=== PATIENT | male | born 1935 | race Caucasian/White ===

== ENCOUNTER 2022-02-01 22:00 | Inpatient (IN) ==
[2022-02-01] MEDS ORDERED: CEFEPIME 2,000 MG/20 ML VIAL IV STA (22:25)
[2022-02-01] MEDS ORDERED: SODIUM CHLORIDE 0.9% 1000ML 1,000 ML IV SCH (22:30)
--- NOTE | 2022-02-01 22:32 | Emergency Department Note ---
History of Present Illness General Chief complaint: Fever Stated complaint: CHEMO, FEVER 103.9 Time Seen by Provider: 02/01/22 22:12 Source: patient and family Mode of arrival: wheelchair Limitations: physical limitation History of Present Illness Provider complaint: fever This is an 86-year-old male presents emergency department due to concern for fever. Patient is currently receiving chemotherapy for treatment of lung cancer with metastases per his report. Patient states this is his second cycle of chemotherapy and his second dose was Friday. He states he has been increasingly fatigued since Friday but never developed a fever until this evening. states he got as high as 103.9. He did receive a packet of Tylenol that was flushed through his feeding tube. She states the feeding tube has been working easily. This the only way he receives food and fluids at home. Patient does have a port. They state his oncologist is Dr. Cornell. Family at bedside states they have not noticed any change in stools. They state he does have an indwelling Fowler catheter. They states this was changed earlier today. States PCP is a Dr. Sharma in [place]. Patient denies chest pain, shortness of breath. States he does have a chronic cough that is nonproductive. He denies abdominal pain, vomiting or diarrhea. Patient states the plan was for him to do chemotherapy followed by radiation and then surgery for the tumor in his tongue. Pt seen during a time of high acuity and national emergency pandemic while wearing PPE. Home Medications Medication Instructions Recorded Confirmed Type amlodipine 5 mg tablet 5 mg PO BID 02/01/22 02/01/22 History aspirin 81 mg tablet,delayed 81 mg PO DAILY 02/01/22 02/01/22 History release atorvastatin 40 mg tablet 40 mg PO HS 02/01/22 02/01/22 History clopidogrel 75 mg tablet 75 mg PO QAM 02/01/22 02/01/22 History dexamethasone 4 mg tablet 20 mg PO UD 02/01/22 02/01/22 History docusate sodium 100 mg capsule 100 mg PO BID PRN Constipation 02/01/22 02/01/22 History febuxostat 40 mg tablet 40 mg PO QAM 02/01/22 02/01/22 History isosorbide mononitrate 120 mg 120 mg PO DAILY 02/01/22 02/01/22 History tablet,extended release 24 hr metoprolol tartrate 25 mg tablet 25 mg PO BID 02/01/22 02/01/22 History pentoxifylline 400 mg 400 mg PO BID 02/01/22 02/01/22 History tablet,extended release polyethylene glycol 3350 17 17 g PO DAILY PRN Constipation 02/01/22 02/01/22 History gram/dose oral powder prochlorperazine maleate 10 mg 10 mg PO Q8 PRN Nausea And Vomiting 02/01/22 02/01/22 History tablet tamsulosin 0.4 mg capsule 0.4 mg PO DAILY 02/01/22 02/01/22 History Allergies Allergy/AdvReac Type Severity Reaction Status Date / Time No Known Allergies Allergy Unverified 02/01/22 23:10 Past Med/Surg History Social History Smoking Status: Former smoker Hx Alcohol Use: No Hx Substance Use: No Preferred Language: Maltese Communication Ability: Effective General Accounting Manager Required: No Beliefs That Will Affect Care: None marital status: Current Living Situation: Spouse Feels Safe at Home: Yes Assistive Devices: Walker Review of Systems A total of 10 systems reviewed and were otherwise negative All systems reviewed & are unremarkable except as noted in HPI & below Physical Exam Vital Signs Vital Signs - 24 hr 02/01/22 22:05 02/01/22 22:25 02/01/22 22:55 Temperature 38.6 C H Temperature Source Temporal Artery Scan Pulse Rate 112 H Respiratory Rate 18 Respiratory Effort / Characteristics Non-Labored Spontaneous Non-Labored Non-Labored Respiratory Depth Normal Blood Pressure 124/49 L Blood Pressure Mean 74 Pulse Oximetry 95 Oxygen Delivery Method Room Air Sepsis Recent Fever Within 48 Hours Yes Sepsis New/Unexplained Change in Mental Status No Sepsis Action Taken by Nursing No Action Required 02/01/22 23:25 02/01/22 23:47 Temperature Temperature Source Pulse Rate 98 H Respiratory Rate 19 Respiratory Effort / Characteristics Non-Labored Respiratory Depth Blood Pressure 101/56 L Blood Pressure Mean 71 Pulse Oximetry 99 Oxygen Delivery Method Room Air Sepsis Recent Fever Within 48 Hours Sepsis New/Unexplained Change in Mental Status Sepsis Action Taken by Nursing GENERAL: alert, unwell appearing, no distress, non-toxic EYE EXAM: normal conjunctiva, PERRL and EOM's grossly intact OROPHARYNX: no exudate, no erythema, lips, buccal mucosa, and tongue normal and mucous membranes are moist NECK: supple, no nuchal rigidity, no adenopathy, non-tender LUNGS: Clear to auscultation. Normal chest wall mechanics, no w/r/r HEART: no murmurs, S1 normal and S2 normal, port left anterior superior chest wall ABDOMEN: abdomen soft, non-tender, normo-active bowel sounds, no masses, no rebound or guarding. Feeding tube noted left upper quadrant, mild drainage surrounding stoma, evidence of vascular bypass noted bilateral inguinal region BACK: Back is symmetrical on inspection and there is no deformity, no midline tenderness, no CVA tenderness. SKIN: no rashes and no bruising, no petechiae UPPER EXTREMITIES: upper extremities are grossly normal. FROM, nml pulses b/l. LOWER EXTREMITIES: No pitting edema. FROM, nml pulses b/l. Fowler catheter leg bag in place RLE. NEURO EXAM: Normal sensorium, cranial nerves II-XII grossly intact, normal speech, no gross weakness of arms, no gross weakness of legs. Gross sensation intact. Course Course 0015: VS stable. states Fowler catheter was first placed 3 days ago when he could not urinate and had increased swelling to his lower abdomen. states this was done in [place]. 0022: Discussed with Dr. Tsang. Administered Medications Aspirin (Aspirin 81 Mg Ectab) 81 mg PO DAILY [facility] Stop: 03/04/22 08:59 Last Admin: 02/03/22 08:48 Dose: 81 mg Documented By: Admin: 02/02/22 08:49 Dose: 81 mg Documented By: CÉSAR Atorvastatin Calcium (Atorvastatin 40 Mg Tab) 40 mg PO [facility] Stop: 03/04/22 20:59 Last Admin: 02/03/22 20:48 Dose: 40 mg Documented By: Admin: 02/02/22 21:50 Dose: 40 mg Documented By: DON Clopidogrel Bisulfate (Clopidogrel Bisulfate 75 Mg Tab) [facility] Stop: 03/04/22 08:59 Last Admin: 02/03/22 08:48 Dose: 75 mg Documented By: Admin: 02/02/22 08:49 Dose: 75 mg Documented By: CÉSAR Enteral Nutritional Formula (Peptamen 1.5 Keith 1,000 Ml Bag) 1,000 ml PEG UD [facility]; Protocol Stop: 03/04/22 15:14 Last Admin: 02/03/22 22:22 Dose: 1,000 ml Documented By: Admin: 02/02/22 16:51 Dose: 1,000 ml Documented By: LOBITO Heparin Sodium (Porcine) (Heparin Sod 5,000 Unit/0.5 Ml Vial) 5,000 units SQ Q12 FLO Stop: 03/04/22 08:59 Last Admin: 02/03/22 20:48 Dose: 5,000 units Documented By: Admin: 02/03/22 08:50 Dose: 5,000 units Documented By: Admin: 02/02/22 21:49 Dose: 5,000 units Documented By: Admin: 02/02/22 08:50 Dose: 5,000 units Documented By: CÉSAR Piperacillin Sod/Tazobactam (Sod 3.375 gm/ Dextrose) 115 mls @ 28.75 mls/hr IV Q12H FLO; Protocol Stop: 02/03/22 23:59 Last Admin: 02/03/22 20:47 Dose: 28.8 mls/hr Documented By: Infusion: 02/03/22 13:40 Dose: 0 mls/hr Documented By: Admin: 02/03/22 08:47 Dose: 28 mls/hr Documented By: Infusion: 02/03/22 07:15 Dose: 0 mls/hr Documented By: Admin: 02/02/22 21:49 Dose: 29 mls/hr Documented By: Infusion: 02/02/22 15:17 Dose: 0 mls/hr Documented By: Admin: 02/02/22 09:09 Dose: 28.8 mls/hr Documented By: CÉSAR Metoprolol Tartrate (Metoprolol Tartrate 25 Mg Tab) 25 mg PO BID FLO Stop: 03/04/22 08:59 Last Admin: 02/03/22 20:47 Dose: 25 mg Documented By: Admin: 02/03/22 08:49 Dose: 25 mg Documented By: Admin: 02/02/22 21:50 Dose: 25 mg Documented By: Admin: 02/02/22 08:51 Dose: 25 mg Documented By: CÉSAR Miscellaneous (Febuxostat - Order Awaiting Action) 1 each N/A QS FLO Stop: 03/04/22 07:59 Last Admin: 02/03/22 17:04 Dose: 1 each Documented By: Admin: 02/03/22 09:07 Dose: Not Given Documented By: Admin: 02/03/22 09:07 Dose: Not Given Documented By: Admin: 02/03/22 09:06 Dose: Not Given Documented By: Admin: 02/03/22 08:44 Dose: Not Given Documented By: TRH Pentoxifylline (Pentoxifylline 400mg Ext Rel Tab) 400 mg PO BID FLO Stop: 03/04/22 08:59 Last Admin: 02/03/22 20:48 Dose: 400 mg Documented By: Admin: 02/03/22 08:49 Dose: 400 mg Documented By: Admin: 02/02/22 21:50 Dose: 400 mg Documented By: Admin: 02/02/22 08:51 Dose: 400 mg Documented By: CÉSAR Sterile Water (Tube Feeding Water Flush) 120 ml PEG Q4H FLO Stop: 03/04/22 15:14 Last Admin: 02/03/22 20:48 Dose: 120 ml Documented By: Admin: 02/03/22 17:03 Dose: Not Given Documented By: Admin: 02/03/22 12:00 Dose: 120 ml Documented By: Admin: 02/03/22 07:15 Dose: 120 ml Documented By: Admin: 02/03/22 03:15 Dose: 120 ml Documented By: business management manager: 02/02/22 23:15 Dose: 120 ml Documented By: business management manager: 02/02/22 20:00 Dose: 120 ml Documented By: Admin: 02/02/22 16:51 Dose: 120 ml Documented By: SLClarisse Tamsulosin HCl (Tamsulosin Hcl 0.4 Mg Cap) 0.4 mg PO DAILY FLO Stop: 03/04/22 08:59 Last Admin: 02/03/22 08:49 Dose: 0.4 mg Documented By: Admin: 02/02/22 08:51 Dose: 0.4 mg Documented By: CÉSAR Discontinued Medications Amlodipine Besylate (Amlodipine Besylate 5 Mg Tab) 5 mg PO BID FLO Stop: 03/04/22 08:59 Last Admin: 02/02/22 21:50 Dose: 5 mg Documented By: Admin: 02/02/22 08:48 Dose: 5 mg Documented By: CÉSAR Heparin Sodium (Porcine) (Heparin 100 Unit/Ml 5ml Flush) Confirm Administered Dose 5 ml .ROUTE .STK-MED ONE Stop: 02/02/22 13:24 Last Admin: 02/03/22 07:25 Dose: Not Given Documented By: TRH Sodium Chloride (Nss 1000ml) 1,000 mls @ 999 mls/hr IV .Q1H1M FLO Stop: 02/01/22 23:30 Last Infusion: 02/02/22 00:01 Dose: 0 mls/hr Documented By: Admin: 02/01/22 22:59 Dose: 999 mls/hr Documented By: DP Cefepime HCl (Maxipime) 2,000 mg in 20 mls @ 5 mls/min IV NOW STA; Protocol Stop: 02/01/22 22:28 Last Admin: 02/01/22 22:59 Dose: 5 mls/min Documented By: DP Acetaminophen (Ofirmev) 1,000 mg in 100 mls @ 400 mls/hr IV NOW STA Stop: 02/02/22 00:18 Last Infusion: 02/02/22 00:44 Dose: 0 mls/hr Documented By: Admin: 02/02/22 00:29 Dose: 400 mls/hr Documented By: DP Sodium Chloride (Nss 1000ml) 1,000 mls @ 999 mls/hr IV .Q1H1M ONE Stop: 02/02/22 01:23 Last Infusion: 02/02/22 02:19 Dose: 0 mls/hr Documented By: Admin: 02/02/22 01:18 Dose: 999 mls/hr Documented By: DP Sodium Chloride (Nss 1000ml) 1,000 mls @ 75 mls/hr IV .[id number] FLO Stop: 02/03/22 06:15 Last Infusion: 02/03/22 07:15 Dose: 0 mls/hr Documented By: Admin: 02/02/22 17:31 Dose: 75 mls/hr Documented By: Infusion: 02/02/22 17:31 Dose: 75 mls/hr Documented By: Admin: 02/02/22 04:21 Dose: 75 mls/hr Documented By: JESSENIA Isosorbide Mononitrate (Isosorbide [place] Extended Rel 60 Mg Tabcr) 120 mg PO DAILY [facility] Stop: 03/04/22 08:59 Last Admin: 02/02/22 08:50 Dose: 120 mg Documented By: CÉSAR Miscellaneous (Patient's Height &/Or Weight Needed) 1 each N/A Q2H FLO Stop: 03/04/22 03:59 Last Admin: 02/02/22 04:01 Dose: 1 each Documented By: JESSENIA Critical Care Time Critical Care Time: Yes Total Critical Care Time: 35 Critical care of 35 min performed to assess and manage high likelihood of life- threatening sepsis, involving labs and imaging performed with assessment to evaluate fever in immunocompromised patient diagnosis with frequent triny ssessment. This time includes bedside time, treatment discussions with patient/family/consultants, documentation time and excludes procedure time. Medical Decision Making Differential Diagnosis Differential diagnosis: Etiologies such as viral syndrome, otitis, pharyngitis, pneumonia, influenza, meningitis, urinary tract infection, sepsis, bacteremia, as well as others were entertained. Medical Records Attestation: I reviewed the patient's medical records. Home Medications Current Medication List: was personally reviewed by me Laboratory Data Attestation: I reviewed the patient's lab results. Result diagrams: 02/02/22 08:57 02/02/22 08:57 Lab Results 02/01/22 02/01/22 02/01/22 Range/Units 23:02 23:02 23:02 WBC 6.06 (4.8-10.8) K/ul RBC 2.46 L (4.63-6.08) M/uL Hgb 7.5 L (14.0-18.0) g/dl Hct 23.4 L (40.1-51.0) % MCV 95.1 (80.0-100.0) fL MCH 30.5 (25.0-34.0) pg MCHC 32.1 (32.0-36.0) g/dL RDW Std Deviation 52.5 H (36.4-46.3) fL RDW Coeff of [place] 15.3 H (11.5-14.5) % Plt Count 254 (130-400) K/uL MPV 10.3 (9.4-12.4) fL Immature Gran % (Auto) 0.8 % Neut % (Auto) 91.4 % Lymph % (Auto) 5.0 % [place] % (Auto) 2.1 % Eos % (Auto) 0.5 % Baso % (Auto) 0.2 % Neut # (Auto) 5.54 (1.4-6.5) K/uL Lymph # (Auto) 0.30 L (1.2-3.4) K/uL [place] # (Auto) 0.13 L (0.24-0.82) K/uL Eos # (Auto) 0.03 (0-0.50) K/uL Baso # (Auto) 0.01 (0-0.2) K/uL Immature Gran # (Auto) 0.05 H (0.00-0.02) K/uL RBC Morphology Unremarkable PT 11.9 (9.0-12.0) Seconds INR 1.1 (0.9-1.1) Sodium 134 L (136-145) mmol/L Potassium 4.0 (3.5-5.1) mmol/L Chloride 101 (98-107) mmol/L Carbon Dioxide 25 (21-32) mmol/L Anion Gap 8 (3-11) BUN 81 H (6-23) mg/dl Creatinine 1.75 H (0.6-1.4) mg/dl Est Cr Clr Drug Dosing Not Reportable Est GFR ( Amer) 39.7 ml/min Est GFR (Non-Af Amer) 34.3 ml/min BUN/Creatinine Ratio 46.3 H (10-20) Glucose 123 H (70-99(Fasting)) mg/dl Lactate (0.4-2.0) mmol/L Calcium 7.5 L (8.5-10.1) mg/dl Magnesium 2.0 (1.7-2.4) mg/dl Total Bilirubin 0.7 (0.2-1.0) mg/dl AST 26 (13-39) U/L ALT 51 (7-52) U/L Alkaline Phosphatase 67 (34-104) U/L Troponin I High Sens 38.7 H (0-20) pg/ml Total Protein 5.6 L (6.0-8.3) gm/dl Albumin 2.9 L (3.4-5.0) gm/dl Globulin 2.7 (2.5-4.0) gm/dl Albumin/Globulin Ratio 1.1 (0.9-2) Procalcitonin (0-0.5) ng/ml Urine Color Urine Appearance (Clear) Urine pH (4.5-7.5) Ur Specific [place] (1.000-1.030) Urine Protein (Negative) Urine Glucose (UA) (Negative) Urine Ketones (Negative) Urine Blood (Negative) Urine Nitrite (Negative) Urine Bilirubin (Negative) Urine Urobilinogen (Negative) Ur Leukocyte Esterase (Negative) Urine WBC (Auto) (0-5) /hpf Urine RBC (Auto) (0-4) /hpf U Hyaline Cast (Auto) (0-5) /lpf U Epithel Cells (Auto) (0-5) /lpf Urine Bacteria (Auto) (Negative) Ur Renal Epithelial Cell Urine Yeast Adenovirus (PCR) (NotDetected) B. pertussis DNA (PCR) (NotDetected) B.parapertussis DNA PCR (NotDetected) C. pneumoniae DNA (PCR) (NotDetected) Coronavirus OC43 (PCR) (NotDetected) Coronavirus HKU1 (PCR) (NotDetected) Coronavirus 229E (PCR) (NotDetected) SARS-CoV-2 (PCR) (NotDetected) Coronavirus NL63 (PCR) (NotDetected) Human Metapneumovir PCR (NotDetected) Influenza Type A (PCR) (NotDetected) Influenza Type B (PCR) (NotDetected) M. pneumoniae (PCR) (NotDetected) Parainfluenza 1 (PCR) (NotDetected) Parainfluenza 2 (PCR) (NotDetected) Parainfluenza 3 (PCR) (NotDetected) Parainfluenza 4 (PCR) (NotDetected) RSV (PCR) (NotDetected) Entero/Rhino (PCR) (NotDetected) Staphylococcus sp PCR (NotDetected) Staph aureus (PCR) (NotDetected) mecA/C & MREJ Resist Gene (NotDetected) Bld Cult ID Panel PCR (NotDetected) 02/01/22 02/01/22 02/01/22 Range/Units 23:02 23:02 23:02 WBC (4.8-10.8) K/ul RBC (4.63-6.08) M/uL Hgb (14.0-18.0) g/dl Hct (40.1-51.0) % MCV (80.0-100.0) fL MCH (25.0-34.0) pg MCHC (32.0-36.0) g/dL RDW Std Deviation (36.4-46.3) fL RDW Coeff of [place] (11.5-14.5) % Plt Count (130-400) K/uL MPV (9.4-12.4) fL Immature Gran % (Auto) % Neut % (Auto) % Lymph % (Auto) % [place] % (Auto) % Eos % (Auto) % Baso % (Auto) % Neut # (Auto) (1.4-6.5) K/uL Lymph # (Auto) (1.2-3.4) K/uL [place] # (Auto) (0.24-0.82) K/uL Eos # (Auto) (0-0.50) K/uL Baso # (Auto) (0-0.2) K/uL Immature Gran # (Auto) (0.00-0.02) K/uL RBC Morphology PT (9.0-12.0) Seconds INR (0.9-1.1) Sodium (136-145) mmol/L Potassium (3.5-5.1) mmol/L Chloride (98-107) mmol/L Carbon Dioxide (21-32) mmol/L Anion Gap (3-11) BUN (6-23) mg/dl Creatinine (0.6-1.4) mg/dl Est Cr Clr Drug Dosing Est GFR ( Amer) ml/min Est GFR (Non-Af Amer) ml/min BUN/Creatinine Ratio (10-20) Glucose (70-99(Fasting)) mg/dl Lactate 1.4 (0.4-2.0) mmol/L Calcium (8.5-10.1) mg/dl Magnesium (1.7-2.4) mg/dl Total Bilirubin (0.2-1.0) mg/dl AST (13-39) U/L ALT (7-52) U/L Alkaline Phosphatase (34-104) U/L Troponin I High Sens (0-20) pg/ml Total Protein (6.0-8.3) gm/dl Albumin (3.4-5.0) gm/dl Globulin (2.5-4.0) gm/dl Albumin/Globulin Ratio (0.9-2) Procalcitonin 2.98 H (0-0.5) ng/ml Urine Color Urine Appearance (Clear) Urine pH (4.5-7.5) Ur Specific [place] (1.000-1.030) Urine Protein (Negative) Urine Glucose (UA) (Negative) Urine Ketones (Negative) Urine Blood (Negative) Urine Nitrite (Negative) Urine Bilirubin (Negative) Urine Urobilinogen (Negative) Ur Leukocyte Esterase (Negative) Urine WBC (Auto) (0-5) /hpf Urine RBC (Auto) (0-4) /hpf U Hyaline Cast (Auto) (0-5) /lpf U Epithel Cells (Auto) (0-5) /lpf Urine Bacteria (Auto) (Negative) Ur Renal Epithelial Cell Urine Yeast Adenovirus (PCR) (NotDetected) B. pertussis DNA (PCR) (NotDetected) B.parapertussis DNA PCR (NotDetected) C. pneumoniae DNA (PCR) (NotDetected) Coronavirus OC43 (PCR) (NotDetected) Coronavirus HKU1 (PCR) (NotDetected) Coronavirus 229E (PCR) (NotDetected) SARS-CoV-2 (PCR) (NotDetected) Coronavirus NL63 (PCR) (NotDetected) Human Metapneumovir PCR (NotDetected) Influenza Type A (PCR) (NotDetected) Influenza Type B (PCR) (NotDetected) M. pneumoniae (PCR) (NotDetected) Parainfluenza 1 (PCR) (NotDetected) Parainfluenza 2 (PCR) (NotDetected) Parainfluenza 3 (PCR) (NotDetected) Parainfluenza 4 (PCR) (NotDetected) RSV (PCR) (NotDetected) Entero/Rhino (PCR) (NotDetected) Staphylococcus sp PCR DETECTED A (NotDetected) Staph aureus (PCR) DETECTED A (NotDetected) mecA/C & MREJ Resist Gene MRSA Not Detected (NotDetected) Bld Cult ID Panel PCR See PCR Comment (NotDetected) 02/01/22 02/02/22 Range/Units 23:14 00:32 WBC (4.8-10.8) K/ul RBC (4.63-6.08) M/uL Hgb (14.0-18.0) g/dl Hct (40.1-51.0) % MCV (80.0-100.0) fL MCH (25.0-34.0) pg MCHC (32.0-36.0) g/dL RDW Std Deviation (36.4-46.3) fL RDW Coeff of [place] (11.5-14.5) % Plt Count (130-400) K/uL MPV (9.4-12.4) fL Immature Gran % (Auto) % Neut % (Auto) % Lymph % (Auto) % [place] % (Auto) % Eos % (Auto) % Baso % (Auto) % Neut # (Auto) (1.4-6.5) K/uL Lymph # (Auto) (1.2-3.4) K/uL [place] # (Auto) (0.24-0.82) K/uL Eos # (Auto) (0-0.50) K/uL Baso # (Auto) (0-0.2) K/uL Immature Gran # (Auto) (0.00-0.02) K/uL RBC Morphology PT (9.0-12.0) Seconds INR (0.9-1.1) Sodium (136-145) mmol/L Potassium (3.5-5.1) mmol/L Chloride (98-107) mmol/L Carbon Dioxide (21-32) mmol/L Anion Gap (3-11) BUN (6-23) mg/dl Creatinine (0.6-1.4) mg/dl Est Cr Clr Drug Dosing Est GFR ( Amer) ml/min Est GFR (Non-Af Amer) ml/min BUN/Creatinine Ratio (10-20) Glucose (70-99(Fasting)) mg/dl Lactate (0.4-2.0) mmol/L Calcium (8.5-10.1) mg/dl Magnesium (1.7-2.4) mg/dl Total Bilirubin (0.2-1.0) mg/dl AST (13-39) U/L ALT (7-52) U/L Alkaline Phosphatase (34-104) U/L Troponin I High Sens (0-20) pg/ml Total Protein (6.0-8.3) gm/dl Albumin (3.4-5.0) gm/dl Globulin (2.5-4.0) gm/dl Albumin/Globulin Ratio (0.9-2) Procalcitonin (0-0.5) ng/ml Urine Color Yellow Urine Appearance Turbid A (Clear) Urine pH 6.5 (4.5-7.5) Ur Specific [place] 1.013 (1.000-1.030) Urine Protein 2+ H (Negative) Urine Glucose (UA) Negative (Negative) Urine Ketones Negative (Negative) Urine Blood 3+ H (Negative) Urine Nitrite Positive A (Negative) Urine Bilirubin Negative (Negative) Urine Urobilinogen Negative (Negative) Ur Leukocyte Esterase 3+ H (Negative) Urine WBC (Auto) >30 H (0-5) /hpf Urine RBC (Auto) >30 H (0-4) /hpf U Hyaline Cast (Auto) 0 (0-5) /lpf U Epithel Cells (Auto) >30 H (0-5) /lpf Urine Bacteria (Auto) 4+ H (Negative) Ur Renal Epithelial Cell Not Reportable Urine Yeast Not Reportable Adenovirus (PCR) Not Detected (NotDetected) B. pertussis DNA (PCR) Not Detected (NotDetected) B.parapertussis DNA PCR Not Detected (NotDetected) C. pneumoniae DNA (PCR) Not Detected (NotDetected) Coronavirus OC43 (PCR) Not Detected (NotDetected) Coronavirus HKU1 (PCR) Not Detected (NotDetected) Coronavirus 229E (PCR) Not Detected (NotDetected) SARS-CoV-2 (PCR) Not Detected (NotDetected) Coronavirus NL63 (PCR) Not Detected (NotDetected) Human Metapneumovir PCR Not Detected (NotDetected) Influenza Type A (PCR) Not Detected (NotDetected) Influenza Type B (PCR) Not Detected (NotDetected) M. pneumoniae (PCR) Not Detected (NotDetected) Parainfluenza 1 (PCR) Not Detected (NotDetected) Parainfluenza 2 (PCR) Not Detected (NotDetected) Parainfluenza 3 (PCR) Not Detected (NotDetected) Parainfluenza 4 (PCR) Not Detected (NotDetected) RSV (PCR) Not Detected (NotDetected) Entero/Rhino (PCR) Not Detected (NotDetected) Staphylococcus sp PCR (NotDetected) Staph aureus (PCR) (NotDetected) mecA/C & MREJ Resist Gene (NotDetected) Bld Cult ID Panel PCR (NotDetected) ECG Data Attestation: I personally reviewed and interpreted this ECG as follows: Indication: + weakness Rate (beats per minute): 98 Rhythm: + normal sinus ECG Intervals/blocks: + Normal QRS and + Normal QT ECG [place]: + Normal ECG ST segments: + Normal ST segments MDM Narrative An order was placed for continuous cardiac monitoring. The monitor shows a rate of _68__ with _normal sinus__ rhythm. This is an elderly male who presents with fever in the setting of current chemotherapy. Patient had no complaints other than fatigue. Patient and difficult medical historians. No prior records in the EMR. 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 They state he also recently had a fowler catheter placed for acute urinary retention. Patient denied pain. Patient did have a fever on arrival and was initially tachycardic. A septic work up was started and patient given cefepime empirically after cultures obtained. Elevated Cr found however unclear if this is new or old. Elevated procalcitonin consistent with evolving infection. CXR with evidence of mets and patient was aware of this. Urine clear and yellow from catheter bag however given indwelling catheter this may likely be the source of infection. G tube in place with mild drainage noted at site. stated this was placed only weeks ago and is working normally. CAse discussed with hospitalist for additional evaluation and mgmt. Patient was given 30 ml/kg while in the ER. Patient was reassessed multiple times and VS stable while in the ER, fever treated with tylenol. Biofire negative. Impression & Plan Fever, Tongue cancer, Irritation around percutaneous endoscopic gastrostomy (PEG) tube site, Indwelling Fowler catheter present, Elevated procalcitonin Discharge Plan Visit Data Chief Complaint: Fever Stated Complaint: CHEMO, FEVER 103.9 ED Provider: Mariely Garcia Discharge Problem: Fever, Tongue cancer, Irritation around percutaneous endoscopic gastrostomy (PEG) tube site, Indwelling Fowler catheter present, Elevated procalcitonin Patient Disposition: Admitted As Inpatient Discharge Instructions Interventions: ED Discharge Assessment Last Done: 02/03/22 16:30
[2022-02-01 23:15] LABS: Hematocrit (blood only) 23.4 % (40.1-51.0); Hemoglobin 7.5 g/dl (14.0-18.0); Mean Corpuscular Hemoglobin 30.5 pg (25.0-34.0); Mean Corpuscular Hgb Conc 32.1 g/dL (32.0-36.0); Mean Corpuscular Volume 95.1 fL (80.0-100.0); Mean Platelet Volume 10.3 fL (9.4-12.4); Platelet Count 254 K/uL (130-400); RDW Coefficient of Variation 15.3 % (11.5-14.5); RDW Standard Deviation 52.5 fL (36.4-46.3); Red Blood Count 2.46 M/uL (4.63-6.08); White Blood Count 6.06 K/ul (4.8-10.8)
[2022-02-01 23:43] LABS: Alanine Aminotransferase 51 U/L (7-52); Albumin Globulin Ratio 1.1 (0.9-2); Albumin Level 2.9 gm/dl (3.4-5.0); Alkaline Phosphatase 67 U/L (34-104); Anion Gap 8 (3-11); Aspartate Aminotransferase 26 U/L (13-39); BUN Creatinine Ratio 46.3 (10-20); Bilirubin,Total 0.7 mg/dl (0.2-1.0); Blood Urea Nitrogen 81 mg/dl (6-23); Calcium 7.5 mg/dl (8.5-10.1); Carbon Dioxide 25 mmol/L (21-32); Chloride 101 mmol/L (98-107); Est GFR (African American) 39.7 ml/min; Est GFR (Non-African American) 34.3 ml/min; Globulin 2.7 gm/dl (2.5-4.0); Glucose 123 mg/dl (70-99(Fasting)); Sodium 134 mmol/L (136-145); Total Protein 5.6 gm/dl (6.0-8.3); Troponin I High Sensitivity 38.7 pg/ml (0-20)
[2022-02-01 23:45] LABS: INR 1.1 (0.9-1.1); Prothrombin Time 11.9 Seconds (9.0-12.0)
[2022-02-02] MEDS ORDERED: ACETAMINOPHEN 1,000 MG/100 ML VIAL IV STA (00:04)
[2022-02-02 00:17] LABS: Basophils # (auto) 0.01 K/uL (0-0.2); Basophils % (auto) 0.2 %; Eosinophils # (auto) 0.03 K/uL (0-0.50); Eosinophils % (auto) 0.5 %; Immature Granulocytes # (auto) 0.05 K/uL (0.00-0.02); Immature Granulocytes % (auto) 0.8 %; Monocytes # (auto) 0.13 K/uL (0.24-0.82); Monocytes % (auto) 2.1 %; Neutrophils # (auto) 5.54 K/uL (1.4-6.5); Neutrophils % (auto) 91.4 %; RBC Morphology Unremarkable
[2022-02-02] MEDS ORDERED: SODIUM CHLORIDE 0.9% 1000ML 1,000 ML IV ONE (00:23)
[2022-02-02 00:51] LABS: Adenovirus PCR Not Detected (NotDetected); Bordetella parapertussis PCR Not Detected (NotDetected); Bordetella pertussis PCR Not Detected (NotDetected); Chlamydia pneumoniae PCR Not Detected (NotDetected); Coronavirus 229E PCR Not Detected (NotDetected); Coronavirus CoV-2 (COVID19)PCR Not Detected (NotDetected); Coronavirus HKU1 PCR Not Detected (NotDetected); Coronavirus NL63 PCR Not Detected (NotDetected); Coronavirus OC43PCR Not Detected (NotDetected); Human Metapneumovirus PCR Not Detected (NotDetected); Influenza A PCR Not Detected (NotDetected); Influenza B PCR Not Detected (NotDetected); Mycoplasma pneumoniae PCR Not Detected (NotDetected); Parainfluenza Virus 1 PCR Not Detected (NotDetected); Parainfluenza Virus 2 PCR Not Detected (NotDetected); Parainfluenza Virus 3 PCR Not Detected (NotDetected); Parainfluenza Virus 4 PCR Not Detected (NotDetected); Respiratory Syncytial VirusPCR Not Detected (NotDetected); Rhinovirus/Enterovirus PCR Not Detected (NotDetected)
[2022-02-02 01:38] LABS: Appearance Urine Turbid (Clear); Bacteria Urine Automated 4+ (Negative); Bilirubin Urine Negative (Negative); Blood Urine 3+ (Negative); Color Urine Yellow; Epithelial Cell Urine Auto >30 /lpf (0-5); Glucose Urine UA Negative (Negative); Ketones Urine Negative (Negative); Leukocyte Esterase Urine 3+ (Negative); Nitrite Urine Positive (Negative); Protein Urine 2+ (Negative); Specific Gravity Urine 1.013 (1.000-1.030); Urobilinogen Urine Negative (Negative); WBC Urine Automated >30 /hpf (0-5); pH Urine 6.5 (4.5-7.5)
[2022-02-02 02:18] LABS: Cast Urine Automated 0 /lpf (0-5); RBC Urine Automated >30 /hpf (0-4)
[2022-02-02] MEDS ORDERED: PROCHLORPERAZINE MALEATE 10 MG TAB PO PRN (03:36)
[2022-02-02] MEDS ORDERED: DOCUSATE SODIUM 100 MG CAP PO PRN (03:36)
[2022-02-02] MEDS ORDERED: ACETAMINOPHEN 325 MG TAB PO PRN (03:36)
[2022-02-02] MEDS ORDERED: POLYETHYLENE (MIRALAX) 17 GM PACK PO PRN (03:36)
[2022-02-02] MEDS ORDERED: NITROGLYCERIN SL 0.4 MG/TAB TAB SL PRN (03:36)
[2022-02-02] MEDS ORDERED: Patient's HEIGHT &/or WEIGHT Needed SCH (04:00)
[2022-02-02] MEDS: SODIUM CHLORIDE 0.9% 1000ML 1,000 ML IV SCH ×2 (04:21→17:31)
--- NOTE | 2022-02-02 05:20 | History and Physical Report ---
DATE OF ADMISSION: 02/02/2022. CHIEF COMPLAINT: Fever. 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 He had a second cycle of chemotherapy last Friday. As per he had a PEG tube placed about a couple of weeks ago in [place]. A couple of days ago, he had some abdominal pain and urinary retention, was placed on Quinonez catheter in [facility] .As per the [facility] records, the patient about a week ago, had embolization done for bleeding from his throat or tongue lesion.Also had vascular bypass done for his peripheral vascular disease in the past. It looks like he also has some renal insufficiency. The patient also had a port placed recently as well. Today in the evening his temperature was high at 103 degrees. His oncologist is Dr. Cornell. His called Dr. Cornell and he advised to come to the [facility] to get evaluated by the urology, because he just a couple of days ago had Quinonez catheter placed. The patient is resting comfortably, hemodynamically stable. He denies any headache. He says he has some mild neck pain. No chest pain, no back pain, no abdominal pain. He has some right knee pain. Not eating, he is on tube feeds. He says he is tolerating tube feeds okay. Denies any diarrhea or constipation. No shortness of breath. He says he has some mild sore throat, mild cough. Vision is okay. ALLERGIES: No known drug allergies. PAST MEDICAL HISTORY: As mentioned above. PAST SURGICAL HISTORY: Appendectomy, he had A-port placement, PEG tube placement. MEDICATIONS: The patient is on amlodipine 5 mg p.o. b.i.d., aspirin 81 mg p.o. daily, atorvastatin 40 mg p.o. at bedtime, Plavix 75 mg p.o. daily, dexamethasone as directed, Colace 100 mg p.o. b.i.d. p.r.n., febuxostat 40 mg p.o. a.m., isosorbide mononitrate 120 mg p.o. daily, metoprolol tartrate 25 mg p.o. b.i.d., pentoxifylline 400 mg p.o. b.i.d., MiraLax 17 g p.o. daily p.r.n., prochlorperazine 10 mg p.o. q. 8 hours p.r.n., Flomax 0.4 mg p.o. daily. FAMILY HISTORY: Nothing significant. SOCIAL HISTORY: Quit smoking 40 years ago. Drinks 1 beer every day. REVIEW OF SYSTEMS: As per HPI. Rest of the review of systems is negative. PHYSICAL EXAMINATION: GENERAL: The patient is old and frail, not in acute distress. VITAL SIGNS: Temperature T-max 38.6, pulse 93, respiratory rate 18, blood pressure 130/51, oxygen 98% on room air. HEENT: Pupils equal, round, and reactive to light. Oral mucosa dry. NECK: No JVD or neck masses. CARDIOVASCULAR: S1 and S2 heard. Regular rate and rhythm. No murmur, no gallop. RESPIRATORY SYSTEM: Normal AP diameter. No accessory muscle use. No wheezing, no crackles. ABDOMEN: Soft, bowel sounds present. PEG tube site has some slight pus seen. Nontender, no distention. CENTRAL NERVOUS SYSTEM: Alert and awake. No facial droop. Speech is okay. Insight is okay. Moves extremities. EXTREMITIES: No edema, no erythema. SKIN: A-port site, no obvious infection seen. LABORATORY DATA: WBC 6, hemoglobin 7.5, hematocrit 23.4, platelets 254. PT 11.9, INR 1.1. Sodium 134, potassium 4, chloride 101, bicarbonate 25, BUN 81, creatinine 1.75, serum glucose 123, lactate 1.4, calcium 7.5, magnesium 2, total bilirubin 0.7, AST 26, ALT 15, alkaline phosphatase 67. Troponin I high sensitivity 38.7. Procalcitonin 2.98. Urinalysis pending. Respiratory, BioFire negative. IMAGING DATA: Chest x-ray, no acute findings. EKG: Sinus rhythm with sinus arrhythmia with occasional PVCs at a rate of 98, no previous ECGs available. ASSESSMENT AND PLAN: This is an 86-year-old male who was recently diagnosed with tongue and throat cancer with mets to the Lungs, on chemotherapy, comes with fever. 1. Fever: No neutropenia. He had chemotherapy last Friday. ER started on cefepime. Resp biofire negative, MRSA screen negative. UA is grossly positive.Prolactin elevated. There was some infection on the PEG tube site. Will place him on IV Zosyn, follow the cultures. Gentle fluids. Monitor in the [employer] tele. 2. Tongue and throat cancer with mets to the lungs: Management as per hematology/oncology.To get records. 3. Urinary retention: Recently a couple of days ago, placed Quinonez at [place]. Follow the urine cultures. On Flomax, continue Flomax. Consult urology while the patient is in the hospital. 4. History of coronary artery disease: Continue his home metoprolol and isosorbide withholding parameters, on aspirin, statin, and Plavix. 5. Hypertension: Amlodipine, isosorbide mononitrate, and metoprolol. To give Withholding parameters. 6. Possible benign prostatic hypertrophy: With Flomax. 7. Peripheral vascular disease: On aspirin, statin, Plavix, and pentoxifylline. 8. Chronic kidney disease: We do not have the baseline labs, creatinine is 1.75. We will follow the labs. 9. Anemia: Could be from the chemo, ongoing illness. Will follow stool for Hemoccult, iron studies, vitamin B12, folate studies. Blood consent obtained. 10. Deep venous thrombosis prophylaxis: On heparin subcutaneous. If Hemoccult positive, will hold the heparin subcutaneous. DISPOSITION: Closely monitor in the [employer] tele. PT/OT prior to discharge. Social service to help with discharge planning. Job ID: [id number] [facility]
--- NOTE | 2022-02-02 08:32 | XRay Report ---
XR chest 1V portable HISTORY: SEPSIS COMPARISON: None. FINDINGS: The cardiac silhouette is normal in size. No pneumothorax. Calcifications within the aortic knob. Right jugular Port-A-Cath runs at the SVC. Scattered reticulonodular airspace opacities with p atchy bibasilar densities at the lung bases. A gastrostomy tube is noted. There is mild interstitial thickening and a trace right pleural effusion. IMPRESSION: 1. Scattered reticulonodular airspace opacities with patchy bibasilar densities. This favors an atypi arjun pneumonia. 2. Diffuse interstitial thickening and a trace right pleural effusion are also noted. This may repres ent superimposed pulmonary edema. ACT 112: Negative or not required by law. Electronically signed by: Obi Stoner M.D. 02/02/2022 8:30 AM
[2022-02-02] MEDS: amLODIPine BESYLATE 5 MG TAB PO SCH ×2 (08:48→21:50)
[2022-02-02] MEDS: ASPIRIN 81 MG ECTAB PO SCH (08:49)
[2022-02-02] MEDS: CLOPIDOGREL BISULFATE 75 MG TAB PO SCH (08:49)
[2022-02-02] MEDS: HEPARIN SOD 5,000 UNIT/0.5 ML VIAL SQ SCH ×2 (08:50→21:49)
[2022-02-02] MEDS: PENTOXIFYLLINE 400MG EXT REL TAB PO SCH ×2 (08:51→21:50)
[2022-02-02] MEDS: METOPROLOL TARTRATE 25 MG TAB PO SCH ×2 (08:51→21:50)
[2022-02-02] MEDS: TAMSULOSIN HCL 0.4 MG CAP PO SCH (08:51)
[2022-02-02] MEDS ORDERED: ISOSORBIDE MONO EXTENDED REL 60 MG TABCR PO SCH (09:00)
[2022-02-02] MEDS: PIPERACILLIN/TAZOBACTAM 3.375 GM in DEXTROSE 5% 100 ML IV SCH ×2 (09:09→21:49)
--- NOTE | 2022-02-02 09:32 | Urology Consultation ---
Date of Consultation February 02, 2022 Assessment & Plan (1) Urinary retention: Plan 86-year-old male referred to the hospital for fevers and an indwelling Fowler catheter. Has a history of mouth and tongue cancer and is currently undergoing chemotherapy. Limited ability to obtain history so it is unclear how long he has had this catheter or why it was initially placed. It sounds as if it was replaced several days ago. No acute urologic intervention necessary. Recommend maint aining Fowler catheter. This does not need to be exchanged. Urinalysis may be colonized as it is unclear how long he has had this catheter. That being said as he is immunocompromise, continue broad-spectrum antibiotics and follow-up cultures as necessary No further urologic care needed. Urology to sign off. If patient needs urologic follow-up, primary team or oncologist can set up follow-up in our clinic if needed. Unclear who is managing his catheter at this time so would be worthwhile to discuss with family members before discharge to get appropriate follow-up care. History of Present Illness Reason for Consultation: History of indwelling fowler catheter Attending Physician: Tho Odell MD History of Present Illness 86-year-old male who reportedly was sent to the emergency department due to fevers by his oncologist due to having a Fowler catheter in place. Per review of other notes, it sounds as if he had a catheter placed several days ago. When discussing with the patient, he is somewhat of a poor historian and states that he has had a catheter for numerous months but has never had it changed up until several days ago. He denies any previous urologic issues. He does have a history of tongue and throat cancer with metastasis to the lungs and is receiving chemotherapy. He had a PEG tube placed several weeks ago. He also reports that he is scheduled to have radiation. His only complaint today is that he is having trouble breathing. Past medical history includes CAD, hyperlipidemia, hypertension and peripheral vascular disease. He has had a PEG tube and an appendectomy. He smoked but quit 40 years ago. Family history is noncontributory. I reviewed labs which showed a WBC count of 6.06, hemoglobin of 7.5, creatinine of 1.75 with an unknown baseline and a urinalysis that was nitrite positive, 3+ leukocyte esterase, greater than 30 WBCs, greater than 30 RBCs and 4+ bacteria. This may be colonization as it is unclear how long the catheter in place. Allergies Allergy/AdvReac Type Severity Reaction Status Date / Time No Known Allergies Allergy Unverified 02/01/22 23:10 Home Medications Medication Instructions Recorded Confirmed Type amlodipine 5 mg tablet 5 mg PO BID 02/01/22 02/01/22 History aspirin 81 mg tablet,delayed 81 mg PO DAILY 02/01/22 02/01/22 History release atorvastatin 40 mg tablet 40 mg PO HS 02/01/22 02/01/22 History clopidogrel 75 mg tablet 75 mg PO QAM 02/01/22 02/01/22 History dexamethasone 4 mg tablet 20 mg PO UD 02/01/22 02/01/22 History docusate sodium 100 mg capsule 100 mg PO BID PRN Constipation 02/01/22 02/01/22 History febuxostat 40 mg tablet 40 mg PO QAM 02/01/22 02/01/22 History isosorbide mononitrate 120 mg 120 mg PO DAILY 02/01/22 02/01/22 History tablet,extended release 24 hr metoprolol tartrate 25 mg tablet 25 mg PO BID 02/01/22 02/01/22 History pentoxifylline 400 mg 400 mg PO BID 02/01/22 02/01/22 History tablet,extended release polyethylene glycol 3350 17 17 g PO DAILY PRN Constipation 02/01/22 02/01/22 History gram/dose oral powder prochlorperazine maleate 10 mg 10 mg PO Q8 PRN Nausea And Vomiting 02/01/22 02/01/22 History tablet tamsulosin 0.4 mg capsule 0.4 mg PO DAILY 02/01/22 02/01/22 History Patient History Social History Smoking Status: Former smoker Preferred Language: Yoruba Feels Safe at Home: Yes Review of Systems Review of Systems: 14 point review of systems negative outside of what is listed above in HPI Physical Exam Physical Exam: General: Alert and oriented, no acute distress HEENT: Normocephalic, mucous membranes moist Pulmonary: Nonlabored respirations Abdomen: Nondistended, soft, nontender : Circumcised phallus with orthotopic meatus. Fowler catheter draining ezequiel urine. Testicles descended bilaterally and atrophic but otherwise palpably normal. Extremities: Moves all 4 spontaneously Neuro: No gross deficits Skin: Warm, dry, no rashes noted Results & Data ([facility]) Vital Signs (Past 12 Hours) Vital Signs Temp Pulse Resp BP Pulse Ox O2 Del Method 02/02/22 05:00 86 18 162/54 H 93 Room Air 02/02/22 04:00 82 18 131/60 97 Room Air 02/02/22 03:00 74 13 141/60 H 95 Room Air 02/02/22 02:00 89 21 125/79 93 Room Air 02/02/22 01:20 37.2 C 93 H 18 02/02/22 01:00 107 H 19 130/51 L 98 Room Air 02/02/22 00:00 107 H 21 153/48 H 96 Room Air 02/02/22 01:19 37.2 C 02/01/22 23:47 98 H 19 101/56 L 99 Room Air 02/01/22 22:05 38.6 C H 112 H 18 124/49 L 95 Room Air PG Care Time/CCT Total # of Minutes Spent Total Time Spent with Patient: Total time spent is greater than 50% in coordination of care (as documented) at patient's floor/unit and/or counseling patient: Coding Level of Care Code 75705 Initial Inpt Care Lvl 2 Diagnoses Urinary retention R33.9
[2022-02-02 09:45] LABS: Hematocrit (blood only) 23.3 % (40.1-51.0); Hemoglobin 7.5 g/dl (14.0-18.0); Mean Corpuscular Hemoglobin 30.5 pg (25.0-34.0); Mean Corpuscular Hgb Conc 32.2 g/dL (32.0-36.0); Mean Corpuscular Volume 94.7 fL (80.0-100.0); Mean Platelet Volume 10.4 fL (9.4-12.4); Platelet Count 219 K/uL (130-400); RDW Coefficient of Variation 15.3 % (11.5-14.5); RDW Standard Deviation 53.1 fL (36.4-46.3); Red Blood Count 2.46 M/uL (4.63-6.08); White Blood Count 4.85 K/ul (4.8-10.8)
--- NOTE | 2022-02-02 09:57 | Gastrointestinal Consultation ---
Date of Consultation February 02, 2022 Assessment & Plan (1) Irritation around percutaneous endoscopic gastrostomy (PEG) tube site: Please obtain a stat CT scan of the abdomen to assess for PEG tube site infection or abscess formation prior to using the tube. Meanwhile, continue IV ABx. History of Present Illness Attending Physician: Tho Odell MD History of Present Illness 86 years old male patient with known metastatic tongue cancer, follows in [place], getting chemotherapy, had PEG tube placement a month ago, admitted to the hospital with urosepsis and obstructive uropathy, GI consulted for suspected PEG tube site infection, per admitting hospitalist, small amount of pus seen around the tube, patient denies any abdominal pain and no pain around the tube, has been tolerating feeds at home. Allergies Allergy/AdvReac Type Severity Reaction Status Date / Time No Known Allergies Allergy Unverified 02/01/22 23:10 Home Medications Medication Instructions Recorded Confirmed Type amlodipine 5 mg tablet 5 mg PO BID 02/01/22 02/01/22 History aspirin 81 mg tablet,delayed 81 mg PO DAILY 02/01/22 02/01/22 History release atorvastatin 40 mg tablet 40 mg PO HS 02/01/22 02/01/22 History clopidogrel 75 mg tablet 75 mg PO QAM 02/01/22 02/01/22 History dexamethasone 4 mg tablet 20 mg PO UD 02/01/22 02/01/22 History docusate sodium 100 mg capsule 100 mg PO BID PRN Constipation 02/01/22 02/01/22 History febuxostat 40 mg tablet 40 mg PO QAM 02/01/22 02/01/22 History isosorbide mononitrate 120 mg 120 mg PO DAILY 02/01/22 02/01/22 History tablet,extended release 24 hr metoprolol tartrate 25 mg tablet 25 mg PO BID 02/01/22 02/01/22 History pentoxifylline 400 mg 400 mg PO BID 02/01/22 02/01/22 History tablet,extended release polyethylene glycol 3350 17 17 g PO DAILY PRN Constipation 02/01/22 02/01/22 His tory gram/dose oral powder prochlorperazine maleate 10 mg 10 mg PO Q8 PRN Nausea And Vomiting 02/01/22 02/01/22 History tablet tamsulosin 0.4 mg capsule 0.4 mg PO DAILY 02/01/22 02/01/22 History Patient History Social History Smoking Status: Former smoker Preferred Language: Azeri Feels Safe at Home: Yes Review of Systems Eyes: no eye pain and no worsening vision Ear, Nose, Mouth, Throat: no tinnitus, no dizziness, no nasal discharge and no epistaxis Respiratory: no cough, no dyspnea, no dyspnea on exertion and no wheezing Cardiovascular: no chest pain, no orthopnea, no palpitations and no edema Gastrointestinal: as per Subjective / HPI Musculoskeletal: no stiffness and no myalgia Neurologic: no localized weakness, no paralysis, no tremor(s) and no headache(s) Endocrine: no polydipsia and no polyuria Hematologic / Lymphatic: no easy bleeding and no night sweats Physical Exam Constitutional: + well hydrated, cooperative and comfortable Eyes: PERRL, conjunctivae normal, anicteric sclerae ENMT: external ear and nose normal, oropharynx normal Neck: normal visual inspection and trachea midline Respiratory: normal respiratory effort, lungs clear to auscultation Auscultation: no wheezes Cardiovascular: RRR, no murmur, no edema Gastrointestinal (Abdomen): normal bowel sounds, soft, nontender, no hepatosplenomegaly PEG tube intact, bumper at 2 cm ,slight peristomal erythema, gauze around the tube had pus on it. Musculoskeletal: no cyanosis or clubbing, extremities motor strength 5/5 Skin: no rashes, warm and dry Neurologic: awake; no focal motor deficits Motor/Sensory: no tremor Results & Data ([facility]) Vital Signs (Past 12 Hours) Vital Signs Temp Pulse Resp BP Pulse Ox O2 Del Method 02/02/22 05:00 86 18 162/54 H 93 Room Air 02/02/22 04:00 82 18 131/60 97 Room Air 02/02/22 03:00 74 13 141/60 H 95 Room Air 02/02/22 02:00 89 21 125/79 93 Room Air 02/02/22 01:20 37.2 C 93 H 18 02/02/22 01:00 107 H 19 130/51 L 98 Room Air 02/02/22 00:00 107 H 21 153/48 H 96 Room Air 02/02/22 01:19 37.2 C 02/01/22 23:47 98 H 19 101/56 L 99 Room Air 02/01/22 22:05 38.6 C H 112 H 18 124/49 L 95 Room Air Laboratory Results Laboratory Results - last 24 hr 02/01/22 02/01/22 02/01/22 23:02 23:02 23:02 WBC 6.06 RBC 2.46 L Hgb 7.5 L Hct 23.4 L MCV 95.1 MCH 30.5 MCHC 32.1 RDW Std Deviation 52.5 H RDW Coeff of Migdalia 15.3 H Plt Count 254 MPV 10.3 Immature Gran % (Auto) 0.8 Neut % (Auto) 91.4 Lymph % (Auto) 5.0 [place] % (Auto) 2.1 Eos % (Auto) 0.5 Baso % (Auto) 0.2 Neut # (Auto) 5.54 Lymph # (Auto) 0.30 L [place] # (Auto) 0.13 L Eos # (Auto) 0.03 Baso # (Auto) 0.01 Immature Gran # (Auto) 0.05 H RBC Morphology Unremarkable PT 11.9 INR 1.1 Sodium 134 L Potassium 4.0 Chloride 101 Carbon Dioxide 25 Anion Gap 8 BUN 81 H Creatinine 1.75 H Est Cr Clr Drug Dosing Not Reportable Est GFR ( Amer) 39.7 Est GFR (Non-Af Amer) 34.3 BUN/Creatinine Ratio 46.3 H Glucose 123 H Lactate Calcium 7.5 L Magnesium 2.0 Iron TIBC Unsaturated IBC Transferrin % Sat Total Bilirubin 0.7 AST 26 ALT 51 Alkaline Phosphatase 67 Troponin I High Sens 38.7 H Total Protein 5.6 L Albumin 2.9 L Globulin 2.7 Albumin/Globulin Ratio 1.1 Vitamin B12 Folate Procalcitonin Urine Color Urine Appearance Urine pH Ur Specific [place] Urine Protein Urine Glucose (UA) Urine Ketones Urine Blood Urine Nitrite Urine Bilirubin Urine Urobilinogen Ur Leukocyte Esterase Urine WBC (Auto) Urine RBC (Auto) U Hyaline Cast (Auto) U Epithel Cells (Auto) Urine Bacteria (Auto) Ur Renal Epithelial Cell Urine Yeast Nasal Screen MRSA (PCR) Adenovirus (PCR) B. pertussis DNA (PCR) B.parapertussis DNA PCR C. pneumoniae DNA (PCR) Coronavirus OC43 (PCR) Coronavirus HKU1 (PCR) Coronavirus 229E (PCR) SARS-CoV-2 (PCR) Coronavirus NL63 (PCR) Human Metapneumovir PCR Influenza Type A (PCR) Influenza Type B (PCR) M. pneumoniae (PCR) Parainfluenza 1 (PCR) Parainfluenza 2 (PCR) Parainfluenza 3 (PCR) Parainfluenza 4 (PCR) RSV (PCR) Entero/Rhino (PCR) 02/01/22 02/01/22 02/01/22 23:02 23:02 23:14 WBC RBC Hgb Hct MCV MCH MCHC RDW Std Deviation RDW Coeff of Migdalia Plt Count MPV Immature Gran % (Auto) Neut % (Auto) Lymph % (Auto) [place] % (Auto) Eos % (Auto) Baso % (Auto) Neut # (Auto) Lymph # (Auto) [place] # (Auto) Eos # (Auto) Baso # (Auto) Immature Gran # (Auto) RBC Morphology PT INR Sodium Potassium Chloride Carbon Dioxide Anion Gap BUN Creatinine Est Cr Clr Drug Dosing Est GFR ( Amer) Est GFR (Non-Af Amer) BUN/Creatinine Ratio Glucose Lactate 1.4 Calcium Magnesium Iron TIBC Unsaturated IBC Transferrin % Sat Total Bilirubin AST ALT Alkaline Phosphatase Troponin I High Sens Total Protein Albumin Globulin Albumin/Globulin Ratio Vitamin B12 Folate Procalcitonin 2.98 H Urine Color Urine Appearance Urine pH Ur Specific [place] Urine Protein Urine Glucose (UA) Urine Ketones Urine Blood Urine Nitrite Urine Bilirubin Urine Urobilinogen Ur Leukocyte Esterase Urine WBC (Auto) Urine RBC (Auto) U Hyaline Cast (Auto) U Epithel Cells (Auto) Urine Bacteria (Auto) Ur Renal Epithelial Cell Urine Yeast Nasal Screen MRSA (PCR) Adenovirus (PCR) Not Detected B. pertussis DNA (PCR) Not Detected B.parapertussis DNA PCR Not Detected C. pneumoniae DNA (PCR) Not Detected Coronavirus OC43 (PCR) Not Detected Coronavirus HKU1 (PCR) Not Detected Coronavirus 229E (PCR) Not Detected SARS-CoV-2 (PCR) Not Detected Coronavirus NL63 (PCR) Not Detected Human Metapneumovir PCR Not Detected Influenza Type A (PCR) Not Detected Influenza Type B (PCR) Not Detected M. pneumoniae (PCR) Not Detected Parainfluenza 1 (PCR) Not Detected Parainfluenza 2 (PCR) Not Detected Parainfluenza 3 (PCR) Not Detected Parainfluenza 4 (PCR) Not Detected RSV (PCR) Not Detected Entero/Rhino (PCR) Not Detected 02/02/22 02/02/22 02/02/22 00:32 03:11 08:57 WBC 4.85 RBC 2.46 L Hgb 7.5 L Hct 23.3 L MCV 94.7 MCH 30.5 MCHC 32.2 RDW Std Deviation 53.1 H RDW Coeff of Migd[place] 15.3 H Plt Count 219 MPV 10.4 Immature Gran % (Auto) Neut % (Auto) Lymph % (Auto) [place] % (Auto) Eos % (Auto) Baso % (Auto) Neut # (Auto) Lymph # (Auto) [place] # (Auto) Eos # (Auto) Baso # (Auto) Immature Gran # (Auto) RBC Morphology PT INR Sodium Potassium Chloride Carbon Dioxide Anion Gap BUN Creatinine Est Cr Clr Drug Dosing Est GFR ( Amer) Est GFR (Non-Af Amer) BUN/Creatinine Ratio Glucose Lactate Calcium Magnesium Iron TIBC Unsaturated IBC Transferrin % Sat Total Bilirubin AST ALT Alkaline Phosphatase Troponin I High Sens Total Protein Albumin Globulin Albumin/Globulin Ratio Vitamin B12 Folate Procalcitonin Urine Color Yellow Urine Appearance Turbid A Urine pH 6.5 Ur Specific [place] 1.013 Urine Protein 2+ H Urine Glucose (UA) Negative Urine Ketones Negative Urine Blood 3+ H Urine Nitrite Positive A Urine Bilirubin Negative Urine Urobilinogen Negative Ur Leukocyte Esterase 3+ H Urine WBC (Auto) >30 H Urine RBC (Auto) >30 H U Hyaline Cast (Auto) 0 U Epithel Cells (Auto) >30 H Urine Bacteria (Auto) 4+ H Ur Renal Epithelial Cell Not Reportable Urine Yeast Not Reportable Nasal Screen MRSA (PCR) Negative Adenovirus (PCR) B. pertussis DNA (PCR) B.parapertussis DNA PCR C. pneumoniae DNA (PCR) Coronavirus OC43 (PCR) Coronavirus HKU1 (PCR) Coronavirus 229E (PCR) SARS-CoV-2 (PCR) Coronavirus NL63 (PCR) Human Metapneumovir PCR Influenza Type A (PCR) Influenza Type B (PCR) M. pneumoniae (PCR) Parainfluenza 1 (PCR) Parainfluenza 2 (PCR) Parainfluenza 3 (PCR) Parainfluenza 4 (PCR) RSV (PCR) Entero/Rhino (PCR) 02/02/22 02/02/22 02/02/22 08:57 08:57 08:57 WBC RBC Hgb Hct MCV MCH MCHC RDW Std Deviation RDW Coeff of Migd[place] Plt Count MPV Immature Gran % (Auto) Neut % (Auto) Lymph % (Auto) [place] % (Auto) Eos % (Auto) Baso % (Auto) Neut # (Auto) Lymph # (Auto) [place] # (Auto) Eos # (Auto) Baso # (Auto) Immature Gran # (Auto) RBC Morphology PT INR Sodium Pending Potassium Pending Chloride Pending Carbon Dioxide Pending Anion Gap Pending BUN Pending Creatinine Pending Est Cr Clr Drug Dosing Pending Est GFR ( Amer) Pending Est GFR (Non-Af Amer) Pending BUN/Creatinine Ratio Pending Glucose Pending Lactate Calcium Pending Magnesium Pending Iron Pending TIBC Pending Unsaturated IBC Pending Transferrin % Sat Pending Total Bilirubin AST ALT Alkaline Phosphatase Troponin I High Sens Total Protein Albumin Globulin Albumin/Globulin Ratio Vitamin B12 Pending Folate Pending Procalcitonin Urine Color Urine Appearance Urine pH Ur Specific [place] Urine Protein Urine Glucose (UA) Urine Ketones Urine Blood Urine Nitrite Urine Bilirubin Urine Urobilinogen Ur Leukocyte Esterase Urine WBC (Auto) Urine RBC (Auto) U Hyaline Cast (Auto) U Epithel Cells (Auto) Urine Bacteria (Auto) Ur Renal Epithelial Cell Urine Yeast Nasal Screen MRSA (PCR) Adenovirus (PCR) B. pertussis DNA (PCR) B.parapertussis DNA PCR C. pneumoniae DNA (PCR) Coronavirus OC43 (PCR) Coronavirus HKU1 (PCR) Coronavirus 229E (PCR) SARS-CoV-2 (PCR) Coronavirus NL63 (PCR) Human Metapneumovir PCR Influenza Type A (PCR) Influenza Type B (PCR) M. pneumoniae (PCR) Parainfluenza 1 (PCR) Parainfluenza 2 (PCR) Parainfluenza 3 (PCR) Parainfluenza 4 (PCR) RSV (PCR) Entero/Rhino (PCR)
[2022-02-02 10:01] LABS: Iron 28 mcg/dl (35-175); Total Iron Binding Cap Calc 146 mcg/dl (250-450); Transferrin (FE) Percent Satur 19 % (20-50); Unsaturated Iron Binding Cap 118 mcg/dl (155-355)
[2022-02-02 10:03] LABS: BUN Creatinine Ratio 41.6 (10-20); Calcium 7.1 mg/dl (8.5-10.1); Creatinine Clr Calc Pharmacy 22.5 ml/min; Est GFR (African American) 43.9 ml/min; Est GFR (Non-African American) 37.9 ml/min; Magnesium 1.9 mg/dl (1.7-2.4); Potassium 3.6 mmol/L (3.5-5.1)
[2022-02-02 10:10] LABS: Basophils # (auto) 0.01 K/uL (0-0.2); Basophils % (auto) 0.2 %; Eosinophils # (auto) 0.03 K/uL (0-0.50); Eosinophils % (auto) 0.6 %; Immature Granulocytes # (auto) 0.06 K/uL (0.00-0.02); Immature Granulocytes % (auto) 1.2 %; Lymphocytes # (auto) 0.18 K/uL (1.2-3.4); Lymphocytes % (auto) 3.7 %; Monocytes # (auto) 0.14 K/uL (0.24-0.82); Monocytes % (auto) 2.9 %; Neutrophils # (auto) 4.43 K/uL (1.4-6.5); Neutrophils % (auto) 91.4 %; RBC Morphology Unremarkable
[2022-02-02 10:27] LABS: Folate (Folic Acid) 14.82 ng/ml (>5.38)
[2022-02-02] MEDS ORDERED: HEPARIN 100 UNIT/ML 5ML FLUSH ONE (13:23)
[2022-02-02 13:51] LABS: A calco-baum cmplx NotReported Not Detected (NotDetected); Bact fragilis Not Reported Not Detected (NotDetected); C auris Not Reported Not Detected (NotDetected); Calbicans Not Reported Not Detected (NotDetected); Candida glabrata Not Reported Not Detected (NotDetected); Candida krusei Not Reported Not Detected (NotDetected); Cneoformans/gatti Not Reported Not Detected (NotDetected); Cparapsilosis Not Reported Not Detected (NotDetected); Ctropicalis Not Reported Not Detected (NotDetected); E cloacae compx Not Reported Not Detected (NotDetected); Efaecalis Not Reported Not Detected (NotDetected); Efaecium Not Reported Not Detected (NotDetected); Enterobacterales Not Reported Not Detected (NotDetected); Escherichia coli Not Reported Not Detected (NotDetected); H influenzae Not Reported Not Detected (NotDetected); K aerogenes Not Reported Not Detected (NotDetected); Koxytoca Not Reported Not Detected (NotDetected); Kpneumoniae grp Not Reported Not Detected (NotDetected); Lmonocyt Not Reported Not Detected (NotDetected); N meningitidis Not Reported Not Detected (NotDetected); P aeruginosa Not Reported Not Detected (NotDetected); Proteus spp Not Reported Not Detected (NotDetected); Salmonella spp Not Reported Not Detected (NotDetected); Smarcescens Not Reported Not Detected (NotDetected); Staph lugdunensis Not Reported Not Detected (NotDetected); Staph spp. Not Reported DETECTED (NotDetected); Staphaureus Not Reported DETECTED (NotDetected); Staphepi Not Reported Not Detected (NotDetected); Staphylococcus spp. DETECTED (NotDetected); Stenmaltophilia Not Reported Not Detected (NotDetected); Strep agal(GrpB) Not Reported Not Detected (NotDetected); Strep pneum Not Reported Not Detected (NotDetected); Strep pyog (GrpA) Not Reported Not Detected (NotDetected); Strep spp Not Reported Not Detected (NotDetected); mecAC+MREJ Resistant Gene MRSA Not Detected (NotDetected)
--- NOTE | 2022-02-02 13:55 | CT Scan Report ---
CT SCAN OF THE ABDOMEN WITHOUT IV CONTRAST CLINICAL HISTORY: Fever. Clinical concern for abscess near the PEG tube site. COMPARISON STUDY: No priors. TECHNIQUE: CT scan of the abdomen is performed from the lung bases to the pelvic inlet. Images are re viewed in the axial, sagittal, and coronal planes. IV contrast was not administered for this examinat ion as per the referring clinician. Note that the examination was performed in significantly suboptim al fashion without oral and IV contrast. A dose lowering technique was utilized adhering to the princ ipllela of ANAYELI. CT DOSE: 155.58 mGy.cm FINDINGS: Lung bases: The heart is mildly enlarged and without pericardial effusion. There is diminished attenu ation of the cardiac blood pool as compared to the myocardium suggesting anemia. The coronaries are d ensely calcified. Emphysematous change is noted with bilateral right lung base. There are small to mo derate pleural effusions, right larger than left with dependent consolidation. There is evidence of m ultifocal pulmonary metastatic disease. A 3.1 cm nodule at the left lung base as seen on image #63. N umerous additional smaller pulmonary lesions are present at both lung bases. Intralobular septal thic kening in the lower lobes could be related to fluid overload versus lymphangitic spread of tumor. Liver: The unenhanced liver is normal in size, contour, and attenuation. There is no intrahepatic allyson iary ductal dilatation. Gallbladder: There are tiny calcified gallstones with no CT evidence of acute cholecystitis. Spleen: Normal in size and attenuation. Pancreas: The unenhanced pancreas is mildly atrophic and grossly unremarkable. Adrenal glands: Unremarkable. Kidneys: There is asymmetric cortical atrophy of the right kidney as compared to left. No hydronephro sis is seen. There are numerous bilateral renovascular calcifications. No definite renal calculi are identified. A 5 mm nonobstructing calculus is suggested in the right kidney on image #120. This is di fficult to assess due to the degree of vascular calcifications. There is no evidence of contour defor cyrus renal mass lesion. Abdominal vasculature: The abdominal aorta is normal in course and caliber noting advanced atheroscle rotic calcification. A presumed left axillofemoral bypass is noted in the left abdominal wall. Stomach and bowel: The stomach is distended. A percutaneous gastrostomy tube is in place. There is no evidence of fluid collection at the gastrostomy tube site as clinically queried. Imaged portions of the small bowel and colon show no evidence of obstruction. There is underdistention versus wall thick ening of the visualized left colon. Liquid stool is noted in the right colon. Peritoneum: There is trace perihepatic ascites. No intraperitoneal free air is seen. Lymphadenopathy: None. Skeletal structures: The skeletal structures are osteopenic. There is moderate lumbosacral spondylosi s. No lytic or blastic lesions are seen. IMPRESSION: 1. Significantly suboptimal examination without oral and IV contrast. 2. The stomach is distended and a percutaneous gastrostomy tube appears appropriately positioned. The re is no evidence of fluid collection at the gastrostomy site on this unenhanced examination as clini dora queried. 3. Right larger than left pleural effusions with dependent consolidation. This likely represent atele ctasis. Correlate clinically for evidence of superimposed pneumonia. 4. There is evidence of multifocal pulmonary metastatic disease. Correlate with the patient's oncolog ical history. 5. Cardiomegaly with intralobular septal thickening at the lung bases. This could represent fluid ove rload/congestive failure versus lymphangitic spread of tumor. Correlate clinically. 6. There is underdistention versus wall thickening of the partially imaged left colon. Liquid stool i s noted in the right colon. Correlate clinically for evidence of a nonspecific colitis/diarrheal illn ess. 7. Small volume perihepatic ascites. 8. Cholelithiasis. 9. Additional findings as above. ACT 112: Negative or not required by law. Electronically signed by: Bolivar Chavez M.D. 02/02/2022 1:52 PM
[2022-02-02] MEDS ORDERED: VANCOMYCIN CONSULT ACTIVE PRN (14:19)
[2022-02-02] MEDS ORDERED: VANCOMYCIN HCL 750 MG in SODIUM CHLORIDE 0.9% 500 ML IV SCH (14:30)
[2022-02-02] MEDS ORDERED: VANCOMYCIN HCL 1,000 MG in SODIUM CHLORIDE 0.9% 250 ML IV STA (15:00)
--- NOTE | 2022-02-02 15:23 | Gastroenterology Progress Note ---
Date of Service February 02, 2022 Assessment & Plan Admission and Anticipated Discharge Date Admission Date: February 02, [address] scan reviewed, PEG in place, no collection seen. Can use the tube and continue ABx, may apply topical Bacitracin BID for few days. Recall GI if needed. Results & Data ([facility]) Vital Signs (Past 12 Hours) Vital Signs Temp Pulse Pulse Resp BP BP Pulse Ox 02/02/22 15:00 83 22 102/44 L 96 02/02/22 11:46 37.4 C 91 H 15 114/52 L 91 02/02/22 05:00 86 18 162/54 H 93 02/02/22 04:00 82 18 131/60 97 O2 Del Method 02/02/22 15:00 Room Air 02/02/22 11:46 Room Air 02/02/22 05:00 Room Air 02/02/22 04:00 Room Air
--- NOTE | 2022-02-02 16:48 | Hospitalist Progress Note ---
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 He had a second cycle of chemotherapy last Friday. He also had a peg tube place couple of weeks ago. He presents with Fever of 103F. He was found to have MSSA bactermia. 1) MSSA Bacteremia 2) ?UTI, Fowler catheter POA 3) Tongue and Throat Ca on Chemotherapy 4) Peg tube site erythema -Febrile to 38.6 F on admission. Afebrile since. Normotensive and saturating well in room air. WBC4.85, hemoglobin7.5. Urinalysis -positive nitrate, 3+ leukocyte esterase, greater than 30 WBC. Bio fireMSSA positive Plan; Currently on Zosyn. will continue the same for now. Follow-up on urine culture. Will change to cefazolin if no growth in culture. Obtain transthoracic echo. Consult ID. Might need removal of port. Blood cultures also obtained from port as recommended by his oncologist Dr. Cornell. --Resume PEG tube feeding and clear liquid by mouth. Bacitracin twice daily for PEG tube site erythema. CT abdomen and pelvis unremarkable. - Urinary retention very recently; continue fowler. Chronic conditions: 5. Hypertension: Amlodipine, isosorbide mononitrate, and metoprolol. To give Withholding parameters. 6. Possible benign prostatic hypertrophy: With Flomax. 7. Peripheral vascular disease: On aspirin, statin, Plavix, and pentoxifylline. 8. Chronic kidney disease:follow labs 9. Anemia: Could be from the chemo, ongoing illness. Will follow stool for Hemoccult, iron studies, vitamin B12, folate studies. 10. Deep venous thrombosis prophylaxis: On heparin subcutaneous. If Hemoccult positive, will hold the heparin subcutaneous. Diet- peg tube and clear liquid by mouth DVT- heparin Full code Admission and Anticipated Discharge Date Admission Date: February 02, 2022 Subjective Patient seen and examined at bedside. He sitting up on the bed; not in any acute distress. He says that he feels better overall compared to presentation. He complains of being hungry and requesting food and water. He was able to drink water without any issues. He is n.p.o. by mouth and gets feedings through PEG tube. Review of Systems Review of Systems: All systems reviewed & are unremarkable except as noted in Subjective Physical Exam Physical Exam: Constitutional: WD/WN, vitals as above, NAD, sitting up in bed, pleasant, conversing easily Neck: port-a-cath in place Respiratory: normal respiratory effort, lungs clear to auscultation, no wheeze, rales, rhonchi. Normal insp/exp effort, no accessory muscle use Cardiovascular: RRR, no murmur, no edema Vessels: no JVD or carotid bruit Chest: normal inspection of chest Abdomen: peg tube in place; slight erythema overlying the skin. Musculoskeletal: no cyanosis or clubbing, extremities motor strength 5/5 Skin: no rashes, warm and dry normal turgor Neurologic: PERRL, EOMI, accommodation nl, no face palsy, no dysarthria CN's II- XI intact bilaterally and moves all extremities Psychiatric: A+Ox3, euthymic affect Lymphatic: no cervical or axillary lymphadenopathy : Fowler in place Results & Data Results & Data ([facility]) Vital Signs (Past 12 Hours) Vital Signs Temp Pulse Pulse Resp BP BP Pulse Ox 02/02/22 15:00 83 22 102/44 L 96 02/02/22 11:46 37.4 C 91 H 15 114/52 L 91 02/02/22 05:00 86 18 162/54 H 93 O2 Del Method 02/02/22 15:00 Room Air 02/02/22 11:46 Room Air 02/02/22 05:00 Room Air Diagnostic Findings Chest X-Ray 02/01/22 22:25 XR chest 1V portable HISTORY: SEPSIS COMPARISON: None. FINDINGS: The cardiac silhouette is normal in size. No pneumothorax. Calcifications within the aortic knob. Right jugular Port-A-Cath runs at the SVC. Scattered reticulonodular airspace opacities with patchy bibasilar densities at the lung bases. A gastrostomy tube is noted. There is mild interstitial thickening and a trace right pleural effusion. IMPRESSION: 1. Scattered reticulonodular airspace opacities with patchy bibasilar densities. This favors an atypical pneumonia. 2. Diffuse interstitial thickening and a trace right pleural effusion are also noted. This may represent superimposed pulmonary edema. ACT 112: Negative or not required by law. Electronically signed by: Obi Stoner M.D. 02/02/2022 8:[address] 02/02/22 11:08 CT SCAN OF THE ABDOMEN WITHOUT IV CONTRAST CLINICAL HISTORY: Fever. Clinical concern for abscess near the PEG tube site. COMPARISON STUDY: No priors. TECHNIQUE: CT scan of the abdomen is performed from the lung bases to the pelvic inlet. Images are reviewed in the axial, sagittal, and coronal planes. IV contrast was not administered for this examination as per the referring clinician. Note that the examination was performed in significantly suboptimal fashion without oral and IV contrast. A dose lowering technique was utilized adhering to the principles of ALARA. CT DOSE: 155.58 mGy.cm FINDINGS: Lung bases: The heart is mildly enlarged and without pericardial effusion. There is diminished attenuation of the cardiac blood pool as compared to the myocardium suggesting anemia. The coronaries are densely calcified. Emphysematous change is noted with bilateral right lung base. There are small to moderate pleural effusions, right larger than left with dependent consolidation. There is evidence of multifocal pulmonary metastatic disease. A 3.1 cm nodule at the left lung base as seen on image #63. Numerous additional smaller pulmonary lesions are present at both lung bases. Intralobular septal thickening in the lower lobes could be related to fluid overload versus lymphangitic spread of tumor. Liver: The unenhanced liver is normal in size, contour, and attenuation. There is no intrahepatic biliary ductal dilatation. Gallbladder: There are tiny calcified gallstones with no CT evidence of acute cholecystitis. Spleen: Normal in size and attenuation. Pancreas: The unenhanced pancreas is mildly atrophic and grossly unremarkable. Adrenal glands: Unremarkable. Kidneys: There is asymmetric cortical atrophy of the right kidney as compared to left. No hydronephrosis is seen. There are numerous bilateral renovascular calcifications. No definite renal calculi are identified. A 5 mm nonobstructing calculus is suggested in the right kidney on image #120. This is difficult to assess due to the degree of vascular calcifications. There is no evidence of contour deforming renal mass lesion. Abdominal vasculature: The abdominal aorta is normal in course and caliber noting advanced atherosclerotic calcification. A presumed left axillofemoral bypass is noted in the left abdominal wall. Stomach and bowel: The stomach is distended. A percutaneous gastrostomy tube is in place. There is no evidence of fluid collection at the gastrostomy tube site as clinically queried. Imaged portions of the small bowel and colon show no e vidence of obstruction. There is underdistention versus wall thickening of the visualized left colon. Liquid stool is noted in the right colon. Peritoneum: There is trace perihepatic ascites. No intraperitoneal free air is seen. Lymphadenopathy: None. Skeletal structures: The skeletal structures are osteopenic. There is moderate lumbosacral spondylosis. No lytic or blastic lesions are seen. IMPRESSION: 1. Significantly suboptimal examination without oral and IV contrast. 2. The stomach is distended and a percutaneous gastrostomy tube appears appropriately positioned. There is no evidence of fluid collection at the gastrostomy site on this unenhanced examination as clinically queried. 3. Right larger than left pleural effusions with dependent consolidation. This likely represent atelectasis. Correlate clinically for evidence of superimposed pneumonia. 4. There is evidence of multifocal pulmonary metastatic disease. Correlate with the patient's oncological history. 5. Cardiomegaly with intralobular septal thickening at the lung bases. This could represent fluid overload/congestive failure versus lymphangitic spread of tumor. Correlate clinically. 6. There is underdistention versus wall thickening of the partially imaged left colon. Liquid stool is noted in the right colon. Correlate clinically for evidence of a nonspecific colitis/diarrheal illness. 7. Small volume perihepatic ascites. 8. Cholelithiasis. 9. Additional findings as above. ACT 112: Negative or not required by law. Electronically signed by: Bolivar Chavez M.D. 02/02/2022 1:52 PM COVID-19 Results Results COVID-19 Adm Lab Results: RBC 2.46 M/uL (4.63-6.08) L 02/02/22 WBC 4.85 K/ul (4.8-10.8) 02/02/22 Hgb 7.5 g/dl (14.0-18.0) L 02/02/22 Hct 23.3 % (40.1-51.0) L 02/02/22 Plt Count 219 K/uL (130-400) 02/02/22 Neutrophils (%) (Auto) 91.4 % 02/02/22 Lymphocytes (%) (Auto) 3.7 % 02/02/22 Monocytes # (Auto) 0.14 K/uL (0.24-0.82) L 02/02/22 Eosinophils # (Auto) 0.03 K/uL (0-0.50) 02/02/22 Immature Granulocyte % (Auto) 1.2 % 02/02/22 Neutrophils # (Auto) 4.43 K/uL (1.4-6.5) 02/02/22 Lymphocytes # (Auto) 0.18 K/uL (1.2-3.4) L 02/02/22 Monocytes # (Auto) 0.14 K/uL (0.24-0.82) L 02/02/22 Eosinophils # (Auto) 0.03 K/uL (0-0.50) 02/02/22 Basophils # (Auto) 0.01 K/uL (0-0.2) 02/02/22 Immature Granulocyte # (Auto) 0.06 K/uL (0.00-0.02) H 02/02 Red Blood Cell Morphology Unremarkable 02/02/22 Na 137 mmol/L (136-145) 02/02/22 K 3.6 mmol/L (3.5-5.1) 02/02/22 Cl 107 mmol/L (98-107) 02/02/22 CO2 21 mmol/L (21-32) 02/02/22 Anion Gap 9 (3-11) 02/02/22 BUN 67 mg/dl (6-23) H 02/02/22 Creatinine 1.61 mg/dl (0.6-1.4) H 02/02/22 BUN/Creatinine Ratio 41.6 (10-20) H 02/02/22 Glucose Level 116 mg/dl (70-99(Fasting)) H 02/02/22 Ca 7.1 mg/dl (8.5-10.1) L 02/02/22 Total Bilirubin 0.7 mg/dl (0.2-1.0) 02/01/22 AST/SGOT 26 U/L (13-39) 02/01/22 ALT/SGPT 51 U/L (7-52) 02/01/22 Alkaline Phosphatase 67 U/L (34-104) 02/01/22 Total Protein 5.6 gm/dl (6.0-8.3) L 02/01/22 Albumin 2.9 gm/dl (3.4-5.0) L 02/01/22 Globulin 2.7 gm/dl (2.5-4.0) 02/01/22 Albumin/Globulin Ratio 1.1 (0.9-2) 02/01/22 Procalcitonin 2.98 ng/ml (0-0.5) H 02/01/22 INR 1.1 (0.9-1.1) 02/01/22 Adenovirus (PCR) Not Detected (NotDetected) 02/01/22 B. parapertussis DNA (PCR) Not Detected (NotDetected) 01/14 03/07 B. pertussis DNA (PCR) Not Detected (NotDetected) 02/01/22 C. pneumoniae DNA (PCR) Not Detected (NotDetected) 2 Coronavirus Type OC43 (PCR) Not Detected (NotDetected) Coronavirus Type HKU1 (PCR) Not Detected (NotDetected) Coronavirus Type 229E (PCR) Not Detected (NotDetected) COVID-19 PCR Not Detected (NotDetected) 02/01/22 Coronavirus Type NL63 (PCR) Not Detected (NotDetected) Human Metapneumovirus (PCR) Not Detected (NotDetected) Influenza Virus Type A (PCR) Not Detected (NotDetected) Influenza Virus Type B (PCR) Not Detected (NotDetected) M. pneumoniae (PCR) Not Detected (NotDetected) 02/01/22 Parainfluenza Type 1 (PCR) Not Detected (NotDetected) 01/14 03/07 Parainfluenza Type 2 (PCR) Not Detected (NotDetected) 01/14 03/07 Parainfluenza Type 3 (PCR) Not Detected (NotDetected) 01/14 03/07 Parainfluenza Type 4 (PCR) Not Detected (NotDetected) 01/14 03/07 RSV (PCR) Not Detected (NotDetected) 02/01/22 Enterovirus/Rhinovirus (PCR) Not Detected (NotDetected) Chest X-Ray 02/01/22
[2022-02-02] MEDS: TUBE FEEDING WATER FLUSH PEG SCH ×3 (16:51→23:15)
[2022-02-02] MEDS: PEPTAMEN 1.5 CAL 1,000 ML BAG PEG SCH (16:51)
[2022-02-02] MEDS: ATORVASTATIN 40 MG TAB PO SCH (21:50)
[2022-02-03] MEDS: TUBE FEEDING WATER FLUSH PEG SCH ×5 (03:15→20:48)
--- NOTE | 2022-02-03 07:13 | Electrocardiogram Report ---
Test Reason : Blood Pressure : / mmHG Vent. Rate : 098 BPM Atrial Rate : 098 BPM P-R Int : 144 ms QRS Dur : 080 ms QT Int : 332 ms P-R-T Axes : 069 070 041 degrees QTc Int : 423 ms Poor data quality, interpretation may be adversely affected Sinus rhythm with Premature atrial complexes and with occasional Premature ventricular complexes Otherwise normal ECG No previous ECGs available Confirmed by Ahsan Vines ([id number]) on 02/03/2022 7:12:49 AM Referred By: REFERRED SELF Confirmed By:Ahsan Vines
[2022-02-03] MEDS: PIPERACILLIN/TAZOBACTAM 3.375 GM in DEXTROSE 5% 100 ML IV SCH ×2 (08:47→20:47)
[2022-02-03] MEDS: CLOPIDOGREL BISULFATE 75 MG TAB PO SCH (08:48)
[2022-02-03] MEDS: ASPIRIN 81 MG ECTAB PO SCH (08:48)
[2022-02-03] MEDS: PENTOXIFYLLINE 400MG EXT REL TAB PO SCH ×2 (08:49→20:48)
[2022-02-03] MEDS: TAMSULOSIN HCL 0.4 MG CAP PO SCH (08:49)
[2022-02-03] MEDS: METOPROLOL TARTRATE 25 MG TAB PO SCH ×2 (08:49→20:47)
[2022-02-03] MEDS: HEPARIN SOD 5,000 UNIT/0.5 ML VIAL SQ SCH ×2 (08:50→20:48)
--- NOTE | 2022-02-03 15:50 | Hospitalist Progress Note ---
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 He had a second cycle of chemotherapy last Friday. He also had a peg tube place couple of weeks ago. He presents with Fever of 103F. He was found to have MSSA bactermia. 1) MSSA Bacteremia 2) UTI, Fowler catheter POA 3) Tongue and Throat Ca on Chemotherapy 4) Peg tube site erythema -Febrile to 38.6 F on admission. Afebrile since. Normotensive and saturating well in room air. WBC4.85, hemoglobin7.5. Urinalysis -positive nitrate, 3+ leukocyte esterase, greater than 30 WBC. Blood culture on 02/02 from Port-A-Cath site and peripheral both growing MSSA Urine culture growing gram-negative bacilli Transthoracic echo shows aortic valve and mitral valve thickened; unable to rule out vegetation Plan; Currently on Zosyn to cover for both MSSA and gram-negative in urine culture. -- Surgery consulted for removal of Port-A-Cath as potential source for infection --LAURA ordered to rule out infective endocarditis. Need to clarify with cardiology regarding appreciated. We will keep him n.p.o. just in case. --Infectious disease consulted; will appreciate rec. --Resume PEG tube feeding and clear liquid by mouth. Bacitracin twice daily for PEG tube site erythema. C - Urinary retention very recently; continue fowler. Chronic conditions: 5. Hypertension: Amlodipine, isosorbide mononitrate, and metoprolol. To give Withholding parameters. 6. Possible benign prostatic hypertrophy: With Flomax. 7. Peripheral vascular disease: On aspirin, statin, Plavix, and pentoxifylline. 8. Chronic kidney disease:follow labs 9. Anemia: Could be from the chemo, ongoing illness. Will follow stool for Hemoccult, iron studies, vitamin B12, folate studies. 10. Deep venous thrombosis prophylaxis: On heparin subcutaneous. SonVelia Neumann) is a updated over the phone on 02/02 and 02/03. He is currently in [place]. Answered all questions. Diet- peg tube and clear liquid by mouth DVT- heparin Full code Admission and Anticipated Discharge Date Admission Date: February 02, 2022 Subjective Patient seen and examined at bedside. Patient is comfortably sitting up on the bed; not in any acute distress. He is afebrile overnight, Normotensive and sa turating well on room air Review of Systems Review of Systems: All systems reviewed & are unremarkable except as noted in Subjective Physical Exam Physical Exam: Constitutional: WD/WN, vitals as above, NAD, sitting up in bed, pleasant, conversing easily Neck: port-a-cath in place, no erythema surrounding the Port-A-Cath site. Respiratory: normal respiratory effort, lungs clear to auscultation, no wheeze, rales, rhonchi. Normal insp/exp effort, no accessory muscle use Cardiovascular: RRR, no murmur, no edema Vessels: no JVD or carotid bruit Chest: normal inspection of chest Abdomen: peg tube in place; slight erythema overlying the skin. Musculoskeletal: no cyanosis or clubbing, extremities motor strength 5/5 Skin: no rashes, warm and dry normal turgor Neurologic: PERRL, EOMI, accommodation nl, no face palsy, no dysarthria CN's II- XI intact bilaterally and moves all extremities Psychiatric: A+Ox3, euthymic affect Lymphatic: no cervical or axillary lymphadenopathy : Fowler in place Results & Data Results & Data ([facility]) Vital Signs (Past 12 Hours) Vital Signs Temp Pulse Pulse Resp BP BP Pulse Ox 02/03/22 11:32 88 22 117/43 L 98 02/03/22 08:45 37.4 C 84 18 127/49 L 100 O2 Del Method 02/03/22 11:32 Room Air 02/03/22 08:45 Room Air COVID-19 Results Results COVID-19 Adm Lab Results: RBC 2.46 M/uL (4.63-6.08) L 02/02/22 WBC 4.85 K/ul (4.8-10.8) 02/02/22 Hgb 7.5 g/dl (14.0-18.0) L 02/02/22 Hct 23.3 % (40.1-51.0) L 02/02/22 Plt Count 219 K/uL (130-400) 02/02/22 Neutrophils (%) (Auto) 91.4 % 02/02/22 Lymphocytes (%) (Auto) 3.7 % 02/02/22 Monocytes # (Auto) 0.14 K/uL (0.24-0.82) L 02/02/22 Eosinophils # (Auto) 0.03 K/uL (0-0.50) 02/02/22 Immature Granulocyte % (Auto) 1.2 % 02/02/22 Neutrophils # (Auto) 4.43 K/uL (1.4-6.5) 02/02/22 Lymphocytes # (Auto) 0.18 K/uL (1.2-3.4) L 02/02/22 Monocytes # (Auto) 0.14 K/uL (0.24-0.82) L 02/02/22 Eosinophils # (Auto) 0.03 K/uL (0-0.50) 02/02/22 Basophils # (Auto) 0.01 K/uL (0-0.2) 02/02/22 Immature Granulocyte # (Auto) 0.06 K/uL (0.00-0.02) H 02/02 Red Blood Cell Morphology Unremarkable 02/02/22 Na 137 mmol/L (136-145) 02/02/22 K 3.6 mmol/L (3.5-5.1) 02/02/22 Cl 107 mmol/L (98-107) 02/02/22 CO2 21 mmol/L (21-32) 02/02/22 Anion Gap 9 (3-11) 02/02/22 BUN 67 mg/dl (6-23) H 02/02/22 Creatinine 1.61 mg/dl (0.6-1.4) H 02/02/22 BUN/Creatinine Ratio 41.6 (10-20) H 02/02/22 Glucose Level 116 mg/dl (70-99(Fasting)) H 02/02/22 Ca 7.1 mg/dl (8.5-10.1) L 02/02/22 Total Bilirubin 0.7 mg/dl (0.2-1.0) 02/01/22 AST/SGOT 26 U/L (13-39) 02/01/22 ALT/SGPT 51 U/L (7-52) 02/01/22 Alkaline Phosphatase 67 U/L (34-104) 02/01/22 Total Protein 5.6 gm/dl (6.0-8.3) L 02/01/22 Albumin 2.9 gm/dl (3.4-5.0) L 02/01/22 Globulin 2.7 gm/dl (2.5-4.0) 02/01/22 Albumin/Globulin Ratio 1.1 (0.9-2) 02/01/22 Procalcitonin 2.98 ng/ml (0-0.5) H 02/01/22 INR 1.1 (0.9-1.1) 02/01/22 Adenovirus (PCR) Not Detected (NotDetected) 02/01/22 B. parapertussis DNA (PCR) Not Detected (NotDetected) 01/14 03/07 B. pertussis DNA (PCR) Not Detected (NotDetected) 02/01/22 C. pneumoniae DNA (PCR) Not Detected (NotDetected) 2 Coronavirus Type OC43 (PCR) Not Detected (NotDetected) Coronavirus Type HKU1 (PCR) Not Detected (NotDetected) Coronavirus Type 229E (PCR) Not Detected (NotDetected) COVID-19 PCR Not Detected (NotDetected) 02/01/22 Coronavirus Type NL63 (PCR) Not Detected (NotDetected) Human Metapneumovirus (PCR) Not Detected (NotDetected) Influenza Virus Type A (PCR) Not Detected (NotDetected) Influenza Virus Type B (PCR) Not Detected (NotDetected) M. pneumoniae (PCR) Not Detected (NotDetected) 02/01/22 Parainfluenza Type 1 (PCR) Not Detected (NotDetected) 01/14 03/07 Parainfluenza Type 2 (PCR) Not Detected (NotDetected) 01/14 03/07 Parainfluenza Type 3 (PCR) Not Detected (NotDetected) 01/14 03/07 Parainfluenza Type 4 (PCR) Not Detected (NotDetected) 01/14 03/07 RSV (PCR) Not Detected (NotDetected) 02/01/22 Enterovirus/Rhinovirus (PCR) Not Detected (NotDetected) Chest X-Ray 02/01/22 Urine Analysis / Culture Results Urinalysis: Urine Color Yellow 02/02/22 Urine Appearance Turbid (Clear) A 02/02/22 Urine pH 6.5 (4.5-7.5) 02/02/22 Ur Specific [place] 1.013 (1.000-1.030) 02/02/22 Urine Protein 2+ (Negative) H 02/02/22 Urine Glucose (UA) Negative (Negative) 02/02/22 Urine Ketones Negative (Negative) 02/02/22 Urine Blood 3+ (Negative) H 02/02/22 Urine Nitrite Positive (Negative) A 02/02/22 Urine Bilirubin Negative (Negative) 02/02/22 Urine Urobilinogen Negative (Negative) 02/02/22 Ur Leukocyte Esterase 3+ (Negative) H 02/02/22 Urine WBC (Auto) >30 /hpf (0-5) H 02/02/22 Urine RBC (Auto) >30 /hpf (0-4) H 02/02/22 Urine Hyaline Casts (Auto) 0 /lpf (0-5) 02/02/22 Urine Epithelial Cells (Auto) >30 /lpf (0-5) H 02/02/22 Urine Bacteria (Auto) 4+ (Negative) H 02/02/22 Urine Yeast Not Reportable 02/02/22 Urine Culture: Micro Urine Specimen 02/02/22
[2022-02-03] MEDS: ATORVASTATIN 40 MG TAB PO SCH (20:48)
[2022-02-03] MEDS ORDERED: VANCOMYCIN CONSULT ACTIVE PRN (21:57)
[2022-02-03] MEDS: PEPTAMEN 1.5 CAL 1,000 ML BAG PEG SCH (22:22)
[2022-02-03] MEDS ORDERED: VANCOMYCIN HCL 1,000 MG in SODIUM CHLORIDE 0.9% 250 ML IV ONE (22:30)
[2022-02-04] MEDS: TUBE FEEDING WATER FLUSH PEG SCH ×7 (00:45→23:50)
[2022-02-04] MEDS: PIPERACILLIN/TAZOBACTAM 3.375 GM in DEXTROSE 5% 100 ML IV SCH ×2 (03:48→11:30)
[2022-02-04 07:38] LABS: Hematocrit (blood only) 21.6 % (40.1-51.0); Mean Corpuscular Hemoglobin 30.8 pg (25.0-34.0); Mean Corpuscular Hgb Conc 32.4 g/dL (32.0-36.0); Mean Corpuscular Volume 95.2 fL (80.0-100.0); Platelet Count 143 K/uL (130-400); RDW Coefficient of Variation 15.1 % (11.5-14.5); RDW Standard Deviation 53.1 fL (36.4-46.3); Red Blood Count 2.27 M/uL (4.63-6.08); White Blood Count 3.46 K/ul (4.8-10.8)
[2022-02-04 07:56] LABS: BUN Creatinine Ratio 35.4 (10-20); Calcium 7.1 mg/dl (8.5-10.1); Creatinine Clr Calc Pharmacy 24.4 ml/min; Est GFR (African American) 44.9 ml/min; Est GFR (Non-African American) 38.8 ml/min; Potassium 3.1 mmol/L (3.5-5.1)
[2022-02-04 08:02] LABS: Basophils # (auto) 0.01 K/uL (0-0.2); Basophils % (auto) 0.3 %; Dohle Bodies 1+; Echinocytes 1+; Eosinophils # (auto) 0.06 K/uL (0-0.50); Eosinophils % (auto) 1.7 %; Immature Granulocytes # (auto) 0.05 K/uL (0.00-0.02); Immature Granulocytes % (auto) 1.4 %; Lymphocytes # (auto) 0.43 K/uL (1.2-3.4); Lymphocytes % (auto) 12.4 %; Monocytes # (auto) 0.31 K/uL (0.24-0.82); Neutrophils % (auto) 75.2 %; Toxic Granulation 1+
[2022-02-04] MEDS: TAMSULOSIN HCL 0.4 MG CAP PO SCH (08:19)
[2022-02-04] MEDS: PENTOXIFYLLINE 400MG EXT REL TAB PO SCH ×2 (08:19→22:00)
[2022-02-04] MEDS: CLOPIDOGREL BISULFATE 75 MG TAB PO SCH (08:20)
[2022-02-04] MEDS: METOPROLOL TARTRATE 25 MG TAB PO SCH ×2 (08:20→20:55)
[2022-02-04] MEDS: ASPIRIN 81 MG ECTAB PO SCH (08:20)
--- NOTE | 2022-02-04 09:59 | Surgery Consultation ---
Date of Consultation February 04, 2022 Assessment & Plan (1) Bacteremia due to methicillin susceptible Staphylococcus aureus (MSSA): Plan Given patients bacteremia and central venous access port present, discussed with patient need for removal to ensure the catheter is not source of infection. Discussed procedure under local and sedation in OR. Discussed risks of procedure including bleeding and infection and not having central venous access until recovered from bacteremia. Patient elected to proceed. Plan: Plan for port removal by Dr. Keene tomorrow (02/05/2022) Will sign informed consent tomorrow NPO after midnight Hold tube feeds after midnight Hold Heparin for tomorrows am dose continue current medical management Dr. Keene has seen and examined pt, discussed above with patient and family. See addendum for further recommendations/plan. Supervising Physician Co-Signing Physician Notes I have seen and examined the patient personally and agree with above assessment and plan. In brief he has bacteremia and requires port removal. We will set this up for tomorrow. We will hold his heparin dose tomorrow morning. Hold tube feeds after midnight. 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 He has a aport catheter present as well as PEG tube. He presented to ED with fever of 103 and found to have bacteremia with MSSA. He is on Plavix and aspirin for peripheral vascular disease. States the port has been working well without issues and was placed a "little while ago". Our services consulted for removal of port due to bacteremia. Allergies Allergy/AdvReac Type Severity Reaction Status Date / Time No Known Allergies Allergy Unverified 02/01/22 23:10 Home Medications Medication Instructions Recorded Confirmed Type amlodipine 5 mg tablet 5 mg PO BID 02/01/22 02/01/22 History aspirin 81 mg tablet,delayed 81 mg PO DAILY 02/01/22 02/01/22 History release atorvastatin 40 mg tablet 40 mg PO HS 02/01/22 02/01/22 History clopidogrel 75 mg tablet 75 mg PO QAM 02/01/22 02/01/22 History dexamethasone 4 mg tablet 20 mg PO UD 02/01/22 02/01/22 History docusate sodium 100 mg capsule 100 mg PO BID PRN Constipation 02/01/22 02/01/22 History febuxostat 40 mg tablet 40 mg PO QAM 02/01/22 02/01/22 History isosorbide mononitrate 120 mg 120 mg PO DAILY 02/01/22 02/01/22 History tablet,extended release 24 hr metoprolol tartrate 25 mg tablet 25 mg PO BID 02/01/22 02/01/22 History pentoxifylline 400 mg 400 mg PO BID 02/01/22 02/01/22 History tablet,extended release polyethylene glycol 3350 17 17 g PO DAILY PRN Constipation 02/01/22 02/01/22 History gram/dose oral powder prochlorperazine maleate 10 mg 10 mg PO Q8 PRN Nausea And Vomiting 02/01/22 02/01/22 History tablet tamsulosin 0.4 mg capsule 0.4 mg PO DAILY 02/01/22 02/01/22 History Patient History Social History Smoking Status: Former smoker Hx Alcohol Use: No Hx Substance Use: No Preferred Language: Russian Communication Ability: Effective 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 Beliefs That Will Affect Care: None marital status: Current Living Situation: Spouse Feels Safe at Home: Yes Assistive Devices: Walker Physical Exam Constitutional: WD/WN, vitals as above + cachectic, + frail appearing, cooperative, comfortable and + malnourished; no acute distress, not ill appearing, not in distress and not diaphoretic Neck: normal visual inspection Respiratory: normal respiratory effort, lungs clear to auscultation Cardiovascular: RRR, no murmur, no edema Chest (Breasts): Chest: normal inspection of chest and + vascular access device or port (without any overlying erythema, edema, induration, or fluctuance) Skin: no rashes, warm and dry Psychiatric: Orientation: alert and oriented x 3 Eye Contact: + poor eye contact Results & Data ([facility]) Vital Signs (Past 12 Hours) Vital Signs Temp Pulse Pulse Resp BP Pulse Ox Pulse Ox 02/04/22 08:30 02/04/22 07:42 36.3 C L 70 18 117/61 90 02/04/22 07:22 73 02/04/22 04:54 90 02/04/22 03:00 36.7 C 68 18 131/59 L 91 02/03/22 23:53 02/03/22 23:04 36.4 C L 73 18 119/56 L 92 O2 Del Method O2 Del Method O2 Flow Rate O2 Flow Rate 02/04/22 08:30 Room Air 02/04/22 07:42 1 02/04/22 07:22 02/04/22 04:54 Nasal Cannula 2 02/04/22 03:00 Nasal Cannula 2 02/03/22 23:53 Room Air, Nasal Cannula 2 02/03/22 23:04 Nasal Cannula 1 Laboratory Results 02/04/22 02/04/22 02/04/22 Range/Units 08:55 07:09 07:09 WBC 3.46 L (4.8-10.8) K/ul RBC 2.27 L (4.63-6.08) M/uL Hgb 7.0 L (14.0-18.0) g/dl Hct 21.6 L (40.1-51.0) % MCV 95.2 (80.0-100.0) fL MCH 30.8 (25.0-34.0) pg MCHC 32.4 (32.0-36.0) g/dL RDW Std Deviation 53.1 H (36.4-46.3) fL RDW Coeff of [place] 15.1 H (11.5-14.5) % Plt Count 143 (130-400) K/uL MPV 11.0 (9.4-12.4) fL Immature Gran % (Auto) 1.4 % Neut % (Auto) 75.2 % Lymph % (Auto) 12.4 % [place] % (Auto) 9.0 % Eos % (Auto) 1.7 % Baso % (Auto) 0.3 % Neut # (Auto) 2.60 (1.4-6.5) K/uL Lymph # (Auto) 0.43 L (1.2-3.4) K/uL [place] # (Auto) 0.31 (0.24-0.82) K/uL Eos # (Auto) 0.06 (0-0.50) K/uL Baso # (Auto) 0.01 (0-0.2) K/uL Immature Gran # (Auto) 0.05 H (0.00-0.02) K/uL Toxic Granulation 1+ Dohle Bodies 1+ Echinocytes 1+ Sodium 137 (136-145) mmol/L Potassium 3.1 L (3.5-5.1) mmol/L Chloride 109 H (98-107) mmol/L Carbon Dioxide 20 L (21-32) mmol/L Anion Gap 8 (3-11) BUN 56 H (6-23) mg/dl Creatinine 1.58 H (0.6-1.4) mg/dl Est Cr Clr Drug Dosing 24.4 ml/min Est GFR ( Amer) 44.9 ml/min Est GFR (Non-Af Amer) 38.8 ml/min BUN/Creatinine Ratio 35.4 H (10-20) Glucose 189 H (70-99(Fasting)) mg/dl Calcium 7.1 L (8.5-10.1) mg/dl Random Vancomycin 9.2 L (10-20) mcg/ml
[2022-02-04] MEDS ORDERED: VANCOMYCIN HCL 750 MG in SODIUM CHLORIDE 0.9% 250 ML IV SCH (10:15)
--- NOTE | 2022-02-04 10:16 | Pharmacy Report ---
[facility]armacy [facility] Short Note - Date of Service February 04, 2022 - Assessment & Plan Assessment 86 year old M receiving zosyn for MSSA bacteremia/enterobacter UTI. Repeat blood cultures continue to be positive with gm+ cocci - awaiting further identification. Vancomycin added on last evening. Surgery consulted as patient with central port present. Likely will go to OR today to remove port due to concerns for possible source of infection. ID consult placed. Plan Vancomycin * Patient received loading dose of vancomycin 1000 mg x 1 last evening * Random level this AM 9 mcg/ml - will start vancomycin 750 mg iv q 24 hrs now. This dosing is estimated to produce a trough level of 18 mcg/mL is predicted to achieve target AUC/ELLEN of 400-600 mg/L.hr and may be associated with a 15 % risk of nephrotoxicity * Will continue to monitor renal function closely and consider obtaining another level in next 2-3 days to ensure stable Zosyn * 3.375 gm iv q 8 hr - appropriate for CrCl >24 - no change Pharmacy will continue to follow and will adjust dose/frequency as necessary. Thank you.
--- NOTE | 2022-02-04 13:07 | Hospitalist Progress Note ---
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 He had a second cycle of chemotherapy last Friday. He also had a peg tube place couple of weeks ago. He presents with Fever of 103F. He was found to have MSSA bactermia. 1) MSSA Bacteremia 2) UTI, Fowler catheter POA 3) Tongue and Throat Ca on Chemotherapy 4) Peg tube site erythema -Febrile to 38.6 F on admission. Afebrile since. Normotensive and saturating well in room air. No leukocytosis Urinalysis -positive nitrate, 3+ leukocyte esterase, greater than 30 WBC. Blood culture on 02/01, 02/02 and 02/03 from Port-A-Cath site and peripheral both growing MSSA Urine culture growing gram-negative bacilli Transthoracic echo shows aortic valve and mitral valve thickened; unable to rule out vegetation Plan; Discussed with infectious disease over the phone; recommended to remove the Port-A-Cath, treat empirically with cefepime for 1 week to cover for both UTI and bacteremia then cefazolin for next 5 weeks for MSSA bacteremia. --Patient is contraindicated to undergo LAURA due to his tongue and throat cancer; discussed with cardiac surgery regarding it. --Discussed with patient's oncologist (Dr. Cornell); strongly advised against removing Port-A-Cath. He was to follow patient clinically; recommend to remove Port-A-Cath if continues to grow bacteria or clinically deteriorates. Will consult surgery for removal if he continues to have positive blood culture. --Resume PEG tube feeding and clear liquid by mouth. Bacitracin twice daily for PEG tube site erythema. C - Urinary retention very recently; continue fowler. Chronic conditions: 5. Hypertension: Holding amolidpine. Continue metoprolol. 6. Possible benign prostatic hypertrophy: With Flomax. 7. Peripheral vascular disease: On aspirin, statin, Plavix, and pentoxifylline. 8. Chronic kidney disease:follow labs 9. Anemia: Could be from the chemo, ongoing illness. Transfuse as necessary. 10. Deep venous thrombosis prophylaxis: On heparin subcutaneous. Son( Thien) is a updated over the phone on 02/02 and 02/03. He is currently in [place]. Answered all questions. Diet- peg tube and clear liquid by mouth DVT- heparin Full code Admission and Anticipated Discharge Date Admission Date: February 02, 2022 Subjective Patient seen and examined at bedside. He is comfortably sitting up on the bed; not in any acute distress. He denies any fever, chills, chest pain, shortness of breath or abdominal pain. Review of Systems Review of Systems: All systems reviewed & are unremarkable except as noted in Subjective Physical Exam Physical Exam: Constitutional: WD/WN, vitals as above, NAD, sitting up in bed, pleasant, conversing easily Neck: port-a-cath in place, no erythema surrounding the Port-A-Cath site. Respiratory: normal respiratory effort, lungs clear to auscultation, no wheeze, rales, rhonchi. Normal insp/exp effort, no accessory muscle use Cardiovascular: RRR, no murmur, no edema Vessels: no JVD or carotid bruit Chest: normal inspection of chest Abdomen: peg tube in place; slight erythema overlying the skin. Musculoskeletal: no cyanosis or clubbing, extremities motor strength 5/5 Skin: no rashes, warm and dry normal turgor Neurologic: PERRL, EOMI, accommodation nl, no face palsy, no dysarthria CN's II- XI intact bilaterally and moves all extremities Psychiatric: A+Ox3, euthymic affect Lymphatic: no cervical or axillary lymphadenopathy : Fowler in place Results & Data Results & Data ([facility]) Vital Signs (Past 12 Hours) Vital Signs Temp Pulse Pulse Resp BP Pulse Ox Pulse Ox 02/04/22 11:38 36.4 C L 82 18 117/62 97 02/04/22 08:30 02/04/22 07:42 36.3 C L 70 18 117/61 90 02/04/22 07:22 73 02/04/22 04:54 90 02/04/22 03:00 36.7 C 68 18 131/59 L 91 O2 Del Method O2 Del Method O2 Flow Rate O2 Flow Rate 02/04/22 11:38 Room Air 02/04/22 08:30 Room Air 02/04/22 07:42 1 02/04/22 07:22 02/04/22 04:54 Nasal Cannula 2 02/04/22 03:00 Nasal Cannula 2 Urine Analysis / Culture Results Urinalysis: Urine Color Yellow 02/02/22 Urine Appearance Turbid (Clear) A 02/02/22 Urine pH 6.5 (4.5-7.5) 02/02/22 Ur Specific [place] 1.013 (1.000-1.030) 02/02/22 Urine Protein 2+ (Negative) H 02/02/22 Urine Glucose (UA) Negative (Negative) 02/02/22 Urine Ketones Negative (Negative) 02/02/22 Urine Blood 3+ (Negative) H 02/02/22 Urine Nitrite Positive (Negative) A 02/02/22 Urine Bilirubin Negative (Negative) 02/02/22 Urine Urobilinogen Negative (Negative) 02/02/22 Ur Leukocyte Esterase 3+ (Negative) H 02/02/22 Urine WBC (Auto) >30 /hpf (0-5) H 02/02/22 Urine RBC (Auto) >30 /hpf (0-4) H 02/02/22 Urine Hyaline Casts (Auto) 0 /lpf (0-5) 02/02/22 Urine Epithelial Cells (Auto) >30 /lpf (0-5) H 02/02/22 Urine Bacteria (Auto) 4+ (Negative) H 02/02/22 Urine Yeast Not Reportable 02/02/22 Urine Culture: Micro Urine Specimen 02/02/22
--- NOTE | 2022-02-04 13:27 | Communication Note ---
Date of Service: February 04, 2022 Patient's blood culture from 02/01, 02/02 and 02/03 all growing gram-positive cocci. Discussion done with Dr. Cornell( Oncology) again regarding the findings. Agreed to remove the Port-A-Cath to achieve some form of infection source control. Discussed with surgery.
[2022-02-04] MEDS: ATORVASTATIN 40 MG TAB PO SCH (20:55)
[2022-02-04] MEDS: CEFEPIME 2,000 MG in SYRINGE 0 ML IV SCH (20:56)
[2022-02-04] MEDS ORDERED: CEFEPIME 2,000 MG in SYRINGE 0 ML IV SCH (21:00)
[2022-02-05] MEDS: TUBE FEEDING WATER FLUSH PEG SCH ×5 (04:01→19:15)
[2022-02-05 08:18] LABS: Hematocrit (blood only) 24.9 % (40.1-51.0); Mean Corpuscular Hemoglobin 30.7 pg (25.0-34.0); Mean Corpuscular Hgb Conc 32.1 g/dL (32.0-36.0); Mean Corpuscular Volume 95.4 fL (80.0-100.0); Mean Platelet Volume 11.2 fL (9.4-12.4); Platelet Count 165 K/uL (130-400); RDW Coefficient of Variation 15.2 % (11.5-14.5); RDW Standard Deviation 53.2 fL (36.4-46.3); Red Blood Count 2.61 M/uL (4.63-6.08); White Blood Count 5.78 K/ul (4.8-10.8)
[2022-02-05] MEDS: PENTOXIFYLLINE 400MG EXT REL TAB PO SCH ×2 (08:43→22:04)
[2022-02-05] MEDS: METOPROLOL TARTRATE 25 MG TAB PO SCH ×2 (08:44→21:11)
[2022-02-05] MEDS: TAMSULOSIN HCL 0.4 MG CAP PO SCH (08:44)
--- NOTE | 2022-02-05 08:45 | Anesthesiology Consultation ---
Date of Service February 05, 2022 Assessment & Plan (1) Encounter for pre-operative examination: Chart Review Chart Review: carpentry specialist initiated History Surgery Operation Date: 02/04/22 09:30 Proposed Procedures p Infusaport Removal - Han Keene MD Operation Date: 02/05/22 11:50 Proposed Procedures p Infusaport Removal - Han Keene MD Height/Weight Height: 5 ft 4 in Weight: 52.6 kg Allergies Allergy/AdvReac Type Severity Reaction Status Date / Time No Known Allergies Allergy Unverified 02/01/22 23:10 Medications Home Medications Medication Instructions Recorded Confirmed Last Taken amlodipine 5 mg tablet 5 mg PO BID 02/01/22 02/01/22 Unknown aspirin 81 mg tablet,delayed 81 mg PO DAILY 02/01/22 02/01/22 Unknown release atorvastatin 40 mg tablet 40 mg PO HS 02/01/22 02/01/22 Unknown clopidogrel 75 mg tablet 75 mg PO QAM 02/01/22 02/01/22 Unknown dexamethasone 4 mg tablet 20 mg PO UD 02/01/22 02/01/22 Unknown docusate sodium 100 mg capsule 100 mg PO BID PRN Constipation 02/01/22 02/01/22 Unknown febuxostat 40 mg tablet 40 mg PO QAM 02/01/22 02/01/22 Unknown isosorbide mononitrate 120 mg 120 mg PO DAILY 02/01/22 02/01/22 Unknown tablet,extended release 24 hr metoprolol tartrate 25 mg tablet 25 mg PO BID 02/01/22 02/01/22 Unknown pentoxifylline 400 mg 400 mg PO BID 02/01/22 02/01/22 Unknown tablet,extended release polyethylene glycol 3350 17 17 g PO DAILY PRN Constipation 02/01/22 02/01/22 Unknown gram/dose oral powder prochlorperazine maleate 10 mg 10 mg PO Q8 PRN Nausea And Vomiting 02/01/22 02/01/22 Unknown tablet tamsulosin 0.4 mg capsule 0.4 mg PO DAILY 02/01/22 02/01/22 Unknown Active Medications Generic Name Dose Route Start Last Admin Trade Name Freq PRN Reason Stop Dose Admin Aspirin 81 mg 02/02/22 09:00 02/04/22 08:20 Aspirin 81 Mg Ectab PO 03/04/22 08:59 81 mg DAILY FLO Administration Atorvastatin Calcium 40 mg 02/02/22 21:00 02/04/22 20:55 Atorvastatin 40 Mg Tab PO 03/04/22 20:59 40 mg HS FLO Administration Clopidogrel Bisulfate 75 mg 02/02/22 09:00 02/04/22 08:20 Clopidogrel Bisulfate 75 Mg Tab PO 03/04/22 08:59 75 mg QAM FLO Administration Enteral Nutritional Formula 1,000 ml 02/02/22 15:15 02/03/22 22:22 Peptamen 1.5 Keith 1,000 Ml Bag PEG 03/04/22 15:14 1,000 ml UD FLO Administration Protocol Heparin Sodium (Porcine) 5,000 units 02/02/22 09:00 02/03/22 20:48 Heparin Sod 5,000 Unit/0.5 Ml Vial SQ 03/04/22 08:59 5,000 units Q12 FLO Administration Cefepime HCl 2,000 mg/ Syringe 20 mls @ 5 mls/min 02/04/22 21:00 02/04/22 20:56 IV 02/17/22 20:59 5 mls/min Q24H FLO Administration Protocol Metoprolol Tartrate 25 mg 02/02/22 09:00 02/04/22 20:55 Metoprolol Tartrate 25 Mg Tab PO 03/04/22 08:59 25 mg BID FLO Administration Miscellaneous 1 each 02/02/22 08:00 02/05/22 07:03 Febuxostat - Order Awaiting Action N/A 03/04/22 07:59 Not Given QS FLO Pentoxifylline 400 mg 02/02/22 09:00 02/04/22 22:00 Pentoxifylline 400mg Ext Rel Tab PO 03/04/22 08:59 Not Given BID FLO Sterile Water 120 ml 02/02/22 15:15 02/05/22 07:03 Tube Feeding Water Flush PEG 03/04/22 15:14 120 ml Q4H FLO Administration Tamsulosin HCl 0.4 mg 02/02/22 09:00 02/04/22 08:19 Tamsulosin Hcl 0.4 Mg Cap PO 03/04/22 08:59 0.4 mg DAILY FLO Administration Social History Smoking Status: Former smoker Hx Alcohol Use: No Alcohol type: beer alcohol intake frequency: a few times a week Alcohol Intake Frequency Comment: not for the last several months Hx Substance Use: No Physical Exam Vital Signs Last Vital Signs Temp 98.1 F 02/05/22 08:10 Pulse 76 02/05/22 08:10 Resp 16 02/05/22 08:10 BP 143/62 H 02/05/22 08:10 Pulse Ox 91 02/05/22 08:10 O2 Del Method 02/05/22 04:00 O2 Flow Rate 1 02/04/22 07:42 Testing Laboratory Results 02/05/22 07:25 PT 11.9 Seconds (9.0-12.0) 02/01/22 23:02 INR 1.1 (0.9-1.1) 02/01/22 23:02 Urine Color Yellow 02/02/22 00:32 Urine Appearance Turbid (Clear) A 02/02/22 00:32 Urine pH 6.5 (4.5-7.5) 02/02/22 00:32 Ur Specific [place] 1.013 (1.000-1.030) 02/02/22 00:32 Urine Protein 2+ (Negative) H 02/02/22 00:32 Urine Glucose (UA) Negative (Negative) 02/02/22 00:32 Urine Ketones Negative (Negative) 02/02/22 00:32 Urine Nitrite Positive (Negative) A 02/02/22 00:32 Ur Leukocyte Esterase 3+ (Negative) H 02/02/22 00:32 Urine WBC (Auto) >30 /hpf (0-5) H 02/02/22 00:32 Urine RBC (Auto) >30 /hpf (0-4) H 02/02/22 00:32 U Hyaline Cast (Auto) 0 /lpf (0-5) 02/02/22 00:32 U Epithel Cells (Auto) >30 /lpf (0-5) H 02/02/22 00:32 Urine Bacteria (Auto) 4+ (Negative) H 02/02/22 00:32 02/03/22 04:39 Aerobic Blood Culture - Preliminary Blood Staphylococcus aureus Anaerobic Blood Culture - Preliminary No growth in Anaerobic bottle after 48 hours. 02/03/22 04:39 Aerobic Blood Culture - Preliminary Blood Staphylococcus aureus Anaerobic Blood Culture - Preliminary No growth in Anaerobic bottle after 48 hours. 02/01/22 23:02 Aerobic Blood Culture - Final Blood Staphylococcus aureus Anaerobic Blood Culture - Final Staphylococcus aureus 02/02/22 00:32 Urine Culture - Preliminary Urine,Straight Cath Enterobacter cloacae Staphylococcus aureus 02/02/22 14:06 Aerobic Blood Culture - Preliminary Blood Staphylococcus aureus Anaerobic Blood Culture - Preliminary No growth in Anaerobic bottle after 48 hours. 02/02/22 13:35 Aerobic Blood Culture - Preliminary Blood Staphylococcus aureus Anaerobic Blood Culture - Preliminary No growth in Anaerobic bottle after 48 hours. 02/01/22 23:02 Aerobic Blood Culture - Final Blood Staphylococcus aureus Anaerobic Blood Culture - Final Staphylococcus aureus 02/02/22 03:11 Gram Stain - Final Abdomen Aerobic and Anaerobic Culture - Preliminary Staphylococcus aureus 02/05/22 02/05/22 06:03 02:28 POC Glucose 131 H 139 H Electrocardiogram Date: 02/01/22 Poor data quality, interpretation may be adversely affected Sinus rhythm with Premature atrial complexes and with occasional Premature ventricular complexes, rate 98 bpm Otherwise normal ECG No previous ECGs available Confirmed by Ahsan Vines ([id number]) on 02/03/2022 7:12:49 AM Chest X-Ray Date: 02/01/22 IMPRESSION: 1. Scattered reticulonodular airspace opacities with patchy bibasilar densities. This favors an atypical pneumonia. 2. Diffuse interstitial thickening and a trace right pleural effusion are also noted. This may represent superimposed pulmonary edema. Echocardiogram Date: 02/03/22 LV is normal in size Mild concentric LVH LV wall motion is normal EF 65-70% AV leaflets are thickened with focal thickening of the right coronary cusp with moderate calcification Mitral valve leaflets are mildly thickened with redundant and mobile chordae Cannot exclude aortic or mitral valve valvular vegetation Mild AR
[2022-02-05 08:46] LABS: BUN Creatinine Ratio 32.7 (10-20); Calcium 7.4 mg/dl (8.5-10.1); Creatinine Clr Calc Pharmacy 26.3 ml/min; Est GFR (Non-African American) 42.3 ml/min; Potassium 3.2 mmol/L (3.5-5.1)
[2022-02-05] MEDS: CLOPIDOGREL BISULFATE 75 MG TAB PO SCH (09:20)
[2022-02-05] MEDS: ASPIRIN 81 MG ECTAB PO SCH (09:20)
[2022-02-05] MEDS ORDERED: PROPOFOL IV EMULSION 10 MG/ML 20 ML VIAL IV ONE (10:15)
[2022-02-05] MEDS ORDERED: fentaNYL citrate 100 MCG/2 ML VIAL ONE (10:15)
[2022-02-05] MEDS ORDERED: ATROPINE SULFATE 0.1 MG/ML 10ML SYR IV PRN (10:22)
[2022-02-05] MEDS ORDERED: ePHEDrine sulfate 50 MG/ML AMP IV PRN (10:22)
[2022-02-05] MEDS ORDERED: fentaNYL citrate 100 MCG/2 ML VIAL IV PRN (10:22)
--- NOTE | 2022-02-05 10:41 | History & Physical Bridge Note ---
Date of Service February 05, 2022 History & Physical Bridge Note I have examined the patient, reviewed the History & Physical and in the interval since the performance of the History & Physical I have noted the following changes of clinical significance: no changes noted
[2022-02-05] MEDS ORDERED: LIDOCAINE 1% LOCAL 20 ML VIAL ONE (10:45)
[2022-02-05] MEDS ORDERED: ONDANSETRON INJ 2 MG/ML 2 ML VIAL ONE (11:18)
--- NOTE | 2022-02-05 11:24 | Post Operative Brief Note ---
Immediate Post Op Note v1 Date of Surgery February 05, 2022 Pre & Post Diagnosis Operation Date: 02/04/22 09:30 <No data on this case meets the specified criteria> Operation Date: 02/05/22 11:50 Pre-Op Diagnosis: Bacteremia due to methicillin susceptible Staphylococcus aureus Post-Op Diagnosis: Bacteremia due to methicillin susceptible Staphylococcus aureus I identified the patient and participated in the time-out.: Yes Procedure Operation Date: 02/04/22 09:30 <No data on this case meets the specified criteria> Operation Date: 02/05/22 11:50 Actual Procedures p Infusaport Removal(Right) - Han Keene MD Surgeon Han Keene MD Information Tech none Estimated Blood Loss 2 Findings Consistent with Post-Op Diagnosis
--- NOTE | 2022-02-05 11:30 | Hospitalist Progress Note ---
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 He had a second cycle of chemotherapy last Friday. He also had a peg tube place couple of weeks ago. He presents with Fever of 103F. He was found to have MSSA bactermia. He continues to be persistently bacteremic. He continues to be persistently bacteremic. Discussion done with infectious disease and oncologist; agree with removal of Port-A-Cath. Patient is scheduled to have Port-A-Cath removed on 02/05(today) 1) MSSA Bacteremia 2) UTI, Fowler catheter POA 3) Tongue and Throat Ca on Chemotherapy 4) Peg tube site erythema -Febrile to 38.6 F on admission. Afebrile since. Normotensive and saturating well in room air. No leukocytosis Urinalysis -positive nitrate, 3+ leukocyte esterase, greater than 30 WBC. Blood culture on 02/01, 02/02 and 02/03- 2 X MSSA Urine culture growing gram-negative bacilli Transthoracic echo shows aortic valve and mitral valve thickened; unable to rule out vegetation Plan; - Patient to have his Port-A-Cath removed today. We will continue to get serial blood cultures every day till it is negative. Plan is to give cefepime for 1 week to cover for both MSSA bacteremia and UTI. Then, switch to cefazolin for next 5 weeks. Total duration of antibiotic for MSSA bacteremia will be 6 weeks from the day the culture is negative. --Patient is contraindicated to undergo LAURA due to his tongue and throat cancer; discussed with cardiology regarding it. 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 --Resume PEG tube feeding and clear liquid by mouth after the procedure Bacitracin twice daily for PEG tube site erythema. C - Urinary retention very recently; continue fowler. Chronic conditions: 5. Hypertension: Holding amolidpine. Continue metoprolol. 6. Possible benign prostatic hypertrophy: With Flomax. 7. Peripheral vascular disease: On aspirin, statin, Plavix, and pentoxifylline. 8. Chronic kidney disease:follow labs 9. Anemia: Could be from the chemo, ongoing illness. Transfuse as necessary. 10. Deep venous thrombosis prophylaxis: On heparin subcutaneous; on hold for port-acath removal SonVelia Neumann) is a updated over the phone . He is currently in [place]. Answered all questions. Diet- peg tube and clear liquid by mouth DVT- heparin, on hold today for the procedure. Full code Admission and Anticipated Discharge Date Admission Date: February 02, 2022 Subjective Patient seen and examined at bedside. He was afebrile overnight. Blood pressure was normotensive. He is at baseline mental status. He says he is not in any discomfort at the moment. Review of Systems Review of Systems: All systems reviewed & are unremarkable except as noted in Subjective Physical Exam Physical Exam: Constitutional: Thin cachectic male; in no apparent distress. Neck: port-a-cath in place, no erythema surrounding the Port-A-Cath site. Respiratory: normal respiratory effort, lungs clear to auscultation, no wheeze, rales, rhonchi. Normal insp/exp effort, no accessory muscle use Cardiovascular: RRR, no murmur, no edema Vessels: no JVD or carotid bruit Chest: normal inspection of chest Abdomen: peg tube in place; slight erythema overlying the skin. Musculoskeletal: no cyanosis or clubbing, extremities motor strength 5/5 Skin: no rashes, warm and dry normal turgor Neurologic: PERRL, EOMI, accommodation nl, no face palsy, no dysarthria CN's II- XI intact bilaterally and moves all extremities Psychiatric: A+Ox3, euthymic affect Lymphatic: no cervical or axillary lymphadenopathy : Fowler in place Results & Data Results & Data ([facility]) Vital Signs (Past 12 Hours) Vital Signs Temp Pulse Pulse Resp BP Pulse Ox O2 Del Method 02/05/22 10:45 36 C L 75 18 131/53 L 91 Room Air 02/05/22 09:37 Room Air 02/05/22 08:10 36.7 C 76 16 143/62 H 91 02/05/22 07:22 66 02/05/22 04:00 36.6 C 76 18 135/66 92 Room Air 02/04/22 23:47 53 L Diagnostic Findings Laboratory Results WBC 5.78 K/ul (4.8-10.8) 02/05/22 07:25 RBC 2.61 M/uL (4.63-6.08) L 02/05/22 07:25 Hgb 8.0 g/dl (14.0-18.0) L 02/05/22 07:25 Hct 24.9 % (40.1-51.0) L 02/05/22 07:25 MCV 95.4 fL (80.0-100.0) 02/05/22 07:25 MCH 30.7 pg (25.0-34.0) 02/05/22 07:25 MCHC 32.1 g/dL (32.0-36.0) 02/05/22 07:25 RDW Std Deviation 53.2 fL (36.4-46.3) H 02/05/22 07:25 RDW Coeff of [place] 15.2 % (11.5-14.5) H 02/05/22 07:25 Plt Count 165 K/uL (130-400) 02/05/22 07:25 MPV 11.2 fL (9.4-12.4) 02/05/22 07:25 Immature Gran % (Auto) 1.4 % 02/04/22 07:09 Neut % (Auto) 75.2 % 02/04/22 07:09 Lymph % (Auto) 12.4 % 02/04/22 07:09 [place] % (Auto) 9.0 % 02/04/22 07:09 Eos % (Auto) 1.7 % 02/04/22 07:09 Baso % (Auto) 0.3 % 02/04/22 07:09 Neut # (Auto) 2.60 K/uL (1.4-6.5) 02/04/22 07:09 Lymph # (Auto) 0.43 K/uL (1.2-3.4) L 02/04/22 07:09 [place] # (Auto) 0.31 K/uL (0.24-0.82) 02/04/22 07:09 Eos # (Auto) 0.06 K/uL (0-0.50) 02/04/22 07:09 Baso # (Auto) 0.01 K/uL (0-0.2) 02/04/22 07:09 Immature Gran # (Auto) 0.05 K/uL (0.00-0.02) H 02/04/22 07:09 Toxic Granulation 1+ 02/04/22 07:09 Dohle Bodies 1+ 02/04/22 07:09 RBC Morphology Unremarkable 02/02/22 08:57 Echinocytes 1+ 02/04/22 07:09 PT 11.9 Seconds (9.0-12.0) 02/01/22 23:02 INR 1.1 (0.9-1.1) 02/01/22 23:02 Sodium 138 mmol/L (136-145) 02/05/22 07:25 Potassium 3.2 mmol/L (3.5-5.1) L 02/05/22 07:25 Chloride 112 mmol/L (98-107) H 02/05/22 07:25 Carbon Dioxide 18 mmol/L (21-32) L 02/05/22 07:25 Anion Gap 8 (3-11) 02/05/22 07:25 BUN 48 mg/dl (6-23) H 02/05/22 07:25 Creatinine 1.47 mg/dl (0.6-1.4) H 02/05/22 07:25 Est Cr Clr Drug Dosing 26.3 ml/min 02/05/22 07:25 Est GFR ( Amer) 49.0 ml/min 02/05/22 07:25 Est GFR (Non-Af Amer) 42.3 ml/min 02/05/22 07:25 BUN/Creatinine Ratio 32.7 (10-20) H 02/05/22 07:25 Glucose 117 mg/dl (70-99(Fasting)) H 02/05/22 07:25 POC Glucose 131 mg/dl (70-99) H 02/05/22 06:03 Lactate 1.4 mmol/L (0.4-2.0) 02/01/22 23:02 Calcium 7.4 mg/dl (8.5-10.1) L 02/05/22 07:25 Magnesium 1.9 mg/dl (1.7-2.4) 02/02/22 08:57 Iron 28 mcg/dl (35-175) L 02/02/22 08:57 TIBC 146 mcg/dl (250-450) L 02/02/22 08:57 Unsaturated IBC 118 mcg/dl (155-355) L 02/02/22 08:57 Transferrin % Sat 19 % (20-50) L 02/02/22 08:57 Total Bilirubin 0.7 mg/dl (0.2-1.0) 02/01/22 23:02 AST 26 U/L (13-39) 02/01/22 23:02 ALT 51 U/L (7-52) 02/01/22 23:02 Alkaline Phosphatase 67 U/L (34-104) 02/01/22 23:02 Troponin I High Sens 38.7 pg/ml (0-20) H 02/01/22 23:02 Total Protein 5.6 gm/dl (6.0-8.3) L 02/01/22 23:02 Albumin 2.9 gm/dl (3.4-5.0) L 02/01/22 23:02 Globulin 2.7 gm/dl (2.5-4.0) 02/01/22 23:02 Albumin/Globulin Ratio 1.1 (0.9-2) 02/01/22 23:02 Vitamin B12 471 pg/ml (180-914) 02/02/22 08:57 Folate 14.82 ng/ml (>5.38) 02/02/22 08:57 Procalcitonin 2.98 ng/ml (0-0.5) H 02/01/22 23:02 Urine Color Yellow 02/02/22 00:32 Urine Appearance Turbid (Clear) A 02/02/22 00:32 Urine pH 6.5 (4.5-7.5) 02/02/22 00:32 Ur Specific [place] 1.013 (1.000-1.030) 02/02/22 00:32 Urine Protein 2+ (Negative) H 02/02/22 00:32 Urine Glucose (UA) Negative (Negative) 02/02/22 00:32 Urine Ketones Negative (Negative) 02/02/22 00:32 Urine Blood 3+ (Negative) H 02/02/22 00:32 Urine Nitrite Positive (Negative) A 02/02/22 00:32 Urine Bilirubin Negative (Negative) 02/02/22 00:32 Urine Urobilinogen Negative (Negative) 02/02/22 00:32 Ur Leukocyte Esterase 3+ (Negative) H 02/02/22 00:32 Urine WBC (Auto) >30 /hpf (0-5) H 02/02/22 00:32 Urine RBC (Auto) >30 /hpf (0-4) H 02/02/22 00:32 U Hyaline Cast (Auto) 0 /lpf (0-5) 02/02/22 00:32 U Epithel Cells (Auto) >30 /lpf (0-5) H 02/02/22 00:32 Urine Bacteria (Auto) 4+ (Negative) H 02/02/22 00:32 Ur Renal Epithelial Cell Not Reportable 02/02/22 00:32 Urine Yeast Not Reportable 02/02/22 00:32 Nasal Screen MRSA (PCR) Negative (Negative) 02/02/22 03:11 Random Vancomycin 9.2 mcg/ml (10-20) L 02/04/22 08:55 Adenovirus (PCR) Not Detected (NotDetected) 02/01/22 23:14 B. pertussis DNA (PCR) Not Detected (NotDetected) 02/01/22 23:14 B.parapertussis DNA PCR Not Detected (NotDetected) 02/01/22 23:14 C. pneumoniae DNA (PCR) Not Detected (NotDetected) 02/01/22 23:14 Coronavirus OC43 (PCR) Not Detected (NotDetected) 02/01/22 23:14 Coronavirus HKU1 (PCR) Not Detected (NotDetected) 02/01/22 23:14 Coronavirus 229E (PCR) Not Detected (NotDetected) 02/01/22 23:14 SARS-CoV-2 (PCR) Not Detected (NotDetected) 02/01/22 23:14 Coronavirus NL63 (PCR) Not Detected (NotDetected) 02/01/22 23:14 Human Metapneumovir PCR Not Detected (NotDetected) 02/01/22 23:14 Influenza Type A (PCR) Not Detected (NotDetected) 02/01/22 23:14 Influenza Type B (PCR) Not Detected (NotDetected) 02/01/22 23:14 M. pneumoniae (PCR) Not Detected (NotDetected) 02/01/22 23:14 Parainfluenza 1 (PCR) Not Detected (NotDetected) 02/01/22 23:14 Parainfluenza 2 (PCR) Not Detected (NotDetected) 02/01/22 23:14 Parainfluenza 3 (PCR) Not Detected (NotDetected) 02/01/22 23:14 Parainfluenza 4 (PCR) Not Detected (NotDetected) 02/01/22 23:14 RSV (PCR) Not Detected (NotDetected) 02/01/22 23:14 Entero/Rhino (PCR) Not Detected (NotDetected) 02/01/22 23:14 Staphylococcus sp PCR DETECTED (NotDetected) A 02/01/22 23:02 Staph aureus (PCR) DETECTED (NotDetected) A 02/01/22 23:02 mecA/C & MREJ Resist Gene MRSA Not Detected (NotDetected) 02/01/22 23:02 Bld Cult ID Panel PCR See PCR Comment (NotDetected) 02/01/22 23:02 Impressions Chest X-Ray 02/01/22 22:25 XR chest 1V portable HISTORY: SEPSIS COMPARISON: None. FINDINGS: The cardiac silhouette is normal in size. No pneumothorax. Calcifications within the aortic knob. Right jugular Port-A-Cath runs at the SVC. Scattered reticulonodular airspace opacities with patchy bibasilar densities at the lung bases. A gastrostomy tube is noted. There is mild interstitial thickening and a trace right pleural effusion. IMPRESSION: 1. Scattered reticulonodular airspace opacities with patchy bibasilar densities. This favors an atypical pneumonia. 2. Diffuse interstitial thickening and a trace right pleural effusion are also noted. This may represent superimposed pulmonary edema. ACT 112: Negative or not required by law. Electronically signed by: Obi Stoner M.D. 02/02/2022 8:[address] 02/02/22 11:08 CT SCAN OF THE ABDOMEN WITHOUT IV CONTRAST CLINICAL HISTORY: Fever. Clinical concern for abscess near the PEG tube site. COMPARISON STUDY: No priors. TECHNIQUE: CT scan of the abdomen is performed from the lung bases to the pelvic inlet. Images are reviewed in the axial, sagittal, and coronal planes. IV contrast was not administered for this examination as per the referring clinician. Note that the examination was performed in significantly suboptimal fashion without oral and IV contrast. A dose lowering technique was utilized adhering to the principles of ALARA. CT DOSE: 155.58 mGy.cm FINDINGS: Lung bases: The heart is mildly enlarged and without pericardial effusion. There is diminished attenuation of the cardiac blood pool as compared to the myocardium suggesting anemia. The coronaries are densely calcified. Emphysematous change is noted with bilateral right lung base. There are small to moderate pleural effusions, right larger than left with dependent consolidation. There is evidence of multifocal pulmonary metastatic disease. A 3.1 cm nodule at the left lung base as seen on image #63. Numerous additional smaller pulmonary lesions are present at both lung bases. Intralobular septal thickening in the lower lobes could be related to fluid overload versus lymphangitic spread of tumor. Liver: The unenhanced liver is normal in size, contour, and attenuation. There is no intrahepatic biliary ductal dilatation. Gallbladder: There are tiny calcified gallstones with no CT evidence of acute cholecystitis. Spleen: Normal in size and attenuation. Pancreas: The unenhanced pancreas is mildly atrophic and grossly unremarkable. Adrenal glands: Unremarkable. Kidneys: There is asymmetric cortical atrophy of the right kidney as compared to left. No hydronephrosis is seen. There are numerous bilateral renovascular calcifications. No definite renal calculi are identified. A 5 mm nonobstructing calculus is suggested in the right kidney on image #120. This is difficult to assess due to the degree of vascular calcifications. There is no evidence of contour deforming renal mass lesion. Abdominal vasculature: The abdominal aorta is normal in course and caliber noting advanced atherosclerotic calcification. A presumed left axillofemoral bypass is noted in the left abdominal wall. Stomach and bowel: The stomach is distended. A percutaneous gastrostomy tube is in place. There is no evidence of fluid collection at the gastrostomy tube site as clinically queried. Imaged portions of the small bowel and colon show no evidence of obstruction. There is underdistention versus wall thickening of the visualized left colon. Liquid stool is noted in the right colon. Peritoneum: There is trace perihepatic ascites. No intraperitoneal free air is seen. Lymphadenopathy: None. Skeletal structures: The skeletal structures are osteopenic. There is moderate lumbosacral spondylosis. No lytic or blastic lesions are seen. IMPRESSION: 1. Significantly suboptimal examination without oral and IV contrast. 2. The stomach is distended and a percutaneous gastrostomy tube appears appropriately positioned. There is no evidence of fluid collection at the gastrostomy site on this unenhanced examination as clinically queried. 3. Right larger than left pleural effusions with dependent consolidation. This likely represent atelectasis. Correlate clinically for evidence of superimposed pneumonia. 4. There is evidence of multifocal pulmonary metastatic disease. Correlate with the patient's oncological history. 5. Cardiomegaly with intralobular septal thickening at the lung bases. This could represent fluid overload/congestive failure versus lymphangitic spread of tumor. Correlate clinically. 6. There is underdistention versus wall thickening of the partially imaged left colon. Liquid stool is noted in the right colon. Correlate clinically for eviden ce of a nonspecific colitis/diarrheal illness. 7. Small volume perihepatic ascites. 8. Cholelithiasis. 9. Additional findings as above. ACT 112: Negative or not required by law. Electronically signed by: Bolivar Chavez M.D. 02/02/2022 1:52 PM
[2022-02-05] MEDS ORDERED: ALBUT/IPRATROP 3MG/0.5MG NEB 3 ML VIAL ONE (13:20)
[2022-02-05] MEDS ORDERED: ALBUT/IPRATROP 3MG/0.5MG NEB 3 ML VIAL NEB PRN (14:07)
[2022-02-05] MEDS: PEPTAMEN 1.5 CAL 1,000 ML BAG PEG SCH (14:21)
[2022-02-05] MEDS ORDERED: ALBUT/IPRATROP 3MG/0.5MG NEB 3 ML VIAL NEB SCH (16:00)
[2022-02-05] MEDS: ATORVASTATIN 40 MG TAB PO SCH (21:11)
[2022-02-05] MEDS: POTASSIUM CHLORIDE PWD 20 MEQ PACK PO SCH (21:12)
[2022-02-05] MEDS: HEPARIN SOD 5,000 UNIT/0.5 ML VIAL SQ SCH (21:12)
[2022-02-05] MEDS: CEFEPIME 2,000 MG in SYRINGE 0 ML IV SCH (21:16)
[2022-02-06] MEDS: TUBE FEEDING WATER FLUSH PEG SCH ×7 (07:03→23:15)
[2022-02-06 08:16] LABS: Hematocrit (blood only) 22.2 % (40.1-51.0); Hemoglobin 7.2 g/dl (14.0-18.0); Mean Corpuscular Hemoglobin 30.8 pg (25.0-34.0); Mean Corpuscular Hgb Conc 32.4 g/dL (32.0-36.0); Mean Corpuscular Volume 94.9 fL (80.0-100.0); Mean Platelet Volume 11.1 fL (9.4-12.4); Platelet Count 160 K/uL (130-400); RDW Coefficient of Variation 15.4 % (11.5-14.5); RDW Standard Deviation 53.1 fL (36.4-46.3); Red Blood Count 2.34 M/uL (4.63-6.08); White Blood Count 5.22 K/ul (4.8-10.8)
[2022-02-06] MEDS: ASPIRIN 81 MG ECTAB PO SCH (08:36)
[2022-02-06] MEDS: TAMSULOSIN HCL 0.4 MG CAP PO SCH (08:36)
[2022-02-06] MEDS: PENTOXIFYLLINE 400MG EXT REL TAB PO SCH ×2 (08:36→20:33)
[2022-02-06] MEDS: METOPROLOL TARTRATE 25 MG TAB PO SCH ×2 (08:36→20:32)
[2022-02-06] MEDS: CLOPIDOGREL BISULFATE 75 MG TAB PO SCH (08:36)
[2022-02-06] MEDS: POTASSIUM CHLORIDE PWD 20 MEQ PACK PO SCH ×2 (08:36→20:32)
[2022-02-06] MEDS: HEPARIN SOD 5,000 UNIT/0.5 ML VIAL SQ SCH ×2 (08:36→20:32)
[2022-02-06 09:12] LABS: BUN Creatinine Ratio 31.6 (10-20); Calcium 7.5 mg/dl (8.5-10.1); Creatinine Clr Calc Pharmacy 24.2 ml/min; Est GFR (Non-African American) 39.7 ml/min; Potassium 3.5 mmol/L (3.5-5.1)
[2022-02-06] MEDS: PEPTAMEN 1.5 CAL 1,000 ML BAG PEG SCH (14:20)
--- NOTE | 2022-02-06 15:04 | Surgery Progress Note ---
Date of Service February 06, 2022 Assessment & Plan (1) Infection of central venous catheter: Plan: Postop day 1 status post removal of infected access port. He is doing quite well. We remove the packing. He does not require further packing. Dry dressing to site once daily. He will need sutures out in 1 week. Admission and Anticipated Discharge Date Admission Date: February 02, 2022 Subjective Postop day 1 status post removal of infected port. He is doing well. He denies any pain. No fevers. Physical Exam Physical Exam: Incision site right upper chest healing well. Sutures in place. No erythema. Packing removed. No further purulent fluid. Recovered with dry dressing. Results & Data ([facility]) Vital Signs (Past 12 Hours) Vital Signs Temp Pulse Pulse Pulse Resp BP Pulse Ox 02/06/22 14:57 61 02/06/22 14:37 02/06/22 08:30 64 02/06/22 11:19 36.6 C 59 L 16 115/49 L 96 02/06/22 08:40 02/06/22 08:00 36.6 C 59 L 20 147/68 H 95 02/06/22 07:30 62 02/06/22 04:01 36.5 C 67 18 152/57 H 96 Pulse Ox O2 Del Method O2 Flow Rate O2 Flow Rate 02/06/22 14:57 02/06/22 14:37 95 3 02/06/22 08:30 02/06/22 11:19 Nasal Cannula 3 02/06/22 08:40 Nasal Cannula 3 02/06/22 08:00 Nasal Cannula 3 02/06/22 07:30 02/06/22 04:01 Nasal Cannula 3
--- NOTE | 2022-02-06 16:31 | Hospitalist Progress Note ---
Date of Service February 06, 2022 Assessment & Plan (1) Bacteremia due to methicillin susceptible Staphylococcus aureus (MSSA): (2) Irritation around percutaneous endoscopic gastrostomy (PEG) tube site: (3) Urinary retention: (4) Tongue cancer: Plan per Dr. 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 He had a second cycle of chemotherapy last Friday. He also had a peg tube place couple of weeks ago. He presents with Fever of 103F. He was found to have MSSA bactermia. He continues to be persistently bacteremic. He continues to be persistently bacteremic. Discussion done with infectious disease and oncologist; agree with removal of Port-A-Cath. Patient is scheduled to have Port-A-Cath removed on 02/05(today) 1) MSSA Bacteremia 2) UTI, Fowler catheter POA 3) Tongue and Throat Ca on Chemotherapy 4) Peg tube site erythema -Febrile to 38.6 F on admission. Afebrile since. Normotensive and saturating well in room air. No leukocytosis Urinalysis -positive nitrate, 3+ leukocyte esterase, greater than 30 WBC. Blood culture on 02/01, 02/02 and 02/03- 2 X MSSA Urine culture growing Enterobacter Transthoracic echo shows aortic valve and mitral valve thickened; unable to rule out vegetation Plan; - Patient to have his Port-A-Cath removed today. We will continue to get serial blood cultures every day till it is negative. Plan is to give cefepime for 1 week to cover for both MSSA bacteremia and UTI. Then, switch to cefazolin for next 5 weeks. Total duration of antibiotic for MSSA bacteremia will be 6 weeks from the day the culture is negative. --Patient is contraindicated to undergo LAURA due to his tongue and throat cancer; discussed with cardiology regarding it. 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 --Resume PEG tube feeding and clear liquid by mouth after the procedure Bacitracin twice daily for PEG tube site erythema. C - Urinary retention very recently; continue fowler. 02/06 s/p Portacath removal BC 02/05: still positive for Staph aureus repeat BC 02/06: pending continue Cefepime total of 7 days, then change to Cefazolin x [address] line once repeat BC negative Chronic conditions: 5. Hypertension: Holding amolidpine. Continue metoprolol. 6. Possible benign prostatic hypertrophy: With Flomax. 7. Peripheral vascular disease: On aspirin, statin, Plavix, and pentox ifylline. 8. Chronic kidney disease:crea 1.5 9. Anemia: Could be from the chemo, ongoing illness. Transfuse as necessary. 10. Deep venous thrombosis prophylaxis: On heparin subcutaneous; on hold for port-acath removal Diet- peg tube and clear liquid by mouth DVT- heparin q12h Full code Disposition will need SNF plan of care discussed with patient and her at bedside in detail and at length all questions answered they are understanding, agreeable, comfortable with the plan of care Admission and Anticipated Discharge Date Admission Date: February 02, 2022 Subjective ff up for MSSA bacteremia, etc seen resting in bed, sitting up on 2 L NC patient's Katie at bedside patient states he is "lousy"- just uncomfortable in the hospital no chest pain, dyspnea, palpitations, dizziness no headache, nausea no problems with PEG tube no other symptoms Review of Systems Review of Systems: all noted and negative except for above Physical Exam Physical Exam: General- oriented x 3, not in distress, speaks in sentences with no effort or accessory muscle use Head- atraumatic Eyes- PERRL, EOMI, anicteric ENT- oropharynx clear Neck- supple, no JVD, no adenopathy, no thyromegaly; carotids +2/2, no bruits appreciated Lungs- clear to auscultation bilaterally, no rales/wheezes Heart- normal rate, regular rhythm; no murmur, no gallop, no rub appreciated Abdomen- normal bowel sounds, nondistended, soft, nontender, no masses or hepatosplenomegaly PEG tube in place Extremities- no pretibial edema, no calf tenderness; peripheral pulses intact Neuro- alert, oriented x 3; CN 2-12 grossly intact; motor 5/5 bilaterally;sensation 100% on all extremities; no other gross focal neurologic deficits Skin- warm & dry Results & Data Results & Data ([facility]) Vital Signs (Past 12 Hours) Vital Signs Temp Pulse Pulse Resp BP Pulse Ox Pulse Ox 02/06/22 16:00 36.4 C L 58 L 18 153/74 H 95 02/06/22 14:57 61 02/06/22 14:37 95 02/06/22 08:30 64 02/06/22 11:19 36.6 C 59 L 16 115/49 L 96 02/06/22 08:40 02/06/22 08:00 36.6 C 59 L 20 147/68 H 95 02/06/22 07:30 62 O2 Del Method O2 Flow Rate O2 Flow Rate 02/06/22 16:00 Nasal Cannula 4 02/06/22 14:57 02/06/22 14:37 3 02/06/22 08:30 02/06/22 11:19 Nasal Cannula 3 02/06/22 08:40 Nasal Cannula 3 02/06/22 08:00 Nasal Cannula 3 02/06/22 07:30 all noted and reviewed including below
[2022-02-06] MEDS: ATORVASTATIN 40 MG TAB PO SCH (20:32)
[2022-02-06] MEDS: CEFEPIME 2,000 MG in SYRINGE 0 ML IV SCH (20:37)
[2022-02-07] MEDS: TUBE FEEDING WATER FLUSH PEG SCH ×6 (03:15→23:35)
[2022-02-07 08:48] LABS: BUN Creatinine Ratio 31.5 (10-20); Calcium 7.6 mg/dl (8.5-10.1); Creatinine Clr Calc Pharmacy 26.8 ml/min; Est GFR (African American) 50.7 ml/min; Est GFR (Non-African American) 43.7 ml/min
[2022-02-07] MEDS: HEPARIN SOD 5,000 UNIT/0.5 ML VIAL SQ SCH ×2 (09:19→22:11)
[2022-02-07] MEDS: METOPROLOL TARTRATE 25 MG TAB PO SCH (09:19)
[2022-02-07] MEDS: POTASSIUM CHLORIDE PWD 20 MEQ PACK PO SCH ×2 (09:19→22:10)
[2022-02-07] MEDS: TAMSULOSIN HCL 0.4 MG CAP PO SCH (09:20)
[2022-02-07] MEDS: ASPIRIN 81 MG ECTAB PO SCH (09:20)
[2022-02-07] MEDS: PENTOXIFYLLINE 400MG EXT REL TAB PO SCH ×2 (09:20→22:10)
[2022-02-07] MEDS: CLOPIDOGREL BISULFATE 75 MG TAB PO SCH (09:20)
--- NOTE | 2022-02-07 09:59 | XRay Report ---
XR chest 1V portable CLINICAL HISTORY: hypoxia COMPARISON STUDY: Chest radiograph February 01, 2022. FINDINGS: There is no pneumothorax. Moderate right and small to moderate left pleural effusions have significantly increased in size. Multiple pulmonary nodules measure up to 2.5 cm. The largest is with in the left lower lobe. Cardiomediastinal silhouette is stable. Pulmonary edema has progressed. Basil ar opacities have increased. Emphysema is present. IMPRESSION: 1. Progression of pulmonary edema and bilateral pleural effusions, right larger than left, with assoc iated bibasilar opacities. 2. Multiple pulmonary nodules suggestive of metastatic disease. ACT 112: Negative or not required by law. Electronically signed by: Roman Foreman M.D. 02/07/2022 9:58 AM
[2022-02-07 10:41] LABS: Hematocrit (blood only) 23.5 % (40.1-51.0); Hemoglobin 7.2 g/dl (14.0-18.0); Mean Corpuscular Hemoglobin 30.1 pg (25.0-34.0); Mean Corpuscular Hgb Conc 30.6 g/dL (32.0-36.0); Mean Corpuscular Volume 98.3 fL (80.0-100.0); Mean Platelet Volume 10.9 fL (9.4-12.4); Platelet Count 172 K/uL (130-400); RDW Coefficient of Variation 15.8 % (11.5-14.5); RDW Standard Deviation 56.4 fL (36.4-46.3); Red Blood Count 2.39 M/uL (4.63-6.08); White Blood Count 6.92 K/ul (4.8-10.8)
[2022-02-07] MEDS: FUROSEMIDE 40 MG/4 ML VIAL IV SCH (11:30)
--- NOTE | 2022-02-07 11:56 | Pulmonary Consultation ---
Date of Consultation February 07, 2022 Assessment & Plan (1) Bilateral pleural effusion: (2) Metastatic cancer: (3) Multiple pulmonary nodules: (4) COPD with emphysema: (5) Ex-smoker: Plan Chest x-ray 02/07/2022 personally reviewed: Portable film, bilateral pleural effusion right greater than left, left lower lobe nodularity likely presenting metastatic lesion Chest x-ray has gotten worse compared to 02/01/2022 CT abdomen also showed bilateral pleural effusion small to moderate in size on the right. Small on the left 2D echo 02/03/2022: EF 65-70%,, right ventricle normal in size and function -- Acute hypoxic respiratory failure with bilateral pleural effusion Pleural effusion seems to be getting worse since coming to the hospital Likely from IV fluids while in the hospital. O2 supplementation to keep oxygen saturation between 88-92% Incentive spirometer will be beneficial BiPAP in future if need be -- Metastatic tongue and throat cancer On chemotherapy -- MSSA bacteremia Status per primary team Plan: Looking at the CT abdomen pelvis it does not seem that the patient has pneumonia but rather atelectasis Would recommend diuresis right now to see if that will help Try to keep the patient negative 1-1.5 L on a daily basis at least If there is no improvement then will consider thoracentesis. Looking at the metastatic disease, I would recommend palliative care consult in an 86-year-old. Case discussed with Dr Dhaliwal Please note the above document was generated using voice recognition software. It may contain grammatical, syntax or spelling errors.Any formal questions or concerns about the content, text or information contained within the body of this dictation should be directly addressed to the provider for clarification. History of Present Illness Attending Physician: Jose De Jesus Dhaliwal MD History of Present Illness 86-year-old male was admitted to the hospital on 02/02/2022 for abdominal pain and urinary retention. Past medical history: Metastatic throat and tongue cancer diagnosed 2 months ago approximately, coronary artery disease, dyslipidemia, hypertension, peripheral vascular disease Pulmonary consulted for worsening pleural effusion At the time of examination patient's was at bedside. Patient was very lethargic. He was answering questions appropriately He was saturating 98% with heart rate of 60 at rest. Denied any chest pain, mild shortness of breath Denied any headache, no nausea, no vomiting Complains of generalized lethargy. Social history: 40-heql-vpne smoking history quit at the age of 56 approximately. Allergies Allergy/AdvReac Type Severity Reaction Status Date / Time No Known Allergies Allergy Unverified 02/01/22 23:10 Home Medications Medication Instructions Recorded Confirmed Type amlodipine 5 mg tablet 5 mg PO BID 02/01/22 02/01/22 History aspirin 81 mg tablet,delayed 81 mg PO DAILY 02/01/22 02/01/22 History release atorvastatin 40 mg tablet 40 mg PO HS 02/01/22 02/01/22 History clopidogrel 75 mg tablet 75 mg PO QAM 02/01/22 02/01/22 History dexamethasone 4 mg tablet 20 mg PO UD 02/01/22 02/01/22 History docusate sodium 100 mg capsule 100 mg PO BID PRN Constipation 02/01/22 02/01/22 History febuxostat 40 mg tablet 40 mg PO QAM 02/01/22 02/01/22 History isosorbide mononitrate 120 mg 120 mg PO DAILY 02/01/22 02/01/22 History tablet,extended release 24 hr metoprolol tartrate 25 mg tablet 25 mg PO BID 02/01/22 02/01/22 History pentoxifylline 400 mg 400 mg PO BID 02/01/22 02/01/22 History tablet,extended release polyethylene glycol 3350 17 17 g PO DAILY PRN Constipation 02/01/22 02/01/22 History gram/dose oral powder prochlorperazine maleate 10 mg 10 mg PO Q8 PRN Nausea And Vomiting 02/01/22 02/01/22 History tablet tamsulosin 0.4 mg capsule 0.4 mg PO DAILY 02/01/22 02/01/22 History Patient History Social History Smoking Status: Former smoker Hx Alcohol Use: No Hx Substance Use: No Preferred Language: Nigerien Communication Ability: Effective Presiding Judge Required: No Beliefs That Will Affect Care: None marital status: Current Living Situation: Spouse Feels Safe at Home: Yes Assistive Devices: Walker Review of Systems Review of Systems: All systems reviewed & are unremarkable except as noted in HPI & below Physical Exam Physical Exam: Constitutional: No acute distress, frail-appearing HEENT: EOMI, PERRLA Respiratory system: Decreased air entry bilaterally, no wheeze, no rhonchi, positive crackles bilateral lower lobes CVS: S1-S2 positive, no murmurs or gallops Abdomen: Soft, nontender, nondistended, positive bowel sounds x4, PEG tube in place Extremities: +2 pulses bilaterally radialis/ dorsalis pedis, no cyanosis, no edema Neuro: Awake alert oriented to self Psych: Flat mood and affect G/U: Positive Quinonez Skin: no rashes, warm and dry Lymphatic: no cervical or axillary lymphadenopathy Results & Data Results & Data ([facility]) Vital Signs (Past 12 Hours) Vital Signs Temp Pulse Pulse Resp BP Pulse Ox O2 Del Method 02/07/22 09:57 62 02/07/22 06:31 36.6 C 66 18 145/58 H 97 02/07/22 03:45 36.5 C 61 24 139/62 93 Nasal Cannula O2 Flow Rate 02/07/22 09:57 02/07/22 06:31 4 02/07/22 03:45 4 Laboratory Results 02/07/22 08:07 02/07/22 08:07 PG Care Time/CCT Total # of Minutes Spent Total Time Spent with Patient: Total time spent is greater than 50% in coordination of care (as documented) at patient's floor/unit and/or counseling patient: Coding Level of Care Code 67768 Initial Inpt Care Lvl 3 Diagnoses Bilateral pleural effusion J90 Metastatic cancer C79.9 Multiple pulmonary nodules R91.8 COPD with emphysema J43.9 Ex-smoker Z87.891
[2022-02-07] MEDS ORDERED: SODIUM CHLORIDE 0.9% 250 ML IV PRN (12:22)
--- NOTE | 2022-02-07 12:29 | Hospitalist Progress Note ---
Date of Service February 07, 2022 Assessment & Plan (1) Bacteremia due to methicillin susceptible Staphylococcus aureus (MSSA): (2) Irritation around percutaneous endoscopic gastrostomy (PEG) tube site: (3) Urinary retention: (4) Tongue cancer: Plan per Dr. 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 He had a second cycle of chemotherapy last Friday. He also had a peg tube place couple of weeks ago. He presents with Fever of 103F. He was found to have MSSA bactermia. 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 Afebrile since. Normotensive and saturating well in room air. No leukocytosis Urinalysis -positive nitrate, 3+ leukocyte esterase, greater than 30 WBC. Blood culture on 02/01, 02/02 and 02/03- 2 X MSSA Transthoracic echo shows aortic valve and mitral valve thickened; unable to rule out vegetation --Patient is contraindicated to undergo LAURA due to his tongue and throat cancer; discussed with cardiology regarding it. 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 02/05 s/p Portacath removal BC 02/05: still positive for Staph aureus repeat BC 02/06: negative so far continue Cefepime total of 7 days from 1st culture negative, then change to Cefazolin x 5 weeks total (to complete 6 weeks since culture negative) place line once repeat BC negative UTI- Enterobacter on Cefepime Bilateral Pleural Effusion with Hypoxia Echo: EF normal Lasix 40mg in Am and 20mg at PM Pulm consulted- diurese, no signs of pneumonia Incentive Spirometry Bradycardia A fib? hold Metoprolol ff up official A fib read CHADSVASC score 4 monitor close Anemia iron deficiency Hg7.2, 1 unit ordered Ferrous sulfate started no signs of active GI bleed Chronic conditions: 5. Hypertension: Holding amlodipine. 6. Possible benign prostatic hypertrophy: With Flomax. 7. Peripheral vascular disease: On aspirin, statin, Plavix, and pentoxifylline. 8. Chronic kidney disease:crea 1.5 -Creatinine at 1.4 Appears to be his baseline Monitor while on Lasix 9. Anemia:Iron deficiency, could also be from the chemo, ongoing illness. Check ferritin 1 unit packed RBC ordered today, repeat hemoglobin tomorrow Discussed with patient's oncologist Dr. Jelani Cornell 10. Deep venous thrombosis prophylaxis: On heparin subcutaneous Diet- peg tube DVT- heparin q12h Full code Disposition will need SNF plan of care discussed with patient and her at bedside in detail and at length all questions answered they are understanding, agreeable, comfortable with the plan of care Admission and Anticipated Discharge Date Admission Date: February 02, 2022 Subjective ff up for MSSA bacteremia, etc seen resting in bed, comfortable on 4 L NC states he feels fine overall no shortness of breath, cough no abdominal pain nausea/vomiting no fever/chills no chest pain, dyspnea, palpitations, dizziness no other symptoms Review of Systems Review of Systems: all noted and negative except for above Physical Exam Physical Exam: General- oriented x 3, not in distress, speaks in sentences with no effort or accessory muscle use Eyes- anicteric Neck- no JVD Lungs- mild decrease BS at the bases Heart- normal rate, regular rhythm; no murmurs Abdomen- normal bowel sounds, nondistended, soft, nontender PEG tube in place: no issues Extremities- no pretibial edema, no calf tenderness Neuro- alert, oriented x 2; no gross focal neurologic deficits Skin- warm & dry Results & Data Results & Data ([facility]) Vital Signs (Past 12 Hours) Vital Signs Temp Pulse Pulse Resp BP Pulse Ox O2 Del Method 02/07/22 11:56 36.4 C L 61 18 150/53 H 94 Room Air 02/07/22 09:57 62 02/07/22 06:31 36.6 C 66 18 145/58 H 97 02/07/22 03:45 36.5 C 61 24 139/62 93 Nasal Cannula O2 Flow Rate 02/07/22 11:56 02/07/22 09:57 02/07/22 06:31 4 02/07/22 03:45 4 all noted and reviewed including below
--- NOTE | 2022-02-07 15:24 | Electrocardiogram Report ---
Test Reason : Blood Pressure : / mmHG Vent. Rate : 053 BPM Atrial Rate : 059 BPM P-R Int : 000 ms QRS Dur : 082 ms QT Int : 500 ms P-R-T Axes : 000 069 081 degrees QTc Int : 469 ms Atrial fibrillation with slow ventricular response Low voltage QRS Diffuse Nonspecific T wave abnormality Abnormal ECG When compared with ECG of 01-FEB-2022 22:17, Atrial fibrillation has replaced Sinus rhythm Vent. rate has decreased BY 45 BPM QRS voltage has decreased Confirmed by Hammad Humphrey ([id number]) on 02/07/2022 3:24:30 PM Referred By: REFERRED SELF Confirmed By:Hammad Humphrey
[2022-02-07] MEDS: PEPTAMEN 1.5 CAL 1,000 ML BAG PEG SCH (16:46)
[2022-02-07] MEDS: FERROUS SULFATE 325 MG/7.4 ML UDP PO SCH (16:57)
[2022-02-07] MEDS ORDERED: FUROSEMIDE INJ 20 MG/2 ML VIAL IV ONE (17:00)
[2022-02-07] MEDS: CEFEPIME 2,000 MG in SYRINGE 0 ML IV SCH (22:09)
[2022-02-07] MEDS: ATORVASTATIN 40 MG TAB PO SCH (22:12)
[2022-02-08] MEDS: TUBE FEEDING WATER FLUSH PEG SCH ×6 (03:15→23:15)
[2022-02-08 07:32] LABS: Hematocrit (blood only) 29.1 % (40.1-51.0); Hemoglobin 9.6 g/dl (14.0-18.0); Mean Corpuscular Hemoglobin 30.6 pg (25.0-34.0); Mean Corpuscular Volume 92.7 fL (80.0-100.0); Mean Platelet Volume 10.3 fL (9.4-12.4); Platelet Count 209 K/uL (130-400); RDW Coefficient of Variation 15.3 % (11.5-14.5); Red Blood Count 3.14 M/uL (4.63-6.08); White Blood Count 7.62 K/ul (4.8-10.8)
[2022-02-08 07:41] LABS: BUN Creatinine Ratio 30.4 (10-20); Calcium 7.9 mg/dl (8.5-10.1); Creatinine Clr Calc Pharmacy 23.6 ml/min; Est GFR (African American) 43.9 ml/min; Est GFR (Non-African American) 37.9 ml/min; Potassium 4.1 mmol/L (3.5-5.1)
[2022-02-08] MEDS: FUROSEMIDE 40 MG/4 ML VIAL IV SCH (08:47)
[2022-02-08] MEDS: ASPIRIN 81 MG ECTAB PO SCH (08:48)
[2022-02-08] MEDS: CLOPIDOGREL BISULFATE 75 MG TAB PO SCH (08:48)
[2022-02-08] MEDS: TAMSULOSIN HCL 0.4 MG CAP PO SCH (08:48)
[2022-02-08] MEDS: POTASSIUM CHLORIDE PWD 20 MEQ PACK PO SCH ×2 (08:48→21:55)
[2022-02-08] MEDS: PENTOXIFYLLINE 400MG EXT REL TAB PO SCH ×2 (08:48→21:55)
[2022-02-08] MEDS: HEPARIN SOD 5,000 UNIT/0.5 ML VIAL SQ SCH ×2 (08:49→21:55)
[2022-02-08] MEDS: FERROUS SULFATE 325 MG/7.4 ML UDP PO SCH ×2 (08:49→17:40)
--- NOTE | 2022-02-08 10:21 | Pulmonology Progress Note ---
Date of Service February 08, 2022 Assessment & Plan (1) Bilateral pleural effusion: (2) Metastatic cancer: (3) Multiple pulmonary nodules: (4) COPD with emphysema: (5) Ex-smoker: Plan Chest x-ray 02/07/2022 personally reviewed: Portable film, bilateral pleural effusion right greater than left, left lower lobe nodularity likely presenting metastatic lesion Chest x-ray has gotten worse compared to 02/01/2022 CT abdomen also showed bilateral pleural effusion small to moderate in size on the right. Small on the left 2D echo 02/03/2022: EF 65-70%,, right ventricle normal in size and function -- Acute hypoxic respiratory failure with bilateral pleural effusion Pleural effusion seems to be getting worse since coming to the hospital Likely from IV fluids while in the hospital. O2 supplementation to keep oxygen saturation between 88-92% Incentive spirometer will be beneficial BiPAP in future if need be Looking at the CT abdomen pelvis it does not seem that the patient has pneumonia but rather atelectasis -- Metastatic tongue and throat cancer On chemotherapy -- MSSA bacteremia Plan per primary team Plan: In/out: -2.6 L, urine output 3151 Recommend continuing with diuresis. We will repeat chest x-ray in a.m. If there is no improvement then will consider thoracentesis. Looking at the metastatic disease, I would recommend palliative care consult in an 86-year-old. Case discussed with Dr Dhaliwal Please note the above document was generated using voice recognition software. It may contain grammatical, syntax or spelling errors.Any formal questions or concerns about the content, text or information contained within the body of this dictation should be directly addressed to the provider for clarification. Admission and Anticipated Discharge Date Admission Date: February 02, 2022 Subjective Patient seen and examined at bedside. No acute distress, no adverse events overnight Patient seems to be more alert today. He was saturating 94-95% on room air at the time of examination Denies any headache, shortness of breath has improved as per the patient No nausea or vomiting Review of Systems Review of Systems: All systems reviewed & are unremarkable except as noted in Subjective Physical Exam Physical Exam: Constitutional: No acute distress, frail-appearing HEENT: EOMI, PERRLA Respiratory system: Decreased air entry bilaterally, no wheeze, no rhonchi, positive crackles bilateral lower lobes CVS: S1-S2 positive, no murmurs or gallops Abdomen: Soft, nontender, nondistended, positive bowel sounds x4, PEG tube in place Extremities: +2 pulses bilaterally radialis/ dorsalis pedis, no cyanosis, no edema Neuro: Awake alert oriented to self Psych: Normal mood and affect G/U: Positive Quinonez Skin: no rashes, warm and dry Lymphatic: no cervical or axillary lymphadenopathy Results & Data Results & Data ([facility]) Vital Signs (Past 12 Hours) Vital Signs Temp Pulse Pulse Resp BP BP Pulse Ox 02/08/22 08:38 36.4 C L 69 18 147/67 H 94 02/08/22 04:05 36.5 C 63 18 145/46 H 94 02/08/22 00:44 62 02/07/22 23:17 36.4 C L 67 16 157/50 H 96 O2 Del Method 02/08/22 08:38 Room Air 02/08/22 04:05 Room Air 02/08/22 00:44 02/07/22 23:17 Room Air Laboratory Results 02/08/22 07:06 02/08/22 07:06 PG Care Time/CCT Total # of Minutes Spent Total Time Spent with Patient: Total time spent is greater than 50% in coordination of care (as documented) at patient's floor/unit and/or counseling patient: Coding Level of Care Code 42441 Subseq Hosp Care Lvl 2 Diagnoses Bilateral pleural effusion J90 Metastatic cancer C79.9 Multiple pulmonary nodules R91.8 COPD with emphysema J43.9 Ex-smoker Z87.891
--- NOTE | 2022-02-08 10:34 | Cardiology Consultation ---
Date of Consultation February 08, 2022 Assessment & Plan (1) Atrial fibrillation with controlled ventricular rate: (2) Bilateral pleural effusion: (3) Metastatic cancer: (4) Bacteremia due to methicillin susceptible Staphylococcus aureus (MSSA): (5) Anemia: (6) Peripheral vascular disease: Plan Cardiology consulted for rate controlled atrial fibrillation in this very complex, yet frail elderly man. He has been in persistent afib since around 02/03/22. His rates were initially slow in the 40-50 range, and his home metoprolol 25 mg BID was stopped/held. Currently his HR's have been ranging 50-70's at rest. He is asymptomatic. He is on ASA and plavix for history of PVD. He has been significantly anemic requiring PRBCs this admission, and had recent issues with hemoptysis and melena during hospitalization in [place] earlier this month. He is not a fpc anticoagulation candidate based on current state, frailty and anemia. 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 He was also admitted for bacteremia with MSSA. Port was removed due to probable source of infection. Initial echo revealed calcification of the aortic and mitral valves, vegetation not able to be ruled out. LAURA contraindicated due to current tongue/throat CA. Repeat echo was completed this morning and results pending. Would not recommend anticoagulation at this time in this patient. No need for beta siena therapy. He has b/l pleural effusions and pulm is following. Likely due to metastatic CA. Agree with ongoing diuresis with furosemide. Would consider palliative care consult in this gentleman Case discussed with Dr. Muller. Supervising Physician Co-Signing Physician Notes Patient was seen and examined, chart and medications and echo past and current reviewed. Exam notable for frail cachectic male with no acute cardiac complaints Patient referred multiple issues as outlined but concerns regarding atrial fibrillation newly observed during recent admission. Atrial fibrillation beginning on 02/03/2022 heart rates currently well controlled without tacky or bradycardia rhythms with metoprolol discontinued initially. Patient high risk for anticoagulation unless indicated for DVT prophylaxis in metastatic carcinoma Patient on dual antiplatelet therapy for ill-defined peripheral vascular disease per chart Recommendations as above History of Present Illness Reason for Consultation: Afib with controlled rates; Bacteremia; Possible infective endocarditis Requesting Physician: Dr. Dhaliwal Attending Physician: Dr. Muller History of Present Illness Patient is a frail and elderly 86 year old male. He has difficulty communicating/speaking due to recent diagnosis of metastatic tongue and throat CA for which he is receiving chemotherapy in [place]. review of systems is limited. History is obtained from inpatient/outpatient records and review of CareEverywhere. He receives most of his care through the CT, and [facility]. He has a chart history of CAD, but unable to define anatomy or if he had prior interventions. He previously followed with [facility] in [place] in 2014 for HTN, PVD but no mention of CAD at that time. Not able to find a cath report. Patient is unsure if he ever had one completed. He does not believe he sees cardiology on a regular basis. He does follow with vascular surgery through [facility] in for history of moderate carotid vascular disease and PVD in his LE with prior fem/pop bypass surgery many years ago. He is on ASA and Plavix for PVD. He recently had Port placement for chemo, and PEG tube placement. He has received several rounds of chemotherapy. He was admitted to [facility] for febrile illness, found to have + blood cultures with Staph aureus infection. Port was removed. There was questionable calcifications on his aortic and mitral valve on echo earlier this admission, however LAURA was contraindicated due to tongue CA. He remains on antibiotic therapy. He also has b/l pleural effusions and worsening hypoxia since admission. Pulm was consulted and recommended more aggressive diuresis. Outputs have improved. Oxygen levels improved. On 02/03, patient developed afib with slow ventricular rates. His home dose of metoprolol tartrate 25 mg BID was placed on hold. Since that time his heart rates have averaged 60-80 bpm. No pauses or prolonged R to R intervals. He seems asymptomatic with the afib. He has been anemic and requiring PRBC's since admission. There are reports from [facility] in January 2022 in [place] that patient was having hemoptysis and possible GI bleeding as well. At time of consult, patient resting in bed with eyes closed, getting echo. He denies chest pain or SOB. Full review of systems not able to be performed. Denies pain. No sense of fluttering or palpitations. Allergies Allergy/AdvReac Type Severity Reaction Status Date / Time No Known Allergies Allergy Unverified 02/01/22 23:10 Home Medications Medication Instructions Recorded Confirmed Type amlodipine 5 mg tablet 5 mg PO BID 02/01/22 02/01/22 History aspirin 81 mg tablet,delayed 81 mg PO DAILY 02/01/22 02/01/22 History release atorvastatin 40 mg tablet 40 mg PO HS 02/01/22 02/01/22 History clopidogrel 75 mg tablet 75 mg PO QAM 02/01/22 02/01/22 History dexamethasone 4 mg tablet 20 mg PO UD 02/01/22 02/01/22 History docusate sodium 100 mg capsule 100 mg PO BID PRN Constipation 02/01/22 02/01/22 History febuxostat 40 mg tablet 40 mg PO QAM 02/01/22 02/01/22 History isosorbide mononitrate 120 mg 120 mg PO DAILY 02/01/22 02/01/22 History tablet,extended release 24 hr metoprolol tartrate 25 mg tablet 25 mg PO BID 02/01/22 02/01/22 History pentoxifylline 400 mg 400 mg PO BID 02/01/22 02/01/22 History tablet,extended release polyethylene glycol 3350 17 17 g PO DAILY PRN Constipation 02/01/22 02/01/22 History gram/dose oral powder prochlorperazine maleate 10 mg 10 mg PO Q8 PRN Nausea And Vomiting 02/01/22 02/01/22 History tablet tamsulosin 0.4 mg capsule 0.4 mg PO DAILY 02/01/22 02/01/22 History Patient History Social History Smoking Status: Former smoker Hx Alcohol Use: No Hx Substance Use: No Preferred Language: Danish Communication Ability: Effective President [employer] Ceo Required: No Beliefs That Will Affect Care: None marital status: Current Living Situation: Spouse Feels Safe at Home: Yes Assistive Devices: Walker Review of Systems Review of Systems: Other (Patient has difficulty speaking due to tongue CA/mass. ) Physical Exam Constitutional: WD/WN, vitals as above + cachectic and + lethargic Respiratory: no respiratory distress Auscultation: + diminished lung sounds Cardiovascular: Rate/Rhythm: + irregularly irregular Heart Sounds: + murmur (II/ systolic murmur LSB) Gastrointestinal (Abdomen): normal bowel sounds, soft, nontender, no hepatosplenomegaly Neurologic: PERRL, EOMI, accommodation nl, no face palsy, no dysarthria Results & Data ([facility]) Vital Signs (Past 12 Hours) Vital Signs Temp Pulse Pulse Resp BP BP Pulse Ox 02/08/22 08:38 36.4 C L 69 18 147/67 H 94 02/08/22 04:05 36.5 C 63 18 145/46 H 94 02/08/22 00:44 62 02/07/22 23:17 36.4 C L 67 16 157/50 H 96 O2 Del Method 02/08/22 08:38 Room Air 02/08/22 04:05 Room Air 02/08/22 00:44 02/07/22 23:17 Room Air Laboratory Results CBC 02/08/22 Range/Units 07:06 WBC 7.62 (4.8-10.8) K/ul RBC 3.14 L (4.63-6.08) M/uL Hgb 9.6 L (14.0-18.0) g/dl Hct 29.1 L (40.1-51.0) % Plt Count 209 (130-400) K/uL Comprehensive Metabolic Panel 02/08/22 Range/Units 07:06 Sodium 139 (136-145) mmol/L Potassium 4.1 (3.5-5.1) mmol/L Chloride 109 H (98-107) mmol/L Carbon Dioxide 22 (21-32) mmol/L BUN 49 H (6-23) mg/dl Creatinine 1.61 H (0.6-1.4) mg/dl Glucose 123 H (70-99(Fasting)) mg/dl Calcium 7.9 L (8.5-10.1) mg/dl Intake and Output 02/07/22 02/08/22 02/08/22 22:59 06:59 14:59 Intake Total 460 / 460 Output Total 400 / 3151 2751 / 3151 Balance 60 / -2691 -2751 / -2691 Intake: Intake (Blood Product) Amt 310 / 310 Packed Cells, Leukoreduced 310 / 310 Unit [id number] Other 150 / 150 Packed Cells, Leukoreduced 150 / 150 Unit [id number] Output: Urine Amount (Catheter) 400 / 3150 2750 / 3150 Quinonez/Indwelling 400 / 3150 2750 / 3150 # Bowel Movements Other: Other Intake Source NPO Weight 51.6 kg Weight Measurement Method Built in [facility] Diagnostic Findings telemetry reviewed: Persistent atrial fibrillation with controlled rates since 02/03. EKG reviewed: Atrial fibrillation with slow ventricular response with PVC's. Old anterior or Septal infarct No significant change from previous Repeat echo results pending from 02/08 echo report reviewed from 02/03/22: The LV is normal in size. Mild concentric LVH LV wall motion is normal. EF 65-70% Aortic valve leaflets are thickened with focal thickening of the right coronary cusp with moderate calcification. MV leaflets are mildly thickened with redundant and mobile chordae Cannot exclude aortic or mitral valve valvular vegetation. Mild aortic regurgitation. Medications Administered Current Inpatient Medications Acetaminophen (Acetaminophen 325 Mg Tab) 650 mg PO Q4H PRN PRN Reason: Pain or Fever Stop: 03/04/22 03:35 Last Admin: 02/05/22 14:20 Dose: 650 mg Albuterol (Albut/Ipratrop 3mg/0.5mg Neb 3 Ml Vial) 3 ml NEB Q4 PRN; Protocol PRN Reason: Shortness Of Breath Or Wheezing Stop: 03/07/22 15:59 Aspirin (Aspirin 81 Mg Ectab) 81 mg PO DAILY [facility] Stop: 03/04/22 08:59 Last Admin: 02/08/22 08:48 Dose: 81 mg Atorvastatin Calcium (Atorvastatin 40 Mg Tab) 40 mg PO HS [facility] Stop: 03/04/22 20:59 Last Admin: 02/07/22 22:12 Dose: 40 mg Clopidogrel Bisulfate (Clopidogrel Bisulfate 75 Mg Tab) 75 mg PO QAM [facility] Stop: 03/04/22 08:59 Last Admin: 02/08/22 08:48 Dose: 75 mg Docusate Sodium (Docusate Sodium 100 Mg Cap) 100 mg PO BID PRN PRN Reason: Constipation Stop: 03/04/22 03:35 Enteral Nutritional Formula (Peptamen 1.5 Keith 1,000 Ml Bag) 1,000 ml PEG UD [facility]; Protocol Stop: 03/04/22 15:14 Last Admin: 02/07/22 16:46 Dose: 1,000 ml Ferrous Sulfate (Ferrous Sulfate 325 Mg/7.4 Ml Udp) 325 mg PO BIDM [facility] Stop: 03/09/22 16:59 Last Admin: 02/08/22 08:49 Dose: 325 mg Furosemide (Furosemide 40 Mg/4 Ml Vial) 40 mg IV DAILY [facility] Stop: 03/09/22 10:29 Last Admin: 02/08/22 08:47 Dose: 40 mg Heparin Sodium (Porcine) (Heparin Sod 5,000 Unit/0.5 Ml Vial) 5,000 units SQ Q12 [facility] Stop: 03/04/22 08:59 Last Admin: 02/08/22 08:49 Dose: 5,000 units Cefepime HCl 2,000 mg/ Syringe 20 mls @ 5 mls/min IV Q24H [facility]; Protocol Stop: 02/08/22 22:00 Last Admin: 02/07/22 22:09 Dose: 5 mls/min Pantoprazole Sodium 40 mg/ (Syringe) 10 mls @ 5 mls/min IV DAILY@1100 [facility] Stop: 03/10/22 10:59 Cefazolin Sodium (Ancef 2000mg) 2,000 mg in 15 mls @ 3.75 mls/min IV Q12H [facility]; Protocol Stop: 02/23/22 11:59 Metoprolol Tartrate (Metoprolol Tartrate 25 Mg Tab) 25 mg PO BID [facility] Stop: 03/04/22 08:59 Last Admin: 02/07/22 09:19 Dose: 25 mg Miscellaneous (Febuxostat - Order Awaiting Action) 1 each N/A QS [facility] Stop: 03/04/22 07:59 Last Admin: 02/08/22 09:09 Dose: Not Given Nitroglycerin (Nitroglycerin Sl 0.4 Mg/Tab Tab) 0.4 mg SL UD PRN PRN Reason: Chest Pain Stop: 03/04/22 03:35 Pentoxifylline (Pentoxifylline 400mg Ext Rel Tab) 400 mg PO BID [facility] Stop: 03/04/22 08:59 Last Admin: 02/08/22 08:48 Dose: 400 mg Polyethylene Glycol (Polyethylene (Miralax) 17 Gm Pack) 17 gm PO DAILY PRN PRN Reason: Constipation Stop: 03/04/22 03:35 Potassium Chloride (Potassium Chloride Pwd 20 Meq Pack) 20 meq PO BID [facility] Stop: 03/07/22 20:59 Last Admin: 02/08/22 08:48 Dose: 20 meq Prochlorperazine (Prochlorperazine Maleate 10 Mg Tab) 10 mg PO Q8 PRN PRN Reason: Nausea And Vomiting Stop: 03/04/22 03:35 Sterile Water (Tube Feeding Water Flush) 120 ml PEG Q4H [facility] Stop: 03/04/22 15:14 Last Admin: 02/08/22 08:49 Dose: 120 ml Tamsulosin HCl (Tamsulosin Hcl 0.4 Mg Cap) 0.4 mg PO DAILY [facility] Stop: 03/04/22 08:59 Last Admin: 02/08/22 08:48 Dose: 0.4 mg
--- NOTE | 2022-02-08 11:20 | Electrocardiogram Report ---
Test Reason : Blood Pressure : / mmHG Vent. Rate : 056 BPM Atrial Rate : 357 BPM P-R Int : 000 ms QRS Dur : 078 ms QT Int : 464 ms P-R-T Axes : 000 073 076 degrees QTc Int : 447 ms Atrial fibrillation with slow ventricular response with premature ventricular or aberrantly conducted complexes Diffuse Nonspecific T wave abnormality Abnormal ECG When compared with ECG of 07-FEB-2022 12:09, No significant change was found Confirmed by Hammad Humphrey ([id number]) on 02/08/2022 11:20:11 AM Referred By: REFERRED SELF Confirmed By:Hammad Humphrey
[2022-02-08] MEDS: PANTOprazole 40 MG in SYRINGE 0 ML IV SCH (11:45)
[2022-02-08] MEDS: PEPTAMEN 1.5 CAL 1,000 ML BAG PEG SCH (13:15)
[2022-02-08] MEDS ORDERED: ACETAMINOPHEN SUSP 1000 MG/31.2 ML UDP PEG PRN (14:15)
--- NOTE | 2022-02-08 16:52 | Hospitalist Progress Note ---
Date of Service February 08, 2022 Assessment & Plan (1) Bacteremia due to methicillin susceptible Staphylococcus aureus (MSSA): (2) Irritation around percutaneous endoscopic gastrostomy (PEG) tube site: (3) Urinary retention: (4) Tongue cancer: Plan per Dr. 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 He had a second cycle of chemotherapy last Friday. He also had a peg tube place couple of weeks ago. He presents with Fever of 103F. He was found to have MSSA bactermia. 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 Afebrile since. Normotensive and saturating well in room air. No leukocytosis Urinalysis -positive nitrate, 3+ leukocyte esterase, greater than 30 WBC. Blood culture on 02/01, 02/02 and 02/03- 2 X MSSA Transthoracic echo shows aortic valve and mitral valve thickened; unable to rule out vegetation --Patient is contraindicated to undergo LAURA due to his tongue and throat cancer; discussed with cardiology regarding it. 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 02/05 s/p Portacath removal BC 02/05: still positive for Staph aureus repeat BC 02/06: Positive for gram positive cocci 1 out of 2 bottles Repeat BC 02/08: Pending Still persistently bacteremic Port-A-Cath site, PEG tube site without signs of infection Patient to finish cefepime IV today, will then change to Cefazolin x 5 weeks total (to complete 6 weeks since culture negative) place line once repeat BC negative ID consult recommendations reviewed UTI- Enterobacter on Cefepime Bilateral Pleural Effusion with Hypoxia Echo: EF normal Diuresing slowly Continue Lasix 40 mg IV daily Pulm consulted- diurese, no signs of pneumonia Incentive Spirometry Bradycardia A fib? hold Metoprolol ff up official A fib read CHADSVASC score 4 monitor close Cardiology service consulted Anemia iron deficiency Hg7.2, 1 unit ordered Ferrous sulfate started no signs of active GI bleed Hemoglobin improved to 9 Chronic conditions: 5. Hypertension: Holding amlodipine. 6. Possible benign prostatic hypertrophy: With Flomax. 7. Peripheral vascular disease: On aspirin, statin, Plavix, and pentoxifylline. 8. Chronic kidney disease:crea 1.5 -Creatinine at 1.4 Appears to be his baseline Monitor while on Lasix 9. Anemia:Iron deficiency, could also be from the chemo, ongoing illness. Management per above Discussed with patient's oncologist Dr. Jelani Cornell 10. Deep venous thrombosis prophylaxis: On heparin subcutaneous Diet- peg tube DVT- heparin q12h Full code Disposition will need SNF Admission and Anticipated Discharge Date Admission Date: February 02, 2022 Subjective Follow-up for MSSA bacteremia, etc. Seen resting in bed, comfortable, not distressed States he feels about the same as yesterday No shortness of breath, cough Noted to have some secretions overnight, suction as needed Denies abdominal pain, nausea vomiting No other symptoms Review of Systems Review of Systems: all noted and negative except for above Physical Exam Physical Exam: General- oriented x 3, not in distress, speaks in sentences with no effort or accessory muscle use Eyes- anicteric Neck- no JVD Lungs- clear breath sounds bilaterally, no rales/wheezes Heart- normal rate, regular rhythm; no murmurs Suture site over right chest wall: No bleeding, hematoma, signs of infection or discharge Abdomen- normal bowel sounds, nondistended, soft, nontender PEG tube in place: No surrounding erythema, discharge Extremities- no pretibial edema, no calf tenderness Neuro- alert, oriented x 3; no gross focal neurologic deficits Skin- warm & dry Results & Data Results & [facility] ([facility]) Vital Signs (Past 12 Hours) Vital Signs Temp Pulse Pulse Resp BP BP Pulse Ox 02/08/22 16:04 36.8 C 66 16 146/72 H 97 02/08/22 14:58 68 02/08/22 12:07 36.5 C 74 18 157/65 H 92 02/08/22 11:53 62 02/08/22 10:26 02/08/22 08:38 36.4 C L 69 18 147/67 H 94 O2 Del Method 02/08/22 16:04 Room Air 02/08/22 14:58 02/08/22 12:07 Room Air 02/08/22 11:53 02/08/22 10:26 Room Air 02/08/22 08:38 Room Air all noted and reviewed including below
[2022-02-08] MEDS: CEFEPIME 2,000 MG in SYRINGE 0 ML IV SCH (17:39)
[2022-02-08] MEDS: ATORVASTATIN 40 MG TAB PO SCH (21:55)
[2022-02-09] MEDS: TUBE FEEDING WATER FLUSH PEG SCH ×6 (03:18→23:12)
--- NOTE | 2022-02-09 06:53 | XRay Report ---
XR chest 1V portable CLINICAL HISTORY: f/u COMPARISON STUDY: Chest radiograph February 07, 2022. FINDINGS: Pulmonary edema has slightly improved. Small bilateral pleural effusions are noted. These h ave likely decreased. Associated bibasilar opacities have improved. Multiple pulmonary nodules are ag ain noted, including a 2.8 cm left lower lobe nodule. Gastrostomy tube is incidentally noted. Cardiac size is within normal limits. No pneumothorax. IMPRESSION: 1. Pulmonary edema, small bilateral pleural effusions and associated airspace opacities which have im proved since prior chest radiograph of February 07, 2022. 2. Redemonstration of pulmonary nodules suspicious for metastatic disease. ACT 112: Negative or not required by law. Electronically signed by: Roman Foreman M.D. 02/09/2022 6:52 AM
[2022-02-09 08:06] LABS: Hematocrit (blood only) 29.6 % (40.1-51.0); Hemoglobin 9.6 g/dl (14.0-18.0); Mean Corpuscular Hemoglobin 30.1 pg (25.0-34.0); Mean Corpuscular Hgb Conc 32.4 g/dL (32.0-36.0); Mean Corpuscular Volume 92.8 fL (80.0-100.0); Mean Platelet Volume 10.5 fL (9.4-12.4); Platelet Count 240 K/uL (130-400); RDW Coefficient of Variation 14.8 % (11.5-14.5); Red Blood Count 3.19 M/uL (4.63-6.08); White Blood Count 7.57 K/ul (4.8-10.8)
[2022-02-09 08:54] LABS: BUN Creatinine Ratio 29.2 (10-20); Calcium 7.7 mg/dl (8.5-10.1); Est GFR (African American) 38.9 ml/min; Est GFR (Non-African American) 33.6 ml/min; Potassium 4.9 mmol/L (3.5-5.1)
[2022-02-09] MEDS: POTASSIUM CHLORIDE PWD 20 MEQ PACK PO SCH ×2 (09:39→21:16)
[2022-02-09] MEDS: TAMSULOSIN HCL 0.4 MG CAP PO SCH (09:39)
[2022-02-09] MEDS: PENTOXIFYLLINE 400MG EXT REL TAB PO SCH ×2 (09:39→21:15)
[2022-02-09] MEDS: ASPIRIN 81 MG ECTAB PO SCH (09:39)
[2022-02-09] MEDS: CLOPIDOGREL BISULFATE 75 MG TAB PO SCH (09:39)
[2022-02-09] MEDS: FUROSEMIDE INJ 20 MG/2 ML VIAL IV SCH (09:40)
[2022-02-09] MEDS: FERROUS SULFATE 325 MG/7.4 ML UDP PO SCH ×2 (09:40→17:07)
[2022-02-09] MEDS: HEPARIN SOD 5,000 UNIT/0.5 ML VIAL SQ SCH ×2 (09:40→21:15)
--- NOTE | 2022-02-09 10:17 | Pulmonology Progress Note ---
Date of Service February 09, 2022 Assessment & Plan (1) Bilateral pleural effusion: (2) Metastatic cancer: (3) Multiple pulmonary nodules: (4) COPD with emphysema: (5) Ex-smoker: Plan Chest x-ray 02/07/2022 personally reviewed: Portable film, bilateral pleural effusion right greater than left, left lower lobe nodularity likely presenting metastatic lesion Chest x-ray has gotten worse compared to 02/01/2022 CT abdomen also showed bilateral pleural effusion small to moderate in size on the right. Small on the left 2D echo 02/03/2022: EF 65-70%,, right ventricle normal in size and function -- Acute hypoxic respiratory failure with bilateral pleural effusion Pleural effusion seems to be getting worse since coming to the hospital Likely from IV fluids while in the hospital. O2 supplementation to keep oxygen saturation between 88-92% Incentive spirometer will be beneficial BiPAP in future if need be Looking at the CT abdomen pelvis it does not seem that the patient has pneumonia but rather atelectasis -- Metastatic tongue and throat cancer On chemotherapy -- MSSA bacteremia Plan per primary team Plan: In/out: -3.2 L, urine output 3200 Chest x-ray from today shows improvement in bilateral pleural effusion. Continue with diuresis. Today the creatinine did bump up a little bit. Would recommend continuing with diuresis but decrease the dose of Lasix If there is no improvement then will consider thoracentesis. Case discussed with Dr Dhaliwal Please note the above document was generated using voice recognition software. It may contain grammatical, syntax or spelling errors.Any formal questions or concerns about the content, text or information contained within the body of t his dictation should be directly addressed to the provider for clarification. Admission and Anticipated Discharge Date Admission Date: February 02, 2022 Subjective Patient seen and examined at bedside. No acute distress, no adverse events overnight. Patient says he is feeling better compared to last couple of days Denies any headache, no chest pain, no nausea vomiting Has been getting tube feeds No headache or blurry vision Review of Systems Review of Systems: All systems reviewed & are unremarkable except as noted in Subjective Physical Exam Physical Exam: Constitutional: No acute distress, frail-appearing HEENT: EOMI, PERRLA Respiratory system: Decreased air entry bilaterally, no wheeze, no rhonchi, positive crackles bilateral lower lobes CVS: S1-S2 positive, no murmurs or gallops Abdomen: Soft, nontender, nondistended, positive bowel sounds x4, PEG tube in place Extremities: +2 pulses bilaterally radialis/ dorsalis pedis, no cyanosis, no edema Neuro: Awake alert oriented to self Psych: Normal mood and affect G/U: Positive Quinonez Skin: no rashes, warm and dry Lymphatic: no cervical or axillary lymphadenopathy Results & Data Results & Data ([facility]) Vital Signs (Past 12 Hours) Vital Signs Temp Pulse Pulse Resp BP BP Pulse Ox 02/09/22 08:14 36.5 C 69 16 146/59 H 96 02/09/22 03:16 36.7 C 80 18 157/63 H 98 02/08/22 22:25 66 02/08/22 23:55 36.8 C 76 20 155/64 H 97 O2 Del Method 02/09/22 08:14 Room Air 02/09/22 03:16 02/08/22 22:25 02/08/22 23:55 Laboratory Results 02/09/22 07:17 02/09/22 07:17 PG Care Time/CCT Total # of Minutes Spent Total Time Spent with Patient: Total time spent is greater than 50% in coordination of care (as documented) at patient's floor/unit and/or counseling patient: Coding Level of Care Code 68100 Subseq Hosp Care Lvl 2 Diagnoses Bilateral pleural effusion J90 Metastatic cancer C79.9 Multiple pulmonary nodules R91.8 COPD with emphysema J43.9 Ex-smoker Z87.891
[2022-02-09] MEDS: PANTOprazole 40 MG in SYRINGE 0 ML IV SCH (11:35)
[2022-02-09] MEDS: ceFAZolin 2000MG 2,000 MG/15 ML SYR IV SCH ×2 (11:36→23:37)
[2022-02-09] MEDS: PEPTAMEN 1.5 CAL 1,000 ML BAG PEG SCH (15:00)
--- NOTE | 2022-02-09 18:55 | Hospitalist Progress Note ---
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 Afebrile since. Normotensive and saturating well in room air. No leukocytosis Urinalysis -positive nitrate, 3+ leukocyte esterase, greater than 30 WBC. Blood culture on 02/01, 02/02 and 02/03- 2 X MSSA Transthoracic echo shows aortic valve and mitral valve thickened; unable to rule out vegetation --Patient is contraindicated to undergo LAURA due to his tongue and throat cancer; discussed with cardiology regarding it. 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 02/05 s/p Portacath removal BC 02/05: still positive for Staph aureus repeat BC 02/06: Positive for gram positive cocci 1 out of 2 bottles Repeat BC 02/08: Pending Still persistently bacteremic Port-A-Cath site, PEG tube site without signs of infection Patient completed 7 days of IV cefepime, transition today to Cefazolin x 5 weeks total (to complete 6 weeks since culture negative) place line once repeat BC negative ID consult recommendations reviewed UTI- Enterobacter on Cefepime Bilateral Pleural Effusion with Hypoxia Echo: EF normal Diuresing well Decrease Lasix to 20 mg IV daily for now Repeat chest x-ray tomorrow Pulm consulted- diurese, no signs of pneumonia Incentive Spirometry Bradycardia A fib? hold Metoprolol CHADSVASC score 4 monitor close Cardiology service consulted: Not a candidate for chronic anticoagulation Heart rate improving Anemia iron deficiency Hg7.2, 1 unit ordered Ferrous sulfate started no signs of active GI bleed Hemoglobin improved to 9 Chronic conditions: 5. Hypertension: Holding amlodipine. 6. Possible benign prostatic hypertrophy: With Flomax. 7. Peripheral vascular disease: On aspirin, statin, Plavix, and pentoxifylline. 8. Chronic kidney disease:crea 1.5 -Creatinine at 1.4--> 1.7 Monitor while on Lasix 9. Anemia:Iron deficiency, could also be from the chemo, ongoing illness. Management per above Discussed with patient's oncologist Dr. Jelani Cornell 10. Deep venous thrombosis prophylaxis: On heparin subcutaneous Diet- peg tube DVT- heparin q12h Full code Disposition will need SNF Admission and Anticipated Discharge Date Admission Date: February 02, 2022 Subjective Follow-up for MSSA bacteremia, etc. Seen resting in bed, comfortable, not in distress, on room air States he feels fine overall No shortness of breath, cough, fevers or chills No abdominal pain, nausea vomiting No other new symptoms Review of Systems Review of Systems: all noted and negative except for above Physical Exam Physical Exam: General- oriented x 3, not in distress, speaks in sentences with no effort or accessory muscle use Eyes- anicteric Neck- no JVD Lungs- Mildly decreased breath sounds at the bases, no wheezing Heart- normal rate, regular rhythm; no murmurs Abdomen- normal bowel sounds, nondistended, soft, nontender PEG tube in place-no signs of infection Extremities- no pretibial edema, no calf tenderness Neuro- alert, oriented x 3; no gross focal neurologic deficits Skin- warm & dry Results & Data Results & Data ([facility]) Vital Signs (Past 12 Hours) Vital Signs Temp Pulse Pulse Resp BP Pulse Ox O2 Del Method 02/09/22 17:03 36.4 C L 64 16 149/55 H 92 Room Air 02/09/22 15:20 68 02/09/22 11:48 36.6 C 78 18 155/75 H 96 Room Air 02/09/22 07:00 70 02/09/22 10:56 Room Air 02/09/22 08:14 36.5 C 69 16 146/59 H 96 Room Air
[2022-02-09] MEDS: ATORVASTATIN 40 MG TAB PO SCH (21:15)
[2022-02-09] MEDS ORDERED: HYDROmorphone INJ 0.5 MG/0.5 ML SYR IV PRN (21:55)
[2022-02-10] MEDS: TUBE FEEDING WATER FLUSH PEG SCH ×6 (02:24→23:17)
[2022-02-10 07:13] LABS: Hematocrit (blood only) 28.4 % (40.1-51.0); Hemoglobin 9.3 g/dl (14.0-18.0); Mean Corpuscular Hemoglobin 30.9 pg (25.0-34.0); Mean Corpuscular Hgb Conc 32.7 g/dL (32.0-36.0); Mean Corpuscular Volume 94.4 fL (80.0-100.0); Mean Platelet Volume 10.4 fL (9.4-12.4); Platelet Count 244 K/uL (130-400); RDW Coefficient of Variation 14.9 % (11.5-14.5); RDW Standard Deviation 50.5 fL (36.4-46.3); Red Blood Count 3.01 M/uL (4.63-6.08); White Blood Count 7.86 K/ul (4.8-10.8)
[2022-02-10 07:33] LABS: BUN Creatinine Ratio 27.8 (10-20); Calcium 7.8 mg/dl (8.5-10.1); Creatinine Clr Calc Pharmacy 17.4 ml/min; Est GFR (African American) 34.2 ml/min; Est GFR (Non-African American) 29.5 ml/min
[2022-02-10] MEDS: PENTOXIFYLLINE 400MG EXT REL TAB PO SCH (09:11)
[2022-02-10] MEDS: TAMSULOSIN HCL 0.4 MG CAP PO SCH (09:11)
[2022-02-10] MEDS: CLOPIDOGREL BISULFATE 75 MG TAB PO SCH (09:11)
[2022-02-10] MEDS: HEPARIN SOD 5,000 UNIT/0.5 ML VIAL SQ SCH ×2 (09:11→20:01)
[2022-02-10] MEDS: FERROUS SULFATE 325 MG/7.4 ML UDP PO SCH ×2 (09:11→17:10)
[2022-02-10] MEDS: POTASSIUM CHLORIDE PWD 20 MEQ PACK PO SCH (09:11)
[2022-02-10] MEDS: ASPIRIN 81 MG ECTAB PO SCH (09:11)
[2022-02-10] MEDS: FUROSEMIDE INJ 20 MG/2 ML VIAL IV SCH (09:15)
--- NOTE | 2022-02-10 09:41 | Pulmonology Progress Note ---
Date of Service February 10, 2022 Assessment & Plan (1) Bilateral pleural effusion: (2) Metastatic cancer: (3) Multiple pulmonary nodules: (4) COPD with emphysema: (5) Ex-smoker: Plan Chest x-ray 02/07/2022 personally reviewed: Portable film, bilateral pleural effusion right greater than left, left lower lobe nodularity likely presenting metastatic lesion Chest x-ray has gotten worse compared to 02/01/2022 CT abdomen also showed bilateral pleural effusion small to moderate in size on the right. Small on the left 2D echo 02/03/2022: EF 65-70%,, right ventricle normal in size and function -- Acute hypoxic respiratory failure with bilateral pleural effusion Pleural effusion seems to be getting worse since coming to the hospital Likely from IV fluids while in the hospital. O2 supplementation to keep oxygen saturation between 88-92% Incentive spirometer will be beneficial BiPAP in future if need be Looking at the CT abdomen pelvis it does not seem that the patient has pneumonia but rather atelectasis -- Metastatic tongue and throat cancer On chemotherapy -- MSSA bacteremia Plan per primary team Plan: In/out: - 2.3 L, urine output 2302 Chest x-ray from today shows improvement in bilateral pleural effusion. Clinically patient is doing better. He is diuresing well Saturating 93-94% on room air No need for thoracentesis. Pulmonary will sign off Please call directly with any questions Case discussed with Dr Dhaliwal Please note the above document was generated using voice recognition software. It may contain grammatical, syntax or spelling errors.Any formal questions or co ncerns about the content, text or information contained within the body of this dictation should be directly addressed to the provider for clarification. Admission and Anticipated Discharge Date Admission Date: February 02, 2022 Subjective Patient seen and examined at bedside. No acute distress, no adverse events overnight. He was complaining of pain overnight and did get Dilaudid. He was a bit drowsy as per the nurse in the morning but answering all the question when I was around No headache, no nausea vomiting Has been getting tube feeds Shortness of breath is much better controlled. Review of Systems Review of Systems: All systems reviewed & are unremarkable except as noted in Subjective Physical Exam Physical Exam: Constitutional: No acute distress, frail-appearing HEENT: EOMI, PERRLA Respiratory system: Decreased air entry bilaterally, no wheeze, no rhonchi, positive crackles bilateral lower lobes (improved from before) CVS: S1-S2 positive, no murmurs or gallops Abdomen: Soft, nontender, nondistended, positive bowel sounds x4, PEG tube in place Extremities: +2 pulses bilaterally radialis/ dorsalis pedis, no cyanosis, no edema Neuro: Awake alert oriented to self Psych: Normal mood and affect G/U: Positive Quinonez Skin: no rashes, warm and dry Lymphatic: no cervical or axillary lymphadenopathy Results & Data Results & Data ([facility]) Vital Signs (Past 12 Hours) Vital Signs Temp Pulse Pulse Resp BP BP Pulse Ox 02/10/22 07:57 36.4 C L 104 H 16 145/60 H 93 02/10/22 07:05 76 02/10/22 03:01 36.4 C L 61 18 149/67 H 96 02/09/22 23:04 36.3 C L 71 20 150/61 H 98 O2 Del Method 02/10/22 07:57 Room Air 02/10/22 07:05 02/10/22 03:01 Room Air 02/09/22 23:04 Room Air Laboratory Results 02/10/22 05:51 02/10/22 05:51 PG Care Time/CCT Total # of Minutes Spent Total Time Spent with Patient: Total time spent is greater than 50% in coordination of care (as documented) at patient's floor/unit and/or counseling patient: Coding Level of Care Code 27583 Subseq Hosp Care Lvl 2 Diagnoses Bilateral pleural effusion J90 Metastatic cancer C79.9 Multiple pulmonary nodules R91.8 COPD with emphysema J43.9 Ex-smoker Z87.891
--- NOTE | 2022-02-10 09:42 | CT Scan Report ---
CT OF THE NECK WITHOUT CONTRAST CLINICAL HISTORY: ff up, throat cancer COMPARISON STUDY: None available at time of interpretation. TECHNIQUE: Axial images of the neck were obtained without intravenous contrast. Sagittal and coronal reconstructions were viewed. Automated exposure control was utilized for the study. A dose lowering technique was utilized adhering to the principles of ALARA. FINDINGS: Visualized portions of the intracranial contents are unremarkable on this unenhanced examin ation. Left mastoid air cells are largely opacified. There is trace fluid within the right mastoid ai r cells which are hypoplastic. Evaluation of the neck is suboptimal on this unenhanced examination. T here are postoperative findings within the left floor of the mouth and upper neck as well as possible resection of the hard palate. Asymmetric soft tissue thickening within the left base of the tongue o f the mouth and left tonsillar pillar is noted. Adjacent surgical clips are present. A 1.5 x 1 cm lef t neck nodule on image 103 of 216 is noted. This could reflect a mildly enlarged lymph node or less l ikely atrophic left submandibular gland. The epiglottis is normal. There is no soft tissue gas within the neck. No fluid collection within neck to suggest an abscess is noted. There are no suspicious le sions within the visualized skeletal structures. A stent within the left upper chest/axilla is noted. Patency cannot be assessed on this unenhanced exam. Bilateral pleural effusions are partially imaged . Note is made of multiple nodules within the upper lungs. The largest is a 9 mm left upper lobe nodu le on image 197 of 216. There is emphysema. IMPRESSION: 1. Multiple nodules within the visualized lung apices consistent with pulmonary metastases. Partially visualize bilateral pleural effusions. 2. Postoperative findings within the left floor of the mouth, upper neck and the hard palate, as desc ribed above. Asymmetric soft tissue thickening within the left base of the tongue, floor of the mouth and left tonsillar pillar. This is suboptimally assessed on this unenhanced examination. This could reflect recurrent tumor or postsurgical change. Correlation with prior imaging studies, if available, would be of benefit. 3. 1.5 x 1 cm left level 2 neck nodule. This favors a pathologic lymph node. Less likely, this could reflect an atrophic left submandibular gland. 4. Emphysema. ACT 112: Negative or not required by law. Electronically signed by: Roman Foreman M.D. 02/10/2022 9:39 AM
--- NOTE | 2022-02-10 10:05 | XRay Report ---
XR chest 1V portable CLINICAL HISTORY: ff up pleural effusion COMPARISON STUDY: Chest radiograph February 09, 2022. FINDINGS: There is no pneumothorax. Multiple pulmonary nodules are again noted. These measure up to a pproximately 2.6 cm. Small bilateral pleural effusions have improved. Right perihilar/infrahilar opac ity is improved. Pulmonary edema has slightly improved. Cardiac size is normal. IMPRESSION: 1. Interval improvement in pulmonary edema and small bilateral pleural effusions. 2. Persistent right perihilar/infrahilar opacity. This can be assessed on follow-up exams to ensure r esolution. 3. Multiple pulmonary nodules suggestive of metastatic disease. ACT 112: Negative or not required by law. Electronically signed by: Roman Foreman M.D. 02/10/2022 10:04 AM
[2022-02-10] MEDS: PANTOprazole 40 MG in SYRINGE 0 ML IV SCH (11:25)
[2022-02-10] MEDS: ceFAZolin 2000MG 2,000 MG/15 ML SYR IV SCH (11:26)
[2022-02-10] MEDS: PEPTAMEN 1.5 CAL 1,000 ML BAG PEG SCH (15:32)
--- NOTE | 2022-02-10 16:25 | Hospitalist Progress Note ---
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 Urinalysis -positive nitrate, 3+ leukocyte esterase, greater than 30 WBC. Blood culture on 02/01, 02/02 and 02/03- 2 X MSSA Transthoracic echo shows aortic valve and mitral valve thickened; unable to rule out vegetation --Patient is contraindicated to undergo LAURA due to his tongue and throat cancer; discussed with cardiology regarding it. 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 02/05 s/p Portacath removal BC 02/05: still positive for Staph aureus repeat BC 02/06: Positive for gram positive cocci 1 out of 2 bottles Repeat BC 02/08: NEGATIVE so far x 48 hours Port-A-Cath site, PEG tube site without signs of infection Patient completed 7 days of IV cefepime, transitioned to Cefazolin Day 2 x 5 weeks total (to complete 6 weeks since culture negative) place line once repeat BC negative ID consult recommendations reviewed UTI- Enterobacter on Cefepime Bilateral Pleural Effusion with Hypoxia Echo: EF normal Diuresed well repeat CXR: improved significantly d/c Lasix Pulm consulted- diurese, no signs of pneumonia Incentive Spirometry Bradycardia A fib? hold Metoprolol CHADSVASC score 4 monitor close Cardiology service consulted: Not a candidate for chronic anticoagulation Heart rate improving Anemia iron deficiency Hg 7.2, 1 unit ordered Ferrous sulfate started no signs of active GI bleed Hemoglobin improved to 9 Chronic conditions: 5. Hypertension: Holding amlodipine. 6. Possible benign prostatic hypertrophy: With Flomax. 7. Peripheral vascular disease: On aspirin, statin, Plavix, and pentoxifylline. 8. Chronic kidney disease:crea 1.5 -Creatinine at 1.4--> 1.9 Monitor 9. Anemia:Iron deficiency, could also be from the chemo, ongoing illness. Management per above Discussed with patient's oncologist Dr. Jelani Cornell 10. Deep venous thrombosis prophylaxis: On heparin subcutaneous Diet- peg tube DVT- heparin q12h Full code Disposition will need SNF Admission and Anticipated Discharge Date Admission Date: February 02, 2022 Subjective ff up for MSSA bacteremia, etc seen resting in bed, comfortable states he feels somewhat better today no dyspnea, cough no abdominal pain ,nausea no fever/chills no other symptoms Review of Systems 2 Review of Systems: all noted and negative except for above Physical Exam Physical Exam: General- oriented x 3, not in distress, speaks in sentences with no effort or accessory muscle use Eyes- anicteric Neck- no JVD Lungs- clear breath sounds BL Heart- normal rate, irreg irregular rhythm; no murmurs Abdomen- normal bowel sounds, nondistended, soft, nontender PEG tube in place: no issues Extremities- no pretibial edema, no calf tenderness Neuro- alert, oriented x 3; no gross focal neurologic deficits Skin- warm & dry Results & Data Results & Data ([facility]) Vital Signs (Past 12 Hours) Vital Signs Temp Pulse Pulse Resp BP Pulse Ox O2 Del Method 02/10/22 15:19 63 02/10/22 11:55 36.5 C 69 16 155/54 H 96 Room Air 02/10/22 10:38 Room Air 02/10/22 07:57 36.4 C L 104 H 16 145/60 H 93 Room Air 02/10/22 07:05 66 all noted and reviewed including below
[2022-02-10] MEDS: ATORVASTATIN 40 MG TAB PO SCH (20:01)
[2022-02-11] MEDS: ceFAZolin 2000MG 2,000 MG/15 ML SYR IV SCH ×3 (00:51→23:46)
[2022-02-11] MEDS: TUBE FEEDING WATER FLUSH PEG SCH ×6 (03:57→23:45)
[2022-02-11 06:12] LABS: Hematocrit (blood only) 26.1 % (40.1-51.0); Hemoglobin 8.4 g/dl (14.0-18.0); Mean Corpuscular Hemoglobin 30.2 pg (25.0-34.0); Mean Corpuscular Hgb Conc 32.2 g/dL (32.0-36.0); Mean Corpuscular Volume 93.9 fL (80.0-100.0); Mean Platelet Volume 10.2 fL (9.4-12.4); Platelet Count 236 K/uL (130-400); RDW Coefficient of Variation 14.9 % (11.5-14.5); RDW Standard Deviation 50.4 fL (36.4-46.3); Red Blood Count 2.78 M/uL (4.63-6.08); White Blood Count 7.16 K/ul (4.8-10.8)
[2022-02-11 06:35] LABS: BUN Creatinine Ratio 28.7 (10-20); Calcium 7.5 mg/dl (8.5-10.1); Creatinine Clr Calc Pharmacy 17.6 ml/min; Est GFR (African American) 34.8 ml/min; Potassium 4.6 mmol/L (3.5-5.1)
[2022-02-11] MEDS: ASPIRIN 81 MG ECTAB PO SCH (07:49)
[2022-02-11] MEDS: TAMSULOSIN HCL 0.4 MG CAP PO SCH (07:49)
[2022-02-11] MEDS: HEPARIN SOD 5,000 UNIT/0.5 ML VIAL SQ SCH ×2 (07:49→21:00)
[2022-02-11] MEDS: CLOPIDOGREL BISULFATE 75 MG TAB PO SCH (07:49)
[2022-02-11] MEDS: FERROUS SULFATE 325 MG/7.4 ML UDP PO SCH ×2 (07:50→17:44)
[2022-02-11] MEDS: PANTOprazole 40 MG in SYRINGE 0 ML IV SCH (11:34)
[2022-02-11] MEDS ORDERED: PEPTAMEN 1.5 CAL 1,000 ML BAG PEG SCH (12:17)
[2022-02-11] MEDS: PEPTAMEN 1.5 CAL 1,000 ML BAG PEG SCH (15:29)
--- NOTE | 2022-02-11 18:31 | Hospitalist Progress Note ---
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 Urinalysis -positive nitrate, 3+ leukocyte esterase, greater than 30 WBC. Blood culture on 02/01, 02/02 and 02/03- 2 X MSSA Transthoracic echo shows aortic valve and mitral valve thickened; unable to rule out vegetation --Patient is contraindicated to undergo LAURA due to his tongue and throat cancer; discussed with cardiology regarding it. 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 02/05 s/p Portacath removal BC 02/05: positive for Staph aureus repeat BC 02/06: Positive for staph aureus 1 out of 2 bottles Repeat BC 02/08: NEGATIVE so far x 48 hours Port-A-Cath site, PEG tube site without signs of infection Patient completed 7 days of IV cefepime, transitioned to Cefazolin Day 2 x 5 weeks total (to complete 6 weeks since culture negative) PICC line today ID consult recommendations reviewed Discussed with Dr. Cornell-patient's oncologist Recommend ENT evaluation and speech therapy evaluation for possible p.o. intake Recommend urology evaluation for possible trial of voiding UTI- Enterobacter on Cefepime Bilateral Pleural Effusion with Hypoxia Echo: EF normal Diuresed well repeat CXR: improved significantly d/c Lasix Pulm consulted- diurese, no signs of pneumonia Incentive Spirometry Bradycardia A fib? hold Metoprolol CHADSVASC score 4 monitor close Cardiology service consulted: Not a candidate for chronic anticoagulation Heart rate improving Anemia iron deficiency Hg 7.2, 1 unit ordered Ferrous sulfate started no signs of active GI bleed Hemoglobin improved to 9 Chronic conditions: 5. Hypertension: Holding amlodipine. 6. Possible benign prostatic hypertrophy: With Flomax. 7. Peripheral vascular disease: On aspirin, statin, Plavix Pentoxifylline on hold as this is most crushable per pharmacy 8. Chronic kidney disease:crea 1.5 - Creatinine at 1.4--> 1.9 - Monitor 9. Anemia:Iron deficiency, could also be from the chemo, ongoing illness. - Management per above - Discussed with patient's oncologist Dr. Jelani Cornell 10. Deep venous thrombosis prophylaxis: On heparin subcutaneous Diet- peg tube DVT- heparin q12h Full code Disposition will need SNF Admission and Anticipated Discharge Date Admission Date: February 02, 2022 Subjective Follow-up for MSSA bacteremia, possible infective endocarditis, etc. Seen resting in bed, sleeping but easily awakened States he feels fine overall No shortness of breath or cough Abdominal pain, nausea vomiting Denies other symptoms Review of Systems Review of Systems: all noted and negative except for above Physical Exam Physical Exam: General- oriented x 3, not in distress, speaks in sentences with no effort or accessory muscle use Eyes- anicteric Neck- no JVD Lungs- clear breath sounds bilaterally, no rales/wheezes Heart- normal rate, regular rhythm; no murmurs Abdomen- normal bowel sounds, nondistended, soft, nontender Extremities- no pretibial edema, no calf tenderness Neuro- alert, oriented x 3; no gross focal neurologic deficits Skin- warm & dry Results & Data Results & Data ([facility]) Vital Signs (Past 12 Hours) Vital Signs Temp Pulse Pulse Resp BP Pulse Ox O2 Del Method 02/11/22 15:10 62 02/11/22 11:44 36.7 C 66 16 106/51 L 98 Room Air 02/11/22 08:46 Room Air 02/11/22 07:59 36.9 C 97 H 16 145/52 H 95 Room Air 02/11/22 06:58 74 all noted and reviewed including below
[2022-02-11] MEDS: ATORVASTATIN 40 MG TAB PO SCH (21:00)
[2022-02-11] MEDS: PENTOXIFYLLINE 400MG EXT REL TAB PO SCH (22:28)
[2022-02-12] MEDS: TUBE FEEDING WATER FLUSH PEG SCH ×5 (03:15→20:24)
[2022-02-12 07:07] LABS: BUN Creatinine Ratio 27.8 (10-20); Calcium 7.6 mg/dl (8.5-10.1); Creatinine Clr Calc Pharmacy 16.7 ml/min; Est GFR (African American) 34.2 ml/min; Est GFR (Non-African American) 29.5 ml/min; Potassium 4.6 mmol/L (3.5-5.1)
[2022-02-12] MEDS: TAMSULOSIN HCL 0.4 MG CAP PO SCH (08:22)
[2022-02-12] MEDS: FERROUS SULFATE 325 MG/7.4 ML UDP PO SCH ×2 (08:22→17:05)
[2022-02-12] MEDS: ASPIRIN 81 MG ECTAB PO SCH (08:23)
[2022-02-12] MEDS: PENTOXIFYLLINE 400MG EXT REL TAB PO SCH (08:23)
[2022-02-12] MEDS: HEPARIN SOD 5,000 UNIT/0.5 ML VIAL SQ SCH ×2 (08:23→20:24)
[2022-02-12] MEDS: CLOPIDOGREL BISULFATE 75 MG TAB PO SCH (08:23)
[2022-02-12] MEDS ORDERED: SODIUM CHLORIDE 0.9% 1000ML 1,000 ML IV SCH (09:00)
[2022-02-12] MEDS ORDERED: DOCUSATE SODIUM SYRUP 100 MG/10 ML UDC PO PRN (11:07)
[2022-02-12] MEDS: PANTOprazole 40 MG in SYRINGE 0 ML IV SCH (11:20)
[2022-02-12] MEDS: ceFAZolin 2000MG 2,000 MG/15 ML SYR IV SCH (12:10)
[2022-02-12] MEDS: PEPTAMEN 1.5 CAL 1,000 ML BAG PEG SCH (15:25)
--- NOTE | 2022-02-12 18:14 | Hospitalist Progress Note ---
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 Urinalysis -positive nitrate, 3+ leukocyte esterase, greater than 30 WBC. Blood culture on 02/01, 02/02 and 02/03- 2 X MSSA Transthoracic echo shows aortic valve and mitral valve thickened; unable to rule out vegetation --Patient is contraindicated to undergo LAURA due to his tongue and throat cancer; discussed with cardiology regarding it. 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 02/05 s/p Portacath removal BC 02/05: positive for Staph aureus repeat BC 02/06: Positive for staph aureus 1 out of 2 bottles Repeat BC 02/08: NEGATIVE so far x 48 hours Port-A-Cath site, PEG tube site without signs of infection Patient completed 7 days of IV cefepime, transitioned to Cefazolin Day 3 x 5 weeks total (to complete 6 weeks since first blood culture negative 02/08) PICC line placed ID consult recommendations reviewed Discussed with Dr. Cornell-patient's oncologist Recommend ENT evaluation and speech therapy evaluation for possible p.o. intake awaiting ENT evaluation if ok to proceed with speech therapy eval UTI- Enterobacter Urinary retention Has completed cefepime course Discussed with nurse regarding trial of voiding, monitor Bilateral Pleural Effusion with Hypoxia Likely secondary to volume overload, secondary to IV antibiotics Echo: EF normal Diuresed well with Lasix, now discontinued repeat CXR: improved significantly Pulm consulted- no signs of pneumonia Incentive Spirometry Bradycardia with A. fib Heart rate initially in the 50s Metoprolol discontinued CHADSVASC score 4 Cardiology service consulted: Not a candidate for chronic anticoagulation Heart rate improving, now in the 70s Anemia iron deficiency Hg 7.2, 1 unit ordered Ferrous sulfate started no signs of active GI bleed Hemoglobin improved to 9 Chronic conditions: Hypertension: Holding amlodipine. Possible benign prostatic hypertrophy: With Flomax. Peripheral vascular disease: On aspirin, statin, Plavix Pentoxifylline on hold as this is NOT crushable per pharmacy Chronic kidney disease:crea 1.5 - Creatinine at 1.4--> 1.9 - given gentle IV fluids monitor Anemia:Iron deficiency, could also be from the chemo, ongoing illness. - Management per above - Discussed with patient's oncologist Dr. Jelani Cornell Deep venous thrombosis prophylaxis: On heparin subcutaneous Diet- peg tube DVT- heparin q12h Full code Disposition will need SNF to complete 5 week course of IV Cefazolin plan of care discussed with patient, son Thien and Katie at bedside in detail and at length all questions answered they are understanding, agreeable, comfortable with the plan of care Admission and Anticipated Discharge Date Admission Date: February 02, 2022 Subjective Follow-up for MSSA bacteremia, etc. Seen with patient's son Tucker and Katie at the bedside Resting, comfortable, not in distress States he feels fine overall Just tired No shortness of breath, cough, chest pain Abdominal pain, nausea vomiting, no problems with tube feedings No other symptoms Review of Systems Review of Systems: all noted and negative except for above Physical Exam Physical Exam: General- oriented x 3, not in distress, speaks in sentences with no effort or accessory muscle use Somewhat weak Eyes- anicteric Neck- no JVD Lungs- clear breath sounds bilaterally, no rales/wheezes Heart- normal rate, regular rhythm; no murmurs Abdomen- normal bowel sounds, nondistended, soft, nontender PEG tube in place-no issues Extremities- no pretibial edema, no calf tenderness Neuro- alert, oriented x 3; no gross focal neurologic deficits Skin- warm & dry Results & Data Results & Data ([facility]) Vital Signs (Past 12 Hours) Vital Signs Temp Pulse Pulse Resp BP Pulse Ox O2 Del Method 02/12/22 15:58 79 02/12/22 14:45 36.8 C 81 20 123/64 97 Room Air 02/12/22 10:41 36.8 C 78 20 151/68 H 97 Room Air 02/12/22 09:17 Room Air 02/12/22 07:19 36.7 C 76 18 162/54 H 98 Room Air 02/12/22 07:12 66 all noted and reviewed including below
[2022-02-12] MEDS: ATORVASTATIN 40 MG TAB PO SCH (20:23)
[2022-02-13] MEDS: ACETAMINOPHEN SUSP 325 MG/10.15 ML UDC PEG PRN (00:17)
[2022-02-13] MEDS: TUBE FEEDING WATER FLUSH PEG SCH ×7 (00:17→20:45)
[2022-02-13] MEDS: ceFAZolin 2000MG 2,000 MG/15 ML SYR IV SCH ×3 (00:26→23:20)
[2022-02-13 07:01] LABS: Basophils # (auto) 0.06 K/uL (0-0.2); Eosinophils # (auto) 0.24 K/uL (0-0.50); Eosinophils % (auto) 3.8 %; Hematocrit (blood only) 24.4 % (40.1-51.0); Hemoglobin 7.7 g/dl (14.0-18.0); Immature Granulocytes # (auto) 0.15 K/uL (0.00-0.02); Immature Granulocytes % (auto) 2.4 %; Lymphocytes # (auto) 0.84 K/uL (1.2-3.4); Lymphocytes % (auto) 13.4 %; Mean Corpuscular Hemoglobin 30.4 pg (25.0-34.0); Mean Corpuscular Hgb Conc 31.6 g/dL (32.0-36.0); Mean Corpuscular Volume 96.4 fL (80.0-100.0); Mean Platelet Volume 9.4 fL (9.4-12.4); Monocytes # (auto) 1.17 K/uL (0.24-0.82); Monocytes % (auto) 18.7 %; Neutrophils # (auto) 3.79 K/uL (1.4-6.5); Neutrophils % (auto) 60.7 %; Platelet Count 210 K/uL (130-400); RDW Coefficient of Variation 15.1 % (11.5-14.5); RDW Standard Deviation 51.8 fL (36.4-46.3); Red Blood Count 2.53 M/uL (4.63-6.08); White Blood Count 6.25 K/ul (4.8-10.8)
[2022-02-13 07:29] LABS: BUN Creatinine Ratio 27.6 (10-20); Calcium 7.2 mg/dl (8.5-10.1); Creatinine Clr Calc Pharmacy 18.6 ml/min; Est GFR (African American) 37.1 ml/min; Potassium 4.4 mmol/L (3.5-5.1)
[2022-02-13 07:33] LABS: RBC Morphology Unremarkable
--- NOTE | 2022-02-13 08:26 | Hospitalist Progress Note ---
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 Urinalysis -positive nitrate, 3+ leukocyte esterase, greater than 30 WBC. Blood culture on 02/01, 02/02 and 02/03- 2 X MSSA Transthoracic echo shows aortic valve and mitral valve thickened; unable to rule out vegetation --Patient is contraindicated to undergo LAURA due to his tongue and throat cancer; discussed with cardiology regarding it. 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 02/05 s/p Portacath removal BC 02/05: positive for Staph aureus repeat BC 02/06: Positive for staph aureus 1 out of 2 bottles Repeat BC 02/08: NEGATIVE Port-A-Cath site, PEG tube site without signs of infection Patient completed 7 days of IV cefepime, transitioned to Cefazolin on 02/09 (to complete 6 weeks since first blood culture negative 02/08) PICC line placed ID consult recommendations reviewed Discussed with Dr. Cornell-patient's oncologist Recommend ENT evaluation and speech therapy evaluation for possible p.o. intake awaiting ENT evaluation if ok to proceed with speech therapy eval UTI- Enterobacter Urinary retention Has completed cefepime course Discussed with nurse regarding trial of voiding, monitor Bilateral Pleural Effusion with Hypoxia Likely secondary to volume overload, secondary to IV antibiotics Echo: EF normal Diuresed well with Lasix, now discontinued repeat CXR: improved significantly Pulm consulted- no signs of pneumonia Incentive Spirometry Bradycardia with A. fib Heart rate initially in the 50s Metoprolol discontinued CHADSVASC score 4 Cardiology service consulted: Not a candidate for chronic anticoagulation Heart rate improving, now in the 70s Anemia iron deficiency Hg 7.2, 1 unit ordered Ferrous sulfate started no signs of active GI bleed Hemoglobin improved to 9 Chronic conditions: Hypertension: Holding amlodipine. Possible benign prostatic hypertrophy: With Flomax. Peripheral vascular disease: On aspirin, statin, Plavix Pentoxifylline on hold as this is NOT crushable per pharmacy Chronic kidney disease:crea 1.5 - Creatinine at 1.4--> 1.9 - given gentle IV fluids monitor increased free water flushes (02/13) Anemia:Iron deficiency, could also be from the chemo, ongoing illness. - Management per above - Discussed with patient's oncologist Dr. Jelani Cornell DVT prophylaxis: On heparin subcutaneous Diet- peg tube DVT- heparin q12h Full code Disposition will need SNF to complete course of IV Cefazolin Admission and Anticipated Discharge Date Admission Date: February 02, 2022 Subjective Follow-up for MSSA bacteremia, hx of throat ca Yesterday patient's son Tucker and Katie updated at the bedside by my colleague Resting in bed, comfortable, not in distress States he feels fine overall No fever, chills, chest pain, shortness of breath, cough, chest pain No abdominal pain, nausea vomiting, no problems with tube feedings No other symptoms Review of Systems Review of Systems: All systems reviewed & are unremarkable except as noted in Subjective Physical Exam Physical Exam: General- thin, chronically ill-appearing, elderly frail M, not in distress Eyes- anicteric Neck- no JVD Lungs- clear breath sounds bilaterally, no rales/wheezes Heart- normal rate, regular rhythm; no murmurs Abdomen- normal bowel sounds, nondistended, soft, nontender PEG tube in place-no issues Extremities- no pretibial edema, no calf tenderness Neuro- alert, oriented x 3; speech fluent but soft, moves extremities Skin- warm & dry Results & Data Results & Data ([facility]) Vital Signs (Past 12 Hours) Vital Signs Temp Pulse Pulse Resp BP Pulse Ox O2 Del Method 02/13/22 08:00 36.4 C L 77 20 151/60 H 97 Room Air 02/13/22 07:24 74 02/13/22 02:40 36.4 C 80 20 137/55 L 96 Room Air 02/13/22 00:36 Room Air 02/12/22 22:19 75 02/12/22 23:01 36.7 C 75 20 162/61 H 97 Room Air Laboratory Results 02/13/22 02/13/22 02/13/22 Range/Units 06:46 06:46 06:46 WBC 6.25 (4.8-10.8) K/ul RBC 2.53 L (4.63-6.08) M/uL Hgb 7.7 L (14.0-18.0) g/dl Hct 24.4 L (40.1-51.0) % MCV 96.4 (80.0-100.0) fL MCH 30.4 (25.0-34.0) pg MCHC 31.6 L (32.0-36.0) g/dL RDW Std Deviation 51.8 H (36.4-46.3) fL RDW Coeff of Migdalia 15.1 H (11.5-14.5) % Plt Count 210 (130-400) K/uL MPV 9.4 (9.4-12.4) fL Immature Gran % (Auto) 2.4 % Neut % (Auto) 60.7 % Lymph % (Auto) 13.4 % Tripp % (Auto) 18.7 % Eos % (Auto) 3.8 % Baso % (Auto) 1.0 % Neut # (Auto) 3.79 (1.4-6.5) K/uL Lymph # (Auto) 0.84 L (1.2-3.4) K/uL Tripp # (Auto) 1.17 H (0.24-0.82) K/uL Eos # (Auto) 0.24 (0-0.50) K/uL Baso # (Auto) 0.06 (0-0.2) K/uL Immature Gran # (Auto) 0.15 H (0.00-0.02) K/uL RBC Morphology Unremarkable Sodium 138 (136-145) mmol/L Potassium 4.4 (3.5-5.1) mmol/L Chloride 109 H (98-107) mmol/L Carbon Dioxide 24 (21-32) mmol/L Anion Gap 5 (3-11) BUN 51 H (6-23) mg/dl Creatinine 1.85 H (0.6-1.4) mg/dl Est Cr Clr Drug Dosing 18.6 ml/min Est GFR ( Amer) 37.1 ml/min Est GFR (Non-Af Amer) 32.0 ml/min BUN/Creatinine Ratio 27.6 H (10-20) Glucose 117 H (70-99(Fasting)) mg/dl Calcium 7.2 L (8.5-10.1) mg/dl Magnesium 2.0 (1.7-2.4) mg/dl TSH 4.208 (0.300-4.500) uIu/ml Medications Administered Current Inpatient Medications Acetaminophen (Acetaminophen Susp 325 Mg/10.15 Ml Udc) 975 mg PEG Q8H PRN PRN Reason: pain Stop: 03/11/22 10:42 Last Admin: 02/13/22 00:17 Dose: 975 mg Albuterol (Albut/Ipratrop 3mg/0.5mg Neb 3 Ml Vial) 3 ml NEB Q4 PRN; Protocol PRN Reason: Shortness Of Breath Or Wheezing Stop: 03/07/22 15:59 Aspirin (Aspirin 81 Mg Chew) 81 mg PO DAILY FLO Stop: 03/15/22 08:59 Atorvastatin Calcium (Atorvastatin 40 Mg Tab) 40 mg PO HS FLO Stop: 03/04/22 20:59 Last Admin: 02/12/22 20:23 Dose: 40 mg Clopidogrel Bisulfate (Clopidogrel Bisulfate 75 Mg Tab) 75 mg PO QAM FLO Stop: 03/04/22 08:59 Last Admin: 02/12/22 08:23 Dose: 75 mg Docusate Sodium (Docusate Sodium Syrup 100 Mg/10 Ml Udc) 100 mg PO BID PRN PRN Reason: Constipation Stop: 03/14/22 11:06 Enteral Nutritional Formula (Peptamen 1.5 Keith 1,000 Ml Bag) 1,000 ml PEG UD FLO; Protocol Stop: 03/04/22 15:14 Last Admin: 02/12/22 15:25 Dose: 1,000 ml Ferrous Sulfate (Ferrous Sulfate 325 Mg/7.4 Ml Udp) 325 mg PO BIDM FLO Stop: 03/09/22 16:59 Last Admin: 02/12/22 17:05 Dose: 325 mg Heparin Sodium (Beef Lung) (Heparin 10 Unit/Ml 5 Ml Flush) 5 ml FLUSH PRN PRN PRN Reason: Flush Stop: 03/13/22 18:43 Heparin Sodium (Porcine) (Heparin Sod 5,000 Unit/0.5 Ml Vial) 5,000 units SQ Q12 FLO Stop: 03/04/22 08:59 Last Admin: 02/12/22 20:24 Dose: 5,000 units Hydromorphone HCl (Hydromorphone Inj 0.5 Mg/0.5 Ml Syr) 0.25 mg IV Q6H PRN PRN Reason: Pain Stop: 02/23/22 21:54 Last Admin: 02/09/22 22:13 Dose: 0.25 mg Cefazolin Sodium (Ancef 2000mg) 2,000 mg in 15 mls @ 3.75 mls/min IV Q12H [facility]; Protocol Stop: 02/23/22 11:59 Last Admin: 02/13/22 00:26 Dose: 3.75 mls/min Lansoprazole (Lansoprazole 30 Mg Soltab) 30 mg PEG DAILY [facility] Stop: 03/15/22 08:59 Metoprolol Tartrate (Metoprolol Tartrate 25 Mg Tab) 25 mg PO BID [facility] Stop: 03/04/22 08:59 Last Admin: 02/07/22 09:19 Dose: 25 mg Miscellaneous (Febuxostat - Order Awaiting Action) 1 each N/A QS [facility] Stop: 03/04/22 07:59 Last Admin: 02/13/22 00:25 Dose: Not Given Nitroglycerin (Nitroglycerin Sl 0.4 Mg/Tab Tab) 0.4 mg SL UD PRN PRN Reason: Chest Pain Stop: 03/04/22 03:35 Pentoxifylline (Pentoxifylline 400mg Ext Rel Tab) 400 mg PO BID [facility] Stop: 03/04/22 08:59 Last Admin: 02/12/22 08:23 Dose: Not Given Polyethylene Glycol (Polyethylene (Miralax) 17 Gm Pack) 17 gm PO DAILY PRN PRN Reason: Constipation Stop: 03/04/22 03:35 Potassium Chloride (Potassium Chloride Pwd 20 Meq Pack) 20 meq PO BID [facility] Stop: 03/07/22 20:59 Last Admin: 02/10/22 09:11 Dose: 20 meq Prochlorperazine (Prochlorperazine Maleate 10 Mg Tab) 10 mg PO Q8 PRN PRN Reason: Nausea And Vomiting Stop: 03/04/22 03:35 Sterile Water (Tube Feeding Water Flush) 120 ml PEG Q4H [facility] Stop: 03/04/22 15:14 Last Admin: 02/13/22 03:15 Dose: 120 ml Tamsulosin HCl (Tamsulosin Hcl 0.4 Mg Cap) 0.4 mg PO DAILY [facility] Stop: 03/04/22 08:59 Last Admin: 02/12/22 08:22 Dose: 0.4 mg
[2022-02-13] MEDS: TAMSULOSIN HCL 0.4 MG CAP PO SCH (09:30)
[2022-02-13] MEDS: HEPARIN SOD 5,000 UNIT/0.5 ML VIAL SQ SCH ×2 (09:30→20:45)
[2022-02-13] MEDS: ASPIRIN 81 MG CHEW PO SCH (09:30)
[2022-02-13] MEDS: CLOPIDOGREL BISULFATE 75 MG TAB PO SCH (09:30)
[2022-02-13] MEDS: LANSOPRAZOLE 30 MG SOLTAB PEG SCH (09:30)
[2022-02-13] MEDS: FERROUS SULFATE 325 MG/7.4 ML UDP PO SCH ×2 (09:31→17:10)
[2022-02-13] MEDS: METOPROLOL TARTRATE 25 MG TAB PO SCH (20:45)
[2022-02-13] MEDS: ATORVASTATIN 40 MG TAB PO SCH (20:46)
--- NOTE | 2022-02-13 22:39 | Electrocardiogram Report ---
Test Reason : Blood Pressure : / mmHG Vent. Rate : 076 BPM Atrial Rate : 076 BPM P-R Int : 174 ms QRS Dur : 080 ms QT Int : 394 ms P-R-T Axes : 067 068 051 degrees QTc Int : 443 ms Normal sinus rhythm Normal ECG When compared with ECG of 08-FEB-2022 07:55, Sinus rhythm has replaced Atrial fibrillation Confirmed by Ahsan Vines ([id number]) on 02/13/2022 10:38:35 PM Referred By: REFERRED SELF Confirmed By:Ahsan Vines
[2022-02-14] MEDS: TUBE FEEDING WATER FLUSH PEG SCH ×6 (02:03→22:25)
--- NOTE | 2022-02-14 07:47 | Hospitalist Progress Note ---
Date of Service February 14, 2022 Assessment & Plan (1) Bacteremia due to methicillin susceptible Staphylococcus aureus (MSSA): (2) Irritation around percutaneous endoscopic gastrostomy (PEG) tube site: (3) Infective endocarditis: (4) Tongue cancer: Plan: MSSA Bacteremia Sepsis due to Port-A-Cath infection, s/p Removal Possible Infective Endocarditis Tongue and Throat Ca on Chemotherapy -Febrile to 38.6 F on admission. Urinalysis -positive nitrate, 3+ leukocyte esterase, greater than 30 WBC. Blood culture on 02/01, 02/02 and 02/03- 2 X MSSA Transthoracic echo shows aortic valve and mitral valve thickened; unable to rule out vegetation --Patient is contraindicated to undergo LAURA due to his tongue and throat cancer; discussed with cardiology regarding it. 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 02/05 s/p Portacath removal BC 02/05: positive for Staph aureus repeat BC 02/06: Positive for staph aureus 1 out of 2 bottles Repeat BC 02/08: NEGATIVE Port-A-Cath site, PEG tube site without signs of infection Patient completed 7 days of IV cefepime, transitioned to Cefazolin on 02/09 (to complete 6 weeks since first blood culture negative 02/08) PICC line placed ID consult recommendations reviewed Dr. Cornell-patient's oncologist present in the hospital and discussed w/ previous hospitalist at the bedside Recommended ENT evaluation and speech therapy evaluation for possible p.o. intake 02/[address] Lyon (ENT) in the AM -recommend n.p.o., and also would not be able to intubate -> I discussed this also w/the pt and his son Thien. Palliative medicine also contacted and code status changed to DNR/DNI UTI- Enterobacter Urinary retention Has completed cefepime course Discussed with nurse regarding trial of voiding, monitor Bilateral Pleural Effusion with Hypoxia Likely secondary to volume overload, secondary to IV antibiotics Echo: EF normal Diuresed well with Lasix, now discontinued repeat CXR: improved significantly Pulm consulted- no signs of pneumonia Incentive Spirometry Bradycardia with A. fib Heart rate initially in the 50s Metoprolol discontinued CHADSVASC score 4 Cardiology service consulted: Not a candidate for chronic anticoagulation Heart rate improving, now in the 70s Anemia iron deficiency Hg 7.2, 1 unit ordered Ferrous sulfate started no signs of active GI bleed Hemoglobin improved current Hgb 8 Anemia:Iron deficiency, could also be from the chemo, ongoing illness. - Management per above - Discussed with patient's oncologist Dr. Jelani Cornell Chronic conditions: Hypertension: Holding amlodipine. Possible benign prostatic hypertrophy: With Flomax. Peripheral vascular disease: On aspirin, statin, Plavix Pentoxifylline on hold as this is NOT crushable per pharmacy Chronic kidney disease:crea 1.5 - Creatinine at 1.4--> 1.9 - given gentle IV fluids monitor increased free water flushes (02/13) Current Cr 1.6 DVT prophylaxis: On heparin subcutaneous Diet- peg tube DVT- heparin q12h Disposition will need SNF to complete course of IV Cefazolin Code: DNR/DNI Admission and Anticipated Discharge Date Admission Date: February 02, 2022 Subjective Follow-up for MSSA bacteremia, hx of throat ca Seen by Dr. Lyon (ENT) this AM - pt should be NPO, also would not be able to intubate - discussed this also w/pt and his son Thien. Palliative medicine consulted - pt's code changed to DNR/DNI Currently pt resting in bed, comfortable, not in distress No fever, chills, chest pain, shortness of breath, cough, chest pain No abdominal pain, nausea vomiting, no problems with tube feedings, however + loose stools - feedings changed Review of Systems Review of Systems: All systems reviewed & are unremarkable except as noted in Subjective Physical Exam Physical Exam: General- thin, chronically ill-appearing, elderly frail M, not in distress Eyes- anicteric Neck- no JVD Lungs- clear breath sounds bilaterally, no rales/wheezes Heart- normal rate, regular rhythm; no murmurs Abdomen- normal bowel sounds, nondistended, soft, nontender PEG tube in place-no issues Extremities- no pretibial edema, no calf tenderness Neuro- alert, oriented x 3; speech fluent but soft, moves extremities Skin- warm & dry Results & Data Results & Data ([facility]) Vital Signs (Past 12 Hours) Vital Signs Temp Pulse Pulse Resp BP Pulse Ox O2 Del Method 02/14/22 07:43 36.6 C 81 20 183/66 H 96 Room Air 02/14/22 06:58 64 02/14/22 04:57 36.5 C 75 20 160/64 H 97 Room Air 02/14/22 00:42 68 02/13/22 23:24 Room Air 02/13/22 22:00 36.7 C 67 20 152/54 H 97 Room Air Laboratory Results 02/14/22 02/14/22 Range/Units 10:30 10:30 WBC 9.29 (4.8-10.8) K/ul RBC 2.64 L (4.63-6.08) M/uL Hgb 8.1 L (14.0-18.0) g/dl Hct 25.4 L (40.1-51.0) % MCV 96.2 (80.0-100.0) fL MCH 30.7 (25.0-34.0) pg MCHC 31.9 L (32.0-36.0) g/dL RDW Std Deviation 53.1 H (36.4-46.3) fL RDW Coeff of Migdalia 15.3 H (11.5-14.5) % Plt Count 232 (130-400) K/uL MPV 9.8 (9.4-12.4) fL Sodium 136 (136-145) mmol/L Potassium 4.5 (3.5-5.1) mmol/L Chloride 107 (98-107) mmol/L Carbon Dioxide 24 (21-32) mmol/L Anion Gap 5 (3-11) BUN 50 H (6-23) mg/dl Creatinine 1.67 H (0.6-1.4) mg/dl Est Cr Clr Drug Dosing 19.0 ml/min Est GFR ( Amer) 42.0 ml/min Est GFR (Non-Af Amer) 36.2 ml/min BUN/Creatinine Ratio 29.9 H (10-20) Glucose 121 H (70-99(Fasting)) mg/dl Calcium 7.5 L (8.5-10.1) mg/dl Phosphorus 2.3 L (2.5-4.9) mg/dl Magnesium 2.0 (1.7-2.4) mg/dl Medications Administered Current Inpatient Medications Acetaminophen (Acetaminophen Susp 325 Mg/10.15 Ml Udc) 975 mg PEG Q8H PRN PRN Reason: pain Stop: 03/11/22 10:42 Last Admin: 02/13/22 00:17 Dose: 975 mg Albuterol (Albut/Ipratrop 3mg/0.5mg Neb 3 Ml Vial) 3 ml NEB Q4 PRN; Protocol PRN Reason: Shortness Of Breath Or Wheezing Stop: 03/07/22 15:59 Aspirin (Aspirin 81 Mg Chew) 81 mg PO DAILY [facility] Stop: 03/15/22 08:59 Last Admin: 02/13/22 09:30 Dose: 81 mg Atorvastatin Calcium (Atorvastatin 40 Mg Tab) 40 mg PO HS [facility] Stop: 03/04/22 20:59 Last Admin: 02/13/22 20:46 Dose: 40 mg Clopidogrel Bisulfate (Clopidogrel Bisulfate 75 Mg Tab) 75 mg PO QAM [facility] Stop: 03/04/22 08:59 Last Admin: 02/13/22 09:30 Dose: 75 mg Docusate Sodium (Docusate Sodium Syrup 100 Mg/10 Ml Udc) 100 mg PO BID PRN PRN Reason: Constipation Stop: 03/14/22 11:06 Enteral Nutritional Formula (Peptamen 1.5 Keith 1,000 Ml Bag) 1,000 ml PEG UD [facility]; Protocol Stop: 03/04/22 15:14 Last Admin: 02/12/22 15:25 Dose: 1,000 ml Ferrous Sulfate (Ferrous Sulfate 325 Mg/7.4 Ml Udp) 325 mg PO BIDM [facility] Stop: 03/09/22 16:59 Last Admin: 02/13/22 17:10 Dose: 325 mg Heparin Sodium (Beef Lung) (Heparin 10 Unit/Ml 5 Ml Flush) 5 ml FLUSH PRN PRN PRN Reason: Flush Stop: 03/13/22 18:43 Heparin Sodium (Porcine) (Heparin Sod 5,000 Unit/0.5 Ml Vial) 5,000 units SQ Q12 FLO Stop: 03/04/22 08:59 Last Admin: 02/13/22 20:45 Dose: 5,000 units Hydromorphone HCl (Hydromorphone Inj 0.5 Mg/0.5 Ml Syr) 0.25 mg IV Q6H PRN PRN Reason: Pain Stop: 02/23/22 21:54 Last Admin: 02/09/22 22:13 Dose: 0.25 mg Cefazolin Sodium (Ancef 2000mg) 2,000 mg in 15 mls @ 3.75 mls/min IV Q12H [facility]; Protocol Stop: 02/23/22 11:59 Last Admin: 02/13/22 23:20 Dose: 3.75 mls/min Lansoprazole (Lansoprazole 30 Mg Soltab) 30 mg PEG DAILY [facility] Stop: 03/15/22 08:59 Last Admin: 02/13/22 09:30 Dose: 30 mg Metoprolol Tartrate (Metoprolol Tartrate 25 Mg Tab) 12.5 mg PO BID [facility] Stop: 03/15/22 20:59 Last Admin: 02/13/22 20:45 Dose: 12.5 mg Miscellaneous (Febuxostat - Order Awaiting Action) 1 each N/A QS [facility] Stop: 03/04/22 07:59 Last Admin: 02/13/22 23:15 Dose: Not Given Nitroglycerin (Nitroglycerin Sl 0.4 Mg/Tab Tab) 0.4 mg SL UD PRN PRN Reason: Chest Pain Stop: 03/04/22 03:35 Pentoxifylline (Pentoxifylline 400mg Ext Rel Tab) 400 mg PO BID [facility] Stop: 03/04/22 08:59 Last Admin: 02/12/22 08:23 Dose: Not Given Polyethylene Glycol (Polyethylene (Miralax) 17 Gm Pack) 17 gm PO DAILY PRN PRN Reason: Constipation Stop: 03/04/22 03:35 Potassium Chloride (Potassium Chloride Pwd 20 Meq Pack) 20 meq PO BID [facility] Stop: 03/07/22 20:59 Last Admin: 02/10/22 09:11 Dose: 20 meq Prochlorperazine (Prochlorperazine Maleate 10 Mg Tab) 10 mg PO Q8 PRN PRN Reason: Nausea And Vomiting Stop: 03/04/22 03:35 Sterile Water (Tube Feeding Water Flush) 150 ml PEG Q4H [facility] Stop: 03/15/22 14:23 Last Admin: 02/14/22 06:14 Dose: 150 ml Tamsulosin HCl (Tamsulosin Hcl 0.4 Mg Cap) 0.4 mg PO DAILY [facility] Stop: 03/04/22 08:59 Last Admin: 02/13/22 09:30 Dose: 0.4 mg
--- NOTE | 2022-02-14 08:32 | ENT Consultation ---
Date of Consultation February 14, 2022 Assessment & Plan (1) Metastatic cancer: (2) Multiple pulmonary nodules: (3) Tongue cancer: Large base of tongue tumor invading into the preepiglottic space and left pterygoid space. Agree with G-tube feeding only. In the event of airway compromise the only option would be tracheostomy. 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 Allergies Allergy/AdvReac Type Severity Reaction Status Date / Time No Known Allergies Allergy Unverified 02/01/22 23:10 Home Medications Medication Instructions Recorded Confirmed Type amlodipine 5 mg tablet 5 mg PO BID 02/01/22 02/01/22 History aspirin 81 mg tablet,delayed 81 mg PO DAILY 02/01/22 02/01/22 History release atorvastatin 40 mg tablet 40 mg PO HS 02/01/22 02/01/22 History clopidogrel 75 mg tablet 75 mg PO QAM 02/01/22 02/01/22 History dexamethasone 4 mg tablet 20 mg PO UD 02/01/22 02/01/22 History docusate sodium 100 mg capsule 100 mg PO BID PRN Constipation 02/01/22 02/01/22 History febuxostat 40 mg tablet 40 mg PO QAM 02/01/22 02/01/22 History isosorbide mononitrate 120 mg 120 mg PO DAILY 02/01/22 02/01/22 History tablet,extended release 24 hr metoprolol tartrate 25 mg tablet 25 mg PO BID 02/01/22 02/01/22 History pentoxifylline 400 mg 400 mg PO BID 02/01/22 02/01/22 History tablet,extended release polyethylene glycol 3350 17 17 g PO DAILY PRN Constipation 02/01/22 02/01/22 History gram/dose oral powder prochlorperazine maleate 10 mg 10 mg PO Q8 PRN Nausea And Vomiting 02/01/22 02/01/22 History tablet tamsulosin 0.4 mg capsule 0.4 mg PO DAILY 02/01/22 02/01/22 History Patient History Social History Smoking Status: Former smoker Hx Alcohol Use: No Hx Substance Use: No Preferred Language: Yi Communication Ability: Effective Loom Stop Checker Required: No Beliefs That Will Affect Care: None marital status: Current Living Situation: Spouse Feels Safe at Home: Yes Assistive Devices: Walker Physical Exam Constitutional: + ill appearing, + cachectic and + frail appearing Eyes: PERRL, conjunctivae normal, anicteric sclerae ENMT: Mouth: + oropharynx abnormality (Large base of tongue tumor left side) Throat: + posterior oropharynx abnormality (Extension to the floor mouth and pterygoid space) Neck: 3 cm firm fixed left neck node Results & Data ([facility]) Vital Signs (Past 12 Hours) Vital Signs Temp Pulse Pulse Resp BP Pulse Ox O2 Del Method 02/14/22 07:43 36.6 C 81 20 183/66 H 96 Room Air 02/14/22 06:58 64 02/14/22 04:57 36.5 C 75 20 160/64 H 97 Room Air 02/14/22 00:42 68 02/13/22 23:24 Room Air 02/13/22 22:00 36.7 C 67 20 152/54 H 97 Room Air Diagnostic Findings PET scan showed 5 cm base of tongue tumor invading the pterygoid space and 3 cm level 2 node
[2022-02-14] MEDS: LANSOPRAZOLE 30 MG SOLTAB PEG SCH (09:43)
[2022-02-14] MEDS: CLOPIDOGREL BISULFATE 75 MG TAB PO SCH (09:43)
[2022-02-14] MEDS: HEPARIN SOD 5,000 UNIT/0.5 ML VIAL SQ SCH ×2 (09:44→20:19)
[2022-02-14] MEDS: TAMSULOSIN HCL 0.4 MG CAP PO SCH (09:44)
[2022-02-14] MEDS: METOPROLOL TARTRATE 25 MG TAB PO SCH ×2 (09:44→20:19)
[2022-02-14] MEDS: ASPIRIN 81 MG CHEW PO SCH (09:44)
[2022-02-14] MEDS: FERROUS SULFATE 325 MG/7.4 ML UDP PO SCH ×2 (09:44→17:32)
[2022-02-14 10:53] LABS: Hematocrit (blood only) 25.4 % (40.1-51.0); Hemoglobin 8.1 g/dl (14.0-18.0); Mean Corpuscular Hemoglobin 30.7 pg (25.0-34.0); Mean Corpuscular Hgb Conc 31.9 g/dL (32.0-36.0); Mean Corpuscular Volume 96.2 fL (80.0-100.0); Mean Platelet Volume 9.8 fL (9.4-12.4); Platelet Count 232 K/uL (130-400); RDW Coefficient of Variation 15.3 % (11.5-14.5); RDW Standard Deviation 53.1 fL (36.4-46.3); Red Blood Count 2.64 M/uL (4.63-6.08); White Blood Count 9.29 K/ul (4.8-10.8)
[2022-02-14 11:17] LABS: BUN Creatinine Ratio 29.9 (10-20); Calcium 7.5 mg/dl (8.5-10.1); Est GFR (Non-African American) 36.2 ml/min; Phosphorus 2.3 mg/dl (2.5-4.9); Potassium 4.5 mmol/L (3.5-5.1)
[2022-02-14] MEDS: ceFAZolin 2000MG 2,000 MG/15 ML SYR IV SCH (12:27)
--- NOTE | 2022-02-14 14:28 | Palliative Care Consultation ---
Date of Consultation February 14, 2022 Assessment & Plan (1) Generalized weakness: with cachexia and bacteremia/endocarditis. On IV antibiotics. He is being seen by PT but has declined treatment at times. Continue PT as tolerated. (2) Loose stools: Will reach out to nutrition. He was doing bolus feeds at home and tolerated them. Not sure if rotation to bolus feeding or addition of fiber might help. May be antibiotic related also. (3) Palliative care encounter: I talked with Mr. Grider about his understanding of his illness. He is adjusting to how much has changed for him in such a short period of time. He tells me that he is used to being active and that the most difficult thing for him is being bedbound and more dependent for care. He talks about wanting to go to SNF for rehab to try and build up his strength. He has felt that he would want to try any available treatment options but tells me that he is concerned that he is having less options as he gets sicker and weaker. He realizes that he likely to from cancer at some point and had hoped to do what he could to prolong that "but if the Lord decides its my time, then there's not much I can do about that". I asked him what he would want his dying time to be like whenever that is and he said that he would like to have a peaceful at home. We talked about his code status as full code which is generally not consistent with wish for peaceful at home. We also discussed concern that he would not be able to have intubation with is tumor mass and that it would likely not have the outcome that he hopes for. He recalls conversation about intubation concerns with Dr. Lyon earlier. "I don't think its going to work". I assured him that not doing resuscitation would not necessarily change the remainder of his treatment plan and that he could continue current care with the hope of resuming cancer treatment regardless of his code status. He told me that he would not want CPR or intubation. I also spoke with his son, Thien, by phone. Thien tells me that Leila has consistently said that he would want to do what he could to treat the cancer and be alive as long as possible. However, he too, understands that CPR and intubation would likely cause harm to Leila and not prolong his life in a meaningful way. He supports Leila's decision for DNR and actually expressed relief that he does not have to make that decision himself. He is eager to talk with Dr. Cornell about Leila's prognosis and treatment options and a meeting is planned for later today. He asked me what things would look like if they decided to focus on comfort. We talked about hospice care and focus on symptom management. This could be done at SNF or at home. He does not feel that his mother would be able to manage care at home as she is 85 and he is not able to stay in the area indefinitely. Their preference would likely by SNF. (4) Tongue cancer: (5) Infective endocarditis: (6) Bacteremia due to methicillin susceptible Staphylococcus aureus (MSSA): History of Present Illness Reason for Consultation: goals of care Requesting Physician: Dr. 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 He has had two chemotherapy treatments and was scheduled for a third treatment followed by radiation therapy. He has PEG tube and has been receiving enteral feedings but had been able to eat by mouth as well. He has had more difficulty with this and was seen by Dr. Lyon from ENT today. He notes large tumor of tongue invading into the preepiglottic space and left pterygoid space. Leila has not been tolerating oral intake and is now relying fully on enteral feeding. He has an indwelling Quinonez for urinary retention and was admitted with a UTI. He was found to have MSSA bacteremia and possible endocarditis. Transthoracic echo showed thickening of aortic and mitral valves and he is not able to have LAURA due to tumor bulk. During his stay, he also had hypoxic respiratory failure and bilateral pleural effusions which responded to diuretics. He denies pain though he reports that his buttocks are sore from loose stools and being in bed. He is generally very active and finds that being unable to get out of bed and be more independent is the most difficult thing for him right now. Allergies Allergy/AdvReac Type Severity Reaction Status Date / Time No Known Allergies Allergy Unverified 02/01/22 23:10 Home Medications Medication Instructions Recorded Confirmed Type amlodipine 5 mg tablet 5 mg PO BID 02/01/22 02/01/22 History aspirin 81 mg tablet,delayed 81 mg PO DAILY 02/01/22 02/01/22 History release atorvastatin 40 mg tablet 40 mg PO HS 02/01/22 02/01/22 History clopidogrel 75 mg tablet 75 mg PO QAM 02/01/22 02/01/22 History dexamethasone 4 mg tablet 20 mg PO UD 02/01/22 02/01/22 History docusate sodium 100 mg capsule 100 mg PO BID PRN Constipation 02/01/22 02/01/22 History febuxostat 40 mg tablet 40 mg PO QAM 02/01/22 02/01/22 History isosorbide mononitrate 120 mg 120 mg PO DAILY 02/01/22 02/01/22 History tablet,extended release 24 hr metoprolol tartrate 25 mg tablet 25 mg PO BID 02/01/22 02/01/22 History pentoxifylline 400 mg 400 mg PO BID 02/01/22 02/01/22 History tablet,extended release polyethylene glycol 3350 17 17 g PO DAILY PRN Constipation 02/01/22 02/01/22 History gram/dose oral powder prochlorperazine maleate 10 mg 10 mg PO Q8 PRN Nausea And Vomiting 02/01/22 02/01/22 History tablet tamsulosin 0.4 mg capsule 0.4 mg PO DAILY 02/01/22 02/01/22 History Patient History Social History Smoking Status: Former smoker Hx Alcohol Use: No Hx Substance Use: No Preferred Language: Yakut Communication Ability: Effective Director Labor Standards Required: No Beliefs That Will Affect Care: None marital status: Current Living Situation: Spouse Feels Safe at Home: Yes Assistive Devices: Walker Review of Systems Review of Systems: ESAS Pain 1/3 Dyspnea 0/3 Nausea 0/3 Fatigue 3/3 Drowsiness 0/3 PPS 30% Physical Exam Constitutional: + cachectic ENMT: temporal wasting Respiratory: normal respiratory effort; no labored breathing Musculoskeletal: Extremities: + muscle atrophy Skin: ecchymosis Neurologic: awake; not confused Speech / Cognition: normal cognition Results & Data ([facility]) Vital Signs (Past 12 Hours) Vital Signs Temp Pulse Pulse Resp BP Pulse Ox O2 Del Method 02/14/22 12:12 Room Air 02/14/22 11:08 98.1 F 66 18 154/61 H 98 Room Air 02/14/22 07:43 97.9 F 81 20 183/66 H 96 Room Air 02/14/22 06:58 64 02/14/22 04:57 97.7 F 75 20 160/64 H 97 Room Air PG Care Time/CCT Total # of Minutes Spent Total Time Spent: 98 Total Time Spent with Patient: Total time spent is greater than 50% in coordination of care (as documented) at patient's floor/unit and/or counseling patient:goals of care, CPR, symptom management, hospice, patient and family education and support Coding Level of Care Code 15530 Initial Inpt Care Lvl 3 Diagnoses Generalized weakness R53.1 Loose stools R19.5 Palliative care encounter Z51.5 Tongue cancer C02.9 Infective endocarditis I33.0 Bacteremia due to methicillin susceptible Staphylococcus aureus (MSSA) R78.81; B95.61
[2022-02-14] MEDS: FIBERSOURCE HN 1.2 CAL 1000 ML BAG GT SCH (17:00)
[2022-02-14] MEDS: ACETAMINOPHEN SUSP 325 MG/10.15 ML UDC PEG PRN (20:17)
[2022-02-14] MEDS: ATORVASTATIN 40 MG TAB PO SCH (20:22)
[2022-02-15] MEDS: ceFAZolin 2000MG 2,000 MG/15 ML SYR IV SCH ×2 (01:01→12:37)
[2022-02-15] MEDS: TUBE FEEDING WATER FLUSH PEG SCH ×5 (02:24→18:04)
[2022-02-15 07:03] LABS: BUN Creatinine Ratio 29.2 (10-20); Calcium 7.5 mg/dl (8.5-10.1); Est GFR (African American) 38.9 ml/min; Est GFR (Non-African American) 33.6 ml/min; Magnesium 2.1 mg/dl (1.7-2.4); Phosphorus 3.3 mg/dl (2.5-4.9); Potassium 4.4 mmol/L (3.5-5.1)
--- NOTE | 2022-02-15 09:13 | Hospitalist Progress Note ---
Date of Service February 15, 2022 Assessment & Plan (1) Bacteremia due to methicillin susceptible Staphylococcus aureus (MSSA): (2) Irritation around percutaneous endoscopic gastrostomy (PEG) tube site: (3) Infective endocarditis: (4) Tongue cancer: Plan: MSSA Bacteremia Sepsis due to Port-A-Cath infection, s/p Removal Possible Infective Endocarditis Tongue and Throat Ca on Chemotherapy -Febrile to 38.6 F on admission. Urinalysis -positive nitrate, 3+ leukocyte esterase, greater than 30 WBC. Blood culture on 02/01, 02/02 and 02/03- 2 X MSSA Transthoracic echo shows aortic valve and mitral valve thickened; unable to rule out vegetation --Patient is contraindicated to undergo LAURA due to his tongue and throat cancer; discussed with cardiology regarding it. 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 02/05 s/p Portacath removal BC 02/05: positive for Staph aureus repeat BC 02/06: Positive for staph aureus 1 out of 2 bottles Repeat BC 02/08: NEGATIVE Port-A-Cath site, PEG tube site without signs of infection Patient completed 7 days of IV cefepime, transitioned to Cefazolin on 02/09 (to complete 6 weeks since first blood culture negative 02/08) PICC line placed ID consult recommendations reviewed Dr. Cornell-patient's oncologist present in the hospital and discussed w/ previous hospitalist at the bedside Recommended ENT evaluation and speech therapy evaluation for possible p.o. intake 02/[address] Lyon (ENT) in the AM -recommend n.p.o., and also would not be able to intubate -> I discussed this also w/the pt and his son Thien. Palliative medicine also contacted and code status changed to DNR/DNI UTI- Enterobacter Urinary retention Has completed cefepime course Discussed with nurse regarding trial of voiding, monitor Bilateral Pleural Effusion with Hypoxia Likely secondary to volume overload, secondary to IV antibiotics Echo: EF normal Diuresed well with Lasix, now discontinued repeat CXR: improved significantly Pulm consulted- no signs of pneumonia Incentive Spirometry Bradycardia with A. fib Heart rate initially in the 50s Metoprolol discontinued CHADSVASC score 4 Cardiology service consulted: Not a candidate for chronic anticoagulation Heart rate improving, now in the 70s Anemia iron deficiency Hg 7.2, 1 unit ordered Ferrous sulfate started no signs of active GI bleed Hemoglobin improved current Hgb 8 Anemia:Iron deficiency, could also be from the chemo, ongoing illness. - Management per above - Discussed with patient's oncologist Dr. Jelani Cornell Chronic conditions: Hypertension: Holding amlodipine. Possible benign prostatic hypertrophy: With Flomax. Peripheral vascular disease: On aspirin, statin, Plavix Pentoxifylline on hold as this is NOT crushable per pharmacy Chronic kidney disease:crea 1.5 - Creatinine at 1.4--> 1.9 - given gentle IV fluids monitor increased free water flushes (02/13) Current Cr 1.7 DVT prophylaxis: On heparin subcutaneous Diet- peg tube DVT- heparin q12h Disposition will need SNF to complete course of IV Cefazolin Code: DNR/DNI Admission and Anticipated Discharge Date Admission Date: February 02, 2022 Subjective Follow-up for MSSA bacteremia, hx of throat ca Seen by Dr. Lyon (ENT) yesterday - pt should be NPO, also would not be able to intubate - discussed this also w/pt and his son Thien. Palliative medicine consulted - pt's code changed to DNR/DNI Currently pt resting in bed, comfortable, not in distress No fever, chills, chest pain, shortness of breath, cough, chest pain No abdominal pain, nausea vomiting, no problems with tube feedings, however had loose stools - feedings changed, now stools much improved Review of Systems Review of Systems: All systems reviewed & are unremarkable except as noted in Subjective Physical Exam Physical Exam: General- thin, chronically ill-appearing, elderly frail M, not in distress Eyes- anicteric Neck- no JVD Lungs- clear breath sounds bilaterally, no rales/wheezes Heart- normal rate, regular rhythm; no murmurs Abdomen- normal bowel sounds, nondistended, soft, nontender PEG tube in place-no issues Extremities- no pretibial edema, no calf tenderness Neuro- alert, oriented x 3; speech fluent but soft, moves extremities Skin- warm & dry Results & Data Results & Data ([facility]) Vital Signs (Past 12 Hours) Vital Signs Temp Pulse Pulse Resp BP Pulse Ox O2 Del Method 02/15/22 06:47 36.4 C L 71 20 135/48 L 97 Room Air 02/15/22 05:22 62 02/15/22 05:02 36.6 C 70 18 145/53 H 98 Room Air 02/15/22 00:17 36.5 C 70 18 150/61 H 97 Room Air Laboratory Results 02/15/22 02/14/22 02/14/22 Range/Units 05:37 10:30 10:30 WBC 9.29 (4.8-10.8) K/ul RBC 2.64 L (4.63-6.08) M/uL Hgb 8.1 L (14.0-18.0) g/dl Hct 25.4 L (40.1-51.0) % MCV 96.2 (80.0-100.0) fL MCH 30.7 (25.0-34.0) pg MCHC 31.9 L (32.0-36.0) g/dL RDW Std Deviation 53.1 H (36.4-46.3) fL RDW Coeff of Migdalia 15.3 H (11.5-14.5) % Plt Count 232 (130-400) K/uL MPV 9.8 (9.4-12.4) fL Sodium 135 L 136 (136-145) mmol/L Potassium 4.4 4.5 (3.5-5.1) mmol/L Chloride 105 107 (98-107) mmol/L Carbon Dioxide 25 24 (21-32) mmol/L Anion Gap 5 5 (3-11) BUN 52 H 50 H (6-23) mg/dl Creatinine 1.78 H 1.67 H (0.6-1.4) mg/dl Est Cr Clr Drug Dosing 18.0 19.0 ml/min Est GFR ( Amer) 38.9 42.0 ml/min Est GFR (Non-Af Amer) 33.6 36.2 ml/min BUN/Creatinine Ratio 29.2 H 29.9 H (10-20) Glucose 93 121 H (70-99(Fasting)) mg/dl Calcium 7.5 L 7.5 L (8.5-10.1) mg/dl Phosphorus 3.3 D 2.3 L (2.5-4.9) mg/dl Magnesium 2.1 2.0 (1.7-2.4) mg/dl Medications Administered Current Inpatient Medications Acetaminophen (Acetaminophen Susp 325 Mg/10.15 Ml Udc) 975 mg PEG Q8H PRN PRN Reason: pain Stop: 03/11/22 10:42 Last Admin: 02/14/22 20:17 Dose: 975 mg Albuterol (Albut/Ipratrop 3mg/0.5mg Neb 3 Ml Vial) 3 ml NEB Q4 PRN; Protocol PRN Reason: Shortness Of Breath Or Wheezing Stop: 03/07/22 15:59 Aspirin (Aspirin 81 Mg Chew) 81 mg PO DAILY FLO Stop: 03/15/22 08:59 Last Admin: 02/14/22 09:44 Dose: 81 mg Atorvastatin Calcium (Atorvastatin 40 Mg Tab) 40 mg PO HS FLO Stop: 03/04/22 20:59 Last Admin: 02/14/22 20:22 Dose: 40 mg Clopidogrel Bisulfate (Clopidogrel Bisulfate 75 Mg Tab) 75 mg PO QAM [facility] Stop: 03/04/22 08:59 Last Admin: 02/14/22 09:43 Dose: 75 mg Docusate Sodium (Docusate Sodium Syrup 100 Mg/10 Ml Udc) 100 mg PO BID PRN PRN Reason: Constipation Stop: 03/14/22 11:06 Enteral Nutritional Formula (Fibersource Hn 1.2 Keith 1000 Ml Bag) 1,000 ml GT Q24H FLO; Protocol Stop: 03/16/22 15:29 Last Admin: 02/14/22 17:00 Dose: 1,000 ml Ferrous Sulfate (Ferrous Sulfate 325 Mg/7.4 Ml Udp) 325 mg PO BIDM [facility] Stop: 03/09/22 16:59 Last Admin: 02/14/22 17:32 Dose: 325 mg Heparin Sodium (Beef Lung) (Heparin 10 Unit/Ml 5 Ml Flush) 5 ml FLUSH PRN PRN PRN Reason: Flush Stop: 03/13/22 18:43 Heparin Sodium (Porcine) (Heparin Sod 5,000 Unit/0.5 Ml Vial) 5,000 units SQ Q12 FLO Stop: 03/04/22 08:59 Last Admin: 02/14/22 20:19 Dose: 5,000 units Hydromorphone HCl (Hydromorphone Inj 0.5 Mg/0.5 Ml Syr) 0.25 mg IV Q6H PRN PRN Reason: Pain Stop: 02/23/22 21:54 Last Admin: 02/09/22 22:13 Dose: 0.25 mg Cefazolin Sodium (Ancef 2000mg) 2,000 mg in 15 mls @ 3.75 mls/min IV Q12H [facility]; Protocol Stop: 02/23/22 11:59 Last Admin: 02/15/22 01:01 Dose: 3.75 mls/min Lansoprazole (Lansoprazole 30 Mg Soltab) 30 mg PEG DAILY [facility] Stop: 03/15/22 08:59 Last Admin: 02/14/22 09:43 Dose: 30 mg Metoprolol Tartrate (Metoprolol Tartrate 25 Mg Tab) 12.5 mg PO BID [facility] Stop: 03/15/22 20:59 Last Admin: 02/14/22 20:19 Dose: 12.5 mg Miscellaneous (Febuxostat - Order Awaiting Action) 1 each N/A QS [facility] Stop: 03/04/22 07:59 Last Admin: 02/15/22 00:55 Dose: Not Given Nitroglycerin (Nitroglycerin Sl 0.4 Mg/Tab Tab) 0.4 mg SL UD PRN PRN Reason: Chest Pain Stop: 03/04/22 03:35 Pentoxifylline (Pentoxifylline 400mg Ext Rel Tab) 400 mg PO BID [facility] Stop: 03/04/22 08:59 Last Admin: 02/12/22 08:23 Dose: Not Given Polyethylene Glycol (Polyethylene (Miralax) 17 Gm Pack) 17 gm PO DAILY PRN PRN Reason: Constipation Stop: 03/04/22 03:35 Potassium Chloride (Potassium Chloride Pwd 20 Meq Pack) 20 meq PO BID [facility] Stop: 03/07/22 20:59 Last Admin: 02/10/22 09:11 Dose: 20 meq Prochlorperazine (Prochlorperazine Maleate 10 Mg Tab) 10 mg PO Q8 PRN PRN Reason: Nausea And Vomiting Stop: 03/04/22 03:35 Sterile Water (Tube Feeding Water Flush) 150 ml PEG Q4H [facility] Stop: 03/15/22 14:23 Last Admin: 02/15/22 06:21 Dose: 150 ml Tamsulosin HCl (Tamsulosin Hcl 0.4 Mg Cap) 0.4 mg PO DAILY [facility] Stop: 03/04/22 08:59 Last Admin: 02/14/22 09:44 Dose: 0.4 mg
[2022-02-15] MEDS: HEPARIN SOD 5,000 UNIT/0.5 ML VIAL SQ SCH ×2 (10:51→20:36)
[2022-02-15] MEDS: METOPROLOL TARTRATE 25 MG TAB PO SCH ×2 (10:51→20:35)
[2022-02-15] MEDS: ASPIRIN 81 MG CHEW PO SCH (10:51)
[2022-02-15] MEDS: CLOPIDOGREL BISULFATE 75 MG TAB PO SCH (10:52)
[2022-02-15] MEDS: LANSOPRAZOLE 30 MG SOLTAB PEG SCH (10:52)
[2022-02-15] MEDS: FERROUS SULFATE 325 MG/7.4 ML UDP PO SCH ×2 (10:52→18:03)
[2022-02-15] MEDS: TAMSULOSIN HCL 0.4 MG CAP PO SCH (10:52)
[2022-02-15] MEDS: FIBERSOURCE HN 1.2 CAL 1000 ML BAG GT SCH (18:03)
[2022-02-15] MEDS: ACETAMINOPHEN SUSP 325 MG/10.15 ML UDC PEG PRN (20:36)
[2022-02-15] MEDS: ATORVASTATIN 40 MG TAB PO SCH (20:36)
[2022-02-16] MEDS: ceFAZolin 2000MG 2,000 MG/15 ML SYR IV SCH ×2 (00:43→12:22)
[2022-02-16] MEDS: TUBE FEEDING WATER FLUSH PEG SCH ×7 (03:35→23:12)
--- NOTE | 2022-02-16 07:45 | Hospitalist Progress Note ---
Date of Service February 16, 2022 Assessment & Plan (1) Bacteremia due to methicillin susceptible Staphylococcus aureus (MSSA): (2) Irritation around percutaneous endoscopic gastrostomy (PEG) tube site: (3) Infective endocarditis: (4) Tongue cancer: Plan: MSSA Bacteremia Sepsis due to Port-A-Cath infection, s/p Removal Possible Infective Endocarditis Tongue and Throat Ca on Chemotherapy -Febrile to 38.6 F on admission. Urinalysis -positive nitrate, 3+ leukocyte esterase, greater than 30 WBC. Blood culture on 02/01, 02/02 and 02/03- 2 X MSSA Transthoracic echo shows aortic valve and mitral valve thickened; unable to rule out vegetation --Patient is contraindicated to undergo LAURA due to his tongue and throat cancer; discussed with cardiology regarding it. 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 02/05 s/p Portacath removal BC 02/05: positive for Staph aureus repeat BC 02/06: Positive for staph aureus 1 out of 2 bottles Repeat BC 02/08: NEGATIVE Port-A-Cath site, PEG tube site without signs of infection Patient completed 7 days of IV cefepime, transitioned to Cefazolin on 02/09 (to complete 6 weeks since first blood culture negative 02/08) PICC line placed ID consult recommendations reviewed Dr. Cornell-patient's oncologist present in the hospital and discussed w/ previous hospitalist at the bedside Recommended ENT evaluation and speech therapy evaluation for possible p.o. intake 02/[address] Lyon (ENT) in the AM -recommend n.p.o., and also would not be able to intubate -> I discussed this also w/the pt and his son Thien. Palliative medicine also contacted and code status changed to DNR/DNI UTI- Enterobacter Urinary retention Has completed cefepime course Discussed with nurse regarding trial of voiding, monitor Bilateral Pleural Effusion with Hypoxia Likely secondary to volume overload, secondary to IV antibiotics Echo: EF normal Diuresed well with Lasix, now discontinued repeat CXR: improved significantly Pulm consulted- no signs of pneumonia Incentive Spirometry Bradycardia with A. fib Heart rate initially in the 50s Metoprolol discontinued CHADSVASC score 4 Cardiology service consulted: Not a candidate for chronic anticoagulation Heart rate improving, now in the 70s Anemia iron deficiency Hg 7.2, 1 unit ordered Ferrous sulfate started no signs of active GI bleed Hemoglobin improved current Hgb 8 Anemia:Iron deficiency, could also be from the chemo, ongoing illness. - Management per above - Discussed with patient's oncologist Dr. Jelani Cornell Chronic conditions: Hypertension: Holding amlodipine. Possible benign prostatic hypertrophy: With Flomax. Peripheral vascular disease: On aspirin, statin, Plavix Pentoxifylline on hold as this is NOT crushable per pharmacy Chronic kidney disease:crea 1.5 - Creatinine at 1.4--> 1.9 - given gentle IV fluids monitor increased free water flushes (02/13) Current Cr 1.7 DVT prophylaxis: On heparin subcutaneous Diet- peg tube DVT- heparin q12h Disposition will need SNF to complete course of IV Cefazolin Code: DNR/DNI Admission and Anticipated Discharge Date Admission Date: February 02, 2022 Subjective Follow-up for MSSA bacteremia, hx of throat ca Seen by Dr. Lyon (ENT) - pt should be NPO, also would not be able to intubate - discussed this also w/pt and his son Thien. Palliative medicine consulted - pt's code changed to DNR/DNI Currently pt resting in bed, comfortable, not in distress No fever, chills, chest pain, shortness of breath, cough, chest pain No abdominal pain, nausea vomiting, no problems with tube feedings, however had loose stools - feedings changed, now stools much improved Review of Systems Review of Systems: All systems reviewed & are unremarkable except as noted in Subjective Physical Exam Physical Exam: General- thin, chronically ill-appearing, elderly frail M, not in distress Eyes- anicteric Neck- no JVD Lungs- clear breath sounds bilaterally, no rales/wheezes Heart- normal rate, regular rhythm; no murmurs Abdomen- normal bowel sounds, nondistended, soft, nontender PEG tube in place-no issues Extremities- no pretibial edema, no calf tenderness Neuro- alert, oriented x 3; speech fluent but soft, moves extremities Skin- warm & dry Results & Data Results & Data ([facility]) Vital Signs (Past 12 Hours) Vital Signs Temp Pulse Pulse Resp BP Pulse Ox O2 Del Method 02/16/22 07:43 36.5 C 90 18 131/56 L 96 Room Air 02/15/22 22:20 68 02/16/22 03:44 36.6 C 94 H 16 131/69 98 Room Air 02/15/22 23:29 36.5 C 75 16 133/66 99 Room Air 02/15/22 19:55 36.6 C 68 18 124/56 L 92 Room Air Laboratory Results 02/16/22 02/16/22 02/15/22 Range/Units 11:34 06:41 18:01 Sodium 136 (136-145) mmol/L Potassium 4.4 (3.5-5.1) mmol/L Chloride 104 (98-107) mmol/L Carbon Dioxide 26 (21-32) mmol/L Anion Gap 6 (3-11) BUN 51 H (6-23) mg/dl Creatinine 1.71 H (0.6-1.4) mg/dl Est Cr Clr Drug Dosing 18.9 ml/min Est GFR ( Amer) 40.8 ml/min Est GFR (Non-Af Amer) 35.2 ml/min BUN/Creatinine Ratio 29.8 H (10-20) Glucose 118 H (70-99(Fasting)) mg/dl POC Glucose 156 H 133 H (70-99) mg/dl Calcium 7.5 L (8.5-10.1) mg/dl Phosphorus 3.5 (2.5-4.9) mg/dl Medications Administered Current Inpatient Medications Acetaminophen (Acetaminophen Susp 325 Mg/10.15 Ml Udc) 975 mg PEG Q8H PRN PRN Reason: pain Stop: 03/11/22 10:42 Last Admin: 02/15/22 20:36 Dose: 975 mg Albuterol (Albut/Ipratrop 3mg/0.5mg Neb 3 Ml Vial) 3 ml NEB Q4 PRN; Protocol PRN Reason: Shortness Of Breath Or Wheezing Stop: 03/07/22 15:59 Aspirin (Aspirin 81 Mg Chew) 81 mg PO DAILY FLO Stop: 03/15/22 08:59 Last Admin: 02/15/22 10:51 Dose: 81 mg Atorvastatin Calcium (Atorvastatin 40 Mg Tab) 40 mg PO HS FLO Stop: 03/04/22 20:59 Last Admin: 02/15/22 20:36 Dose: 40 mg Clopidogrel Bisulfate (Clopidogrel Bisulfate 75 Mg Tab) 75 mg PO QAM FLO Stop: 03/04/22 08:59 Last Admin: 02/15/22 10:52 Dose: 75 mg Docusate Sodium (Docusate Sodium Syrup 100 Mg/10 Ml Udc) 100 mg PO BID PRN PRN Reason: Constipation Stop: 03/14/22 11:06 Enteral Nutritional Formula (Fibersource Hn 1.2 Keith 1000 Ml Bag) 1,000 ml GT Q24H [facility]; Protocol Stop: 03/16/22 15:29 Last Admin: 02/15/22 18:03 Dose: 1,000 ml Ferrous Sulfate (Ferrous Sulfate 325 Mg/7.4 Ml Udp) 325 mg PO BIDM [facility] Stop: 03/09/22 16:59 Last Admin: 02/15/22 18:03 Dose: 325 mg Heparin Sodium (Beef Lung) (Heparin 10 Unit/Ml 5 Ml Flush) 5 ml FLUSH PRN PRN PRN Reason: Flush Stop: 03/13/22 18:43 Heparin Sodium (Porcine) (Heparin Sod 5,000 Unit/0.5 Ml Vial) 5,000 units SQ Q12 [facility] Stop: 03/04/22 08:59 Last Admin: 02/15/22 20:36 Dose: 5,000 units Hydromorphone HCl (Hydromorphone Inj 0.5 Mg/0.5 Ml Syr) 0.25 mg IV Q6H PRN PRN Reason: Pain Stop: 02/23/22 21:54 Last Admin: 02/09/22 22:13 Dose: 0.25 mg Cefazolin Sodium (Ancef 2000mg) 2,000 mg in 15 mls @ 3.75 mls/min IV Q12H [facility]; Protocol Stop: 02/23/22 11:59 Last Admin: 02/16/22 00:43 Dose: 3.75 mls/min Lansoprazole (Lansoprazole 30 Mg Soltab) 30 mg PEG DAILY [facility] Stop: 03/15/22 08:59 Last Admin: 02/15/22 10:52 Dose: 30 mg Metoprolol Tartrate (Metoprolol Tartrate 25 Mg Tab) 12.5 mg PO BID [facility] Stop: 03/15/22 20:59 Last Admin: 02/15/22 20:35 Dose: 12.5 mg Miscellaneous (Febuxostat - Order Awaiting Action) 1 each N/A QS [facility] Stop: 03/04/22 07:59 Last Admin: 02/16/22 00:05 Dose: Not Given Nitroglycerin (Nitroglycerin Sl 0.4 Mg/Tab Tab) 0.4 mg SL UD PRN PRN Reason: Chest Pain Stop: 03/04/22 03:35 Pentoxifylline (Pentoxifylline 400mg Ext Rel Tab) 400 mg PO BID [facility] Stop: 03/04/22 08:59 Last Admin: 02/12/22 08:23 Dose: Not Given Polyethylene Glycol (Polyethylene (Miralax) 17 Gm Pack) 17 gm PO DAILY PRN PRN Reason: Constipation Stop: 03/04/22 03:35 Potassium Chloride (Potassium Chloride Pwd 20 Meq Pack) 20 meq PO BID [facility] Stop: 03/07/22 20:59 Last Admin: 02/10/22 09:11 Dose: 20 meq Prochlorperazine (Prochlorperazine Maleate 10 Mg Tab) 10 mg PO Q8 PRN PRN Reason: Nausea And Vomiting Stop: 03/04/22 03:35 Sterile Water (Tube Feeding Water Flush) 150 ml PEG Q4H [facility] Stop: 03/15/22 14:23 Last Admin: 02/16/22 05:44 Dose: 150 ml Tamsulosin HCl (Tamsulosin Hcl 0.4 Mg Cap) 0.4 mg PO DAILY [facility] Stop: 03/04/22 08:59 Last Admin: 02/15/22 10:52 Dose: 0.4 mg
[2022-02-16 08:10] LABS: BUN Creatinine Ratio 29.8 (10-20); Calcium 7.5 mg/dl (8.5-10.1); Creatinine Clr Calc Pharmacy 18.9 ml/min; Est GFR (African American) 40.8 ml/min; Est GFR (Non-African American) 35.2 ml/min; Phosphorus 3.5 mg/dl (2.5-4.9); Potassium 4.4 mmol/L (3.5-5.1)
[2022-02-16] MEDS: METOPROLOL TARTRATE 25 MG TAB PO SCH ×2 (08:54→21:40)
[2022-02-16] MEDS: LANSOPRAZOLE 30 MG SOLTAB PEG SCH (08:56)
[2022-02-16] MEDS: ASPIRIN 81 MG CHEW PO SCH (08:56)
[2022-02-16] MEDS: HEPARIN SOD 5,000 UNIT/0.5 ML VIAL SQ SCH ×2 (08:57→21:41)
[2022-02-16] MEDS: FERROUS SULFATE 325 MG/7.4 ML UDP PO SCH ×2 (08:57→17:18)
[2022-02-16] MEDS: CLOPIDOGREL BISULFATE 75 MG TAB PO SCH (08:57)
[2022-02-16] MEDS: TAMSULOSIN HCL 0.4 MG CAP PO SCH (09:00)
[2022-02-16] MEDS: FIBERSOURCE HN 1.2 CAL 1000 ML BAG GT SCH (15:31)
[2022-02-16] MEDS: ATORVASTATIN 40 MG TAB PO SCH (21:41)
[2022-02-16] MEDS: ACETAMINOPHEN SUSP 325 MG/10.15 ML UDC PEG PRN (21:42)
[2022-02-17] MEDS: ceFAZolin 2000MG 2,000 MG/15 ML SYR IV SCH ×2 (00:27→12:09)
[2022-02-17] MEDS: TUBE FEEDING WATER FLUSH PEG SCH ×7 (02:25→22:24)
[2022-02-17] MEDS: ASPIRIN 81 MG CHEW PO SCH (09:52)
[2022-02-17] MEDS: FERROUS SULFATE 325 MG/7.4 ML UDP PO SCH ×2 (09:52→17:56)
[2022-02-17] MEDS: CLOPIDOGREL BISULFATE 75 MG TAB PO SCH (09:52)
[2022-02-17] MEDS: METOPROLOL TARTRATE 25 MG TAB PO SCH ×2 (09:52→22:17)
[2022-02-17] MEDS: LANSOPRAZOLE 30 MG SOLTAB PEG SCH (09:52)
[2022-02-17] MEDS: HEPARIN SOD 5,000 UNIT/0.5 ML VIAL SQ SCH ×2 (09:52→22:17)
[2022-02-17] MEDS: ACETAMINOPHEN SUSP 325 MG/10.15 ML UDC PEG PRN (09:54)
[2022-02-17] MEDS: TAMSULOSIN HCL 0.4 MG CAP PO SCH (09:55)
[2022-02-17] MEDS: FIBERSOURCE HN 1.2 CAL 1000 ML BAG GT SCH (12:09)
--- NOTE | 2022-02-17 16:10 | Hospitalist Progress Note ---
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 Urinalysis -positive nitrate, 3+ leukocyte esterase, greater than 30 WBC. Blood culture on 02/01, 02/02 and 02/03- 2 X MSSA Transthoracic echo shows aortic valve and mitral valve thickened; unable to rule out vegetation --Patient is contraindicated to undergo LAURA due to his tongue and throat cancer; discussed with cardiology regarding it. 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 02/05 s/p Portacath removal BC 02/05: positive for Staph aureus repeat BC 02/06: Positive for staph aureus 1 out of 2 bottles Repeat BC 02/08: NEGATIVE Port-A-Cath site, PEG tube site without signs of infection Patient completed 7 days of IV cefepime, transitioned to Cefazolin on 02/09 (to complete 6 weeks since first blood culture negative 02/08) PICC line placed ID consult recommendations reviewed Dr. Cornell-patient's oncologist present in the hospital and discussed w/ previous hospitalist at the bedside Recommended ENT evaluation and speech therapy evaluation for possible p.o. intake 02/[address] Lyon (ENT) in the AM -recommend n.p.o., and also would not be able to intubate -> I discussed this also w/the pt and his son Thien. Palliative medicine also contacted and code status changed to DNR/DNI UTI- Enterobacter Urinary retention Has completed cefepime course Discussed with nurse regarding trial of voiding, monitor Bilateral Pleural Effusion with Hypoxia Likely secondary to volume overload, secondary to IV antibiotics Echo: EF normal Diuresed well with Lasix, now discontinued repeat CXR: improved significantly Pulm consulted- no signs of pneumonia Incentive Spirometry Bradycardia with A. fib Heart rate initially in the 50s Metoprolol discontinued CHADSVASC score 4 Cardiology service consulted: Not a candidate for chronic anticoagulation Heart rate improving, now in the 70s Anemia iron deficiency Hg 7.2, 1 unit ordered Ferrous sulfate started no signs of active GI bleed Hemoglobin improved current Hgb 8 Anemia:Iron deficiency, could also be from the chemo, ongoing illness. - Management per above - Discussed with patient's oncologist Dr. Jelani Cornell Chronic conditions: Hypertension: Holding amlodipine. Possible benign prostatic hypertrophy: With Flomax. Peripheral vascular disease: On aspirin, statin, Plavix Pentoxifylline on hold as this is NOT crushable per pharmacy Chronic kidney disease:crea 1.5 - Creatinine at 1.4--> 1.9 - given gentle IV fluids monitor increased free water flushes (02/13) Current Cr 1.7 DVT prophylaxis: On heparin subcutaneous Diet- peg tube DVT- heparin q12h Disposition will need SNF to complete course of IV Cefazolin Code: DNR/DNI Admission and Anticipated Discharge Date Admission Date: February 02, 2022 Subjective Follow-up for MSSA bacteremia, hx of throat ca Seen by Dr. Lyon (ENT) - pt should be NPO, also would not be able to intubate - discussed this also w/pt and his son Thien. Palliative medicine consulted - pt's code changed to DNR/DNI Currently pt resting in bed, comfortable, not in distress No fever, chills, chest pain, shortness of breath, cough, chest pain No abdominal pain, nausea vomiting, no problems with tube feedings, however had loose stools - feedings changed, stools initially improved, carito pt feels loose again and son updated at the bedside. Review of Systems Review of Systems: All systems reviewed & are unremarkable except as noted in Subjective Physical Exam Physical Exam: General- thin, chronically ill-appearing, elderly frail M, not in distress Eyes- anicteric Neck- no JVD Lungs- clear breath sounds bilaterally, no rales/wheezes Heart- normal rate, regular rhythm; no murmurs Abdomen- normal bowel sounds, nondistended, soft, nontender PEG tube in place-no issues Extremities- no pretibial edema, no calf tenderness Neuro- alert, oriented x 3; speech fluent but soft, moves extremities Skin- warm & dry Results & Data Results & Data ([facility]) Vital Signs (Past 12 Hours) Vital Signs Temp Pulse Pulse Resp BP Pulse Ox O2 Del Method 02/17/22 15:50 36.6 C 71 20 137/65 99 Room Air 02/17/22 14:55 72 02/17/22 11:21 36.5 C 72 16 114/47 L 97 Room Air 02/17/22 08:00 73 02/17/22 07:58 36.6 C 69 19 138/54 L 98 Room Air Medications Administered Current Inpatient Medications Acetaminophen (Acetaminophen Susp 325 Mg/10.15 Ml Udc) 975 mg PEG Q8H PRN PRN Reason: pain Stop: 03/11/22 10:42 Last Admin: 02/17/22 09:54 Dose: 975 mg Albuterol (Albut/Ipratrop 3mg/0.5mg Neb 3 Ml Vial) 3 ml NEB Q4 PRN; Protocol PRN Reason: Shortness Of Breath Or Wheezing Stop: 03/07/22 15:59 Aspirin (Aspirin 81 Mg Chew) 81 mg PO DAILY FLO Stop: 03/15/22 08:59 Last Admin: 02/17/22 09:52 Dose: 81 mg Atorvastatin Calcium (Atorvastatin 40 Mg Tab) 40 mg PO HS FLO Stop: 03/04/22 20:59 Last Admin: 02/16/22 21:41 Dose: 40 mg Clopidogrel Bisulfate (Clopidogrel Bisulfate 75 Mg Tab) 75 mg PO QAM [facility] Stop: 03/04/22 08:59 Last Admin: 02/17/22 09:52 Dose: 75 mg Docusate Sodium (Docusate Sodium Syrup 100 Mg/10 Ml Udc) 100 mg PO BID PRN PRN Reason: Constipation Stop: 03/14/22 11:06 Enteral Nutritional Formula (Fibersource Hn 1.2 Keith 1000 Ml Bag) 1,000 ml GT Q24H [facility]; Protocol Stop: 03/16/22 15:29 Last Admin: 02/17/22 12:09 Dose: 1,000 ml Ferrous Sulfate (Ferrous Sulfate 325 Mg/7.4 Ml Udp) 325 mg PO BIDM [facility] Stop: 03/09/22 16:59 Last Admin: 02/17/22 09:52 Dose: 325 mg Heparin Sodium (Beef Lung) (Heparin 10 Unit/Ml 5 Ml Flush) 5 ml FLUSH PRN PRN PRN Reason: Flush Stop: 03/13/22 18:43 Last Admin: 02/17/22 12:09 Dose: 5 ml Heparin Sodium (Porcine) (Heparin Sod 5,000 Unit/0.5 Ml Vial) 5,000 units SQ Q12 [facility] Stop: 03/04/22 08:59 Last Admin: 02/17/22 09:52 Dose: 5,000 units Hydromorphone HCl (Hydromorphone Inj 0.5 Mg/0.5 Ml Syr) 0.25 mg IV Q6H PRN PRN Reason: Pain Stop: 02/23/22 21:54 Last Admin: 02/09/22 22:13 Dose: 0.25 mg Cefazolin Sodium (Ancef 2000mg) 2,000 mg in 15 mls @ 3.75 mls/min IV Q12H [facility]; Protocol Stop: 02/23/22 11:59 Last Admin: 02/17/22 12:09 Dose: 3.75 mls/min Lansoprazole (Lansoprazole 30 Mg Soltab) 30 mg PEG DAILY [facility] Stop: 03/15/22 08:59 Last Admin: 02/17/22 09:52 Dose: 30 mg Metoprolol Tartrate (Metoprolol Tartrate 25 Mg Tab) 12.5 mg PO BID [facility] Stop: 03/15/22 20:59 Last Admin: 02/17/22 09:52 Dose: 12.5 mg Miscellaneous (Febuxostat - Order Awaiting Action) 1 each N/A QS [facility] Stop: 03/04/22 07:59 Last Admin: 02/17/22 09:52 Dose: Not Given Nitroglycerin (Nitroglycerin Sl 0.4 Mg/Tab Tab) 0.4 mg SL UD PRN PRN Reason: Chest Pain Stop: 03/04/22 03:35 Pentoxifylline (Pentoxifylline 400mg Ext Rel Tab) 400 mg PO BID [facility] Stop: 03/04/22 08:59 Last Admin: 02/12/22 08:23 Dose: Not Given Polyethylene Glycol (Polyethylene (Miralax) 17 Gm Pack) 17 gm PO DAILY PRN PRN Reason: Constipation Stop: 03/04/22 03:35 Potassium Chloride (Potassium Chloride Pwd 20 Meq Pack) 20 meq PO BID [facility] Stop: 03/07/22 20:59 Last Admin: 02/10/22 09:11 Dose: 20 meq Prochlorperazine (Prochlorperazine Maleate 10 Mg Tab) 10 mg PO Q8 PRN PRN Reason: Nausea And Vomiting Stop: 03/04/22 03:35 Sterile Water (Tube Feeding Water Flush) 150 ml PEG Q4H [facility] Stop: 03/15/22 14:23 Last Admin: 02/17/22 11:00 Dose: 150 ml Tamsulosin HCl (Tamsulosin Hcl 0.4 Mg Cap) 0.4 mg PO DAILY [facility] Stop: 03/04/22 08:59 Last Admin: 02/17/22 09:55 Dose: 0.4 mg
[2022-02-17] MEDS: ADVANCED PROBIOTIC 1250 MG CAPSULE PO SCH (17:55)
[2022-02-17] MEDS: ATORVASTATIN 40 MG TAB PO SCH (22:17)
[2022-02-18] MEDS: ceFAZolin 2000MG 2,000 MG/15 ML SYR IV SCH ×2 (00:40→13:07)
[2022-02-18] MEDS: TUBE FEEDING WATER FLUSH PEG SCH ×5 (03:18→18:04)
[2022-02-18] MEDS: FIBERSOURCE HN 1.2 CAL 1000 ML BAG GT SCH (07:37)
[2022-02-18] MEDS: CLOPIDOGREL BISULFATE 75 MG TAB PO SCH (09:21)
[2022-02-18] MEDS: HEPARIN SOD 5,000 UNIT/0.5 ML VIAL SQ SCH ×2 (09:21→21:27)
[2022-02-18] MEDS: ASPIRIN 81 MG CHEW PO SCH (09:21)
[2022-02-18] MEDS: ADVANCED PROBIOTIC 1250 MG CAPSULE PO SCH (09:22)
[2022-02-18] MEDS: METOPROLOL TARTRATE 25 MG TAB PO SCH ×2 (09:22→21:24)
[2022-02-18] MEDS: LANSOPRAZOLE 30 MG SOLTAB PEG SCH (09:23)
[2022-02-18] MEDS: TAMSULOSIN HCL 0.4 MG CAP PO SCH (09:23)
[2022-02-18] MEDS: FERROUS SULFATE 325 MG/7.4 ML UDP PO SCH ×2 (10:52→17:24)
--- NOTE | 2022-02-18 16:15 | Hospitalist Progress Note ---
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 Urinalysis -positive nitrate, 3+ leukocyte esterase, greater than 30 WBC. Blood culture on 02/01, 02/02 and 02/03- 2 X MSSA Transthoracic echo shows aortic valve and mitral valve thickened; unable to rule out vegetation --Patient is contraindicated to undergo LAURA due to his tongue and throat cancer; discussed with cardiology regarding it. 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 02/05 s/p Portacath removal BC 02/05: positive for Staph aureus repeat BC 02/06: Positive for staph aureus 1 out of 2 bottles Repeat BC 02/08: NEGATIVE Port-A-Cath site, PEG tube site without signs of infection Patient completed 7 days of IV cefepime, transitioned to Cefazolin on 02/09 (to complete 6 weeks since first blood culture negative 02/08) PICC line placed ID consult recommendations reviewed Dr. Cornell-patient's oncologist present in the hospital and discussed w/ previous hospitalist at the bedside Recommended ENT evaluation and speech therapy evaluation for possible p.o. intake 02/[address] Lyon (ENT) in the AM -recommend n.p.o., and also would not be able to intubate -> I discussed this also w/the pt and his son Thien. Palliative medicine also contacted and code status changed to DNR/DNI UTI- Enterobacter Urinary retention Has completed cefepime course Discussed with nurse regarding trial of voiding, monitor Bilateral Pleural Effusion with Hypoxia Likely secondary to volume overload, secondary to IV antibiotics Echo: EF normal Diuresed well with Lasix, now discontinued repeat CXR: improved significantly Pulm consulted- no signs of pneumonia Incentive Spirometry Bradycardia with A. fib Heart rate initially in the 50s Metoprolol discontinued CHADSVASC score 4 Cardiology service consulted: Not a candidate for chronic anticoagulation Heart rate improving, now in the 70s Anemia iron deficiency Hg 7.2, 1 unit ordered Ferrous sulfate started no signs of active GI bleed Hemoglobin improved current Hgb 8 Anemia:Iron deficiency, could also be from the chemo, ongoing illness. - Management per above - Discussed with patient's oncologist Dr. Jelani Cornell Chronic conditions: Hypertension: Holding amlodipine. Possible benign prostatic hypertrophy: With Flomax. Peripheral vascular disease: On aspirin, statin, Plavix Pentoxifylline on hold as this is NOT crushable per pharmacy Chronic kidney disease:crea 1.5 - Creatinine at 1.4--> 1.9 - given gentle IV fluids monitor increased free water flushes (02/13) Current Cr 1.7 DVT prophylaxis: On heparin subcutaneous Diet- peg tube DVT- heparin q12h Disposition will need SNF to complete course of IV Cefazolin Code: DNR/DNI Admission and Anticipated Discharge Date Admission Date: February 02, 2022 Subjective Follow-up for MSSA bacteremia, hx of throat ca Seen by Dr. Lyon (ENT) - pt should be NPO, also would not be able to intubate - discussed this also w/pt and his son Thien. Palliative medicine consulted - pt's code changed to DNR/DNI Currently pt resting in bed, comfortable, not in distress No fever, chills, chest pain, shortness of breath, cough, chest pain No abdominal pain, nausea vomiting, no problems with tube feedings, however had loose stools - feedings changed, stools initially improved, now pt loose again and son updated at the bedside yesterday. Review of Systems Review of Systems: All systems reviewed & are unremarkable except as noted in Subjective Physical Exam Physical Exam: General- thin, chronically ill-appearing, elderly frail M, not in distress Eyes- anicteric Neck- no JVD Lungs- clear breath sounds bilaterally, no rales/wheezes Heart- normal rate, regular rhythm; no murmurs Abdomen- normal bowel sounds, nondistended, soft, nontender PEG tube in place-no issues Extremities- no pretibial edema, no calf tenderness Neuro- alert, oriented x 3; speech fluent but soft, moves extremities Skin- warm & dry Results & Data Results & Data ([facility]) Vital Signs (Past 12 Hours) Vital Signs Temp Pulse Pulse Resp BP Pulse Ox O2 Del Method 02/18/22 14:31 78 02/18/22 05:57 70 02/18/22 07:56 37.0 C 77 16 130/53 L 99 Room Air Laboratory Results 02/18/22 Range/Units 11:33 POC Glucose 153 H (70-99) mg/dl Medications Administered Current Inpatient Medications Acetaminophen (Acetaminophen Susp 325 Mg/10.15 Ml Udc) 975 mg PEG Q8H PRN PRN Reason: pain Stop: 03/11/22 10:42 Last Admin: 02/17/22 09:54 Dose: 975 mg Albuterol (Albut/Ipratrop 3mg/0.5mg Neb 3 Ml Vial) 3 ml NEB Q4 PRN; Protocol PRN Reason: Shortness Of Breath Or Wheezing Stop: 03/07/22 15:59 Aspirin (Aspirin 81 Mg Chew) 81 mg PO DAILY FLO Stop: 03/15/22 08:59 Last Admin: 02/18/22 09:21 Dose: 81 mg Atorvastatin Calcium (Atorvastatin 40 Mg Tab) 40 mg PO HS FLO Stop: 03/04/22 20:59 Last Admin: 02/17/22 22:17 Dose: 40 mg Clopidogrel Bisulfate (Clopidogrel Bisulfate 75 Mg Tab) 75 mg PO QAM FLO Stop: 03/04/22 08:59 Last Admin: 02/18/22 09:21 Dose: 75 mg Docusate Sodium (Docusate Sodium Syrup 100 Mg/10 Ml Udc) 100 mg PO BID PRN PRN Reason: Constipation Stop: 03/14/22 11:06 Enteral Nutritional Formula (Fibersource Hn 1.2 Keith 1000 Ml Bag) 1,000 ml GT Q24H FLO; Protocol Stop: 03/16/22 15:29 Last Admin: 02/18/22 07:37 Dose: 1,000 ml Ferrous Sulfate (Ferrous Sulfate 325 Mg/7.4 Ml Udp) 325 mg PO BIDM FLO Stop: 03/09/22 16:59 Last Admin: 02/18/22 10:52 Dose: 325 mg Heparin Sodium (Beef Lung) (Heparin 10 Unit/Ml 5 Ml Flush) 5 ml FLUSH PRN PRN PRN Reason: Flush Stop: 03/13/22 18:43 Last Admin: 02/17/22 12:09 Dose: 5 ml Heparin Sodium (Porcine) (Heparin Sod 5,000 Unit/0.5 Ml Vial) 5,000 units SQ Q12 FLO Stop: 03/04/22 08:59 Last Admin: 02/18/22 09:21 Dose: 5,000 units Hydromorphone HCl (Hydromorphone Inj 0.5 Mg/0.5 Ml Syr) 0.25 mg IV Q6H PRN PRN Reason: Pain Stop: 02/23/22 21:54 Last Admin: 02/09/22 22:13 Dose: 0.25 mg Cefazolin Sodium (Ancef 2000mg) 2,000 mg in 15 mls @ 3.75 mls/min IV Q12H [facility]; Protocol Stop: 02/23/22 11:59 Last Admin: 02/18/22 13:07 Dose: 3.75 mls/min Lactobacillus Acidophilus (Advanced Probiotic 1250 Mg Capsule) 2 cap PO DAILY [facility] Stop: 03/19/22 16:14 Last Admin: 02/18/22 09:22 Dose: 2 cap Lansoprazole (Lansoprazole 30 Mg Soltab) 30 mg PEG DAILY [facility] Stop: 03/15/22 08:59 Last Admin: 02/18/22 09:23 Dose: 30 mg Metoprolol Tartrate (Metoprolol Tartrate 25 Mg Tab) 12.5 mg PO BID [facility] Stop: 03/15/22 20:59 Last Admin: 02/18/22 09:22 Dose: 12.5 mg Miscellaneous (Febuxostat - Order Awaiting Action) 1 each N/A QS [facility] Stop: 03/04/22 07:59 Last Admin: 02/18/22 09:36 Dose: Not Given Nitroglycerin (Nitroglycerin Sl 0.4 Mg/Tab Tab) 0.4 mg SL UD PRN PRN Reason: Chest Pain Stop: 03/04/22 03:35 Pentoxifylline (Pentoxifylline 400mg Ext Rel Tab) 400 mg PO BID [facility] Stop: 03/04/22 08:59 Last Admin: 02/12/22 08:23 Dose: Not Given Polyethylene Glycol (Polyethylene (Miralax) 17 Gm Pack) 17 gm PO DAILY PRN PRN Reason: Constipation Stop: 03/04/22 03:35 Potassium Chloride (Potassium Chloride Pwd 20 Meq Pack) 20 meq PO BID [facility] Stop: 03/07/22 20:59 Last Admin: 02/10/22 09:11 Dose: 20 meq Prochlorperazine (Prochlorperazine Maleate 10 Mg Tab) 10 mg PO Q8 PRN PRN Reason: Nausea And Vomiting Stop: 03/04/22 03:35 Sterile Water (Tube Feeding Water Flush) 150 ml PEG Q4H [facility] Stop: 03/15/22 14:23 Last Admin: 02/18/22 14:20 Dose: 150 ml Tamsulosin HCl (Tamsulosin Hcl 0.4 Mg Cap) 0.4 mg PO DAILY [facility] Stop: 03/04/22 08:59 Last Admin: 02/18/22 09:23 Dose: 0.4 mg
[2022-02-18] MEDS: ATORVASTATIN 40 MG TAB PO SCH (21:25)
[2022-02-19] MEDS: ceFAZolin 2000MG 2,000 MG/15 ML SYR IV SCH ×2 (00:38→12:40)
[2022-02-19] MEDS: TUBE FEEDING WATER FLUSH PEG SCH ×7 (00:39→22:24)
[2022-02-19] MEDS: FIBERSOURCE HN 1.2 CAL 1000 ML BAG GT SCH (04:58)
[2022-02-19] MEDS: FERROUS SULFATE 325 MG/7.4 ML UDP PO SCH ×2 (09:25→17:25)
[2022-02-19] MEDS: ASPIRIN 81 MG CHEW PO SCH (09:27)
[2022-02-19] MEDS: CLOPIDOGREL BISULFATE 75 MG TAB PO SCH (09:27)
[2022-02-19] MEDS: LANSOPRAZOLE 30 MG SOLTAB PEG SCH (09:27)
[2022-02-19] MEDS: TAMSULOSIN HCL 0.4 MG CAP PO SCH (09:27)
[2022-02-19] MEDS: ADVANCED PROBIOTIC 1250 MG CAPSULE PO SCH (09:27)
[2022-02-19] MEDS: HEPARIN SOD 5,000 UNIT/0.5 ML VIAL SQ SCH ×2 (09:28→20:07)
[2022-02-19] MEDS: METOPROLOL TARTRATE 25 MG TAB PO SCH ×2 (09:34→20:06)
--- NOTE | 2022-02-19 10:24 | Hospitalist Progress Note ---
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 Urinalysis -positive nitrate, 3+ leukocyte esterase, greater than 30 WBC. Blood culture on 02/01, 02/02 and 02/03- 2 X MSSA Transthoracic echo shows aortic valve and mitral valve thickened; unable to rule out vegetation --Patient is contraindicated to undergo LAURA due to his tongue and throat cancer; discussed with cardiology regarding it. 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 02/05 s/p Portacath removal BC 02/05: positive for Staph aureus repeat BC 02/06: Positive for staph aureus 1 out of 2 bottles Repeat BC 02/08: NEGATIVE Port-A-Cath site, PEG tube site without signs of infection Patient completed 7 days of IV cefepime, transitioned to Cefazolin on 02/09 (to complete 6 weeks since first blood culture negative 02/08) PICC line placed ID consult recommendations reviewed Dr. Cornell-patient's oncologist present in the hospital and discussed w/ previous hospitalist at the bedside Recommended ENT evaluation and speech therapy evaluation for possible p.o. intake 02/[address] Lyon (ENT) in the AM -recommend n.p.o., and also would not be able to intubate -> I discussed this also w/the pt and his son Thien. Palliative medicine also contacted and code status changed to DNR/DNI UTI- Enterobacter Urinary retention Has completed cefepime course Discussed with nurse regarding trial of voiding, monitor Bilateral Pleural Effusion with Hypoxia Likely secondary to volume overload, secondary to IV antibiotics Echo: EF normal Diuresed well with Lasix, now discontinued repeat CXR: improved significantly Pulm consulted- no signs of pneumonia Incentive Spirometry Bradycardia with A. fib Heart rate initially in the 50s Metoprolol discontinued CHADSVASC score 4 Cardiology service consulted: Not a candidate for chronic anticoagulation Heart rate improving, now in the 70s Anemia iron deficiency Hg 7.2, 1 unit ordered Ferrous sulfate started no signs of active GI bleed Hemoglobin improved current Hgb 8 Anemia:Iron deficiency, could also be from the chemo, ongoing illness. - Management per above - Discussed with patient's oncologist Dr. Jelani Cornell Chronic conditions: Hypertension: Holding amlodipine. Possible benign prostatic hypertrophy: With Flomax. Peripheral vascular disease: On aspirin, statin, Plavix Pentoxifylline on hold as this is NOT crushable per pharmacy Chronic kidney disease:crea 1.5 - Creatinine at 1.4--> 1.9 - given gentle IV fluids monitor increased free water flushes (02/13) Current Cr 1.7 DVT prophylaxis: On heparin subcutaneous Diet- peg tube DVT- heparin q12h Disposition will need SNF to complete course of IV Cefazolin Code: DNR/DNI Admission and Anticipated Discharge Date Admission Date: February 02, 2022 Subjective Follow-up for MSSA bacteremia, hx of throat ca Seen by Dr. Lyon (ENT) - pt should be NPO, also would not be able to intubate - discussed this also w/pt and his son Thien. Palliative medicine consulted - pt's code changed to DNR/DNI Currently pt resting in bed, comfortable, not in distress No fever, chills, chest pain, shortness of breath, cough, chest pain No abdominal pain, nausea vomiting, no problems with tube feedings, however had loose stools - feedings changed, stools initially improved, now loose again Route Driver contacted. Review of Systems Review of Systems: All systems reviewed & are unremarkable except as noted in Subjective Physical Exam Physical Exam: General - thin, chronically ill-appearing, elderly frail M, not in distress Eyes - anicteric Neck - no JVD Lungs - clear breath sounds bilaterally, no rales/wheezes Heart - normal rate, regular rhythm; no murmurs Abdomen - normal bowel sounds, nondistended, soft, nontender PEG tube in place-no issues Extremities - no pretibial edema, no calf tenderness Neuro - alert, oriented x 3; speech fluent but soft, moves extremities Skin- warm & dry Results & Data Results & Data ([facility]) Vital Signs (Past 12 Hours) Vital Signs Temp Pulse Resp BP Pulse Ox O2 Del Method 02/19/22 09:30 61 135/53 L 02/19/22 08:02 36.6 C 74 144/56 H 98 Room Air 02/19/22 03:19 36.6 C 71 18 137/65 99 Room Air 02/18/22 23:18 36.7 C 74 18 132/60 98 Room Air Laboratory Results 02/19/22 02/18/22 Range/Units 06:01 11:33 POC Glucose 163 H 153 H (70-99) mg/dl Medications Administered Current Inpatient Medications Acetaminophen (Acetaminophen Susp 325 Mg/10.15 Ml Udc) 975 mg PEG Q8H PRN PRN Reason: pain Stop: 03/11/22 10:42 Last Admin: 02/17/22 09:54 Dose: 975 mg Albuterol (Albut/Ipratrop 3mg/0.5mg Neb 3 Ml Vial) 3 ml NEB Q4 PRN; Protocol PRN Reason: Shortness Of Breath Or Wheezing Stop: 03/07/22 15:59 Aspirin (Aspirin 81 Mg Chew) 81 mg PO DAILY FLO Stop: 03/15/22 08:59 Last Admin: 02/19/22 09:27 Dose: 81 mg Atorvastatin Calcium (Atorvastatin 40 Mg Tab) 40 mg PO HS FLO Stop: 03/04/22 20:59 Last Admin: 02/18/22 21:25 Dose: 40 mg Clopidogrel Bisulfate (Clopidogrel Bisulfate 75 Mg Tab) 75 mg PO QAM FLO Stop: 03/04/22 08:59 Last Admin: 02/19/22 09:27 Dose: 75 mg Docusate Sodium (Docusate Sodium Syrup 100 Mg/10 Ml Udc) 100 mg PO BID PRN PRN Reason: Constipation Stop: 03/14/22 11:06 Enteral Nutritional Formula (Fibersource Hn 1.2 Keith 1000 Ml Bag) 1,000 ml GT Q24H [facility]LO; Protocol Stop: 03/16/22 15:29 Last Admin: 02/19/22 04:58 Dose: 1,000 ml Ferrous Sulfate (Ferrous Sulfate 325 Mg/7.4 Ml Udp) 325 mg PO BIDM FLO Stop: 03/09/22 16:59 Last Admin: 02/19/22 09:25 Dose: 325 mg Heparin Sodium (Beef Lung) (Heparin 10 Unit/Ml 5 Ml Flush) 5 ml FLUSH PRN PRN PRN Reason: Flush Stop: 03/13/22 18:43 Last Admin: 02/17/22 12:09 Dose: 5 ml Heparin Sodium (Porcine) (Heparin Sod 5,000 Unit/0.5 Ml Vial) 5,000 units SQ Q12 FLO Stop: 03/04/22 08:59 Last Admin: 02/19/22 09:28 Dose: 5,000 units Hydromorphone HCl (Hydromorphone Inj 0.5 Mg/0.5 Ml Syr) 0.25 mg IV Q6H PRN PRN Reason: Pain Stop: 02/23/22 21:54 Last Admin: 02/09/22 22:13 Dose: 0.25 mg Cefazolin Sodium (Ancef 2000mg) 2,000 mg in 15 mls @ 3.75 mls/min IV Q12H [facility]; Protocol Stop: 02/23/22 11:59 Last Admin: 02/19/22 00:38 Dose: 3.75 mls/min Lactobacillus Acidophilus (Advanced Probiotic 1250 Mg Capsule) 2 cap PO DAILY [facility] Stop: 03/19/22 16:14 Last Admin: 02/19/22 09:27 Dose: 2 cap Lansoprazole (Lansoprazole 30 Mg Soltab) 30 mg PEG DAILY [facility] Stop: 03/15/22 08:59 Last Admin: 02/19/22 09:27 Dose: 30 mg Metoprolol Tartrate (Metoprolol Tartrate 25 Mg Tab) 12.5 mg PO BID [facility] Stop: 03/15/22 20:59 Last Admin: 02/19/22 09:34 Dose: 12.5 mg Miscellaneous (Febuxostat - Order Awaiting Action) 1 each N/A QS [facility] Stop: 03/04/22 07:59 Last Admin: 02/19/22 09:26 Dose: Not Given Nitroglycerin (Nitroglycerin Sl 0.4 Mg/Tab Tab) 0.4 mg SL UD PRN PRN Reason: Chest Pain Stop: 03/04/22 03:35 Pentoxifylline (Pentoxifylline 400mg Ext Rel Tab) 400 mg PO BID [facility] Stop: 03/04/22 08:59 Last Admin: 02/12/22 08:23 Dose: Not Given Polyethylene Glycol (Polyethylene (Miralax) 17 Gm Pack) 17 gm PO DAILY PRN PRN Reason: Constipation Stop: 03/04/22 03:35 Potassium Chloride (Potassium Chloride Pwd 20 Meq Pack) 20 meq PO BID [facility] Stop: 03/07/22 20:59 Last Admin: 02/10/22 09:11 Dose: 20 meq Prochlorperazine (Prochlorperazine Maleate 10 Mg Tab) 10 mg PO Q8 PRN PRN Reason: Nausea And Vomiting Stop: 03/04/22 03:35 Sterile Water (Tube Feeding Water Flush) 150 ml PEG Q4H [facility] Stop: 03/15/22 14:23 Last Admin: 02/19/22 06:25 Dose: 150 ml Tamsulosin HCl (Tamsulosin Hcl 0.4 Mg Cap) 0.4 mg PO DAILY [facility] Stop: 03/04/22 08:59 Last Admin: 02/19/22 09:27 Dose: 0.4 mg
[2022-02-19] MEDS ORDERED: LOPERAMIDE HCL 2 MG CAP PO PRN (14:00)
[2022-02-19] MEDS: ATORVASTATIN 40 MG TAB PO SCH (20:06)
[2022-02-20] MEDS: ceFAZolin 2000MG 2,000 MG/15 ML SYR IV SCH ×2 (00:42→12:31)
[2022-02-20] MEDS: TUBE FEEDING WATER FLUSH PEG SCH ×6 (02:24→23:00)
[2022-02-20 07:30] LABS: BUN Creatinine Ratio 28.3 (10-20); Calcium 7.4 mg/dl (8.5-10.1); Creatinine Clr Calc Pharmacy 17.6 ml/min; Est GFR (African American) 36.6 ml/min; Est GFR (Non-African American) 31.6 ml/min; Phosphorus 3.1 mg/dl (2.5-4.9); Potassium 4.5 mmol/L (3.5-5.1)
[2022-02-20 07:48] LABS: Hematocrit (blood only) 19.7 % (40.1-51.0); Hemoglobin 6.3 g/dl (14.0-18.0); Mean Platelet Volume 9.7 fL (9.4-12.4); Platelet Count 199 K/uL (130-400); RDW Coefficient of Variation 15.6 % (11.5-14.5); RDW Standard Deviation 55.2 fL (36.4-46.3); Red Blood Count 2.03 M/uL (4.63-6.08); White Blood Count 11.37 K/ul (4.8-10.8)
[2022-02-20] MEDS ORDERED: SODIUM CHLORIDE 0.9% 250 ML IV PRN (08:02)
[2022-02-20] MEDS: METOPROLOL TARTRATE 25 MG TAB PO SCH ×2 (10:09→21:01)
[2022-02-20] MEDS: FERROUS SULFATE 325 MG/7.4 ML UDP PO SCH ×2 (10:09→17:44)
[2022-02-20] MEDS: LANSOPRAZOLE 30 MG SOLTAB PEG SCH (10:09)
[2022-02-20] MEDS: ADVANCED PROBIOTIC 1250 MG CAPSULE PO SCH (10:09)
[2022-02-20] MEDS: CLOPIDOGREL BISULFATE 75 MG TAB PO SCH (10:10)
[2022-02-20] MEDS: ASPIRIN 81 MG CHEW PO SCH (10:10)
[2022-02-20] MEDS: TAMSULOSIN HCL 0.4 MG CAP PO SCH (10:11)
[2022-02-20] MEDS: ACETAMINOPHEN SUSP 325 MG/10.15 ML UDC PEG PRN (10:20)
--- NOTE | 2022-02-20 16:05 | Hospitalist Progress Note ---
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 Cornell as outpatient Also evaluated by ENT Dr. Lyon who recommends NPO, and if airway compromise, will need tracheostomy Continue G-tube feeding Appreciate palliative care input UTI Urine Cx:- Enterobacter, Staph Urinary retention Completed cefepime course Voiding trial, monitor B/L Pleural Effusion with Hypoxia Likely secondary to volume overload Echo: EF normal Resume diuretics Monitor volume status Bradycardia with A. fib Heart rate initially in the 50s Metoprolol discontinued CHADSVASC score 4 Appreciate Cardiology Input: Not a candidate for chronic anticoagulation Anemia H/O Iron deficiency S/P PRBCs Transfuse as needed No obvious source of bleeding Continue iron supplements Hypertension: Amlodipine on hold monitor BPH on Flomax. Peripheral vascular disease: On aspirin, statin, Plavix Pentoxifylline on hold as this is NOT crushable per pharmacy Chronic kidney disease III Unknown baseline Cr Cr 1.8 today Monitor renal function DVT Px: SCDs for now Hold Heparin for now Re: Anemia requiring Transfusions Diet-Tube feeds Disposition SNF as able Code Status: DNR/DNI Admission and Anticipated Discharge Date Admission Date: February 02, 2022 Subjective Patient is seen and examined at bedside States having back pain and chronic dyspnea Denies any other complaints Hemoglobin dropped to 6.3 No obvious source of bleeding Review of Systems Review of Systems: All systems reviewed & are unremarkable except as noted in Subjective Physical Exam Physical Exam: Physical Exam: Vitals signs as noted above General Appearance:Thin, frail, ill appearing, no apparent distress Head: normocephalic, Atraumatic Eyes: normal inspection, EOMI Neck: supple, Trachea midline Respiratory/Chest: Normal breath sounds, CTA, No accessory muscle use Cardiovascular: S1, S2, No murmur Abdomen/GI:Soft, Non tender, +PEG tube, Bowel sounds present Extremities/Musculoskeletal:normal inspection, no edema Neurologic/Psych:AAOX3, grossly no focal neurological deficits, Hoarse speech Skin: normal color, warm Results & Data Results & Data ([facility]) Vital Signs (Past 12 Hours) Vital Signs Temp Pulse Pulse Resp BP BP Pulse Ox 02/20/22 15:30 36.6 C 68 20 138/65 97 02/20/22 11:43 36.8 C 70 20 137/81 100 02/20/22 10:43 36.7 C 72 18 133/70 100 02/20/22 10:41 36.4 C L 74 20 151/64 H 100 02/20/22 10:13 37.1 C 66 20 152/61 H 98 02/20/22 10:00 36.7 C 72 22 154/78 H 98 02/20/22 09:42 36.9 C 80 18 144/57 H 02/20/22 08:00 37 C 77 18 141/52 H 99 O2 Del Method 02/20/22 15:30 Room Air 02/20/22 11:43 02/20/22 10:43 02/20/22 10:41 02/20/22 10:13 02/20/22 10:00 02/20/22 09:42 02/20/22 08:00 Room Air Laboratory Results Short CBC 02/20/22 Range/Units 06:39 WBC 11.37 H (4.8-10.8) K/ul Hgb 6.3 L* (14.0-18.0) g/dl Hct 19.7 L* (40.1-51.0) % Plt Count 199 (130-400) K/uL BMP 02/20/22 06:39 Sodium 134 L Potassium 4.5 Chloride 103 Carbon Dioxide 27 BUN 53 H Creatinine 1.87 H Glucose 127 H Calcium 7.4 L
[2022-02-20] MEDS: FIBERSOURCE HN 1.2 CAL 1000 ML BAG GT SCH ×2 (17:44→20:57)
[2022-02-20 20:20] LABS: Hematocrit (blood only) 23.7 % (40.1-51.0); Hemoglobin 7.8 g/dl (14.0-18.0)
[2022-02-20] MEDS: ATORVASTATIN 40 MG TAB PO SCH (20:59)
[2022-02-21] MEDS: ACETAMINOPHEN SUSP 325 MG/10.15 ML UDC PEG PRN ×2 (00:22→17:33)
[2022-02-21] MEDS: ceFAZolin 2000MG 2,000 MG/15 ML SYR IV SCH ×2 (00:23→11:59)
[2022-02-21] MEDS: TUBE FEEDING WATER FLUSH PEG SCH ×5 (02:31→23:01)
[2022-02-21 07:52] LABS: Hemoglobin 7.7 g/dl (14.0-18.0); Mean Corpuscular Hemoglobin 31.3 pg (25.0-34.0); Mean Corpuscular Hgb Conc 32.1 g/dL (32.0-36.0); Mean Corpuscular Volume 97.6 fL (80.0-100.0); Mean Platelet Volume 9.5 fL (9.4-12.4); Platelet Count 197 K/uL (130-400); RDW Coefficient of Variation 15.9 % (11.5-14.5); RDW Standard Deviation 55.2 fL (36.4-46.3); Red Blood Count 2.46 M/uL (4.63-6.08); White Blood Count 12.14 K/ul (4.8-10.8)
[2022-02-21 08:31] LABS: Calcium 7.5 mg/dl (8.5-10.1); Creatinine Clr Calc Pharmacy 18.9 ml/min; Est GFR (African American) 38.4 ml/min; Est GFR (Non-African American) 33.1 ml/min; Potassium 4.7 mmol/L (3.5-5.1)
[2022-02-21] MEDS: TAMSULOSIN HCL 0.4 MG CAP PO SCH (08:41)
[2022-02-21] MEDS: ADVANCED PROBIOTIC 1250 MG CAPSULE PO SCH (08:41)
[2022-02-21] MEDS: LANSOPRAZOLE 30 MG SOLTAB PEG SCH (08:41)
[2022-02-21] MEDS: CLOPIDOGREL BISULFATE 75 MG TAB PO SCH (08:41)
[2022-02-21] MEDS: METOPROLOL TARTRATE 25 MG TAB PO SCH ×2 (08:41→22:28)
[2022-02-21] MEDS: ASPIRIN 81 MG CHEW PO SCH (08:41)
[2022-02-21] MEDS: FERROUS SULFATE 325 MG/7.4 ML UDP PO SCH ×2 (08:41→17:32)
--- NOTE | 2022-02-21 14:20 | Hospitalist Progress Note ---
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 Cornell as outpatient Also evaluated by ENT Dr. Lyon who recommends NPO, and if airway compromise, will need tracheostomy Continue G-tube feeding Appreciate palliative care input Needs Rehab placement UTI Urine Cx:- Enterobacter, Staph Urinary retention Completed cefepime course Voiding trial, monitor B/L Pleural Effusion with Hypoxia Likely secondary to volume overload Echo: EF normal Received diuretics Monitor volume status Bradycardia with A. fib Heart rate initially in the 50s Metoprolol discontinued CHADSVASC score 4 Appreciate Cardiology Input: Not a candidate for chronic anticoagulation Anemia H/O Iron deficiency S/P PRBCs Transfuse as needed No obvious source of bleeding Continue iron supplements Hb 7.7 today Hypertension: Amlodipine on hold monitor BPH on Flomax. Peripheral vascular disease: On aspirin, statin, Plavix Pentoxifylline on hold as this is NOT crushable per pharmacy Chronic kidney disease III Unknown baseline Cr Cr 1.8 today Monitor renal function DVT Px: SCDs for now Hold Heparin for now Re: Anemia requiring Transfusions Diet-Tube feeds Disposition SNF as able Code Status: DNR/DNI Admission and Anticipated Discharge Date Admission Date: February 02, 2022 Subjective Patient is seen and examined at bedside Hb stable after blood transfusion yesterday Reports minimal back discomfort and chronic dyspnea Denies any chest pain, nausea, abd pain Review of Systems Review of Systems: All systems reviewed & are unremarkable except as noted in Subjective Physical Exam Physical Exam: Physical Exam: Vitals signs as noted above General Appearance:Thin, frail, ill appearing, no apparent distress Head: normocephalic, Atraumatic Eyes: normal inspection, EOMI Neck: supple, Trachea midline Respiratory/Chest: Normal breath sounds, CTA, No accessory muscle use Cardiovascular: S1, S2, No murmur Abdomen/GI:Soft, Non tender, +PEG tube, Bowel sounds present Extremities/Musculoskeletal:normal inspection, no edema Neurologic/Psych:AAOX3, grossly no focal neurological deficits, garbled speech Skin: normal color, warm Results & Data Results & Data ([facility]) Vital Signs (Past 12 Hours) Vital Signs Temp Pulse Resp BP BP Pulse Ox O2 Del Method 02/21/22 11:19 36.6 C 68 18 145/57 H 96 Room Air 02/21/22 08:09 36.5 C 72 18 152/61 H 99 Room Air 02/21/22 02:53 37.0 C 75 20 123/66 93 Room Air Laboratory Results Short CBC 02/20/22 02/21/22 Range/Units 20:06 07:30 WBC 12.14 H (4.8-10.8) K/ul Hgb 7.8 L 7.7 L (14.0-18.0) g/dl Hct 23.7 L 24.0 L (40.1-51.0) % Plt Count 197 (130-400) K/uL BMP 02/21/22 07:30 Sodium 135 L Potassium 4.7 Chloride 104 Carbon Dioxide 25 BUN 54 H Creatinine 1.80 H Glucose 108 H Calcium 7.5 L
[2022-02-21] MEDS: ATORVASTATIN 40 MG TAB PO SCH (22:26)
[2022-02-21] MEDS: FIBERSOURCE HN 1.2 CAL 1000 ML BAG GT SCH (22:33)
[2022-02-22] MEDS: ceFAZolin 2000MG 2,000 MG/15 ML SYR IV SCH ×2 (00:05→12:32)
[2022-02-22] MEDS: TUBE FEEDING WATER FLUSH PEG SCH ×6 (00:06→20:05)
[2022-02-22] MEDS: ACETAMINOPHEN SUSP 325 MG/10.15 ML UDC PEG PRN ×3 (05:27→22:38)
[2022-02-22 05:35] LABS: Hematocrit (blood only) 24.1 % (40.1-51.0); Hemoglobin 7.7 g/dl (14.0-18.0)
[2022-02-22 06:03] LABS: BUN Creatinine Ratio 28.3 (10-20); Calcium 7.6 mg/dl (8.5-10.1); Creatinine Clr Calc Pharmacy 18.2 ml/min; Est GFR (African American) 36.6 ml/min; Est GFR (Non-African American) 31.6 ml/min; Potassium 4.8 mmol/L (3.5-5.1)
[2022-02-22] MEDS: ADVANCED PROBIOTIC 1250 MG CAPSULE PO SCH (09:01)
[2022-02-22] MEDS: FERROUS SULFATE 325 MG/7.4 ML UDP PO SCH ×2 (09:01→16:32)
[2022-02-22] MEDS: ASPIRIN 81 MG CHEW PO SCH (09:02)
[2022-02-22] MEDS: CLOPIDOGREL BISULFATE 75 MG TAB PO SCH (09:02)
[2022-02-22] MEDS: LANSOPRAZOLE 30 MG SOLTAB PEG SCH (09:02)
[2022-02-22] MEDS: TAMSULOSIN HCL 0.4 MG CAP PO SCH (09:02)
[2022-02-22] MEDS: METOPROLOL TARTRATE 25 MG TAB PO SCH ×2 (09:43→20:05)
--- NOTE | 2022-02-22 15:40 | Hospitalist Progress Note ---
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 Cornell as outpatient Also evaluated by ENT Dr. Lyon who recommends NPO, and if airway compromise, will need tracheostomy Continue G-tube feeding Appreciate palliative care input Needs Rehab placement Continue current management UTI Urine Cx:- Enterobacter, Staph Urinary retention Completed cefepime course Voiding trial, monitor B/L Pleural Effusion with Hypoxia Likely secondary to volume overload Echo: EF normal Received diuretics Monitor volume status Bradycardia with A. fib Heart rate initially in the 50s Metoprolol discontinued CHADSVASC score 4 Appreciate Cardiology Input: Not a candidate for chronic anticoagulation Anemia H/O Iron deficiency S/P PRBCs Transfuse as needed No obvious source of bleeding Continue iron supplements Hb 7.7 today Monitor CBC Hypertension: Amlodipine on hold monitor BP slightly elevated Plan to resume amlodipine tmw if BP persistent BPH on Flomax. Peripheral vascular disease: On aspirin, statin, Plavix Pentoxifylline on hold as this is NOT crushable per pharmacy Chronic kidney disease III Unknown baseline Cr Cr 1.8 today Monitor renal function DVT Px: SCDs for now Hold Heparin for now Re: Anemia requiring Transfusions Diet-Tube feeds Disposition SNF when accepted Code Status: DNR/DNI Admission and Anticipated Discharge Date Admission Date: February 02, 2022 Subjective Patient is seen and examined at bedside No new complaints Back pain is better Lying in bed comfortably Hb stable Reports chronic dyspnea-unchanged Denies any chest pain, nausea, abd pain Review of Systems Review of Systems: All systems reviewed & are unremarkable except as noted in Subjective Physical Exam Physical Exam: Physical Exam: Vitals signs as noted above General Appearance:Thin, frail, ill appearing, no apparent distress Head: normocephalic, Atraumatic Eyes: normal inspection, EOMI Neck: supple, Trachea midline Respiratory/Chest: Normal breath sounds, CTA, No accessory muscle use Cardiovascular: S1, S2, No murmur Abdomen/GI:Soft, Non tender, +PEG tube, Bowel sounds present Extremities/Musculoskeletal:normal inspection, no edema Neurologic/Psych:AAOX3, grossly no focal neurological deficits, garbled speech Skin: normal color, warm Results & Data Results & Data ([facility]) Vital Signs (Past 12 Hours) Vital Signs Temp Pulse Pulse Resp BP Pulse Ox O2 Del Method 02/22/22 15:06 82 02/22/22 15:01 36.6 C 79 18 148/68 H 95 Room Air 02/22/22 13:42 Room Air 02/22/22 11:20 36.5 C 70 17 151/60 H 97 Room Air 02/22/22 08:00 36.8 C 68 18 137/42 L 98 Room Air 02/22/22 07:27 68 02/22/22 04:00 36.7 C 80 18 152/74 H 96 Room Air Laboratory Results Short CBC 02/22/22 Range/Units 05:21 Hgb 7.7 L (14.0-18.0) g/dl Hct 24.1 L (40.1-51.0) % BMP 02/22/22 05:21 Sodium 134 L Potassium 4.8 Chloride 103 Carbon Dioxide 25 BUN 53 H Creatinine 1.87 H Glucose 121 H Calcium 7.6 L
[2022-02-22] MEDS: FIBERSOURCE HN 1.2 CAL 1000 ML BAG GT SCH (18:00)
[2022-02-22] MEDS: ATORVASTATIN 40 MG TAB PO SCH (20:05)
[2022-02-23] MEDS: TUBE FEEDING WATER FLUSH PEG SCH ×7 (00:04→23:10)
[2022-02-23] MEDS: ceFAZolin 2000MG 2,000 MG/15 ML SYR IV SCH ×3 (00:04→23:10)
[2022-02-23 05:49] LABS: Hematocrit (blood only) 22.7 % (40.1-51.0); Hemoglobin 7.4 g/dl (14.0-18.0)
[2022-02-23 05:57] LABS: BUN Creatinine Ratio 28.2 (10-20); Calcium 7.5 mg/dl (8.5-10.1); Creatinine Clr Calc Pharmacy 18.2 ml/min; Est GFR (African American) 36.4 ml/min; Est GFR (Non-African American) 31.4 ml/min; Potassium 4.7 mmol/L (3.5-5.1)
[2022-02-23] MEDS: METOPROLOL TARTRATE 25 MG TAB PO SCH ×2 (08:04→19:41)
[2022-02-23] MEDS: FERROUS SULFATE 325 MG/7.4 ML UDP PO SCH ×2 (08:04→16:34)
[2022-02-23] MEDS: ASPIRIN 81 MG CHEW PO SCH (08:05)
[2022-02-23] MEDS: CLOPIDOGREL BISULFATE 75 MG TAB PO SCH (08:05)
[2022-02-23] MEDS: TAMSULOSIN HCL 0.4 MG CAP PO SCH (08:05)
[2022-02-23] MEDS: ADVANCED PROBIOTIC 1250 MG CAPSULE PO SCH (08:05)
[2022-02-23] MEDS: LANSOPRAZOLE 30 MG SOLTAB PEG SCH (08:06)
[2022-02-23] MEDS: ACETAMINOPHEN SUSP 325 MG/10.15 ML UDC PEG PRN ×2 (08:07→19:42)
--- NOTE | 2022-02-23 15:45 | Hospitalist Progress Note ---
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 Cornell as outpatient Also evaluated by ENT Dr. Lyon who recommends NPO, and if airway compromise, will need tracheostomy Continue G-tube feeding Appreciate palliative care input Waiting for rehab placement UTI Urine Cx:- Enterobacter, Staph Urinary retention Completed cefepime course monitor B/L Pleural Effusion with Hypoxia Likely secondary to volume overload Echo: EF normal Received diuretics Monitor volume status Bradycardia with A. fib Heart rate initially in the 50s Metoprolol discontinued CHADSVASC score 4 Appreciate Cardiology Input: Not a candidate for chronic anticoagulation Anemia H/O Iron deficiency S/P PRBCs Transfuse as needed No obvious source of bleeding Continue iron supplements Hb 7.4 Monitor CBC Hypertension: Resume Amlodipine at lower dose BPH on Flomax. Peripheral vascular disease: On aspirin, statin, Plavix Pentoxifylline on hold as this is NOT crushable per pharmacy Chronic kidney disease III Unknown baseline Cr Cr 1.8 Monitor renal function DVT Px: SCDs for now Hold Heparin for now Re: Anemia requiring Transfusions Diet-Tube feeds Disposition SNF when accepted Code Status: DNR/DNI Admission and Anticipated Discharge Date Admission Date: February 02, 2022 Subjective Patient is seen and examined at bedside " I am here" Offers no new complaints Reports chronic dyspnea-unchanged Denies any chest pain, nausea, abd pain Review of Systems Review of Systems: All systems reviewed & are unremarkable except as noted in Subjective Physical Exam Physical Exam: Physical Exam: Vitals signs as noted above General Appearance:Thin, frail, ill appearing, no apparent distress Head: normocephalic, Atraumatic Eyes: normal inspection, EOMI Neck: supple, Trachea midline Respiratory/Chest: Normal breath sounds, CTA, No accessory muscle use Cardiovascular: S1, S2, No murmur Abdomen/GI:Soft, Non tender, +PEG tube, Bowel sounds present Extremities/Musculoskeletal:normal inspection, no edema Neurologic/Psych:AAOX3, grossly no focal neurological deficits, garbled speech Skin: normal color, warm Results & Data Results & Data ([facility]) Vital Signs (Past 12 Hours) Vital Signs Temp Pulse Pulse Resp BP Pulse Ox O2 Del Method 02/23/22 15:01 36.7 C 79 18 156/74 H 94 Room Air 02/23/22 11:49 36.9 C 82 18 150/67 H 94 Room Air 02/23/22 07:32 77 02/23/22 07:28 36.5 C 85 18 156/66 H 95 Room Air Laboratory Results Short CBC 02/23/22 Range/Units 05:11 Hgb 7.4 L (14.0-18.0) g/dl Hct 22.7 L (40.1-51.0) % BMP 02/23/22 05:11 Sodium 137 Potassium 4.7 Chloride 107 Carbon Dioxide 25 BUN 53 H Creatinine 1.88 H Glucose 116 H Calcium 7.5 L
[2022-02-23] MEDS: amLODIPine BESYLATE 5 MG TAB PO SCH (16:33)
[2022-02-23] MEDS: FIBERSOURCE HN 1.2 CAL 1000 ML BAG GT SCH (16:33)
[2022-02-23] MEDS: ATORVASTATIN 40 MG TAB PO SCH (19:40)
[2022-02-24] MEDS: TUBE FEEDING WATER FLUSH PEG SCH ×5 (03:46→19:17)
[2022-02-24] MEDS: CLOPIDOGREL BISULFATE 75 MG TAB PO SCH (08:19)
[2022-02-24] MEDS: FERROUS SULFATE 325 MG/7.4 ML UDP PO SCH ×2 (08:19→16:37)
[2022-02-24] MEDS: LANSOPRAZOLE 30 MG SOLTAB PEG SCH (08:19)
[2022-02-24] MEDS: METOPROLOL TARTRATE 25 MG TAB PO SCH ×2 (08:19→21:39)
[2022-02-24] MEDS: TAMSULOSIN HCL 0.4 MG CAP PO SCH (08:19)
[2022-02-24] MEDS: ASPIRIN 81 MG CHEW PO SCH (08:20)
[2022-02-24] MEDS: ADVANCED PROBIOTIC 1250 MG CAPSULE PO SCH (08:20)
[2022-02-24] MEDS: amLODIPine BESYLATE 5 MG TAB PO SCH (08:20)
[2022-02-24] MEDS: ceFAZolin 2000MG 2,000 MG/15 ML SYR IV SCH (11:16)
[2022-02-24] MEDS ORDERED: SODIUM CHLORIDE 0.9% 500 ML IV ONE (11:19)
[2022-02-24] MEDS: ACETAMINOPHEN SUSP 325 MG/10.15 ML UDC PEG PRN (11:56)
[2022-02-24] MEDS: FIBERSOURCE HN 1.2 CAL 1000 ML BAG GT SCH (11:58)
--- NOTE | 2022-02-24 14:17 | Hospitalist Progress Note ---
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 Cornell as outpatient Also evaluated by ENT Dr. Lyon who recommends NPO, and if airway compromise, will need tracheostomy Continue G-tube feeding Appreciate palliative care input Waiting for rehab placement Will give gentle IV fluids today UTI Urine Cx:- Enterobacter, Staph Urinary retention Completed cefepime course monitor B/L Pleural Effusion with Hypoxia Likely secondary to volume overload Echo: EF normal Received diuretics Monitor volume status Bradycardia with A. fib Heart rate initially in the 50s Metoprolol discontinued CHADSVASC score 4 Appreciate Cardiology Input: Not a candidate for chronic anticoagulation Anemia H/O Iron deficiency S/P PRBCs Transfuse as needed No obvious source of bleeding Continue iron supplements Hb 7.4 Monitor CBC Hypertension: Resume Amlodipine at lower dose BPH on Flomax. Peripheral vascular disease: On aspirin, statin, Plavix Pentoxifylline on hold as this is NOT crushable per pharmacy Chronic kidney disease III Unknown baseline Cr Cr 1.8 Monitor renal function DVT Px: SCDs for now Hold Heparin for now Re: Anemia requiring Transfusions Diet-Tube feeds Disposition SNF when accepted Code Status: DNR/DNI Admission and Anticipated Discharge Date Admission Date: February 02, 2022 Subjective Patient is seen and examined at bedside Reports dry mouth No other complaints Denies any chest pain, dyspnea at rest, nausea, abd pain Waiting for placement Review of Systems Review of Systems: All systems reviewed & are unremarkable except as noted in Subjective Physical Exam Physical Exam: Physical Exam: Vitals signs as noted above General Appearance:Thin, frail, ill appearing, no apparent distress Head: normocephalic, Atraumatic Eyes: normal inspection, EOMI Neck: supple, Trachea midline Respiratory/Chest: Normal breath sounds, CTA, No accessory muscle use Cardiovascular: S1, S2, No murmur Abdomen/GI:Soft, Non tender, +PEG tube, Bowel sounds present Extremities/Musculoskeletal:normal inspection, no edema Neurologic/Psych:AAOX3, grossly no focal neurological deficits, garbled speech Skin: normal color, warm Results & Data Results & Data ([facility]) Vital Signs (Past 12 Hours) Vital Signs Temp Pulse Resp BP Pulse Ox O2 Del Method 02/24/22 12:42 37.1 C 02/24/22 11:41 38.1 C H 98 H 20 138/61 94 Room Air 02/24/22 08:30 Room Air 02/24/22 07:44 37.2 C 96 H 20 149/62 H 95 Room Air 02/24/22 03:03 37.0 C 84 20 153/61 H 95 Room Air
[2022-02-24] MEDS: ATORVASTATIN 40 MG TAB PO SCH (21:39)
[2022-02-25] MEDS: TUBE FEEDING WATER FLUSH PEG SCH ×4 (01:02→11:39)
[2022-02-25] MEDS: ceFAZolin 2000MG 2,000 MG/15 ML SYR IV SCH ×3 (01:05→23:58)
[2022-02-25] MEDS: FIBERSOURCE HN 1.2 CAL 1000 ML BAG GT SCH (05:55)
[2022-02-25] MEDS: amLODIPine BESYLATE 5 MG TAB PO SCH (08:00)
[2022-02-25] MEDS: LANSOPRAZOLE 30 MG SOLTAB PEG SCH (08:00)
[2022-02-25] MEDS: ASPIRIN 81 MG CHEW PO SCH (08:00)
[2022-02-25] MEDS: FERROUS SULFATE 325 MG/7.4 ML UDP PO SCH ×2 (08:00→18:04)
[2022-02-25] MEDS: ADVANCED PROBIOTIC 1250 MG CAPSULE PO SCH (08:00)
[2022-02-25] MEDS: TAMSULOSIN HCL 0.4 MG CAP PO SCH (08:00)
[2022-02-25] MEDS: METOPROLOL TARTRATE 25 MG TAB PO SCH ×2 (08:00→21:15)
[2022-02-25] MEDS: CLOPIDOGREL BISULFATE 75 MG TAB PO SCH (08:00)
[2022-02-25] MEDS: ACETAMINOPHEN SUSP 325 MG/10.15 ML UDC PEG PRN (10:56)
[2022-02-25] MEDS ORDERED: LORazepam 0.5 MG TAB PO ONE (17:27)
[2022-02-25] MEDS ORDERED: FIBERSOURCE HN 1.2 CAL 1000 ML BAG GT SCH (17:45)
--- NOTE | 2022-02-25 17:54 | Hospitalist Progress Note ---
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 Cornell as outpatient Also evaluated by ENT Dr. Lyon who recommends NPO, and if airway compromise, will need tracheostomy Continue G-tube feeding Appreciate palliative care input Waiting for rehab placement UTI Urine Cx:- Enterobacter, Staph Urinary retention Completed cefepime course monitor Diarrhea Likely due to Tube Feeds, Antibiotics Check stool for c diff B/L Pleural Effusion with Hypoxia Likely secondary to volume overload Echo: EF normal Received diuretics Monitor volume status Bradycardia with A. fib Heart rate initially in the 50s Metoprolol discontinued CHADSVASC score 4 Appreciate Cardiology Input: Not a candidate for chronic anticoagulation Anemia H/O Iron deficiency S/P PRBCs Transfuse as needed No obvious source of bleeding Continue iron supplements Hb 7.4 Monitor CBC Hypertension: Resume Amlodipine at lower dose BPH on Flomax. Peripheral vascular disease: On aspirin, statin, Plavix Pentoxifylline on hold as this is NOT crushable per pharmacy Chronic kidney disease III Unknown baseline Cr Cr 1.8 Monitor renal function DVT Px: SCDs for now Hold Heparin for now Re: Anemia requiring Transfusions Diet-Tube feeds Disposition SNF when accepted Code Status: DNR/DNI Admission and Anticipated Discharge Date Admission Date: February 02, 2022 Subjective Patient is seen and examined at bedside Reports diarrhea No other complaints Denies any chest pain, dyspnea at rest, nausea, abd pain Waiting for placement Review of Systems Review of Systems: All systems reviewed & are unremarkable except as noted in Subjective Physical Exam Physical Exam: Physical Exam: Vitals signs as noted above General Appearance:Thin, frail, ill appearing, no apparent distress Head: normocephalic, Atraumatic Eyes: normal inspection, EOMI Neck: supple, Trachea midline Respiratory/Chest: Normal breath sounds, CTA, No accessory muscle use Cardiovascular: S1, S2, No murmur Abdomen/GI:Soft, Non tender, +PEG tube, Bowel sounds present Extremities/Musculoskeletal:normal inspection, no edema Neurologic/Psych:AAOX3, grossly no focal neurological deficits, garbled speech Skin: normal color, warm Results & Data Results & Data ([facility]) Vital Signs (Past 12 Hours) Vital Signs Temp Pulse Resp BP Pulse Ox O2 Del Method 02/25/22 15:40 36.7 C 83 19 110/60 98 Room Air 02/25/22 11:31 36.8 C 83 20 109/53 L 98 Room Air 02/25/22 08:30 Room Air 02/25/22 07:56 36.7 C 84 20 160/65 H 94 Room Air
[2022-02-25] MEDS: LOPERAMIDE HCL 2 MG CAP PO SCH (18:03)
[2022-02-25] MEDS: ATORVASTATIN 40 MG TAB PO SCH (21:14)
[2022-02-26] MEDS: ACETAMINOPHEN SUSP 325 MG/10.15 ML UDC PEG PRN (01:59)
[2022-02-26] MEDS ORDERED: FIBERSOURCE HN 1.2 CAL 1000 ML BAG GT SCH (07:00)
[2022-02-26 08:59] LABS: Hematocrit (blood only) 21.7 % (40.1-51.0)
[2022-02-26] MEDS ORDERED: SODIUM CHLORIDE 0.9% 250 ML IV PRN (09:00)
[2022-02-26 09:28] LABS: BUN Creatinine Ratio 28.6 (10-20); Calcium 7.8 mg/dl (8.5-10.1); Creatinine Clr Calc Pharmacy 15.8 ml/min; Est GFR (African American) 31.8 ml/min; Est GFR (Non-African American) 27.5 ml/min; Potassium 4.7 mmol/L (3.5-5.1)
[2022-02-26] MEDS: amLODIPine BESYLATE 5 MG TAB PO SCH (09:28)
[2022-02-26] MEDS: FERROUS SULFATE 325 MG/7.4 ML UDP PO SCH ×2 (09:28→16:17)
[2022-02-26] MEDS: ADVANCED PROBIOTIC 1250 MG CAPSULE PO SCH (09:29)
[2022-02-26] MEDS: LOPERAMIDE HCL 2 MG CAP PO SCH (09:30)
[2022-02-26] MEDS: METOPROLOL TARTRATE 25 MG TAB PO SCH ×2 (09:31→19:52)
[2022-02-26] MEDS: PANTOprazole 40 MG in SYRINGE 0 ML IV SCH ×2 (09:32→19:53)
[2022-02-26] MEDS: TAMSULOSIN HCL 0.4 MG CAP PO SCH (09:33)
[2022-02-26] MEDS ORDERED: Nursing to Pharmacy Communication SCH (11:00)
[2022-02-26] MEDS: TUBE FEEDING WATER FLUSH GT SCH ×4 (13:30→17:20)
[2022-02-26] MEDS: ceFAZolin 2000MG 2,000 MG/15 ML SYR IV SCH (13:32)
[2022-02-26] MEDS: FIBERSOURCE HN 1.2 CAL 1000 ML BAG GT SCH ×4 (13:45→22:30)
--- NOTE | 2022-02-26 14:31 | Hospitalist Progress Note ---
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 Cornell as outpatient Also evaluated by ENT Dr. Lyon who recommends NPO, and if airway compromise, will need tracheostomy Continue G-tube feeding Appreciate palliative care input Waiting for rehab placement Rectal Bleed Hold Aspirin, Plavix Continue PPI Transfuse 1 unit PRBC today Monitor H&H Will request GI to re-eval Likely poor candidate for any procedures UTI Urine Cx:- Enterobacter, Staph Urinary retention Completed cefepime course monitor Diarrhea Likely due to Tube Feeds, Antibiotics stool for c diff negative Imodium PRN B/L Pleural Effusion with Hypoxia Likely secondary to volume overload Echo: EF normal Received diuretics Monitor volume status Bradycardia with A. fib Heart rate initially in the 50s Metoprolol discontinued CHADSVASC score 4 Appreciate Cardiology Input: Not a candidate for chronic anticoagulation Anemia H/O Iron deficiency S/P PRBCs Transfuse as needed Continue iron supplements Hb 7.0 today Monitor CBC Hypertension: Resume Amlodipine at lower dose Monitor BPH on Flomax. Peripheral vascular disease: On aspirin, statin, Plavix Pentoxifylline on hold as this is NOT crushable per pharmacy Chronic kidney disease III Unknown baseline Cr Cr 2.1 today Monitor renal function DVT Px: SCDs for now Hold Heparin Re: Anemia requiring Transfusions, Rectal bleed Diet-Tube feeds Disposition SNF when accepted Code Status: DNR/DNI Admission and Anticipated Discharge Date Admission Date: February 02, 2022 Subjective Patient is seen and examined at bedside RN reported noticing Blood smeared stool overnight +FOBT, Negative C diff Patient feels comfortable and offers no new complaints Hb 7.0 today Plan to give 1 unit PRBCs Denies any chest pain, dyspnea at rest, nausea, abd pain Waiting for placement Review of Systems Review of Systems: All systems reviewed & are unremarkable except as noted in Subjective Physical Exam Physical Exam: Physical Exam: Vitals signs as noted above General Appearance:Thin, frail, ill appearing, no apparent distress Head: normocephalic, Atraumatic Eyes: normal inspection, EOMI Neck: supple, Trachea midline Respiratory/Chest: Normal breath sounds, CTA, No accessory muscle use Cardiovascular: S1, S2, No murmur Abdomen/GI:Soft, Non tender, +PEG tube, Bowel sounds present Extremities/Musculoskeletal:normal inspection, no edema Neurologic/Psych:AAOX3, grossly no focal neurological deficits, garbled speech Skin: normal color, warm Results & Data Results & Data ([facility]) Vital Signs (Past 12 Hours) Vital Signs Temp Pulse Pulse Resp BP BP Pulse Ox 02/26/22 13:30 36.6 C 67 16 157/62 H 97 02/26/22 12:40 36.5 C 70 14 128/60 99 02/26/22 11:40 36.5 C 60 16 127/66 96 02/26/22 09:00 02/26/22 11:10 36.4 C L 67 16 113/67 100 02/26/22 10:55 36.3 C L 62 22 123/68 98 02/26/22 10:35 36.4 C L 67 20 111/59 L 96 02/26/22 08:00 36.4 C L 72 127/68 96 02/26/22 07:20 79 02/26/22 04:04 36.8 C 78 16 124/39 L 95 02/26/22 03:21 O2 Del Method 02/26/22 13:30 02/26/22 12:40 02/26/22 11:40 02/26/22 09:00 Room Air 02/26/22 11:10 02/26/22 10:55 02/26/22 10:35 02/26/22 08:00 Room Air 02/26/22 07:20 02/26/22 04:04 Room Air 02/26/22 03:21 Room Air Laboratory Results Short CBC 02/26/22 Range/Units 08:32 Hgb 7.0 L (14.0-18.0) g/dl Hct 21.7 L (40.1-51.0) % BMP 02/26/22 08:32 Sodium 137 Potassium 4.7 Chloride 105 Carbon Dioxide 24 BUN 60 H Creatinine 2.10 H Glucose 111 H Calcium 7.8 L
[2022-02-26] MEDS: ATORVASTATIN 40 MG TAB PO SCH (19:52)
[2022-02-26 20:34] LABS: Hematocrit (blood only) 25.8 % (40.1-51.0); Hemoglobin 8.6 g/dl (14.0-18.0)
[2022-02-27] MEDS: ceFAZolin 2000MG 2,000 MG/15 ML SYR IV SCH ×2 (00:45→12:08)
[2022-02-27 08:14] LABS: Hematocrit (blood only) 25.4 % (40.1-51.0); Hemoglobin 8.4 g/dl (14.0-18.0)
[2022-02-27] MEDS: FERROUS SULFATE 325 MG/7.4 ML UDP PO SCH ×2 (08:19→17:02)
[2022-02-27] MEDS: PANTOprazole 40 MG in SYRINGE 0 ML IV SCH ×2 (08:19→22:19)
[2022-02-27] MEDS: METOPROLOL TARTRATE 25 MG TAB PO SCH ×2 (08:19→22:19)
[2022-02-27] MEDS: amLODIPine BESYLATE 5 MG TAB PO SCH (08:20)
[2022-02-27] MEDS: LOPERAMIDE HCL 2 MG CAP PO SCH (08:20)
[2022-02-27] MEDS: TAMSULOSIN HCL 0.4 MG CAP PO SCH (08:20)
[2022-02-27] MEDS: ADVANCED PROBIOTIC 1250 MG CAPSULE PO SCH (08:20)
[2022-02-27 08:43] LABS: BUN Creatinine Ratio 30.4 (10-20); Calcium 7.9 mg/dl (8.5-10.1); Creatinine Clr Calc Pharmacy 15.8 ml/min; Est GFR (African American) 31.1 ml/min; Est GFR (Non-African American) 26.9 ml/min; Potassium 4.6 mmol/L (3.5-5.1)
--- NOTE | 2022-02-27 08:50 | Hospitalist Progress Note ---
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 Cornell as outpatient Also evaluated by ENT Dr. Lyon who recommends NPO, and if airway compromise, will need tracheostomy Continue G-tube feeding Appreciate palliative care input Waiting for rehab placement ?Rectal Bleed Hold Aspirin, Plavix Continue PPI Transfused 1 unit PRBC on 02/26 Monitor H&H GI to re-eval - no indication for endoscopy at this time poor candidate for any procedures UTI Urine Cx:- Enterobacter, Staph Urinary retention Completed cefepime course monitor Diarrhea Likely due to Tube Feeds, Antibiotics stool for c diff negative Imodium PRN B/L Pleural Effusion with Hypoxia Likely secondary to volume overload Echo: EF normal Received diuretics Monitor volume status Bradycardia with A. fib Heart rate initially in the 50s Metoprolol discontinued CHADSVASC score 4 Appreciate Cardiology Input: Not a candidate for chronic anticoagulation Anemia H/O Iron deficiency S/P PRBCs Transfuse as needed Continue iron supplements Monitor CBC Hypertension: Resume Amlodipine at lower dose Monitor BPH on Flomax. Peripheral vascular disease: On aspirin, statin, Plavix Pentoxifylline on hold as this is NOT crushable per pharmacy Chronic kidney disease III Unknown baseline Cr Cr 2.1 today Monitor renal function DVT Px: SCDs for now Hold Heparin Re: Anemia requiring Transfusions, Rectal bleed Diet-Tube feeds Disposition SNF when accepted Code Status: DNR/DNI Admission and Anticipated Discharge Date Admission Date: February 02, 2022 Subjective Follow-up for MSSA bacteremia, hx of throat ca Currently pt resting in bed, comfortable, not in distress No fever, chills, chest pain, shortness of breath, cough, chest pain No abdominal pain, nausea vomiting, no problems with tube feedings RN reported noticing Blood smeared stool overnight , pt not aware +FOBT, Negative C diff Received 1 unit of pRBC yesterday Patient feels comfortable and offers no new complaints Per Gi, no indication for scope at this point Waiting for placement Review of Systems Review of Systems: All systems reviewed & are unremarkable except as noted in Subjective Physical Exam Physical Exam: General Appearance:Thin, frail, ill appearing, no apparent distress Head: normocephalic, Atraumatic Eyes: normal inspection, EOMI Neck: supple Respiratory/Chest: Normal breath sounds, CTA, No accessory muscle use Cardiovascular: S1, S2, No murmur Abdomen/GI:Soft, Non tender, +PEG tube, Bowel sounds present Extremities/Musculoskeletal:normal inspection, no edema Neurologic/Psych: AAOX3, answers appropriately, garbled speech(d/t tongue ca), moves extremities Skin: normal color, warm Results & Data Results & Data ([facility]) Vital Signs (Past 12 Hours) Vital Signs Temp Pulse Pulse Resp BP Pulse Ox O2 Del Method 02/27/22 08:16 36.6 C 61 16 156/66 H 97 Room Air 02/27/22 07:06 76 02/27/22 03:54 36.9 C 67 18 145/73 H 98 Room Air 02/26/22 22:17 67 02/26/22 22:17 Room Air 02/26/22 23:00 36.8 C 75 18 133/64 96 Room Air Laboratory Results 02/27/22 02/27/22 02/27/22 Range/Units 07:44 07:44 05:58 Hgb 8.4 L (14.0-18.0) g/dl Hct 25.4 L (40.1-51.0) % Sodium 137 (136-145) mmol/L Potassium 4.6 (3.5-5.1) mmol/L Chloride 106 (98-107) mmol/L Carbon Dioxide 23 (21-32) mmol/L Anion Gap 8 (3-11) BUN 65 H (6-23) mg/dl Creatinine 2.14 H (0.6-1.4) mg/dl Est Cr Clr Drug Dosing 15.8 ml/min Est GFR ( Amer) 31.1 ml/min Est GFR (Non-Af Amer) 26.9 ml/min BUN/Creatinine Ratio 30.4 H (10-20) Glucose 117 H (70-99(Fasting)) mg/dl POC Glucose 126 H (70-99) mg/dl Calcium 7.9 L (8.5-10.1) mg/dl Stool Occult Bld Scrn (Negative) Blood Type Antibody Screen Crossmatch 02/27/22 02/26/22 02/26/22 Range/Units 01:52 20:14 18:05 Hgb 8.6 L (14.0-18.0) g/dl Hct 25.8 L (40.1-51.0) % Sodium (136-145) mmol/L Potassium (3.5-5.1) mmol/L Chloride (98-107) mmol/L Carbon Dioxide (21-32) mmol/L Anion Gap (3-11) BUN (6-23) mg/dl Creatinine (0.6-1.4) mg/dl Est Cr Clr Drug Dosing ml/min Est GFR ( Amer) ml/min Est GFR (Non-Af Amer) ml/min BUN/Creatinine Ratio (10-20) Glucose (70-99(Fasting)) mg/dl POC Glucose 113 H 173 H (70-99) mg/dl Calcium (8.5-10.1) mg/dl Stool Occult Bld Scrn (Negative) Blood Type Antibody Screen Crossmatch 02/26/22 02/26/22 02/26/22 Range/Units 11:41 09:05 08:32 Hgb (14.0-18.0) g/dl Hct (40.1-51.0) % Sodium 137 (136-145) mmol/L Potassium 4.7 (3.5-5.1) mmol/L Chloride 105 (98-107) mmol/L Carbon Dioxide 24 (21-32) mmol/L Anion Gap 8 (3-11) BUN 60 H (6-23) mg/dl Creatinine 2.10 H (0.6-1.4) mg/dl Est Cr Clr Drug Dosing 15.8 ml/min Est GFR ( Amer) 31.8 ml/min Est GFR (Non-Af Amer) 27.5 ml/min BUN/Creatinine Ratio 28.6 H (10-20) Glucose 111 H (70-99(Fasting)) mg/dl POC Glucose 141 H (70-99) mg/dl Calcium 7.8 L (8.5-10.1) mg/dl Stool Occult Bld Scrn (Negative) Blood Type A Positive Antibody Screen NEGATIVE Crossmatch See Detail 02/26/22 02/26/22 Range/Units 08:32 06:45 Hgb 7.0 L (14.0-18.0) g/dl Hct 21.7 L (40.1-51.0) % Sodium (136-145) mmol/L Potassium (3.5-5.1) mmol/L Chloride (98-107) mmol/L Carbon Dioxide (21-32) mmol/L Anion Gap (3-11) BUN (6-23) mg/dl Creatinine (0.6-1.4) mg/dl Est Cr Clr Drug Dosing ml/min Est GFR ( Amer) ml/min Est GFR (Non-Af Amer) ml/min BUN/Creatinine Ratio (10-20) Glucose (70-99(Fasting)) mg/dl POC Glucose (70-99) mg/dl Calcium (8.5-10.1) mg/dl Stool Occult Bld Scrn Positive A (Negative) Blood Type Antibody Screen Crossmatch Medications Administered Current Inpatient Medications Acetaminophen (Acetaminophen Susp 325 Mg/10.15 Ml Udc) 975 mg PEG Q8H PRN PRN Reason: pain Stop: 03/11/22 10:42 Last Admin: 02/26/22 01:59 Dose: 975 mg Albuterol (Albut/Ipratrop 3mg/0.5mg Neb 3 Ml Vial) 3 ml NEB Q4 PRN; Protocol PRN Reason: Shortness Of Breath Or Wheezing Stop: 03/07/22 15:59 Amlodipine Besylate (Amlodipine Besylate 5 Mg Tab) 2.5 mg PO QAM FLO Stop: 03/25/22 15:44 Last Admin: 02/27/22 08:20 Dose: 2.5 mg Aspirin (Aspirin 81 Mg Chew) 81 mg PO DAILY FLO Stop: 03/15/22 08:59 Last Admin: 02/25/22 08:00 Dose: 81 mg Atorvastatin Calcium (Atorvastatin 40 Mg Tab) 40 mg PO HS FLO Stop: 03/04/22 20:59 Last Admin: 02/26/22 19:52 Dose: 40 mg Clopidogrel Bisulfate (Clopidogrel Bisulfate 75 Mg Tab) 75 mg PO QAM FLO Stop: 03/04/22 08:59 Last Admin: 02/25/22 08:00 Dose: 75 mg Docusate Sodium (Docusate Sodium Syrup 100 Mg/10 Ml Udc) 100 mg PO BID PRN PRN Reason: Constipation Stop: 03/14/22 11:06 Enteral Nutritional Formula (Fibersource Hn 1.2 Keith 1000 Ml Bag) 1,000 ml GT UD FLO; Protocol Stop: 03/28/22 12:59 Last Admin: 02/27/22 12:40 Dose: 220 ml Ferrous Sulfate (Ferrous Sulfate 325 Mg/7.4 Ml Udp) 325 mg PO BIDM [facility] Stop: 03/09/22 16:59 Last Admin: 02/27/22 17:02 Dose: 325 mg Heparin Sodium (Beef Lung) (Heparin 10 Unit/Ml 5 Ml Flush) 5 ml FLUSH PRN PRN PRN Reason: Flush Stop: 03/13/22 18:43 Last Admin: 02/25/22 21:15 Dose: 5 ml Heparin Sodium (Porcine) (Heparin Sod 5,000 Unit/0.5 Ml Vial) 5,000 units SQ Q12 FLO Stop: 03/04/22 08:59 Last Admin: 02/19/22 20:07 Dose: Not Given Cefazolin Sodium (Ancef 2000mg) 2,000 mg in 15 mls @ 3.75 mls/min IV Q12H [facility]; Protocol Stop: 03/22/22 11:59 Last Admin: 02/27/22 12:08 Dose: 3.75 mls/min Pantoprazole Sodium 40 mg/ (Syringe) 10 mls @ 5 mls/min IV BID FLO Stop: 03/28/22 08:59 Last Admin: 02/27/22 08:19 Dose: 5 mls/min Lactobacillus Acidophilus (Advanced Probiotic 1250 Mg Capsule) 2 cap PO DAILY [facility] Stop: 03/19/22 16:14 Last Admin: 02/27/22 08:20 Dose: 2 cap Lansoprazole (Lansoprazole 30 Mg Soltab) 30 mg PEG DAILY FLO Stop: 03/15/22 08:59 Last Admin: 02/25/22 08:00 Dose: 30 mg Loperamide HCl (Loperamide Hcl 2 Mg Cap) 2 mg PO Q5H PRN PRN Reason: Diarrhea Stop: 03/21/22 13:59 Last Admin: 02/20/22 10:29 Dose: 2 mg Loperamide HCl (Loperamide Hcl 2 Mg Cap) 2 mg PO DAILY [facility] Stop: 03/27/22 15:44 Last Admin: 02/27/22 08:20 Dose: 2 mg Metoprolol Tartrate (Metoprolol Tartrate 25 Mg Tab) 12.5 mg PO BID [facility] Stop: 03/15/22 20:59 Last Admin: 02/27/22 08:19 Dose: 12.5 mg Nitroglycerin (Nitroglycerin Sl 0.4 Mg/Tab Tab) 0.4 mg SL UD PRN PRN Reason: Chest Pain Stop: 03/04/22 03:35 Pentoxifylline (Pentoxifylline 400mg Ext Rel Tab) 400 mg PO BID [facility] Stop: 03/04/22 08:59 Last Admin: 02/12/22 08:23 Dose: Not Given Polyethylene Glycol (Polyethylene (Miralax) 17 Gm Pack) 17 gm PO DAILY PRN PRN Reason: Constipation Stop: 03/04/22 03:35 Prochlorperazine (Prochlorperazine Maleate 10 Mg Tab) 10 mg PO Q8 PRN PRN Reason: Nausea And Vomiting Stop: 03/04/22 03:35 Sterile Water (Tube Feeding Water Flush) 60 ml GT UD [facility] Stop: 03/28/22 06:59 Last Admin: 02/27/22 14:45 Dose: 60 ml Tamsulosin HCl (Tamsulosin Hcl 0.4 Mg Cap) 0.4 mg PO DAILY [facility] Stop: 03/04/22 08:59 Last Admin: 02/27/22 08:20 Dose: 0.4 mg
--- NOTE | 2022-02-27 09:23 | Gastroenterology Progress Note ---
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 There is no report of rectal bleeding, documented is brown stool. He notes he has had intermittent rectal bleeding for at least a year, last occurred weeks ago. Given his extensive comorbidities, no acute indication for endoscopy, no plan for elective endoscopy. Would continue conservative management. Trend HGB. Transfuse PRN. Monitor output. Ok to remove NPO status and resume previous dietary orders. Thank you for allowing us to participate in the care of this patient. Please call with any acute changes, questions or concerns. Please see addendum below with additional recommendation from my supervising physician. Admission and Anticipated Discharge Date Admission Date: February 02, 2022 Supervising Physician Co-Signing Physician Notes Attg add: I interviewed and examined pt, reviewed chart and labs. Pt with mult comorbids, now with rectal bleeding. Pt does not want cscopy, and given his multiple med issues, this does not appear to be indicated. Subjective GI was asked to re-evaluate for rectal bleeding. Pt was seen and evaluated, chart reviewed. He notes that he has rectal bleeding intermittent for years Notes that he recall this last occurring about 2 weeks ago HGB has been fluctuating this admission, HGB of 7 yesterday, transfused x 1 unit HGB 8.6 this AM. Documented stools are brown. Review of Systems Review of Systems: All systems reviewed & are unremarkable except as noted in HPI & below Physical Exam Constitutional: WD/WN, vitals as above Respiratory: normal respiratory effort; no respiratory distress Gastrointestinal (Abdomen): Inspection/Auscultation: normal bowel sounds Percussion/Palpation: abdomen soft; abdomen nontender Skin: no rashes, warm and dry Results & Data ([facility]) Vital Signs (Past 12 Hours) Vital Signs Temp Pulse Pulse Resp BP Pulse Ox O2 Del Method 02/27/22 08:16 36.6 C 61 16 156/66 H 97 Room Air 02/27/22 07:06 76 02/27/22 03:54 36.9 C 67 18 145/73 H 98 Room Air 02/26/22 22:17 67 02/26/22 22:17 Room Air 02/26/22 23:00 36.8 C 75 18 133/64 96 Room Air Laboratory Results 02/27/22 02/27/22 02/27/22 Range/Units 07:44 07:44 05:58 Hgb 8.4 L (14.0-18.0) g/dl Hct 25.4 L (40.1-51.0) % Sodium 137 (136-145) mmol/L Potassium 4.6 (3.5-5.1) mmol/L Chloride 106 (98-107) mmol/L Carbon Dioxide 23 (21-32) mmol/L Anion Gap 8 (3-11) BUN 65 H (6-23) mg/dl Creatinine 2.14 H (0.6-1.4) mg/dl Est Cr Clr Drug Dosing 15.8 ml/min Est GFR ( Amer) 31.1 ml/min Est GFR (Non-Af Amer) 26.9 ml/min BUN/Creatinine Ratio 30.4 H (10-20) Glucose 117 H (70-99(Fasting)) mg/dl POC Glucose 126 H (70-99) mg/dl Calcium 7.9 L (8.5-10.1) mg/dl Stool Occult Bld Scrn (Negative) Blood Type Antibody Screen Crossmatch 02/27/22 02/26/22 02/26/22 Range/Units 01:52 20:14 18:05 Hgb 8.6 L (14.0-18.0) g/dl Hct 25.8 L (40.1-51.0) % Sodium (136-145) mmol/L Potassium (3.5-5.1) mmol/L Chloride (98-107) mmol/L Carbon Dioxide (21-32) mmol/L Anion Gap (3-11) BUN (6-23) mg/dl Creatinine (0.6-1.4) mg/dl Est Cr Clr Drug Dosing ml/min Est GFR ( Amer) ml/min Est GFR (Non-Af Amer) ml/min BUN/Creatinine Ratio (10-20) Glucose (70-99(Fasting)) mg/dl POC Glucose 113 H 173 H (70-99) mg/dl Calcium (8.5-10.1) mg/dl Stool Occult Bld Scrn (Negative) Blood Type Antibody Screen Crossmatch 02/26/22 02/26/22 02/26/22 Range/Units 11:41 09:05 08:32 Hgb (14.0-18.0) g/dl Hct (40.1-51.0) % Sodium 137 (136-145) mmol/L Potassium 4.7 (3.5-5.1) mmol/L Chloride 105 (98-107) mmol/L Carbon Dioxide 24 (21-32) mmol/L Anion Gap 8 (3-11) BUN 60 H (6-23) mg/dl Creatinine 2.10 H (0.6-1.4) mg/dl Est Cr Clr Drug Dosing 15.8 ml/min Est GFR ( Amer) 31.8 ml/min Est GFR (Non-Af Amer) 27.5 ml/min BUN/Creatinine Ratio 28.6 H (10-20) Glucose 111 H (70-99(Fasting)) mg/dl POC Glucose 141 H (70-99) mg/dl Calcium 7.8 L (8.5-10.1) mg/dl Stool Occult Bld Scrn (Negative) Blood Type A Positive Antibody Screen NEGATIVE Crossmatch See Detail 02/26/22 Range/Units 06:45 Hgb (14.0-18.0) g/dl Hct (40.1-51.0) % Sodium (136-145) mmol/L Potassium (3.5-5.1) mmol/L Chloride (98-107) mmol/L Carbon Dioxide (21-32) mmol/L Anion Gap (3-11) BUN (6-23) mg/dl Creatinine (0.6-1.4) mg/dl Est Cr Clr Drug Dosing ml/min Est GFR ( Amer) ml/min Est GFR (Non-Af Amer) ml/min BUN/Creatinine Ratio (10-20) Glucose (70-99(Fasting)) mg/dl POC Glucose (70-99) mg/dl Calcium (8.5-10.1) mg/dl Stool Occult Bld Scrn Positive A (Negative) Blood Type Antibody Screen Crossmatch
[2022-02-27] MEDS: TUBE FEEDING WATER FLUSH GT SCH ×2 (12:35→14:45)
[2022-02-27] MEDS: FIBERSOURCE HN 1.2 CAL 1000 ML BAG GT SCH (12:40)
[2022-02-27] MEDS: ATORVASTATIN 40 MG TAB PO SCH (22:18)
[2022-02-28] MEDS: ceFAZolin 2000MG 2,000 MG/15 ML SYR IV SCH ×2 (01:42→12:15)
[2022-02-28] MEDS: TUBE FEEDING WATER FLUSH GT SCH ×8 (07:20→17:08)
[2022-02-28] MEDS: FIBERSOURCE HN 1.2 CAL 1000 ML BAG GT SCH ×4 (07:20→16:07)
[2022-02-28 07:50] LABS: Hematocrit (blood only) 25.5 % (40.1-51.0); Hemoglobin 8.3 g/dl (14.0-18.0)
[2022-02-28 08:19] LABS: BUN Creatinine Ratio 30.7 (10-20); Calcium 7.7 mg/dl (8.5-10.1); Est GFR (African American) 29.3 ml/min; Est GFR (Non-African American) 25.3 ml/min; Potassium 4.8 mmol/L (3.5-5.1)
[2022-02-28] MEDS: METOPROLOL TARTRATE 25 MG TAB PO SCH ×2 (08:45→20:20)
[2022-02-28] MEDS: PANTOprazole 40 MG in SYRINGE 0 ML IV SCH ×2 (08:45→20:19)
[2022-02-28] MEDS: LOPERAMIDE HCL 2 MG CAP PO SCH (08:45)
[2022-02-28] MEDS: TAMSULOSIN HCL 0.4 MG CAP PO SCH (08:45)
[2022-02-28] MEDS: amLODIPine BESYLATE 5 MG TAB PO SCH (08:45)
[2022-02-28] MEDS: FERROUS SULFATE 325 MG/7.4 ML UDP PO SCH ×2 (08:46→17:01)
[2022-02-28] MEDS: ADVANCED PROBIOTIC 1250 MG CAPSULE PO SCH (08:46)
[2022-02-28] MEDS ORDERED: Nursing to Pharmacy Communication SCH (16:15)
[2022-02-28] MEDS: LIDOCAINE 5% 1 PATCH TD SCH ×2 (17:01)
--- NOTE | 2022-02-28 20:04 | Hospitalist Progress Note ---
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 Cornell as outpatient Also evaluated by ENT Dr. Lyon who recommends NPO, and if airway compromise, will need tracheostomy Continue G-tube feeding Appreciate palliative care input Waiting for rehab placement ?Rectal Bleed Hold Aspirin, Plavix Continue PPI Transfused 1 unit PRBC on 02/26 Monitor H&H GI to re-eval - no indication for endoscopy at this time poor candidate for any procedures UTI Urine Cx:- Enterobacter, Staph Urinary retention Completed cefepime course monitor Diarrhea Likely due to Tube Feeds, Antibiotics stool for c diff negative Imodium PRN B/L Pleural Effusion with Hypoxia Likely secondary to volume overload Echo: EF normal Received diuretics Monitor volume status Bradycardia with A. fib Heart rate initially in the 50s Metoprolol discontinued CHADSVASC score 4 Appreciate Cardiology Input: Not a candidate for chronic anticoagulation Anemia H/O Iron deficiency S/P PRBCs Transfuse as needed Continue iron supplements Monitor CBC Hypertension: Resume Amlodipine at lower dose Monitor BPH on Flomax. Peripheral vascular disease: On aspirin, statin, Plavix Pentoxifylline on hold as this is NOT crushable per pharmacy Chronic kidney disease III Unknown baseline Cr Cr 2.1 today Monitor renal function DVT Px: SCDs for now Hold Heparin Re: Anemia requiring Transfusions, Rectal bleed Diet-Tube feeds Disposition SNF when accepted Code Status: DNR/DNI Admission and Anticipated Discharge Date Admission Date: February 02, 2022 Subjective Follow-up for MSSA bacteremia, hx of throat ca Currently pt resting in bed, comfortable, not in distress No fever, chills, chest pain, shortness of breath, cough, chest pain No abdominal pain, nausea vomiting, no problems with tube feedings Today reports some shoulder discomfort, lidocain patch placed Waiting for placement Review of Systems Review of Systems: All systems reviewed & are unremarkable except as noted in Subjective Physical Exam Physical Exam: General Appearance:Thin, frail, ill appearing, no apparent distress Head: normocephalic, Atraumatic Eyes: normal inspection, EOMI Neck: supple Respiratory/Chest: Normal breath sounds, CTA, No accessory muscle use Cardiovascular: S1, S2, No murmur Abdomen/GI:Soft, Non tender, +PEG tube, Bowel sounds present Extremities/Musculoskeletal:normal inspection, no edema Neurologic/Psych: AAOX3, answers appropriately, garbled speech(d/t tongue ca), moves extremities Skin: normal color, warm Results & Data Results & Data ([facility]) Vital Signs (Past 12 Hours) Vital Signs Temp Pulse Pulse Resp BP Pulse Ox O2 Del Method 02/28/22 19:28 36.5 C 65 20 172/77 H 95 Room Air 02/28/22 15:06 63 02/28/22 14:28 36.5 C 78 20 146/69 H 92 Room Air 02/28/22 11:14 36.4 C L 60 18 120/58 L 93 Room Air 02/28/22 08:45 Nasal Cannula O2 Flow Rate 02/28/22 19:28 02/28/22 15:06 02/28/22 14:28 02/28/22 11:14 02/28/22 08:45 2 Laboratory Results 02/28/22 02/28/22 02/28/22 Range/Units 11:41 07:02 07:02 Hgb 8.3 L (14.0-18.0) g/dl Hct 25.5 L (40.1-51.0) % Sodium 139 (136-145) mmol/L Potassium 4.8 (3.5-5.1) mmol/L Chloride 107 (98-107) mmol/L Carbon Dioxide 24 (21-32) mmol/L Anion Gap 8 (3-11) BUN 69 H (6-23) mg/dl Creatinine 2.25 H (0.6-1.4) mg/dl Est Cr Clr Drug Dosing 15.0 ml/min Est GFR ( Amer) 29.3 ml/min Est GFR (Non-Af Amer) 25.3 ml/min BUN/Creatinine Ratio 30.7 H (10-20) Glucose 96 (70-99(Fasting)) mg/dl POC Glucose 214 H (70-99) mg/dl Calcium 7.7 L (8.5-10.1) mg/dl Medications Administered Current Inpatient Medications Acetaminophen (Acetaminophen Susp 325 Mg/10.15 Ml Udc) 975 mg PEG Q8H PRN PRN Reason: pain Stop: 03/11/22 10:42 Last Admin: 02/26/22 01:59 Dose: 975 mg Albuterol (Albut/Ipratrop 3mg/0.5mg Neb 3 Ml Vial) 3 ml NEB Q4 PRN; Protocol PRN Reason: Shortness Of Breath Or Wheezing Stop: 03/07/22 15:59 Amlodipine Besylate (Amlodipine Besylate 5 Mg Tab) [facility] Stop: 03/25/22 15:44 Last Admin: 02/28/22 08:45 Dose: 2.5 mg Aspirin (Aspirin 81 Mg Chew) 81 mg PO DAILY [facility] Stop: 03/15/22 08:59 Last Admin: 02/25/22 08:00 Dose: 81 mg Atorvastatin Calcium (Atorvastatin 40 Mg Tab) 40 mg PO [facility] Stop: 03/04/22 20:59 Last Admin: 02/27/22 22:18 Dose: 40 mg Clopidogrel Bisulfate (Clopidogrel Bisulfate 75 Mg Tab) 75 mg PO QAM [facility] Stop: 03/04/22 08:59 Last Admin: 02/25/22 08:00 Dose: 75 mg Docusate Sodium (Docusate Sodium Syrup 100 Mg/10 Ml Udc) 100 mg PO BID PRN PRN Reason: Constipation Stop: 03/14/22 11:06 Enteral Nutritional Formula (Fibersource Hn 1.2 Keith 1000 Ml Bag) 1,000 ml GT UD [facility]; Protocol Stop: 03/28/22 12:59 Last Admin: 02/28/22 16:07 Dose: 220 ml Ferrous Sulfate (Ferrous Sulfate 325 Mg/7.4 Ml Udp) 325 mg PO BIDM [facility] Stop: 03/09/22 16:59 Last Admin: 02/28/22 17:01 Dose: 325 mg Heparin Sodium (Beef Lung) (Heparin 10 Unit/Ml 5 Ml Flush) 5 ml FLUSH PRN PRN PRN Reason: Flush Stop: 03/13/22 18:43 Last Admin: 02/25/22 21:15 Dose: 5 ml Heparin Sodium (Porcine) (Heparin Sod 5,000 Unit/0.5 Ml Vial) 5,000 units SQ Q12 FLO Stop: 03/04/22 08:59 Last Admin: 02/19/22 20:07 Dose: Not Given Cefazolin Sodium (Ancef 2000mg) 2,000 mg in 15 mls @ 3.75 mls/min IV Q12H FLO; Protocol Stop: 03/22/22 11:59 Last Admin: 02/28/22 12:15 Dose: 3.75 mls/min Pantoprazole Sodium 40 mg/ (Syringe) 10 mls @ 5 mls/min IV BID FLO Stop: 03/28/22 08:59 Last Admin: 02/28/22 08:45 Dose: 5 mls/min Lactobacillus Acidophilus (Advanced Probiotic 1250 Mg Capsule) 2 cap PO DAILY FLO Stop: 03/19/22 16:14 Last Admin: 02/28/22 08:46 Dose: 2 cap Lansoprazole (Lansoprazole 30 Mg Soltab) 30 mg PEG DAILY FLO Stop: 03/15/22 08:59 Last Admin: 02/25/22 08:00 Dose: 30 mg Lidocaine (Lidocaine 5% 1 Patch) 1 patch TD QAM [facility] Stop: 03/30/22 15:59 Last Admin: 02/28/22 17:01 Dose: 1 patch Lidocaine (Lidocaine 5% 1 Patch) 1 patch TD QAM [facility] Stop: 03/30/22 16:29 Last Admin: 02/28/22 17:01 Dose: 1 patch Loperamide HCl (Loperamide Hcl 2 Mg Cap) 2 mg PO Q5H PRN PRN Reason: Diarrhea Stop: 03/21/22 13:59 Last Admin: 02/20/22 10:29 Dose: 2 mg Loperamide HCl (Loperamide Hcl 2 Mg Cap) 2 mg PO DAILY [facility] Stop: 03/27/22 15:44 Last Admin: 02/28/22 08:45 Dose: 2 mg Metoprolol Tartrate (Metoprolol Tartrate 25 Mg Tab) 12.5 mg PO BID [facility] Stop: 03/15/22 20:59 Last Admin: 02/28/22 08:45 Dose: 12.5 mg Miscellaneous (Remove Lidoderm Patch) 1 each N/A DAILY@2100 [facility] Stop: 03/30/22 22:59 Miscellaneous (Remove Lidoderm Patch) 1 each N/A DAILY@2100 [facility] Stop: 03/30/22 20:59 Nitroglycerin (Nitroglycerin Sl 0.4 Mg/Tab Tab) 0.4 mg SL UD PRN PRN Reason: Chest Pain Stop: 03/04/22 03:35 Pentoxifylline (Pentoxifylline 400mg Ext Rel Tab) 400 mg PO BID [facility] Stop: 03/04/22 08:59 Last Admin: 02/12/22 08:23 Dose: Not Given Polyethylene Glycol (Polyethylene (Miralax) 17 Gm Pack) 17 gm PO DAILY PRN PRN Reason: Constipation Stop: 03/04/22 03:35 Prochlorperazine (Prochlorperazine Maleate 10 Mg Tab) 10 mg PO Q8 PRN PRN Reason: Nausea And Vomiting Stop: 03/04/22 03:35 Sterile Water (Tube Feeding Water Flush) 60 ml GT UD [facility] Stop: 03/28/22 06:59 Last Admin: 02/28/22 17:08 Dose: 60 ml Tamsulosin HCl (Tamsulosin Hcl 0.4 Mg Cap) 0.4 mg PO DAILY [facility] Stop: 03/04/22 08:59 Last Admin: 02/28/22 08:45 Dose: 0.4 mg
[2022-02-28] MEDS: ATORVASTATIN 40 MG TAB PO SCH (20:20)
[2022-03-01] MEDS: ceFAZolin 2000MG 2,000 MG/15 ML SYR IV SCH ×3 (00:44→23:04)
[2022-03-01] MEDS: TUBE FEEDING WATER FLUSH GT SCH ×7 (07:25→21:40)
[2022-03-01] MEDS: FIBERSOURCE HN 1.2 CAL 1000 ML BAG GT SCH ×3 (07:25→17:12)
[2022-03-01] MEDS: PANTOprazole 40 MG in SYRINGE 0 ML IV SCH ×2 (08:36→21:30)
[2022-03-01] MEDS: LIDOCAINE 5% 1 PATCH TD SCH ×2 (08:36)
[2022-03-01] MEDS: TAMSULOSIN HCL 0.4 MG CAP PO SCH (08:37)
[2022-03-01] MEDS: LOPERAMIDE HCL 2 MG CAP PO SCH (08:37)
[2022-03-01] MEDS: METOPROLOL TARTRATE 25 MG TAB PO SCH ×2 (08:37→21:03)
[2022-03-01] MEDS: ADVANCED PROBIOTIC 1250 MG CAPSULE PO SCH (08:37)
[2022-03-01] MEDS: FERROUS SULFATE 325 MG/7.4 ML UDP PO SCH ×2 (08:37→17:13)
[2022-03-01] MEDS: amLODIPine BESYLATE 5 MG TAB PO SCH (08:38)
--- NOTE | 2022-03-01 15:14 | Hospitalist Progress Note ---
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 Cornell as outpatient Also evaluated by ENT Dr. Lyon who recommends NPO, and if airway compromise, will need tracheostomy Continue G-tube feeding - will decrease rate (currently on bolus feeds) Appreciate palliative care input Waiting for rehab placement Cough - pt now reports cough - will decrease rate for feeds as he is in risk of aspiration - discussed head elevation w/ pt and RN - will obtain CXR ?Rectal Bleed Hold Aspirin, Plavix Continue PPI Transfused 1 unit PRBC on 02/26 Monitor H&H GI to re-eval - no indication for endoscopy at this time poor candidate for any procedures UTI Urine Cx:- Enterobacter, Staph Urinary retention Completed cefepime course monitor Diarrhea Likely due to Tube Feeds, Antibiotics stool for c diff negative Imodium PRN B/L Pleural Effusion with Hypoxia Likely secondary to volume overload Echo: EF normal Received diuretics Monitor volume status Bradycardia with A. fib Heart rate initially in the 50s Metoprolol discontinued CHADSVASC score 4 Appreciate Cardiology Input: Not a candidate for chronic anticoagulation Anemia H/O Iron deficiency S/P PRBCs Transfuse as needed Continue iron supplements Monitor CBC Hypertension: Resume Amlodipine at lower dose Monitor BPH on Flomax. Peripheral vascular disease: On aspirin, statin, Plavix Pentoxifylline on hold as this is NOT crushable per pharmacy Chronic kidney disease III Unknown baseline Cr Cr 2.1 Monitor renal function DVT Px: SCDs for now Hold Heparin Re: Anemia requiring Transfusions, Rectal bleed Diet-Tube feeds Disposition SNF when accepted Code Status: DNR/DNI Admission and Anticipated Discharge Date Admission Date: February 02, 2022 Subjective Follow-up for MSSA bacteremia, hx of throat ca Currently pt resting in bed, comfortable, not in distress, however reports having cough No fever, chills, chest pain, shortness of breath No abdominal pain, nausea vomiting, no problems with tube feedings Family at the bedside Review of Systems Review of Systems: All systems reviewed & are unremarkable except as noted in Subjective Physical Exam Physical Exam: General Appearance:Thin, frail, ill appearing, no apparent distress Head: normocephalic, Atraumatic Eyes: normal inspection, EOMI Neck: supple Respiratory/Chest: Normal breath sounds, CTA, No accessory muscle use Cardiovascular: S1, S2, No murmur Abdomen/GI:Soft, Non tender, +PEG tube, Bowel sounds present Extremities/Musculoskeletal:normal inspection, no edema Neurologic/Psych: AAOX3, answers appropriately, garbled speech(d/t tongue ca), moves extremities Skin: normal color, warm Results & Data Results & Data ([facility]) Vital Signs (Past 12 Hours) Vital Signs Temp Pulse Pulse Resp BP Pulse Ox O2 Del Method 03/01/22 11:49 36.5 C 75 18 145/60 H 97 Nasal Cannula 03/01/22 08:40 Nasal Cannula 03/01/22 08:22 143/60 H 2 L Nasal Cannula 03/01/22 08:14 36.5 C 66 20 171/64 H 94 Nasal Cannula 03/01/22 03:15 123 H 03/01/22 03:20 36.5 C 72 20 145/65 H 95 Nasal Cannula O2 Flow Rate 03/01/22 11:49 2 03/01/22 08:40 2 03/01/22 08:22 03/01/22 08:14 2 03/01/22 03:15 03/01/22 03:20 2 Medications Administered Current Inpatient Medications Acetaminophen (Acetaminophen Susp 325 Mg/10.15 Ml Udc) 975 mg PEG Q8H PRN PRN Reason: pain Stop: 03/11/22 10:42 Last Admin: 02/26/22 01:59 Dose: 975 mg Albuterol (Albut/Ipratrop 3mg/0.5mg Neb 3 Ml Vial) 3 ml NEB Q4 PRN; Protocol PRN Reason: Shortness Of Breath Or Wheezing Stop: 03/07/22 15:59 Amlodipine Besylate (Amlodipine Besylate 5 Mg Tab) 2.5 mg PO QAM [facility] Stop: 03/25/22 15:44 Last Admin: 03/01/22 08:38 Dose: 2.5 mg Aspirin (Aspirin 81 Mg Chew) 81 mg PO DAILY [facility] Stop: 03/15/22 08:59 Last Admin: 02/25/22 08:00 Dose: 81 mg Atorvastatin Calcium (Atorvastatin 40 Mg Tab) 40 mg PO HS [facility] Stop: 03/04/22 20:59 Last Admin: 02/28/22 20:20 Dose: 40 mg Clopidogrel Bisulfate (Clopidogrel Bisulfate 75 Mg Tab) 75 mg PO QAM [facility] Stop: 03/04/22 08:59 Last Admin: 02/25/22 08:00 Dose: 75 mg Docusate Sodium (Docusate Sodium Syrup 100 Mg/10 Ml Udc) 100 mg PO BID PRN PRN Reason: Constipation Stop: 03/14/22 11:06 Enteral Nutritional Formula (Fibersource Hn 1.2 Keith 1000 Ml Bag) 1,000 ml GT Q24H [facility]; Protocol Stop: 03/31/22 17:59 Ferrous Sulfate (Ferrous Sulfate 325 Mg/7.4 Ml Udp) 325 mg PO BIDM [facility] Stop: 03/09/22 16:59 Last Admin: 03/01/22 08:37 Dose: 325 mg Heparin Sodium (Beef Lung) (Heparin 10 Unit/Ml 5 Ml Flush) 5 ml FLUSH PRN PRN PRN Reason: Flush Stop: 03/13/22 18:43 Last Admin: 02/25/22 21:15 Dose: 5 ml Heparin Sodium (Porcine) (Heparin Sod 5,000 Unit/0.5 Ml Vial) 5,000 units SQ Q12 FLO Stop: 03/04/22 08:59 Last Admin: 02/19/22 20:07 Dose: Not Given Cefazolin Sodium (Ancef 2000mg) 2,000 mg in 15 mls @ 3.75 mls/min IV Q12H [facility]; Protocol Stop: 03/22/22 11:59 Last Admin: 03/01/22 12:31 Dose: 3.75 mls/min Pantoprazole Sodium 40 mg/ (Syringe) 10 mls @ 5 mls/min IV BID [facility] Stop: 03/28/22 08:59 Last Admin: 03/01/22 08:36 Dose: 5 mls/min Lactobacillus Acidophilus (Advanced Probiotic 1250 Mg Capsule) 2 cap PO DAILY [facility] Stop: 03/19/22 16:14 Last Admin: 03/01/22 08:37 Dose: 2 cap Lansoprazole (Lansoprazole 30 Mg Soltab) 30 mg PEG DAILY FLO Stop: 03/15/22 08:59 Last Admin: 02/25/22 08:00 Dose: 30 mg Lidocaine (Lidocaine 5% 1 Patch) 1 patch TD QAM FLO Stop: 03/30/22 15:59 Last Admin: 03/01/22 08:36 Dose: 1 patch Lidocaine (Lidocaine 5% 1 Patch) 1 patch TD QAM [facility] Stop: 03/30/22 16:29 Last Admin: 03/01/22 08:36 Dose: 1 patch Loperamide HCl (Loperamide Hcl 2 Mg Cap) 2 mg PO Q5H PRN PRN Reason: Diarrhea Stop: 03/21/22 13:59 Last Admin: 02/20/22 10:29 Dose: 2 mg Loperamide HCl (Loperamide Hcl 2 Mg Cap) 2 mg PO DAILY [facility] Stop: 03/27/22 15:44 Last Admin: 03/01/22 08:37 Dose: 2 mg Metoprolol Tartrate (Metoprolol Tartrate 25 Mg Tab) 12.5 mg PO BID [facility] Stop: 03/15/22 20:59 Last Admin: 03/01/22 08:37 Dose: 12.5 mg Miscellaneous (Remove Lidoderm Patch) 1 each N/A DAILY@2100 [facility] Stop: 03/30/22 22:59 Last Admin: 02/28/22 20:21 Dose: 1 each Miscellaneous (Remove Lidoderm Patch) 1 each N/A DAILY@2100 [facility] Stop: 03/30/22 20:59 Last Admin: 02/28/22 20:20 Dose: 1 each Nitroglycerin (Nitroglycerin Sl 0.4 Mg/Tab Tab) 0.4 mg SL UD PRN PRN Reason: Chest Pain Stop: 03/04/22 03:35 Pentoxifylline (Pentoxifylline 400mg Ext Rel Tab) 400 mg PO BID [facility] Stop: 03/04/22 08:59 Last Admin: 02/12/22 08:23 Dose: Not Given Polyethylene Glycol (Polyethylene (Miralax) 17 Gm Pack) 17 gm PO DAILY PRN PRN Reason: Constipation Stop: 03/04/22 03:35 Prochlorperazine (Prochlorperazine Maleate 10 Mg Tab) 10 mg PO Q8 PRN PRN Reason: Nausea And Vomiting Stop: 03/04/22 03:35 Sterile Water (Tube Feeding Water Flush) 150 ml GT Q4H FLO Stop: 03/31/22 12:29 Last Admin: 03/01/22 12:37 Dose: 150 ml Tamsulosin HCl (Tamsulosin Hcl 0.4 Mg Cap) 0.4 mg PO DAILY [facility] Stop: 03/04/22 08:59 Last Admin: 03/01/22 08:37 Dose: 0.4 mg
[2022-03-01] MEDS ORDERED: guaiFENesin SUGAR FREE 200 MG/10 ML UDC PO PRN (15:40)
[2022-03-01] MEDS ORDERED: FUROSEMIDE INJ 20 MG/2 ML VIAL IV ONE (16:48)
[2022-03-01] MEDS ORDERED: FIBERSOURCE HN 1.2 CAL 1000 ML BAG GT SCH (18:00)
--- NOTE | 2022-03-01 18:18 | XRay Report ---
XR chest 1V portable HISTORY: cough COMPARISON: Chest 02/10/2022. Chest CT 01/26/2022. FINDINGS: Interval placement of a right PICC which terminate at the SVC. The heart is mildly enlarged . A gastrostomy tube is noted within the left upper quadrant. Moderate right and small left pleural e ffusions with bibasilar densities. This has progressed in the interval. There is progressive right gr eater than left interstitial/vascular thickening consistent with mild interstitial pulmonary edema. T here are calcifications within the aortic knob. A few scattered pulmonary nodules are again noted. IMPRESSION: 1. Interval progression of the bilateral pleural effusions and bibasilar densities. This may represen t atelectasis or pneumonia. 2. Cardiomegaly with mild interstitial pulmonary edema. 3. Satisfactory support line placement. 4. Scattered pulmonary nodules are again noted. This is suspicious for metastatic disease. ACT 112: Negative or not required by law. Electronically signed by: Obi Stoner M.D. 03/01/2022 6:16 PM
[2022-03-01] MEDS: ATORVASTATIN 40 MG TAB PO SCH (21:04)
[2022-03-02] MEDS: TUBE FEEDING WATER FLUSH GT SCH ×7 (00:35→21:51)
[2022-03-02 06:23] LABS: Hematocrit (blood only) 25.2 % (40.1-51.0); Hemoglobin 8.1 g/dl (14.0-18.0); Mean Corpuscular Hemoglobin 30.8 pg (25.0-34.0); Mean Corpuscular Hgb Conc 32.1 g/dL (32.0-36.0); Mean Corpuscular Volume 95.8 fL (80.0-100.0); Mean Platelet Volume 9.5 fL (9.4-12.4); Platelet Count 304 K/uL (130-400); RDW Coefficient of Variation 15.4 % (11.5-14.5); Red Blood Count 2.63 M/uL (4.63-6.08); White Blood Count 15.06 K/ul (4.8-10.8)
[2022-03-02 06:58] LABS: Calcium 7.5 mg/dl (8.5-10.1); Est GFR (African American) 34.4 ml/min; Est GFR (Non-African American) 29.7 ml/min; Magnesium 1.8 mg/dl (1.7-2.4); Potassium 4.6 mmol/L (3.5-5.1)
[2022-03-02] MEDS: LIDOCAINE 5% 1 PATCH TD SCH ×2 (08:10)
[2022-03-02] MEDS: METOPROLOL TARTRATE 25 MG TAB PO SCH ×2 (08:10→19:53)
[2022-03-02] MEDS: TAMSULOSIN HCL 0.4 MG CAP PO SCH (08:10)
[2022-03-02] MEDS: PANTOprazole 40 MG in SYRINGE 0 ML IV SCH ×2 (08:11→20:07)
[2022-03-02] MEDS: FERROUS SULFATE 325 MG/7.4 ML UDP PO SCH ×2 (08:11→17:18)
[2022-03-02] MEDS: amLODIPine BESYLATE 5 MG TAB PO SCH (08:11)
[2022-03-02] MEDS: ADVANCED PROBIOTIC 1250 MG CAPSULE PO SCH (08:11)
[2022-03-02] MEDS: LOPERAMIDE HCL 2 MG CAP PO SCH (08:12)
[2022-03-02] MEDS: ceFAZolin 2000MG 2,000 MG/15 ML SYR IV SCH ×2 (12:11→23:25)
--- NOTE | 2022-03-02 13:41 | Hospitalist Progress Note ---
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 Cornell as outpatient Also evaluated by ENT Dr. Lyon who recommends NPO, and if airway compromise, will need tracheostomy Continue G-tube feeding - will decrease rate (currently on bolus feeds) Appreciate palliative care input Waiting for rehab placement Cough - decreased rate for feeds as he is in risk of aspiration - discussed head elevation w/ pt and RN - obtain CXR - incr. pleural infusion - lasix ordered - add flagyl for now to his abx regimen ?Rectal Bleed Hold Aspirin, Plavix Continue PPI Transfused 1 unit PRBC on 02/26 Monitor H&H GI to re-eval - no indication for endoscopy at this time poor candidate for any procedures UTI Urine Cx:- Enterobacter, Staph Urinary retention Completed cefepime course monitor Diarrhea Likely due to Tube Feeds, Antibiotics stool for c diff negative Imodium PRN B/L Pleural Effusion with Hypoxia Likely secondary to volume overload Echo: EF normal Received diuretics Monitor volume status Bradycardia with A. fib Heart rate initially in the 50s Metoprolol discontinued CHADSVASC score 4 Appreciate Cardiology Input: Not a candidate for chronic anticoagulation Anemia H/O Iron deficiency S/P PRBCs Transfuse as needed Continue iron supplements Monitor CBC Hypertension: Resume Amlodipine at lower dose Monitor BPH on Flomax. Peripheral vascular disease: On aspirin, statin, Plavix Pentoxifylline on hold as this is NOT crushable per pharmacy Chronic kidney disease III Unknown baseline Cr Cr 2.1 Monitor renal function DVT Px: SCDs for now Hold Heparin Re: Anemia requiring Transfusions, Rectal bleed Diet-Tube feeds Disposition SNF when accepted Code Status: DNR/DNI Admission and Anticipated Discharge Date Admission Date: February 02, 2022 Subjective Follow-up for MSSA bacteremia, hx of throat ca Currently pt resting in bed, comfortable, not in distress, however + cough No fever, chills, chest pain, shortness of breath No abdominal pain, nausea vomiting, no problems with tube feedings Family at the bedside yesterday and updated Review of Systems Review of Systems: All systems reviewed & are unremarkable except as noted in Subjective Physical Exam Physical Exam: General Appearance:Thin, frail, ill appearing, no apparent distress Head: normocephalic, Atraumatic Eyes: normal inspection, EOMI Neck: supple Respiratory/Chest: Normal breath sounds, CTA, No accessory muscle use Cardiovascular: S1, S2, No murmur Abdomen/GI:Soft, Non tender, +PEG tube, Bowel sounds present Extremities/Musculoskeletal:normal inspection, no edema Neurologic/Psych: AAOX3, answers appropriately, garbled speech(d/t tongue ca), moves extremities Skin: normal color, warm Results & Data Results & Data ([facility]) Vital Signs (Past 12 Hours) Vital Signs Temp Pulse Pulse Resp BP Pulse Ox O2 Del Method 03/02/22 12:07 36.5 C 77 18 167/72 H 97 Nasal Cannula 03/02/22 10:50 Nasal Cannula 03/02/22 07:53 36.7 C 85 20 170/77 H 91 Nasal Cannula 03/02/22 07:45 89 03/02/22 04:02 36.6 C 86 18 137/61 96 Nasal Cannula O2 Flow Rate 03/02/22 12:07 2 03/02/22 10:50 2 03/02/22 07:53 2 03/02/22 07:45 03/02/22 04:02 2 Laboratory Results 03/02/22 03/02/22 03/01/22 Range/Units 05:40 05:40 23:01 WBC 15.06 H (4.8-10.8) K/ul RBC 2.63 L (4.63-6.08) M/uL Hgb 8.1 L (14.0-18.0) g/dl Hct 25.2 L (40.1-51.0) % MCV 95.8 (80.0-100.0) fL MCH 30.8 (25.0-34.0) pg MCHC 32.1 (32.0-36.0) g/dL RDW Std Deviation 54.0 H (36.4-46.3) fL RDW Coeff of Migd[place] 15.4 H (11.5-14.5) % Plt Count 304 (130-400) K/uL MPV 9.5 (9.4-12.4) fL Sodium 137 (136-145) mmol/L Potassium 4.6 (3.5-5.1) mmol/L Chloride 104 (98-107) mmol/L Carbon Dioxide 27 (21-32) mmol/L Anion Gap 6 (3-11) BUN 71 H (6-23) mg/dl Creatinine 1.97 H (0.6-1.4) mg/dl Est Cr Clr Drug Dosing 18.0 ml/min Est GFR ( Amer) 34.4 ml/min Est GFR (Non-Af Amer) 29.7 ml/min BUN/Creatinine Ratio 36.0 H (10-20) Glucose 145 H (70-99(Fasting)) mg/dl POC Glucose 147 H (70-99) mg/dl Calcium 7.5 L (8.5-10.1) mg/dl Phosphorus 4.0 (2.5-4.9) mg/dl Magnesium 1.8 (1.7-2.4) mg/dl Medications Administered Current Inpatient Medications Acetaminophen (Acetaminophen Susp 325 Mg/10.15 Ml Udc) 975 mg PEG Q8H PRN PRN Reason: pain Stop: 03/11/22 10:42 Last Admin: 02/26/22 01:59 Dose: 975 mg Albuterol (Albut/Ipratrop 3mg/0.5mg Neb 3 Ml Vial) 3 ml NEB Q4 PRN; Protocol PRN Reason: Shortness Of Breath Or Wheezing Stop: 03/07/22 15:59 Amlodipine Besylate (Amlodipine Besylate 5 Mg Tab) 2.5 mg PO QAM FLO Stop: 03/25/22 15:44 Last Admin: 03/02/22 08:11 Dose: 2.5 mg Aspirin (Aspirin 81 Mg Chew) 81 mg PO DAILY FLO Stop: 03/15/22 08:59 Last Admin: 02/25/22 08:00 Dose: 81 mg Atorvastatin Calcium (Atorvastatin 40 Mg Tab) 40 mg PO HS [facility] Stop: 03/04/22 20:59 Last Admin: 03/01/22 21:04 Dose: 40 mg Clopidogrel Bisulfate (Clopidogrel Bisulfate 75 Mg Tab) 75 mg PO QAM [facility] Stop: 03/04/22 08:59 Last Admin: 02/25/22 08:00 Dose: 75 mg Docusate Sodium (Docusate Sodium Syrup 100 Mg/10 Ml Udc) 100 mg PO BID PRN PRN Reason: Constipation Stop: 03/14/22 11:06 Enteral Nutritional Formula (Fibersource Hn 1.2 Keith 1000 Ml Bag) 1,000 ml GT Q24H [facility]; Protocol Stop: 03/31/22 17:59 Last Admin: 03/01/22 17:12 Dose: 1,000 ml Ferrous Sulfate (Ferrous Sulfate 325 Mg/7.4 Ml Udp) 325 mg PO BIDM [facility] Stop: 03/09/22 16:59 Last Admin: 03/02/22 08:11 Dose: 325 mg Guaifenesin (Guaifenesin Sugar Free 200 Mg/10 Ml Udc) 200 mg PO Q6H PRN PRN Reason: Cough Stop: 03/31/22 15:39 Heparin Sodium (Beef Lung) (Heparin 10 Unit/Ml 5 Ml Flush) 5 ml FLUSH PRN PRN PRN Reason: Flush Stop: 03/13/22 18:43 Last Admin: 02/25/22 21:15 Dose: 5 ml Heparin Sodium (Porcine) (Heparin Sod 5,000 Unit/0.5 Ml Vial) 5,000 units SQ Q12 FLO Stop: 03/04/22 08:59 Last Admin: 02/19/22 20:07 Dose: Not Given Cefazolin Sodium (Ancef 2000mg) 2,000 mg in 15 mls @ 3.75 mls/min IV Q12H [facility]; Protocol Stop: 03/22/22 11:59 Last Admin: 03/02/22 12:11 Dose: 3.75 mls/min Pantoprazole Sodium 40 mg/ (Syringe) 10 mls @ 5 mls/min IV BID [facility] Stop: 03/28/22 08:59 Last Admin: 03/02/22 08:11 Dose: 5 mls/min Lactobacillus Acidophilus (Advanced Probiotic 1250 Mg Capsule) 2 cap PO DAILY [facility] Stop: 03/19/22 16:14 Last Admin: 03/02/22 08:11 Dose: 2 cap Lansoprazole (Lansoprazole 30 Mg Soltab) 30 mg PEG DAILY [facility] Stop: 03/15/22 08:59 Last Admin: 02/25/22 08:00 Dose: 30 mg Lidocaine (Lidocaine 5% 1 Patch) 1 patch TD QAM [facility] Stop: 03/30/22 15:59 Last Admin: 03/02/22 08:10 Dose: 1 patch Lidocaine (Lidocaine 5% 1 Patch) 1 patch TD QAM [facility] Stop: 03/30/22 16:29 Last Admin: 03/02/22 08:10 Dose: 1 patch Loperamide HCl (Loperamide Hcl 2 Mg Cap) 2 mg PO Q5H PRN PRN Reason: Diarrhea Stop: 03/21/22 13:59 Last Admin: 02/20/22 10:29 Dose: 2 mg Loperamide HCl (Loperamide Hcl 2 Mg Cap) 2 mg PO DAILY [facility] Stop: 03/27/22 15:44 Last Admin: 03/02/22 08:12 Dose: 2 mg Metoprolol Tartrate (Metoprolol Tartrate 25 Mg Tab) 12.5 mg PO BID [facility] Stop: 03/15/22 20:59 Last Admin: 03/02/22 08:10 Dose: 12.5 mg Metronidazole (Metronidazole 500 Mg Tab) 500 mg PO TID [facility] Stop: 03/04/22 13:59 Last Admin: 03/02/22 14:22 Dose: 500 mg Miscellaneous (Remove Lidoderm Patch) 1 each N/A DAILY@2100 [facility] Stop: 03/30/22 22:59 Last Admin: 03/01/22 21:40 Dose: 1 each Miscellaneous (Remove Lidoderm Patch) 1 each N/A DAILY@2100 [facility] Stop: 03/30/22 20:59 Last Admin: 03/01/22 21:40 Dose: 1 each Nitroglycerin (Nitroglycerin Sl 0.4 Mg/Tab Tab) 0.4 mg SL UD PRN PRN Reason: Chest Pain Stop: 03/04/22 03:35 Pentoxifylline (Pentoxifylline 400mg Ext Rel Tab) 400 mg PO BID [facility] Stop: 03/04/22 08:59 Last Admin: 02/12/22 08:23 Dose: Not Given Polyethylene Glycol (Polyethylene (Miralax) 17 Gm Pack) 17 gm PO DAILY PRN PRN Reason: Constipation Stop: 03/04/22 03:35 Prochlorperazine (Prochlorperazine Maleate 10 Mg Tab) 10 mg PO Q8 PRN PRN Reason: Nausea And Vomiting Stop: 03/04/22 03:35 Sterile Water (Tube Feeding Water Flush) 100 ml GT Q4H FLO Stop: 04/01/22 13:49 Last Admin: 03/02/22 14:16 Dose: 100 ml Tamsulosin HCl (Tamsulosin Hcl 0.4 Mg Cap) 0.4 mg PO DAILY FLO Stop: 03/04/22 08:59 Last Admin: 03/02/22 08:10 Dose: 0.4 mg
[2022-03-02] MEDS ORDERED: FUROSEMIDE INJ 20 MG/2 ML VIAL IV ONE (13:43)
[2022-03-02] MEDS: metroNIDAZOLE 500 MG TAB PO SCH ×2 (14:22→19:54)
[2022-03-02] MEDS: FIBERSOURCE HN 1.2 CAL 1000 ML BAG GT SCH (17:19)
[2022-03-02] MEDS: ATORVASTATIN 40 MG TAB PO SCH (19:53)
[2022-03-03] MEDS: TUBE FEEDING WATER FLUSH GT SCH ×6 (02:21→21:50)
[2022-03-03] MEDS: LIDOCAINE 5% 1 PATCH TD SCH ×2 (07:55→07:56)
[2022-03-03] MEDS: METOPROLOL TARTRATE 25 MG TAB PO SCH ×2 (07:56→20:01)
[2022-03-03] MEDS: metroNIDAZOLE 500 MG TAB PO SCH ×3 (07:56→20:02)
[2022-03-03] MEDS: amLODIPine BESYLATE 5 MG TAB PO SCH (07:57)
[2022-03-03] MEDS: ADVANCED PROBIOTIC 1250 MG CAPSULE PO SCH (07:57)
[2022-03-03] MEDS: PANTOprazole 40 MG in SYRINGE 0 ML IV SCH ×2 (07:58→20:16)
[2022-03-03] MEDS: LOPERAMIDE HCL 2 MG CAP PO SCH (07:58)
[2022-03-03] MEDS: TAMSULOSIN HCL 0.4 MG CAP PO SCH (07:58)
[2022-03-03] MEDS: FERROUS SULFATE 325 MG/7.4 ML UDP PO SCH ×2 (07:59→18:24)
[2022-03-03] MEDS: ceFAZolin 2000MG 2,000 MG/15 ML SYR IV SCH ×2 (11:47→23:40)
--- NOTE | 2022-03-03 15:35 | Hospitalist Progress Note ---
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 Cornell as outpatient Also evaluated by ENT Dr. Lyon who recommends NPO, and if airway compromise, will need tracheostomy Continue G-tube feeding - will decrease rate (currently on bolus feeds) Appreciate palliative care input Waiting for rehab placement Cough - decreased rate for feeds as he is in risk of aspiration - discussed head elevation w/ pt and RN - obtain CXR - incr. pleural infusion - lasix ordered - add flagyl for now to his abx regimen -03/03 - cough much improved ?Rectal Bleed Hold Aspirin, Plavix Continue PPI Transfused 1 unit PRBC on 02/26 Monitor H&H GI to re-eval - no indication for endoscopy at this time poor candidate for any procedures UTI Urine Cx:- Enterobacter, Staph Urinary retention Completed cefepime course monitor Diarrhea Likely due to Tube Feeds, Antibiotics stool for c diff negative Imodium ordered B/L Pleural Effusion with Hypoxia Likely secondary to volume overload Echo: EF normal Received diuretics Monitor volume status Bradycardia with A. fib Heart rate initially in the 50s Metoprolol discontinued CHADSVASC score 4 Appreciate Cardiology Input: Not a candidate for chronic anticoagulation Anemia H/O Iron deficiency S/P PRBCs Transfuse as needed Continue iron supplements Monitor CBC Hypertension: Resume Amlodipine at lower dose Monitor BPH on Flomax. Peripheral vascular disease: On aspirin, statin, Plavix Pentoxifylline on hold as this is NOT crushable per pharmacy Chronic kidney disease III Unknown baseline Cr Cr 2.1 Monitor renal function DVT Px: SCDs for now Hold Heparin Re: Anemia requiring Transfusions, Rectal bleed Diet-Tube feeds Disposition SNF when accepted Code Status: DNR/DNI Admission and Anticipated Discharge Date Admission Date: February 02, 2022 Subjective Follow-up for MSSA bacteremia, hx of throat ca Currently pt resting in bed, comfortable, not in distress, cough much improved No fever, chills, chest pain, shortness of breath No abdominal pain, nausea vomiting, no problems with tube feedings Family at the bedside today and updated Review of Systems Review of Systems: All systems reviewed & are unremarkable except as noted in Subjective Physical Exam Physical Exam: General Appearance:Thin, frail, ill appearing, no apparent distress Head: normocephalic, Atraumatic Eyes: normal inspection, EOMI Neck: supple Respiratory/Chest: Normal breath sounds, CTA, No accessory muscle use Cardiovascular: S1, S2, No murmur Abdomen/GI:Soft, Non tender, +PEG tube, Bowel sounds present Extremities/Musculoskeletal:normal inspection, no edema Neurologic/Psych: AAOX3, answers appropriately, garbled speech(d/t tongue ca), moves extremities Skin: normal color, warm Results & Data Results & Data ([facility]) Vital Signs (Past 12 Hours) Vital Signs Temp Pulse Pulse Resp BP Pulse Ox O2 Del Method 03/03/22 11:19 36.5 C 69 19 148/67 H 97 Nasal Cannula 03/03/22 09:53 03/03/22 08:07 37 C 90 19 136/67 96 Nasal Cannula 03/03/22 07:11 75 O2 Flow Rate 03/03/22 11:19 2 03/03/22 09:53 2 03/03/22 08:07 2 03/03/22 07:11 Laboratory Results 03/02/22 Range/Units 23:24 POC Glucose 152 H (70-99) mg/dl Medications Administered Current Inpatient Medications Acetaminophen (Acetaminophen Susp 325 Mg/10.15 Ml Udc) 975 mg PEG Q8H PRN PRN Reason: pain Stop: 03/11/22 10:42 Last Admin: 02/26/22 01:59 Dose: 975 mg Albuterol (Albut/Ipratrop 3mg/0.5mg Neb 3 Ml Vial) 3 ml NEB Q4 PRN; Protocol PRN Reason: Shortness Of Breath Or Wheezing Stop: 03/07/22 15:59 Amlodipine Besylate (Amlodipine Besylate 5 Mg Tab) 2.5 mg PO QAM [facility] Stop: 03/25/22 15:44 Last Admin: 03/03/22 07:57 Dose: 2.5 mg Aspirin (Aspirin 81 Mg Chew) 81 mg PO DAILY [facility] Stop: 03/15/22 08:59 Last Admin: 02/25/22 08:00 Dose: 81 mg Atorvastatin Calcium (Atorvastatin 40 Mg Tab) 40 mg PO [facility] Stop: 03/04/22 20:59 Last Admin: 03/02/22 19:53 Dose: 40 mg Clopidogrel Bisulfate (Clopidogrel Bisulfate 75 Mg Tab) 75 mg PO QAM [facility] Stop: 03/04/22 08:59 Last Admin: 02/25/22 08:00 Dose: 75 mg Docusate Sodium (Docusate Sodium Syrup 100 Mg/10 Ml Udc) 100 mg PO BID PRN PRN Reason: Constipation Stop: 03/14/22 11:06 Enteral Nutritional Formula (Fibersource Hn 1.2 Keith 1000 Ml Bag) 1,000 ml GT Q24H [facility]; Protocol Stop: 03/31/22 17:59 Last Admin: 03/02/22 17:19 Dose: 1,000 ml Ferrous Sulfate (Ferrous Sulfate 325 Mg/7.4 Ml Udp) 325 mg PO BIDM [facility] Stop: 03/09/22 16:59 Last Admin: 03/03/22 07:59 Dose: 325 mg Guaifenesin (Guaifenesin Sugar Free 200 Mg/10 Ml Udc) 200 mg PO Q6H PRN PRN Reason: Cough Stop: 03/31/22 15:39 Heparin Sodium (Beef Lung) (Heparin 10 Unit/Ml 5 Ml Flush) 5 ml FLUSH PRN PRN PRN Reason: Flush Stop: 03/13/22 18:43 Last Admin: 03/02/22 23:37 Dose: 5 ml Heparin Sodium (Porcine) (Heparin Sod 5,000 Unit/0.5 Ml Vial) 5,000 units SQ Q12 FLO Stop: 03/04/22 08:59 Last Admin: 02/19/22 20:07 Dose: Not Given Cefazolin Sodium (Ancef 2000mg) 2,000 mg in 15 mls @ 3.75 mls/min IV Q12H [facility]; Protocol Stop: 03/22/22 11:59 Last Admin: 03/03/22 11:47 Dose: 3.75 mls/min Pantoprazole Sodium 40 mg/ (Syringe) 10 mls @ 5 mls/min IV BID [facility] Stop: 03/28/22 08:59 Last Admin: 03/03/22 07:58 Dose: 5 mls/min Lactobacillus Acidophilus (Advanced Probiotic 1250 Mg Capsule) 2 cap PO DAILY FLO Stop: 03/19/22 16:14 Last Admin: 03/03/22 07:57 Dose: 2 cap Lansoprazole (Lansoprazole 30 Mg Soltab) 30 mg PEG DAILY FLO Stop: 03/15/22 08:59 Last Admin: 02/25/22 08:00 Dose: 30 mg Lidocaine (Lidocaine 5% 1 Patch) 1 patch TD QAM [facility] Stop: 03/30/22 15:59 Last Admin: 03/03/22 07:55 Dose: 1 patch Lidocaine (Lidocaine 5% 1 Patch) 1 patch TD QAM [facility] Stop: 03/30/22 16:29 Last Admin: 03/03/22 07:56 Dose: 1 patch Loperamide HCl (Loperamide Hcl 2 Mg Cap) 2 mg PO Q5H PRN PRN Reason: Diarrhea Stop: 03/21/22 13:59 Last Admin: 02/20/22 10:29 Dose: 2 mg Loperamide HCl (Loperamide Hcl 2 Mg Cap) 2 mg PO DAILY [facility] Stop: 03/27/22 15:44 Last Admin: 03/03/22 07:58 Dose: 2 mg Metoprolol Tartrate (Metoprolol Tartrate 25 Mg Tab) 12.5 mg PO BID FLO Stop: 03/15/22 20:59 Last Admin: 03/03/22 07:56 Dose: 12.5 mg Metronidazole (Metronidazole 500 Mg Tab) 500 mg PO TID [facility] Stop: 03/04/22 13:59 Last Admin: 03/03/22 13:55 Dose: 500 mg Miscellaneous (Remove Lidoderm Patch) 1 each N/A DAILY@2100 [facility] Stop: 03/30/22 22:59 Last Admin: 03/02/22 20:13 Dose: 1 each Miscellaneous (Remove Lidoderm Patch) 1 each N/A DAILY@2100 [facility] Stop: 03/30/22 20:59 Last Admin: 03/02/22 20:13 Dose: 1 each Nitroglycerin (Nitroglycerin Sl 0.4 Mg/Tab Tab) 0.4 mg SL UD PRN PRN Reason: Chest Pain Stop: 03/04/22 03:35 Pentoxifylline (Pentoxifylline 400mg Ext Rel Tab) 400 mg PO BID FLO Stop: 03/04/22 08:59 Last Admin: 02/12/22 08:23 Dose: Not Given Polyethylene Glycol (Polyethylene (Miralax) 17 Gm Pack) 17 gm PO DAILY PRN PRN Reason: Constipation Stop: 03/04/22 03:35 Prochlorperazine (Prochlorperazine Maleate 10 Mg Tab) 10 mg PO Q8 PRN PRN Reason: Nausea And Vomiting Stop: 03/04/22 03:35 Sterile Water (Tube Feeding Water Flush) 100 ml GT Q4H [facility] Stop: 04/01/22 13:49 Last Admin: 03/03/22 13:55 Dose: 100 ml Tamsulosin HCl (Tamsulosin Hcl 0.4 Mg Cap) 0.4 mg PO DAILY FLO Stop: 03/04/22 08:59 Last Admin: 03/03/22 07:58 Dose: 0.4 mg
[2022-03-03] MEDS: FIBERSOURCE HN 1.2 CAL 1000 ML BAG GT SCH (18:24)
[2022-03-03] MEDS: ATORVASTATIN 40 MG TAB PO SCH (20:02)
[2022-03-04] MEDS: TUBE FEEDING WATER FLUSH GT SCH ×6 (01:50→21:50)
[2022-03-04 06:09] LABS: Hematocrit (blood only) 26.3 % (40.1-51.0); Hemoglobin 8.4 g/dl (14.0-18.0); Mean Corpuscular Hemoglobin 31.2 pg (25.0-34.0); Mean Corpuscular Hgb Conc 31.9 g/dL (32.0-36.0); Mean Corpuscular Volume 97.8 fL (80.0-100.0); Mean Platelet Volume 9.4 fL (9.4-12.4); Platelet Count 263 K/uL (130-400); RDW Coefficient of Variation 15.2 % (11.5-14.5); Red Blood Count 2.69 M/uL (4.63-6.08)
[2022-03-04 06:39] LABS: BUN Creatinine Ratio 33.3 (10-20); Calcium 7.4 mg/dl (8.5-10.1); Creatinine Clr Calc Pharmacy 16.7 ml/min; Est GFR (African American) 31.8 ml/min; Est GFR (Non-African American) 27.5 ml/min; Magnesium 1.8 mg/dl (1.7-2.4); Potassium 4.7 mmol/L (3.5-5.1)
--- NOTE | 2022-03-04 08:30 | Hospitalist Progress Note ---
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 Cornell as outpatient Also evaluated by ENT Dr. Lyon who recommends NPO, and if airway compromise, will need tracheostomy Continue G-tube feeding - will decrease rate (currently on bolus feeds) Appreciate palliative care input Waiting for rehab placement Cough - decreased rate for feeds as he is in risk of aspiration - discussed head elevation w/ pt and RN - CXR - incr. pleural infusion - lasix ordered - added flagyl for now to his abx regimen -03/03 - cough much improved ?Rectal Bleed Hold Aspirin, Plavix Continue PPI Transfused 1 unit PRBC on 02/26 Monitor H&H GI to re-eval - no indication for endoscopy at this time poor candidate for any procedures UTI Urine Cx:- Enterobacter, Staph Urinary retention Completed cefepime course monitor Diarrhea Likely due to Tube Feeds, Antibiotics stool for c diff negative Imodium ordered B/L Pleural Effusion with Hypoxia Likely secondary to volume overload Echo: EF normal Received diuretics Monitor volume status Bradycardia with A. fib Heart rate initially in the 50s Metoprolol discontinued CHADSVASC score 4 Appreciate Cardiology Input: Not a candidate for chronic anticoagulation Anemia H/O Iron deficiency S/P PRBCs Transfuse as needed Continue iron supplements Monitor CBC Hypertension: Resume Amlodipine at lower dose Monitor BPH on Flomax. Peripheral vascular disease: On aspirin, statin, Plavix Pentoxifylline on hold as this is NOT crushable per pharmacy Chronic kidney disease III Unknown baseline Cr Cr 2.1 Monitor renal function DVT Px: SCDs for now Hold Heparin Re: Anemia requiring Transfusions, Rectal bleed Diet-Tube feeds Disposition SNF when accepted Code Status: DNR/DNI Admission and Anticipated Discharge Date Admission Date: February 02, 2022 Subjective Follow-up for MSSA bacteremia, hx of throat ca Currently patient sitting in the chair, however asking to be transferred to bed. He is comfortable overall, not in distress, cough much improved. But reports nausea. No fever, chills, chest pain, shortness of breath No abdominal pain, nausea vomiting, no problems with tube feedings Family at the bedside yesterday and updated Review of Systems Review of Systems: All systems reviewed & are unremarkable except as noted in Subjective Physical Exam Physical Exam: General Appearance:Thin, frail, ill appearing, no apparent distress Head: normocephalic, Atraumatic Eyes: normal inspection, EOMI Neck: supple Respiratory/Chest: Normal breath sounds, CTA, No accessory muscle use Cardiovascular: S1, S2, No murmur Abdomen/GI:Soft, Non tender, +PEG tube, Bowel sounds present Extremities/Musculoskeletal: normal inspection, no edema Neurologic/Psych: AAOX3, answers appropriately, garbled speech(d/t tongue ca), moves extremities Skin: normal color, warm Results & Data Results & Data ([facility]) Vital Signs (Past 12 Hours) Vital Signs Temp Pulse Pulse Resp BP Pulse Ox O2 Del Method 03/04/22 08:09 36.8 C 85 16 117/54 L 95 Nasal Cannula 03/04/22 07:15 77 03/04/22 03:52 36.4 C L 67 18 135/67 96 Nasal Cannula 03/03/22 23:00 36.3 C L 77 22 134/53 L 96 Nasal Cannula 03/03/22 22:15 78 O2 Flow Rate 03/04/22 08:09 1 03/04/22 07:15 03/04/22 03:52 03/03/22 23:00 1 03/03/22 22:15 Laboratory Results 03/04/22 03/04/22 Range/Units 05:41 05:41 WBC 11.30 H (4.8-10.8) K/ul RBC 2.69 L (4.63-6.08) M/uL Hgb 8.4 L (14.0-18.0) g/dl Hct 26.3 L (40.1-51.0) % MCV 97.8 (80.0-100.0) fL MCH 31.2 (25.0-34.0) pg MCHC 31.9 L (32.0-36.0) g/dL RDW Std Deviation 54.0 H (36.4-46.3) fL RDW Coeff of Migd[place] 15.2 H (11.5-14.5) % Plt Count 263 (130-400) K/uL MPV 9.4 (9.4-12.4) fL Sodium 136 (136-145) mmol/L Potassium 4.7 (3.5-5.1) mmol/L Chloride 104 (98-107) mmol/L Carbon Dioxide 27 (21-32) mmol/L Anion Gap 5 (3-11) BUN 70 H (6-23) mg/dl Creatinine 2.10 H (0.6-1.4) mg/dl Est Cr Clr Drug Dosing 16.7 ml/min Est GFR ( Amer) 31.8 ml/min Est GFR (Non-Af Amer) 27.5 ml/min BUN/Creatinine Ratio 33.3 H (10-20) Glucose 136 H (70-99(Fasting)) mg/dl Calcium 7.4 L (8.5-10.1) mg/dl Phosphorus 4.0 (2.5-4.9) mg/dl Magnesium 1.8 (1.7-2.4) mg/dl Medications Administered Current Inpatient Medications Acetaminophen (Acetaminophen Susp 325 Mg/10.15 Ml Udc) 975 mg PEG Q8H PRN PRN Reason: pain Stop: 03/11/22 10:42 Last Admin: 02/26/22 01:59 Dose: 975 mg Albuterol (Albut/Ipratrop 3mg/0.5mg Neb 3 Ml Vial) 3 ml NEB Q4 PRN; Protocol PRN Reason: Shortness Of Breath Or Wheezing Stop: 03/07/22 15:59 Amlodipine Besylate (Amlodipine Besylate 5 Mg Tab) 2.5 mg PO QAM FLO Stop: 03/25/22 15:44 Last Admin: 03/03/22 07:57 Dose: 2.5 mg Aspirin (Aspirin 81 Mg Chew) 81 mg PO DAILY FLO Stop: 03/15/22 08:59 Last Admin: 02/25/22 08:00 Dose: 81 mg Atorvastatin Calcium (Atorvastatin 40 Mg Tab) 40 mg PO HS [facility] Stop: 03/04/22 20:59 Last Admin: 03/03/22 20:02 Dose: 40 mg Clopidogrel Bisulfate (Clopidogrel Bisulfate 75 Mg Tab) 75 mg PO QAM [facility] Stop: 03/04/22 08:59 Last Admin: 02/25/22 08:00 Dose: 75 mg Docusate Sodium (Docusate Sodium Syrup 100 Mg/10 Ml Udc) 100 mg PO BID PRN PRN Reason: Constipation Stop: 03/14/22 11:06 Enteral Nutritional Formula (Fibersource Hn 1.2 Keith 1000 Ml Bag) 1,000 ml GT Q24H [facility]; Protocol Stop: 03/31/22 17:59 Last Admin: 03/03/22 18:24 Dose: 1,000 ml Ferrous Sulfate (Ferrous Sulfate 325 Mg/7.4 Ml Udp) 325 mg PO BIDM [facility] Stop: 03/09/22 16:59 Last Admin: 03/03/22 18:24 Dose: 325 mg Guaifenesin (Guaifenesin Sugar Free 200 Mg/10 Ml Udc) 200 mg PO Q6H PRN PRN Reason: Cough Stop: 03/31/22 15:39 Heparin Sodium (Beef Lung) (Heparin 10 Unit/Ml 5 Ml Flush) 5 ml FLUSH PRN PRN PRN Reason: Flush Stop: 03/13/22 18:43 Last Admin: 03/02/22 23:37 Dose: 5 ml Heparin Sodium (Porcine) (Heparin Sod 5,000 Unit/0.5 Ml Vial) 5,000 units SQ Q12 FLO Stop: 03/04/22 08:59 Last Admin: 02/19/22 20:07 Dose: Not Given Cefazolin Sodium (Ancef 2000mg) 2,000 mg in 15 mls @ 3.75 mls/min IV Q12H [facility]; Protocol Stop: 03/22/22 11:59 Last Admin: 03/03/22 23:40 Dose: 3.75 mls/min Pantoprazole Sodium 40 mg/ (Syringe) 10 mls @ 5 mls/min IV BID [facility] Stop: 03/28/22 08:59 Last Admin: 03/03/22 20:16 Dose: 5 mls/min Lactobacillus Acidophilus (Advanced Probiotic 1250 Mg Capsule) 2 cap PO DAILY [facility] Stop: 03/19/22 16:14 Last Admin: 03/03/22 07:57 Dose: 2 cap Lansoprazole (Lansoprazole 30 Mg Soltab) 30 mg PEG DAILY [facility] Stop: 03/15/22 08:59 Last Admin: 02/25/22 08:00 Dose: 30 mg Lidocaine (Lidocaine 5% 1 Patch) 1 patch TD QAM [facility] Stop: 03/30/22 15:59 Last Admin: 03/03/22 07:55 Dose: 1 patch Lidocaine (Lidocaine 5% 1 Patch) 1 patch TD QAM FLO Stop: 03/30/22 16:29 Last Admin: 03/03/22 07:56 Dose: 1 patch Loperamide HCl (Loperamide Hcl 2 Mg Cap) 2 mg PO Q5H PRN PRN Reason: Diarrhea Stop: 03/21/22 13:59 Last Admin: 02/20/22 10:29 Dose: 2 mg Loperamide HCl (Loperamide Hcl 2 Mg Cap) 2 mg PO DAILY [facility] Stop: 03/27/22 15:44 Last Admin: 03/03/22 07:58 Dose: 2 mg Metoprolol Tartrate (Metoprolol Tartrate 25 Mg Tab) 12.5 mg PO BID [facility] Stop: 03/15/22 20:59 Last Admin: 03/03/22 20:01 Dose: 12.5 mg Metronidazole (Metronidazole 500 Mg Tab) 500 mg PO TID [facility] Stop: 03/04/22 13:59 Last Admin: 03/03/22 20:02 Dose: 500 mg Miscellaneous (Remove Lidoderm Patch) 1 each N/A DAILY@2100 [facility] Stop: 03/30/22 22:59 Last Admin: 03/03/22 20:16 Dose: 1 each Miscellaneous (Remove Lidoderm Patch) 1 each N/A DAILY@2100 [facility] Stop: 03/30/22 20:59 Last Admin: 03/03/22 20:16 Dose: 1 each Pentoxifylline (Pentoxifylline 400mg Ext Rel Tab) 400 mg PO BID [facility] Stop: 03/04/22 08:59 Last Admin: 02/12/22 08:23 Dose: Not Given Sterile Water (Tube Feeding Water Flush) 100 ml GT Q4H [facility] Stop: 04/01/22 13:49 Last Admin: 03/04/22 06:02 Dose: 100 ml Tamsulosin HCl (Tamsulosin Hcl 0.4 Mg Cap) 0.4 mg PO DAILY FLO Stop: 03/04/22 08:59 Last Admin: 03/03/22 07:58 Dose: 0.4 mg
[2022-03-04] MEDS ORDERED: FUROSEMIDE INJ 20 MG/2 ML VIAL IV ONE (08:32)
[2022-03-04] MEDS: LIDOCAINE 5% 1 PATCH TD SCH ×2 (08:51)
[2022-03-04] MEDS: amLODIPine BESYLATE 5 MG TAB PO SCH (08:51)
[2022-03-04] MEDS: ADVANCED PROBIOTIC 1250 MG CAPSULE PO SCH (08:52)
[2022-03-04] MEDS: LOPERAMIDE HCL 2 MG CAP PO SCH (08:52)
[2022-03-04] MEDS: METOPROLOL TARTRATE 25 MG TAB PO SCH ×2 (08:52→20:04)
[2022-03-04] MEDS: metroNIDAZOLE 500 MG TAB PO SCH (08:52)
[2022-03-04] MEDS: PANTOprazole 40 MG in SYRINGE 0 ML IV SCH ×2 (08:53→20:14)
[2022-03-04] MEDS: FERROUS SULFATE 325 MG/7.4 ML UDP PO SCH ×2 (08:53→17:41)
[2022-03-04] MEDS: ceFAZolin 2000MG 2,000 MG/15 ML SYR IV SCH (11:27)
[2022-03-04] MEDS: FIBERSOURCE HN 1.2 CAL 1000 ML BAG GT SCH (17:41)
[2022-03-05] MEDS: ceFAZolin 2000MG 2,000 MG/15 ML SYR IV SCH ×3 (00:39→23:39)
[2022-03-05] MEDS: TUBE FEEDING WATER FLUSH GT SCH ×6 (02:08→21:30)
[2022-03-05] MEDS: LIDOCAINE 5% 1 PATCH TD SCH ×2 (09:37)
[2022-03-05] MEDS: LOPERAMIDE HCL 2 MG CAP PO SCH (09:38)
[2022-03-05] MEDS: PANTOprazole 40 MG in SYRINGE 0 ML IV SCH ×2 (09:38→21:14)
[2022-03-05] MEDS: amLODIPine BESYLATE 5 MG TAB PO SCH (09:38)
[2022-03-05] MEDS: ADVANCED PROBIOTIC 1250 MG CAPSULE PO SCH (09:38)
[2022-03-05] MEDS: FERROUS SULFATE 325 MG/7.4 ML UDP PO SCH ×2 (09:38→18:01)
[2022-03-05] MEDS: METOPROLOL TARTRATE 25 MG TAB PO SCH ×2 (09:38→21:05)
--- NOTE | 2022-03-05 10:09 | Hospitalist Progress Note ---
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 Cornell as outpatient Also evaluated by ENT Dr. Lyon who recommends NPO, and if airway compromise, will need tracheostomy Continue G-tube feeding - will decrease rate (currently on bolus feeds) Appreciate palliative care input Waiting for rehab placement Cough - decreased rate for feeds as he is in risk of aspiration - discussed head elevation w/ pt and RN - CXR - incr. pleural infusion - lasix ordered - added flagyl for now to his abx regimen - can stop now -03/03 - cough much improved ?Rectal Bleed Hold Aspirin, Plavix Continue PPI Transfused 1 unit PRBC on 02/26 Monitor H&H GI to re-eval - no indication for endoscopy at this time poor candidate for any procedures UTI Urine Cx:- Enterobacter, Staph Urinary retention Completed cefepime course monitor Diarrhea Likely due to Tube Feeds, Antibiotics stool for c diff negative Imodium ordered B/L Pleural Effusion with Hypoxia Likely secondary to volume overload Echo: EF normal Received diuretics Monitor volume status Bradycardia with A. fib Heart rate initially in the 50s Metoprolol discontinued CHADSVASC score 4 Appreciate Cardiology Input: Not a candidate for chronic anticoagulation Anemia H/O Iron deficiency S/P PRBCs Transfuse as needed Continue iron supplements Monitor CBC Hypertension: Resume Amlodipine at lower dose Monitor BPH on Flomax. Peripheral vascular disease: On aspirin, statin, Plavix Pentoxifylline on hold as this is NOT crushable per pharmacy Chronic kidney disease III Unknown baseline Cr Cr 2.1 Monitor renal function DVT Px: SCDs for now Hold Heparin Re: Anemia requiring Transfusions, Rectal bleed Diet-Tube feeds Disposition SNF when accepted Code Status: DNR/DNI Admission and Anticipated Discharge Date Admission Date: February 02, 2022 Subjective Follow-up for MSSA bacteremia, hx of throat ca Currently patient is laying in bed in NAD. No concerns, feeling well. No nausea or cough today. No fever, chills, chest pain, shortness of breath No abdominal pain, nausea vomiting, no problems with tube feedings Review of Systems Review of Systems: All systems reviewed & are unremarkable except as noted in Subjective Physical Exam Physical Exam: General Appearance:Thin, frail, ill appearing, no apparent distress Head: normocephalic, Atraumatic Eyes: normal inspection, EOMI Neck: supple Respiratory/Chest: Normal breath sounds, CTA, No accessory muscle use Cardiovascular: S1, S2, No murmur Abdomen/GI:Soft, Non tender, +PEG tube, Bowel sounds present Extremities/Musculoskeletal: normal inspection, no edema Neurologic/Psych: AAOX3, answers appropriately, garbled speech(d/t tongue ca), moves extremities Skin: normal color, warm Results & Data Results & Data ([facility]) Vital Signs (Past 12 Hours) Vital Signs Temp Pulse Pulse Resp BP Pulse Ox O2 Del Method 03/05/22 07:28 77 03/05/22 04:00 36.8 C 78 18 128/56 L 99 Nasal Cannula 03/04/22 22:45 82 03/04/22 23:00 36.5 C 81 20 131/56 L 96 Nasal Cannula O2 Flow Rate 03/05/22 07:28 03/05/22 04:00 1 03/04/22 22:45 03/04/22 23:00 1 Medications Administered Current Inpatient Medications Acetaminophen (Acetaminophen Susp 325 Mg/10.15 Ml Udc) 975 mg PEG Q8H PRN PRN Reason: pain Stop: 03/11/22 10:42 Last Admin: 02/26/22 01:59 Dose: 975 mg Albuterol (Albut/Ipratrop 3mg/0.5mg Neb 3 Ml Vial) 3 ml NEB Q4 PRN; Protocol PRN Reason: Shortness Of Breath Or Wheezing Stop: 03/07/22 15:59 Amlodipine Besylate (Amlodipine Besylate 5 Mg Tab) 2.5 mg PO QAM [facility]LO Stop: 03/25/22 15:44 Last Admin: 03/05/22 09:38 Dose: 2.5 mg Aspirin (Aspirin 81 Mg Chew) 81 mg PO DAILY FLO Stop: 03/15/22 08:59 Last Admin: 02/25/22 08:00 Dose: 81 mg Docusate Sodium (Docusate Sodium Syrup 100 Mg/10 Ml Udc) 100 mg PO BID PRN PRN Reason: Constipation Stop: 03/14/22 11:06 Enteral Nutritional Formula (Fibersource Hn 1.2 Keith 1000 Ml Bag) 1,000 ml GT Q 24H [facility]; Protocol Stop: 03/31/22 17:59 Last Admin: 03/04/22 17:41 Dose: 1,000 ml Ferrous Sulfate (Ferrous Sulfate 325 Mg/7.4 Ml Udp) 325 mg PO BIDM [facility] Stop: 03/09/22 16:59 Last Admin: 03/05/22 09:38 Dose: 325 mg Guaifenesin (Guaifenesin Sugar Free 200 Mg/10 Ml Udc) 200 mg PO Q6H PRN PRN Reason: Cough Stop: 03/31/22 15:39 Heparin Sodium (Beef Lung) (Heparin 10 Unit/Ml 5 Ml Flush) 5 ml FLUSH PRN PRN PRN Reason: Flush Stop: 03/13/22 18:43 Last Admin: 03/04/22 10:08 Dose: 5 ml Cefazolin Sodium (Ancef 2000mg) 2,000 mg in 15 mls @ 3.75 mls/min IV Q12H [facility]; Protocol Stop: 03/22/22 11:59 Last Admin: 03/05/22 00:39 Dose: 3.75 mls/min Pantoprazole Sodium 40 mg/ (Syringe) 10 mls @ 5 mls/min IV BID [facility] Stop: 03/28/22 08:59 Last Admin: 03/05/22 09:38 Dose: 5 mls/min Lactobacillus Acidophilus (Advanced Probiotic 1250 Mg Capsule) 2 cap PO DAILY [facility] Stop: 03/19/22 16:14 Last Admin: 03/05/22 09:38 Dose: 2 cap Lansoprazole (Lansoprazole 30 Mg Soltab) 30 mg PEG DAILY FLO Stop: 03/15/22 08:59 Last Admin: 02/25/22 08:00 Dose: 30 mg Lidocaine (Lidocaine 5% 1 Patch) 1 patch TD QAM [facility] Stop: 03/30/22 15:59 Last Admin: 03/05/22 09:37 Dose: 1 patch Lidocaine (Lidocaine 5% 1 Patch) 1 [facility] Stop: 03/30/22 16:29 Last Admin: 03/05/22 09:37 Dose: 1 patch Loperamide HCl (Loperamide Hcl 2 Mg Cap) 2 mg PO Q5H PRN PRN Reason: Diarrhea Stop: 03/21/22 13:59 Last Admin: 02/20/22 10:29 Dose: 2 mg Loperamide HCl (Loperamide Hcl 2 Mg Cap) 2 mg PO DAILY [facility] Stop: 03/27/22 15:44 Last Admin: 03/05/22 09:38 Dose: 2 mg Metoprolol Tartrate (Metoprolol Tartrate 25 Mg Tab) 12.5 mg PO BID [facility] Stop: 03/15/22 20:59 Last Admin: 03/05/22 09:38 Dose: 12.5 mg Miscellaneous (Remove Lidoderm Patch) 1 each N/A DAILY@2100 [facility] Stop: 03/30/22 22:59 Last Admin: 03/04/22 20:14 Dose: 1 each Miscellaneous (Remove Lidoderm Patch) 1 each N/A DAILY@2100 [facility] Stop: 03/30/22 20:59 Last Admin: 03/04/22 20:14 Dose: 1 each Sterile Water (Tube Feeding Water Flush) 100 ml GT Q4H [facility] Stop: 04/01/22 13:49 Last Admin: 03/05/22 06:39 Dose: 100 ml
[2022-03-05] MEDS: FIBERSOURCE HN 1.2 CAL 1000 ML BAG GT SCH (18:00)
[2022-03-06] MEDS: TUBE FEEDING WATER FLUSH GT SCH ×6 (01:58→22:07)
[2022-03-06] MEDS: LOPERAMIDE HCL 2 MG CAP PO SCH (08:31)
[2022-03-06] MEDS: METOPROLOL TARTRATE 25 MG TAB PO SCH ×2 (08:31→20:27)
[2022-03-06] MEDS: ADVANCED PROBIOTIC 1250 MG CAPSULE PO SCH (08:33)
[2022-03-06] MEDS: amLODIPine BESYLATE 5 MG TAB PO SCH (08:33)
[2022-03-06] MEDS: FERROUS SULFATE 325 MG/7.4 ML UDP PO SCH ×2 (08:34→16:43)
[2022-03-06] MEDS: PANTOprazole 40 MG in SYRINGE 0 ML IV SCH ×2 (08:35→20:26)
[2022-03-06 08:38] LABS: Hematocrit (blood only) 26.9 % (40.1-51.0); Hemoglobin 8.6 g/dl (14.0-18.0); Mean Corpuscular Hemoglobin 31.6 pg (25.0-34.0); Mean Corpuscular Volume 98.9 fL (80.0-100.0); Mean Platelet Volume 8.9 fL (9.4-12.4); Platelet Count 291 K/uL (130-400); RDW Coefficient of Variation 15.4 % (11.5-14.5); RDW Standard Deviation 54.9 fL (36.4-46.3); Red Blood Count 2.72 M/uL (4.63-6.08); White Blood Count 13.53 K/ul (4.8-10.8)
[2022-03-06 08:56] LABS: BUN Creatinine Ratio 35.4 (10-20); Calcium 7.5 mg/dl (8.5-10.1); Creatinine Clr Calc Pharmacy 18.4 ml/min; Est GFR (African American) 34.8 ml/min; Potassium 4.9 mmol/L (3.5-5.1)
[2022-03-06] MEDS: LIDOCAINE 5% 1 PATCH TD SCH ×2 (10:32)
[2022-03-06] MEDS ORDERED: POLYETHYLENE (MIRALAX) 17 GM PACK PO PRN (10:55)
[2022-03-06] MEDS ORDERED: NITROGLYCERIN SL 0.4 MG/TAB TAB SL PRN (10:55)
[2022-03-06] MEDS: ceFAZolin 2000MG 2,000 MG/15 ML SYR IV SCH ×2 (12:33→23:56)
--- NOTE | 2022-03-06 13:18 | Hospitalist Progress Note ---
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 Cornell as outpatient Also evaluated by ENT Dr. Lyon who recommends NPO, and if airway compromise, will need tracheostomy Continue G-tube feeding - will decrease rate (currently on bolus feeds) Appreciate palliative care input Waiting for rehab placement Cough - decreased rate for feeds as he is in risk of aspiration - discussed head elevation w/ pt and RN - CXR - incr. pleural infusion - lasix ordered - flagyl was added temporarily to his abx regimen but has been stopped. -03/03 - cough much improved -scattered pulmonary nodules on recent chest imaging is suspicious for metastatic disesase. ?Rectal Bleed Hold Aspirin, Plavix Continue PPI Transfused 1 unit PRBC on 02/26 Monitor H&H GI to re-eval - no indication for endoscopy at this time poor candidate for any procedures UTI Urine Cx:- Enterobacter, Staph Urinary retention Completed cefepime course monitor Diarrhea Likely due to Tube Feeds, Antibiotics stool for c diff negative Imodium ordered B/L Pleural Effusion with Hypoxia Likely secondary to volume overload Echo: EF normal Received diuretics Monitor volume status Bradycardia with A. fib Heart rate initially in the 50s Metoprolol discontinued CHADSVASC score 4 Appreciate Cardiology Input: Not a candidate for chronic anticoagulation Anemia H/O Iron deficiency S/P PRBCs Transfuse as needed Continue iron supplements Monitor CBC Hypertension: Resume Amlodipine at lower dose Monitor BPH on Flomax. Peripheral vascular disease: On aspirin, statin, Plavix Pentoxifylline on hold as this is NOT crushable per pharmacy This should also be renally dosed at discharge to once daily. Chronic kidney disease III currently appears to have a stable creatinine presumably around his baseline. DVT Px: SCDs for now Hold Heparin Re: Anemia requiring Transfusions, Rectal bleed Diet-Tube feeds Disposition SNF when accepted Code Status: DNR/DNI DO [facility] Admission and Anticipated Discharge Date Admission Date: February 02, 2022 Subjective 86 yo M with h/o ENT cancer presents with infective endocarditis with MSSA persistent generalized weakness productive sputum reported that is whitish in color denies fevers or chills Review of Systems Review of Systems: All systems were reported to be negative except as indicated above. Physical Exam Physical Exam: CONSTITUTIONAL: thin, frail, elderly, vitals as above, generally well-appearing, NAD, sitting in bedside chair. EYES: normal conjunctivae, no scleral icterus ENT: external ear and nose normal, MMM NECK: trachea midline, RESPIRATORY: clear to auscultation bilaterally, decreased breath sounds throughout, no crackles, rales or wheezes, normal respiratory effort CARDIOVASCULAR: regular rate and rhythm, S1 and 2 heard without murmurs, gallops or rubs, no JVD, no peripheral edema CHEST: inspection of chest was normal GASTROINTESTINAL: soft, nontender, no guarding, ND MUSCULOSKELETAL: generalized weakness, moves all extremities equally, SKIN: warm and dry, NEUROLOGIC: CN 2-12 grossly intact, no sensory deficit, normal cognition, normal speech, no tremor PSYCHIATRIC: alert cooperative and oriented to person, place and time. Euthymic mood, makes good eye contact, language grossly intact, recent and remote memory grossly intact. Results & Data Results & Data ([facility]) Vital Signs (Past 12 Hours) Vital Signs Temp Pulse Pulse Resp BP Pulse Ox O2 Del Method 03/06/22 11:32 36.6 C 73 18 149/68 H 98 Nasal Cannula 03/06/22 08:01 Nasal Cannula 03/06/22 07:46 36.6 C 74 18 156/68 H 97 Nasal Cannula 03/06/22 03:01 Nasal Cannula 03/06/22 02:57 37.0 C 71 18 122/61 97 Nasal Cannula O2 Flow Rate 03/06/22 11:32 2 03/06/22 08:01 2 03/06/22 07:46 2 03/06/22 03:01 1 03/06/22 02:57 2 Laboratory Results Short CBC 03/06/22 Range/Units 08:19 WBC 13.53 H (4.8-10.8) K/ul Hgb 8.6 L (14.0-18.0) g/dl Hct 26.9 L (40.1-51.0) % Plt Count 291 (130-400) K/uL BMP 03/06/22 08:19 Sodium 137 Potassium 4.9 Chloride 105 Carbon Dioxide 28 BUN 69 H Creatinine 1.95 H Glucose 123 H Calcium 7.5 L Medications Administered Current Inpatient Medications Acetaminophen (Acetaminophen Susp 325 Mg/10.15 Ml Udc) 975 mg PEG Q8H PRN PRN Reason: pain Stop: 03/11/22 10:42 Last Admin: 02/26/22 01:59 Dose: 975 mg Albuterol (Albut/Ipratrop 3mg/0.5mg Neb 3 Ml Vial) 3 ml NEB Q4 PRN; Protocol PRN Reason: Shortness Of Breath Or Wheezing Stop: 03/07/22 15:59 Amlodipine Besylate (Amlodipine Besylate 5 Mg Tab) 2.5 mg PO QAM [facility] Stop: 03/25/22 15:44 Last Admin: 03/06/22 08:33 Dose: 2.5 mg Aspirin (Aspirin 81 Mg Chew) 81 mg PO DAILY [facility] Stop: 03/15/22 08:59 Last Admin: 02/25/22 08:00 Dose: 81 mg Atorvastatin Calcium (Atorvastatin 40 Mg Tab) 40 mg PO HS [facility] Stop: 04/05/22 20:59 Docusate Sodium (Docusate Sodium Syrup 100 Mg/10 Ml Udc) 100 mg PO BID PRN PRN Reason: Constipation Stop: 03/14/22 11:06 Enteral Nutritional Formula (Fibersource Hn 1.2 Keith 1000 Ml Bag) 1,000 ml GT Q24H [facility]; Protocol Stop: 03/31/22 17:59 Last Admin: 03/05/22 18:00 Dose: 1,000 ml Ferrous Sulfate (Ferrous Sulfate 325 Mg/7.4 Ml Udp) 325 mg PO BIDM [facility] Stop: 03/09/22 16:59 Last Admin: 03/06/22 08:34 Dose: 325 mg Guaifenesin (Guaifenesin Sugar Free 200 Mg/10 Ml Udc) 200 mg PO Q6H PRN PRN Reason: Cough Stop: 03/31/22 15:39 Heparin Sodium (Beef Lung) (Heparin 10 Unit/Ml 5 Ml Flush) 5 ml FLUSH PRN PRN PRN Reason: Flush Stop: 03/13/22 18:43 Last Admin: 03/05/22 23:40 Dose: 5 ml Cefazolin Sodium (Ancef 2000mg) 2,000 mg in 15 mls @ 3.75 mls/min IV Q12H [facility]; Protocol Stop: 03/22/22 11:59 Last Admin: 03/06/22 12:33 Dose: 3.75 mls/min Pantoprazole Sodium 40 mg/ (Syringe) 10 mls @ 5 mls/min IV BID [facility] Stop: 03/28/22 08:59 Last Admin: 03/06/22 08:35 Dose: 5 mls/min Lactobacillus Acidophilus (Advanced Probiotic 1250 Mg Capsule) 2 cap PO DAILY [facility] Stop: 03/19/22 16:14 Last Admin: 03/06/22 08:33 Dose: 2 cap Lansoprazole (Lansoprazole 30 Mg Soltab) 30 mg PEG DAILY [facility] Stop: 03/15/22 08:59 Last Admin: 02/25/22 08:00 Dose: 30 mg Lidocaine (Lidocaine 5% 1 Patch) 1 patch TD QAM [facility] Stop: 03/30/22 15:59 Last Admin: 03/06/22 10:32 Dose: Not Given Lidocaine (Lidocaine 5% 1 Patch) 1 patch TD QAM [facility] Stop: 03/30/22 16:29 Last Admin: 03/06/22 10:32 Dose: Not Given Loperamide HCl (Loperamide Hcl 2 Mg Cap) 2 mg PO Q5H PRN PRN Reason: Diarrhea Stop: 03/21/22 13:59 Last Admin: 02/20/22 10:29 Dose: 2 mg Loperamide HCl (Loperamide Hcl 2 Mg Cap) 2 mg PO DAILY [facility] Stop: 03/27/22 15:44 Last Admin: 03/06/22 08:31 Dose: 2 mg Metoprolol Tartrate (Metoprolol Tartrate 25 Mg Tab) 12.5 mg PO BID [facility] Stop: 03/15/22 20:59 Last Admin: 03/06/22 08:31 Dose: 12.5 mg Miscellaneous (Remove Lidoderm Patch) 1 each N/A DAILY@2100 [facility] Stop: 03/30/22 22:59 Last Admin: 03/05/22 21:14 Dose: 1 each Miscellaneous (Remove Lidoderm Patch) 1 each N/A DAILY@2099 [facility] Stop: 03/30/22 20:59 Last Admin: 03/05/22 21:14 Dose: 1 each Nitroglycerin (Nitroglycerin Sl 0.4 Mg/Tab Tab) 0.4 mg SL UD PRN PRN Reason: Chest Pain Stop: 04/05/22 10:54 Polyethylene Glycol (Polyethylene (Miralax) 17 Gm Pack) 17 gm PO DAILY PRN PRN Reason: Constipation Stop: 04/05/22 10:54 Sterile Water (Tube Feeding Water Flush) 100 ml GT Q4H [facility] Stop: 04/01/22 13:49 Last Admin: 03/06/22 11:53 Dose: 100 ml
[2022-03-06] MEDS: FIBERSOURCE HN 1.2 CAL 1000 ML BAG GT SCH (17:52)
[2022-03-06] MEDS: ATORVASTATIN 40 MG TAB PO SCH (20:27)
[2022-03-07] MEDS: TUBE FEEDING WATER FLUSH GT SCH ×6 (02:15→22:09)
[2022-03-07] MEDS: FIBERSOURCE HN 1.2 CAL 1000 ML BAG GT SCH ×2 (04:15→17:59)
[2022-03-07] MEDS: METOPROLOL TARTRATE 25 MG TAB PO SCH ×2 (08:01→21:11)
[2022-03-07] MEDS: LOPERAMIDE HCL 2 MG CAP PO SCH (08:02)
[2022-03-07] MEDS: PANTOprazole 40 MG in SYRINGE 0 ML IV SCH ×2 (08:02→21:11)
[2022-03-07] MEDS: ADVANCED PROBIOTIC 1250 MG CAPSULE PO SCH (08:02)
[2022-03-07] MEDS: FERROUS SULFATE 325 MG/7.4 ML UDP PO SCH ×2 (08:02→17:58)
[2022-03-07] MEDS: amLODIPine BESYLATE 5 MG TAB PO SCH (08:03)
[2022-03-07] MEDS: LIDOCAINE 5% 1 PATCH TD SCH ×2 (08:13→08:14)
[2022-03-07] MEDS: ceFAZolin 2000MG 2,000 MG/15 ML SYR IV SCH (12:12)
--- NOTE | 2022-03-07 14:03 | Hospitalist Progress Note ---
Date of Service March 07, 2022 Assessment & Plan (1) Bacteremia due to methicillin susceptible Staphylococcus aureus (MSSA): Plan: Sepsis on admission due to Port-A-Cath infection, s/p Removal after blood wasn't clearing Blood cultures clear for one month now. 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 Cornell as outpatient Also evaluated by ENT Dr. Lyon who recommends NPO, and if airway compromise, will need tracheostomy Continue G-tube feeding Waiting for rehab placement (2) Infective endocarditis: Plan: Presumed-cont 6 weeks IV abx therapy. (3) Pleural effusion: Plan: Pt with new hypoxia and cough that is more prominent. Has been treated wtih 7 days of Zosyn/cefepime (02/02-02/08). No fevers or chills and sputum is not purulent. Repeat CXR reveals moderate right and small left pleural effusions, slightly decreased since prior exam. These effusions are new since admission and may reflect metastatic disease in the chest, sedentary activity with multiple intravenous fluids given throughout the stay, etc. Will opt for Lasix 40mg IV now and continue to follow this clinically. Assessment of EF is 60-65% and he remains in sinus rhythm despite a h/o atrial fibrillation. (4) Hypoxia: Plan: Likely 2/2 pleural effusions. Assess response to intravenous lasix (5) Acute urinary retention: Plan: Tamsulosin was held for several days and TOV has been unsuccessful. Will consider fowler replacement (6) Atrial fibrillation with controlled ventricular rate: Plan: in sinus rhythm, Metoprolol discontinued earlier in admission 2/2 bradycardia CHADSVASC score 4 Per cardiology, he is not a candidate for ongoing anticoagulation (7) Acute blood loss anemia: Plan: Anemia likely mutlifactorial etiology but he did have rectal bleeding and required 1 unit blood. Currently, no indication for transfusion. 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 Pentoxifylline on hold as this is NOT crushable per pharmacy This should also be renally dosed at discharge to once daily., however, since he is strict NPO, this will likely be stopped altogether. (13) DVT prophylaxis: Plan: DVT Px: SCDs for now Hold Heparin Re: Anemia requiring Transfusions, Rectal bleed Disposition SNF when accepted Code Status: DNR/DNI Rhea Hawkins DO [facility] Hospitalist Admission and Anticipated Discharge Date Admission Date: February 02, 2022 Subjective 86 yo M with h/o ENT cancer presents with infective endocarditis with MSSA persistent generalized weakness productive sputum is now more consistent with a cough denies fevers or chills rales heard on pulm auscultation today Also with worsening AUR since Fowler removed. Notably he has been off his tamsulosin for some time. Will likely need to restart this and replace fowler with repeat TOV in one week. Review of Systems Review of Systems: All systems were reported to be negative except as indicated above. Physical Exam Physical Exam: CONSTITUTIONAL: thin, frail, elderly, vitals as above, generally well-appearing, NAD, sitting in bedside chair. EYES: normal conjunctivae, no scleral icterus ENT: external ear and nose normal, MMM NECK: trachea midline, RESPIRATORY: clear to auscultation bilaterally, decreased breath sounds throughout, no crackles, rales or wheezes, normal respiratory effort CARDIOVASCULAR: regular rate and rhythm, S1 and 2 heard without murmurs, gallops or rubs, no JVD, no peripheral edema CHEST: inspection of chest was normal GASTROINTESTINAL: soft, nontender, no guarding, ND MUSCULOSKELETAL: generalized weakness, moves all extremities equally, SKIN: warm and dry, NEUROLOGIC: CN 2-12 grossly intact, no sensory deficit, normal cognition, normal speech, no tremor PSYCHIATRIC: alert cooperative and oriented to person, place and time. Euthymic mood, makes good eye contact, language grossly intact, recent and remote memory grossly intact. Results & Data Results & Data ([facility]) Vital Signs (Past 12 Hours) Vital Signs Temp Pulse Resp BP Pulse Ox O2 Del Method O2 Flow Rate 03/07/22 11:56 36.1 C L 68 16 123/49 L 98 1 03/07/22 08:00 Nasal Cannula 2 03/07/22 06:35 36.6 C 70 20 158/63 H 98 Nasal Cannula 2 03/07/22 03:50 36.6 C 72 20 158/67 H 96 Nasal Cannula 1 Medications Administered Current Inpatient Medications Acetaminophen (Acetaminophen Susp 325 Mg/10.15 Ml Udc) 975 mg PEG Q8H PRN PRN Reason: pain Stop: 03/11/22 10:42 Last Admin: 02/26/22 01:59 Dose: 975 mg Albuterol (Albut/Ipratrop 3mg/0.5mg Neb 3 Ml Vial) 3 ml NEB Q4 PRN; Protocol PRN Reason: Shortness Of Breath Or Wheezing Stop: 03/07/22 15:59 Amlodipine Besylate (Amlodipine Besylate 5 Mg Tab) 2.5 mg PO QAM [facility] Stop: 03/25/22 15:44 Last Admin: 03/07/22 08:03 Dose: 2.5 mg Aspirin (Aspirin 81 Mg Chew) 81 mg PO DAILY [facility] Stop: 03/15/22 08:59 Last Admin: 02/25/22 08:00 Dose: 81 mg Atorvastatin Calcium (Atorvastatin 40 Mg Tab) 40 mg PO HS [facility] Stop: 04/05/22 20:59 Last Admin: 03/06/22 20:27 Dose: 40 mg Docusate Sodium (Docusate Sodium Syrup 100 Mg/10 Ml Udc) 100 mg PO BID PRN PRN Reason: Constipation Stop: 03/14/22 11:06 Enteral Nutritional Formula (Fibersource Hn 1.2 Keith 1000 Ml Bag) 1,000 ml GT Q24H [facility]; Protocol Stop: 03/31/22 17:59 Last Admin: 03/07/22 04:15 Dose: 1,000 ml Ferrous Sulfate (Ferrous Sulfate 325 Mg/7.4 Ml Udp) 325 mg PO BIDM [facility] Stop: 03/09/22 16:59 Last Admin: 03/07/22 08:02 Dose: 325 mg Guaifenesin (Guaifenesin Sugar Free 200 Mg/10 Ml Udc) 200 mg PO Q6H PRN PRN Reason: Cough Stop: 03/31/22 15:39 Heparin Sodium (Beef Lung) (Heparin 10 Unit/Ml 5 Ml Flush) 5 ml FLUSH PRN PRN PRN Reason: Flush Stop: 03/13/22 18:43 Last Admin: 03/05/22 23:40 Dose: 5 ml Cefazolin Sodium (Ancef 2000mg) 2,000 mg in 15 mls @ 3.75 mls/min IV Q12H [facility]; Protocol Stop: 03/22/22 11:59 Last Admin: 03/07/22 12:12 Dose: 3.75 mls/min Pantoprazole Sodium 40 mg/ (Syringe) 10 mls @ 5 mls/min IV BID [facility] Stop: 03/28/22 08:59 Last Admin: 03/07/22 08:02 Dose: 5 mls/min Lactobacillus Acidophilus (Advanced Probiotic 1250 Mg Capsule) 2 cap PO DAILY [facility] Stop: 03/19/22 16:14 Last Admin: 03/07/22 08:02 Dose: 2 cap Lansoprazole (Lansoprazole 30 Mg Soltab) 30 mg PEG DAILY [facility] Stop: 03/15/22 08:59 Last Admin: 02/25/22 08:00 Dose: 30 mg Lidocaine (Lidocaine 5% 1 Patch) 1 patch TD QAM [facility] Stop: 03/30/22 15:59 Last Admin: 03/07/22 08:13 Dose: Not Given Lidocaine (Lidocaine 5% 1 Patch) 1 patch TD QAM [facility] Stop: 03/30/22 16:29 Last Admin: 03/07/22 08:14 Dose: Not Given Loperamide HCl (Loperamide Hcl 2 Mg Cap) 2 mg PO Q5H PRN PRN Reason: Diarrhea Stop: 03/21/22 13:59 Last Admin: 02/20/22 10:29 Dose: 2 mg Loperamide HCl (Loperamide Hcl 2 Mg Cap) 2 mg PO DAILY [facility] Stop: 03/27/22 15:44 Last Admin: 03/07/22 08:02 Dose: 2 mg Metoprolol Tartrate (Metoprolol Tartrate 25 Mg Tab) 12.5 mg PO BID [facility] Stop: 03/15/22 20:59 Last Admin: 03/07/22 08:01 Dose: 12.5 mg Miscellaneous (Remove Lidoderm Patch) 1 each N/A DAILY@2100 [facility] Stop: 03/30/22 22:59 Last Admin: 03/06/22 20:28 Dose: 1 each Miscellaneous (Remove Lidoderm Patch) 1 each N/A DAILY@2100 [facility] Stop: 03/30/22 20:59 Last Admin: 03/06/22 21:38 Dose: 1 each Nitroglycerin (Nitroglycerin Sl 0.4 Mg/Tab Tab) 0.4 mg SL UD PRN PRN Reason: Chest Pain Stop: 04/05/22 10:54 Polyethylene Glycol (Polyethylene (Miralax) 17 Gm Pack) 17 gm PO DAILY PRN PRN Reason: Constipation Stop: 04/05/22 10:54 Sterile Water (Tube Feeding Water Flush) 100 ml GT Q4H [facility] Stop: 04/01/22 13:49 Last Admin: 03/07/22 12:58 Dose: 100 ml
--- NOTE | 2022-03-07 16:22 | XRay Report ---
XR chest 1V portable CLINICAL HISTORY: coughing/rales COMPARISON STUDY: Chest radiograph March 01, 2022. Chest CT January 26, 2022. FINDINGS: Right PICC is in place. There is no pneumothorax. Moderate right pleural effusion has sligh tly decreased in size since prior exam. A small left pleural effusion is similar to prior study. Mult iple pulmonary metastases are again noted. Pulmonary edema has slightly improved. Bibasilar opacities persist. IMPRESSION: 1. Moderate right and small left pleural effusions, slightly decreased since prior exam. Persistent b ibasilar opacities which could reflect consolidation or atelectasis. 2. Interval improvement in pulmonary edema. 3. Redemonstration of pulmonary metastases. ACT 112: Negative or not required by law. Electronically signed by: Roman Foreman M.D. 03/07/2022 4:21 PM
[2022-03-07] MEDS: ATORVASTATIN 40 MG TAB PO SCH (21:11)
[2022-03-07 21:29] LABS: Appearance Urine Clear (Clear); Bacteria Urine Automated Negative (Negative); Bilirubin Urine Negative (Negative); Blood Urine Negative (Negative); Cast Urine Automated 0 /lpf (0-5); Color Urine Yellow; Glucose Urine UA Negative (Negative); Ketones Urine Negative (Negative); Leukocyte Esterase Urine Trace (Negative); Nitrite Urine Negative (Negative); RBC Urine Automated 0-4 /hpf (0-4); Specific Gravity Urine 1.016 (1.000-1.030); Urobilinogen Urine Negative (Negative); pH Urine 7.5 (4.5-7.5)
[2022-03-07 21:41] LABS: Protein Urine 2+ (Negative)
[2022-03-08] MEDS: ceFAZolin 2000MG 2,000 MG/15 ML SYR IV SCH ×3 (00:16→23:40)
[2022-03-08] MEDS: TUBE FEEDING WATER FLUSH GT SCH ×6 (02:45→21:56)
[2022-03-08 07:46] LABS: Basophils # (auto) 0.08 K/uL (0-0.2); Basophils % (auto) 0.6 %; Eosinophils # (auto) 0.47 K/uL (0-0.50); Eosinophils % (auto) 3.6 %; Hematocrit (blood only) 26.3 % (40.1-51.0); Hemoglobin 8.4 g/dl (14.0-18.0); Immature Granulocytes # (auto) 0.09 K/uL (0.00-0.02); Immature Granulocytes % (auto) 0.7 %; Lymphocytes # (auto) 0.75 K/uL (1.2-3.4); Lymphocytes % (auto) 5.7 %; Mean Corpuscular Hemoglobin 31.7 pg (25.0-34.0); Mean Corpuscular Hgb Conc 31.9 g/dL (32.0-36.0); Mean Corpuscular Volume 99.2 fL (80.0-100.0); Monocytes # (auto) 1.46 K/uL (0.24-0.82); Neutrophils # (auto) 10.38 K/uL (1.4-6.5); Neutrophils % (auto) 78.4 %; Platelet Count 286 K/uL (130-400); RDW Coefficient of Variation 15.6 % (11.5-14.5); RDW Standard Deviation 55.8 fL (36.4-46.3); Red Blood Count 2.65 M/uL (4.63-6.08); White Blood Count 13.23 K/ul (4.8-10.8)
[2022-03-08] MEDS ORDERED: FUROSEMIDE 40 MG/4 ML VIAL IV ONE (08:10)
[2022-03-08 08:11] LABS: BUN Creatinine Ratio 35.7 (10-20); C Reactive Protein 2.05 mg/dl (0-0.5); Calcium 7.5 mg/dl (8.5-10.1); Est GFR (African American) 34.6 ml/min; Est GFR (Non-African American) 29.9 ml/min; Potassium 5.1 mmol/L (3.5-5.1)
[2022-03-08] MEDS ORDERED: ISOSORBIDE MONO EXTENDED REL 60 MG TABCR PO SCH (09:00)
[2022-03-08] MEDS: FERROUS SULFATE 325 MG/7.4 ML UDP PO SCH ×2 (09:44→17:34)
[2022-03-08] MEDS: TAMSULOSIN HCL 0.4 MG CAP PO SCH (09:44)
[2022-03-08] MEDS: ADVANCED PROBIOTIC 1250 MG CAPSULE PO SCH (09:44)
[2022-03-08] MEDS: ASPIRIN 81 MG CHEW PO SCH (09:44)
[2022-03-08] MEDS: CLOPIDOGREL BISULFATE 75 MG TAB PO SCH (09:44)
[2022-03-08] MEDS: amLODIPine BESYLATE 5 MG TAB PO SCH (09:45)
[2022-03-08] MEDS: METOPROLOL TARTRATE 25 MG TAB PO SCH ×2 (09:46→21:37)
[2022-03-08] MEDS: LIDOCAINE 5% 1 PATCH TD SCH (09:46)
[2022-03-08] MEDS: LANSOPRAZOLE 30 MG SOLTAB PEG SCH (09:47)
[2022-03-08] MEDS ORDERED: STAT IV STA (09:53)
[2022-03-08] MEDS ORDERED: CALCIUM GLUCONATE 10% 1,000 MG in DEXTROSE 5% 50 ML IV ONE (10:15)
[2022-03-08] MEDS: ACETAMINOPHEN SUSP 325 MG/10.15 ML UDC PEG PRN (10:51)
[2022-03-08] MEDS: FIBERSOURCE HN 1.2 CAL 1000 ML BAG GT SCH (17:34)
--- NOTE | 2022-03-08 17:57 | Hospitalist Progress Note ---
Date of Service March 08, 2022 Assessment & Plan (1) Bacteremia due to methicillin susceptible Staphylococcus aureus (MSSA): Plan: Sepsis on admission due to Port-A-Cath infection, s/p Removal after blood wasn't clearing Blood cultures clear for one month now. 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 Cornell as outpatient Also evaluated by ENT Dr. Lyon who recommends NPO, and if airway compromise, will need tracheostomy Continue G-tube feeding Waiting for rehab placement (2) Infective endocarditis: Plan: Presumed-cont 6 weeks IV abx therapy. (3) Pleural effusion: Plan: Pt with new hypoxia and cough that is more prominent. Has been treated wtih 7 days of Zosyn/cefepime (02/02-02/08). No fevers or chills and sputum is not purulent. Repeat CXR reveals moderate right and small left pleural effusions, slightly decreased since prior exam. Doubt infection. These effusions are new since admission and may reflect metastatic disease in the chest, sedentary activity with multiple intravenous fluids given throughout the stay, etc. He is improved with just one dose of Lasix. Assessment of EF is 60-65% and he remains in sinus rhythm despite a h/o atrial fibrillation. Cont lasix daily until improved off oxygen. (4) Hypoxia: Plan: Likely 2/2 pleural effusions. Assess response to intravenous lasix (5) Acute urinary retention: Plan: Tamsulosin was held for several days and TOV has been unsuccessful. Will consider fowler replacement (6) Atrial fibrillation with controlled ventricular rate: Plan: in sinus rhythm, Metoprolol discontinued earlier in admission 2/2 bradycardia CHADSVASC score 4 Per cardiology, he is not a candidate for ongoing anticoagulation (7) Acute blood loss anemia: Plan: Anemia likely mutlifactorial etiology but he did have rectal bleeding and required 1 unit blood. Currently, no indication for transfusion. 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 Pentoxifylline on hold as this is NOT crushable per pharmacy This should also be renally dosed at discharge to once daily., however, since he is strict NPO, this will likely be stopped altogether. (13) DVT prophylaxis: Plan: DVT Px: SCDs for now Hold Heparin Re: Anemia requiring Transfusions, Rectal bleed Disposition SNF when accepted Code Status: DNR/DNI [facility] and [facility]ticipated Discharge Date Admission Date: February 02, 2022 Subjective 86 yo M with h/o ENT cancer presents with infective endocarditis with MSSA persistent generalized weakness cough improved/resolved after one dose Lasix this am. afebrile, no chills reported. pulmonary auscultation is more clear today. Restarted tamsulosin and replaced his fowler. There is blood tinged urine present in the catheter and bag--patient denies any pain He is upset because the tube feeds are giving him diarrhea. Review of Systems Review of Systems: All systems were reported to be negative except as indicated above. Physical Exam Physical Exam: CONSTITUTIONAL: thin, frail, elderly, vitals as above, generally well-appearing, NAD, lying in bed EYES: normal conjunctivae, no scleral icterus ENT: external ear and nose normal, MMM NECK: trachea midline, RESPIRATORY: clear to auscultation bilaterally, decreased breath sounds throughout, no crackles, rales or wheezes, normal respiratory effort CARDIOVASCULAR: regular rate and rhythm, S1 and 2 heard without murmurs, gallops or rubs, no JVD, no peripheral edema CHEST: inspection of chest was normal GASTROINTESTINAL: soft, nontender, no guarding, ND MUSCULOSKELETAL: generalized weakness, moves all extremities equally, SKIN: warm and dry, NEUROLOGIC: CN 2-12 grossly intact, no sensory deficit, normal cognition, normal speech, no tremor PSYCHIATRIC: alert cooperative and oriented to person, place and time. Euthymic mood, makes good eye contact, language grossly intact, recent and remote memory grossly intact. Results & Data Results & Data ([facility]) Vital Signs (Past 12 Hours) Vital Signs Temp Pulse Pulse Resp BP Pulse Ox O2 Del Method 03/08/22 15:50 37.1 C 56 L 16 103/45 L 99 Nasal Cannula 03/08/22 13:16 Nasal Cannula 03/08/22 11:30 56 L 92/68 L 03/08/22 11:06 36.9 C 52 L 16 89/51 L 97 Nasal Cannula 03/08/22 07:21 71 03/08/22 07:08 36.9 C 73 20 133/61 99 Nasal Cannula O2 Flow Rate 03/08/22 15:50 2 03/08/22 13:16 2 03/08/22 11:30 03/08/22 11:06 2 03/08/22 07:21 03/08/22 07:08 1 Laboratory Results Short CBC 03/08/22 Range/Units 07:31 WBC 13.23 H (4.8-10.8) K/ul Hgb 8.4 L (14.0-18.0) g/dl Hct 26.3 L (40.1-51.0) % Plt Count 286 (130-400) K/uL BMP 03/08/22 07:31 Sodium 136 Potassium 5.1 Chloride 104 Carbon Dioxide 28 BUN 70 H Creatinine 1.96 H Glucose 127 H Calcium 7.5 L Urine 03/07/22 Range/Units 20:29 Urine Color Yellow Urine Appearance Clear (Clear) Urine pH 7.5 (4.5-7.5) Ur Specific [place] 1.016 (1.000-1.030) Urine Protein 2+ H (Negative) Urine Glucose (UA) Negative (Negative) Medications Administered Current Inpatient Medications Acetaminophen (Acetaminophen Susp 325 Mg/10.15 Ml Udc) 975 mg PEG Q8H PRN PRN Reason: pain Stop: 03/11/22 10:42 Last Admin: 03/08/22 10:51 Dose: 975 mg Amlodipine Besylate (Amlodipine Besylate 5 Mg Tab) [facility] [place] Stop: 03/25/22 15:44 Last Admin: 03/08/22 09:45 Dose: 2.5 mg Aspirin (Aspirin 81 Mg Chew) 81 mg PO DAILY [facility] Stop: 03/15/22 08:59 Last Admin: 03/08/22 09:44 Dose: 81 mg Atorvastatin Calcium (Atorvastatin 40 Mg Tab) 40 mg PO HS [facility] Stop: 04/05/22 20:59 Last Admin: 03/07/22 21:11 Dose: 40 mg Clopidogrel Bisulfate (Clopidogrel Bisulfate 75 Mg Tab) 75 mg PO QAM [facility] Stop: 04/07/22 08:59 Last Admin: 03/08/22 09:44 Dose: 75 mg Docusate Sodium (Docusate Sodium Syrup 100 Mg/10 Ml Udc) 100 mg PO BID PRN PRN Reason: Constipation Stop: 03/14/22 11:06 Enteral Nutritional Formula (Fibersource Hn 1.2 Keith 1000 Ml Bag) 1,000 ml GT Q24H [facility]; Protocol Stop: 03/31/22 17:59 Last Admin: 03/08/22 17:34 Dose: 1,000 ml Ferrous Sulfate (Ferrous Sulfate 325 Mg/7.4 Ml Udp) 325 mg PO BIDM [facility] Stop: 03/09/22 16:59 Last Admin: 03/08/22 17:34 Dose: 325 mg Guaifenesin (Guaifenesin Sugar Free 200 Mg/10 Ml Udc) 200 mg PO Q6H PRN PRN Reason: Cough Stop: 03/31/22 15:39 Heparin Sodium (Beef Lung) (Heparin 10 Unit/Ml 5 Ml Flush) 5 ml FLUSH PRN PRN PRN Reason: Flush Stop: 03/13/22 18:43 Last Admin: 03/05/22 23:40 Dose: 5 ml Cefazolin Sodium (Ancef 2000mg) 2,000 mg in 15 mls @ 3.75 mls/min IV Q12H [facility]; Protocol Stop: 03/22/22 11:59 Last Admin: 03/08/22 11:29 Dose: 3.75 mls/min Isosorbide Mononitrate (Isosorbide [place] Extended Rel 60 Mg Tabcr) 120 [facility] Stop: 04/07/22 08:59 Last Admin: 03/08/22 09:44 Dose: 120 mg Lactobacillus Acidophilus (Advanced Probiotic 1250 Mg Capsule) 2 cap PO DAILY [facility] Stop: 03/19/22 16:14 Last Admin: 03/08/22 09:44 Dose: 2 cap Lansoprazole (Lansoprazole 30 Mg Soltab) 30 mg PEG DAILY [facility] Stop: 03/15/22 08:59 Last Admin: 03/08/22 09:47 Dose: 30 mg Lidocaine (Lidocaine 5% 1 Patch) 1 patch TD QAM [facility] Stop: 03/30/22 16:29 Last Admin: 03/08/22 09:46 Dose: 1 patch Metoprolol Tartrate (Metoprolol Tartrate 25 Mg Tab) 12.5 mg PO BID [facility] Stop: 03/15/22 20:59 Last Admin: 03/08/22 09:46 Dose: 12.5 mg Miscellaneous (Remove Lidoderm Patch) 1 each N/A DAILY@2100 [facility] Stop: 03/30/22 22:59 Last Admin: 03/07/22 22:08 Dose: Not Given Miscellaneous (Remove Lidoderm Patch) 1 each N/A DAILY@2100 [facility] Stop: 03/30/22 20:59 Last Admin: 03/07/22 21:12 Dose: 1 each Nitroglycerin (Nitroglycerin Sl 0.4 Mg/Tab Tab) 0.4 mg SL UD PRN PRN Reason: Chest Pain Stop: 04/05/22 10:54 Polyethylene Glycol (Polyethylene (Miralax) 17 Gm Pack) 17 gm PO DAILY PRN PRN Reason: Constipation Stop: 04/05/22 10:54 Sterile Water (Tube Feeding Water Flush) 100 ml GT Q4H [facility] Stop: 04/01/22 13:49 Last Admin: 03/08/22 17:34 Dose: 100 ml Tamsulosin HCl (Tamsulosin Hcl 0.4 Mg Cap) 0.4 mg PO QAM [facility] Stop: 04/07/22 08:59 Last Admin: 03/08/22 09:44 Dose: 0.4 mg
[2022-03-08] MEDS: ATORVASTATIN 40 MG TAB PO SCH (21:36)
[2022-03-09] MEDS: TUBE FEEDING WATER FLUSH GT SCH ×5 (02:19→18:32)
[2022-03-09 06:15] LABS: Mean Corpuscular Hemoglobin 31.9 pg (25.0-34.0); Mean Corpuscular Volume 99.6 fL (80.0-100.0); Mean Platelet Volume 9.8 fL (9.4-12.4); Platelet Count 308 K/uL (130-400); RDW Coefficient of Variation 15.7 % (11.5-14.5); RDW Standard Deviation 56.9 fL (36.4-46.3); Red Blood Count 2.51 M/uL (4.63-6.08); White Blood Count 13.93 K/ul (4.8-10.8)
[2022-03-09 06:41] LABS: BUN Creatinine Ratio 36.4 (10-20); Calcium 7.5 mg/dl (8.5-10.1); Creatinine Clr Calc Pharmacy 18.2 ml/min; Est GFR (Non-African American) 27.6 ml/min
[2022-03-09] MEDS: METOPROLOL TARTRATE 25 MG TAB PO SCH ×2 (09:23→21:09)
[2022-03-09] MEDS: FERROUS SULFATE 325 MG/7.4 ML UDP PO SCH (09:23)
[2022-03-09] MEDS: TAMSULOSIN HCL 0.4 MG CAP PO SCH (09:24)
[2022-03-09] MEDS: LANSOPRAZOLE 30 MG SOLTAB PEG SCH (09:25)
[2022-03-09] MEDS: ADVANCED PROBIOTIC 1250 MG CAPSULE PO SCH (09:26)
[2022-03-09] MEDS: ASPIRIN 81 MG CHEW PO SCH (09:26)
[2022-03-09] MEDS: CLOPIDOGREL BISULFATE 75 MG TAB PO SCH (09:26)
[2022-03-09] MEDS: amLODIPine BESYLATE 5 MG TAB PO SCH (09:27)
[2022-03-09] MEDS: LIDOCAINE 5% 1 PATCH TD SCH ×2 (09:29→10:32)
[2022-03-09 10:18] LABS: Alanine Aminotransferase < 3 U/L (7-52); Albumin Level 2.5 gm/dl (3.4-5.0); Alkaline Phosphatase 95 U/L (34-104); Aspartate Aminotransferase 17 U/L (13-39); Bilirubin,Total 0.2 mg/dl (0.2-1.0); Phosphorus 3.5 mg/dl (2.5-4.9); Total Protein 5.8 gm/dl (6.0-8.3)
[2022-03-09] MEDS: ISOSORBIDE MONO EXTENDED REL 60 MG TABCR PO SCH (10:22)
[2022-03-09] MEDS: FUROSEMIDE 40 MG/4 ML VIAL IV SCH ×2 (10:32→17:40)
[2022-03-09] MEDS: ceFAZolin 2000MG 2,000 MG/15 ML SYR IV SCH (12:37)
--- NOTE | 2022-03-09 13:45 | Hospitalist Progress Note ---
Date of Service March 09, 2022 Assessment & Plan (1) Bacteremia due to methicillin susceptible Staphylococcus aureus (MSSA): Plan: Sepsis on admission due to Port-A-Cath infection, s/p Removal after blood wasn't clearing Blood cultures clear for one month now. 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 Cornell as outpatient Also evaluated by ENT Dr. Lyon who recommends NPO, and if airway compromise, will need tracheostomy Continue G-tube feeding Waiting for rehab placement (sutures removed today) (2) Infective endocarditis: Plan: Presumed-cont 6 weeks IV abx therapy. (3) Pleural effusion: Plan: Pt with new hypoxia and cough that is more prominent. Has been treated wtih 7 days of Zosyn/cefepime (02/02-02/08). No fevers or chills and sputum is not purulent. Repeat CXR reveals moderate right and small left pleural effusions, slightly decreased since prior exam. Doubt infection. These effusions are new since admission and may reflect metastatic disease in the chest, sedentary activity with multiple intravenous fluids given throughout the stay, etc. He is improved with just one dose of Lasix. Assessment of EF is 60-65% and he remains in sinus rhythm despite a h/o atrial fibrillation. Cont lasix daily until improved off oxygen. 03/09-cough worsened overnight, increase lasix today and repeat CXR in am. (4) Hypoxia: Plan: Likely 2/2 pleural effusions. Resolved. Cont Lasix therapy at this time. (5) Acute urinary retention: Plan: Tamsulosin was held for several days and TOV has been unsuccessful. Quinonez replaced on 03/08. Cont several more days of tamsulosin then consider repeat TOV. (6) Atrial fibrillation with controlled ventricular rate: Plan: in sinus rhythm, Metoprolol discontinued earlier in admission 2/2 bradycardia CHADSVASC score 4 Per cardiology, he is not a candidate for ongoing anticoagulation (7) Acute blood loss anemia: Plan: Anemia likely mutlifactorial etiology but he did have rectal bleeding and required 1 unit blood. Currently, no indication for transfusion. H/H stable. 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 Pentoxifylline on hold as this is NOT crushable per pharmacy This should also be renally dosed at discharge to once daily., however, since he is strict NPO, this will likely be stopped altogether. (13) DVT prophylaxis: Plan: DVT Px: No further rectal bleeding and H/H stable after adding back antiplatelet therapy. Will start heparin again now. Disposition SNF when accepted Code Status: DNR/DNI Rhea Hawkins DO [facility] Hospitalist Admission and Anticipated Discharge Date Admission Date: February 02, 2022 Subjective 86 yo M with h/o ENT cancer presents with infective endocarditis with MSSA persistent generalized weakness +worsened cough overnight dry mouth and throat is a major concern Discussed with nurse RE: humidifying oxygen. May consider Biotene spray Good oral care encouraged. Review of Systems Review of Systems: All systems were reported to be negative except as indicated above. Physical Exam Physical Exam: CONSTITUTIONAL: thin, frail, elderly, vitals as above, generally well-appearing, NAD, lying in bed EYES: normal conjunctivae, no scleral icterus ENT: external ear and nose normal, NECK: trachea midline, RESPIRATORY: clear to auscultation bilaterally, decreased breath sounds throughout, no crackles, rales or wheezes, normal respiratory effort CARDIOVASCULAR: regular rate and rhythm, S1 and 2 heard without murmurs, gallops or rubs, no JVD, no peripheral edema CHEST: inspection of chest was normal GASTROINTESTINAL: soft, nontender, no guarding, ND MUSCULOSKELETAL: generalized weakness, moves all extremities equally, SKIN: warm and dry, two small sutures still present on right anterior chest wall. NEUROLOGIC: CN 2-12 grossly intact, no sensory deficit, normal cognition, normal speech, no tremor PSYCHIATRIC: alert cooperative and oriented to person, place and time. Results & Data Results & Data ([facility]) Vital Signs (Past 12 Hours) Vital Signs Temp Pulse Resp BP Pulse Ox O2 Del Method O2 Flow Rate 03/09/22 11:53 36.7 C 73 152/55 H 95 Room Air 03/09/22 11:30 Room Air 03/09/22 08:33 36.8 C 75 16 157/62 H 98 03/09/22 02:48 37 C 60 18 121/48 L 99 Nasal Cannula 2 Laboratory Results Short CBC 03/09/22 Range/Units 05:29 WBC 13.93 H (4.8-10.8) K/ul Hgb 8.0 L (14.0-18.0) g/dl Hct 25.0 L (40.1-51.0) % Plt Count 308 (130-400) K/uL BMP 03/09/22 05:29 Sodium 139 Potassium 5.0 Chloride 104 Carbon Dioxide 28 BUN 76 H Creatinine 2.09 H Glucose 148 H Calcium 7.5 L Liver Function 03/09/22 Range/Units 08:37 Total Bilirubin 0.2 (0.2-1.0) mg/dl Direct Bilirubin 0.0 (0-0.2) mg/dl AST 17 (13-39) U/L ALT < 3 L (7-52) U/L Alkaline Phosphatase 95 (34-104) U/L Albumin 2.5 L (3.4-5.0) gm/dl Medications Administered Current Inpatient Medications Acetaminophen (Acetaminophen Susp 325 Mg/10.15 Ml Udc) 975 mg PEG Q8H PRN PRN Reason: pain Stop: 03/11/22 10:42 Last Admin: 03/08/22 10:51 Dose: 975 mg Amlodipine Besylate (Amlodipine Besylate 5 Mg Tab) 2.5 mg PO QAM [facility] Stop: 03/25/22 15:44 Last Admin: 03/09/22 09:27 Dose: 2.5 mg Aspirin (Aspirin 81 Mg Chew) 81 mg PO DAILY [facility] Stop: 03/15/22 08:59 Last Admin: 03/09/22 09:26 Dose: 81 mg Atorvastatin Calcium (Atorvastatin 40 Mg Tab) 40 mg PO HS [facility] Stop: 04/05/22 20:59 Last Admin: 03/08/22 21:36 Dose: 40 mg Clopidogrel Bisulfate (Clopidogrel Bisulfate 75 Mg Tab) 75 mg PO QAM [facility] Stop: 04/07/22 08:59 Last Admin: 03/09/22 09:26 Dose: 75 mg Docusate Sodium (Docusate Sodium Syrup 100 Mg/10 Ml Udc) 100 mg PO BID PRN PRN Reason: Constipation Stop: 03/14/22 11:06 Enteral Nutritional Formula (Fibersource Hn 1.2 Keith 1000 Ml Bag) 1,000 ml GT Q24H [facility]; Protocol Stop: 03/31/22 17:59 Last Admin: 03/08/22 17:34 Dose: 1,000 ml Ferrous Sulfate (Ferrous Sulfate 325 Mg/7.4 Ml Udp) 325 mg PO BIDM [facility] Stop: 03/09/22 16:59 Last Admin: 03/09/22 09:23 Dose: 325 mg Furosemide (Furosemide 40 Mg/4 Ml Vial) 40 mg IV BID17 [facility] Stop: 04/08/22 09:54 Last Admin: 03/09/22 10:32 Dose: 40 mg Guaifenesin (Guaifenesin Sugar Free 200 Mg/10 Ml Udc) 200 mg PO Q6H PRN PRN Reason: Cough Stop: 03/31/22 15:39 Heparin Sodium (Beef Lung) (Heparin 10 Unit/Ml 5 Ml Flush) 5 ml FLUSH PRN PRN PRN Reason: Flush Stop: 03/13/22 18:43 Last Admin: 03/09/22 11:48 Dose: 5 ml Cefazolin Sodium (Ancef 2000mg) 2,000 mg in 15 mls @ 3.75 mls/min IV Q12H [facility]; Protocol Stop: 03/22/22 11:59 Last Admin: 03/09/22 12:37 Dose: 3.75 mls/min Isosorbide Mononitrate (Isosorbide [place] Extended Rel 60 Mg Tabcr) 60 mg PO QAM [facility] Stop: 04/08/22 08:59 Last Admin: 03/09/22 10:22 Dose: Not Given Lactobacillus Acidophilus (Advanced Probiotic 1250 Mg Capsule) 2 cap PO DAILY [facility] Stop: 03/19/22 16:14 Last Admin: 03/09/22 09:26 Dose: 2 cap Lansoprazole (Lansoprazole 30 Mg Soltab) 30 mg PEG DAILY [facility] Stop: 03/15/22 08:59 Last Admin: 03/09/22 09:25 Dose: 30 mg Lidocaine (Lidocaine 5% 1 Patch) 1 patch TD QAM [facility] Stop: 03/30/22 16:29 Last Admin: 03/09/22 10:32 Dose: Not Given Metoprolol Tartrate (Metoprolol Tartrate 25 Mg Tab) 12.5 mg PO BID [facility] Stop: 03/15/22 20:59 Last Admin: 03/09/22 09:23 Dose: 12.5 mg Miscellaneous (Remove Lidoderm Patch) 1 each N/A DAILY@2100 [facility] Stop: 03/30/22 22:59 Last Admin: 03/08/22 21:55 Dose: 1 each Miscellaneous (Remove Lidoderm Patch) 1 each N/A DAILY@2100 [facility] Stop: 03/30/22 20:59 Last Admin: 03/08/22 21:56 Dose: 1 each Nitroglycerin (Nitroglycerin Sl 0.4 Mg/Tab Tab) 0.4 mg SL UD PRN PRN Reason: Chest Pain Stop: 04/05/22 10:54 Polyethylene Glycol (Polyethylene (Miralax) 17 Gm Pack) 17 gm PO DAILY PRN PRN Reason: Constipation Stop: 04/05/22 10:54 Sterile Water (Tube Feeding Water Flush) 100 ml GT Q4H [facility] Stop: 04/01/22 13:49 Last Admin: 03/09/22 09:28 Dose: 100 ml Tamsulosin HCl (Tamsulosin Hcl 0.4 Mg Cap) 0.4 mg PO QAM [facility] Stop: 04/07/22 08:59 Last Admin: 03/09/22 09:24 Dose: 0.4 mg
[2022-03-09] MEDS: FIBERSOURCE HN 1.2 CAL 1000 ML BAG GT SCH (18:32)
[2022-03-09] MEDS: ATORVASTATIN 40 MG TAB PO SCH (21:09)
[2022-03-09] MEDS: HEPARIN SOD 5,000 UNIT/0.5 ML VIAL SQ SCH (21:10)
--- NOTE | 2022-03-09 23:13 | Electrocardiogram Report ---
Test Reason : Blood Pressure : / mmHG Vent. Rate : 060 BPM Atrial Rate : 069 BPM P-R Int : 000 ms QRS Dur : 074 ms QT Int : 420 ms P-R-T Axes : 000 071 070 degrees QTc Int : 420 ms Atrial fibrillation Septal infarct , age undetermined Abnormal ECG When compared with ECG of 13-FEB-2022 06:17, Atrial fibrillation has replaced Sinus rhythm Confirmed by Ahsan Vines ([id number]) on 03/09/2022 11:13:16 PM Referred By: REFERRED SELF Confirmed By:Ahsan Vines
[2022-03-10] MEDS: ceFAZolin 2000MG 2,000 MG/15 ML SYR IV SCH ×2 (00:05→13:12)
[2022-03-10] MEDS: TUBE FEEDING WATER FLUSH GT SCH ×7 (00:46→20:40)
[2022-03-10 07:32] LABS: Calcium 7.7 mg/dl (8.5-10.1); Magnesium 1.9 mg/dl (1.7-2.4); Potassium 4.6 mmol/L (3.5-5.1)
[2022-03-10 07:37] LABS: BUN Creatinine Ratio 36.7 (10-20); Creatinine Clr Calc Pharmacy 17.1 ml/min; Est GFR (Non-African American) 26.7 ml/min
[2022-03-10] MEDS: ASPIRIN 81 MG CHEW PO SCH (08:07)
[2022-03-10] MEDS: METOPROLOL TARTRATE 25 MG TAB PO SCH ×2 (08:07→20:38)
[2022-03-10] MEDS: LANSOPRAZOLE 30 MG SOLTAB PEG SCH (08:07)
[2022-03-10] MEDS: amLODIPine BESYLATE 5 MG TAB PO SCH (08:08)
[2022-03-10] MEDS: CLOPIDOGREL BISULFATE 75 MG TAB PO SCH (08:08)
[2022-03-10] MEDS: ADVANCED PROBIOTIC 1250 MG CAPSULE PO SCH (08:08)
[2022-03-10] MEDS: LIDOCAINE 5% 1 PATCH TD SCH (08:09)
[2022-03-10] MEDS: TAMSULOSIN HCL 0.4 MG CAP PO SCH (08:09)
[2022-03-10] MEDS: ISOSORBIDE MONO EXTENDED REL 60 MG TABCR PO SCH (08:10)
[2022-03-10] MEDS: HEPARIN SOD 5,000 UNIT/0.5 ML VIAL SQ SCH ×2 (08:49→20:36)
--- NOTE | 2022-03-10 09:46 | XRay Report ---
SINGLE VIEW CHEST CLINICAL HISTORY: Cough. FINDINGS: An AP, portable, upright chest radiograph is compared to study dated 03/07/2022. Correlation is made with chest CT dated 01/26/2022. A right PICC line is unchanged in position. The heart is enla rged noting atherosclerotic calcification of the thoracic aorta. Emphysema and chronic interstitial t hickening is somewhat her previous. Moderate right and small left pleural effusions with dependent co nsolidation. Again seen is evidence of multifocal pulmonary metastatic disease. There are scattered c alcified atheromatous. No pneumothorax is seen. The skeletal structures are osteopenic. The bony thor ax is grossly intact. IMPRESSION: 1. Cardiomegaly and emphysema with evidence of multifocal pulmonary metastatic disease. 2. Right larger than left pleural effusions with dependent consolidation. These are similar to the examination. ACT 112: Negative or not required by law. Electronically signed by: Bolivar Chavez M.D. 03/10/2022 9:44 AM
--- NOTE | 2022-03-10 14:19 | Hospitalist Progress Note ---
Date of Service March 10, 2022 Assessment & Plan (1) Bacteremia due to methicillin susceptible Staphylococcus aureus (MSSA): Plan: Sepsis on admission due to Port-A-Cath infection, s/p Removal after blood wasn't clearing Blood cultures clear for one month now. 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 Cornell as outpatient Also evaluated by ENT Dr. Lyon who recommends NPO, and if airway compromise, will need tracheostomy Continue G-tube feeding Waiting for rehab placement (sutures from cath site removed on 03/09) (2) Infective endocarditis: Plan: Presumed-cont 6 weeks IV abx therapy. (3) Pleural effusion: Plan: Hypoxia and cough are resolved today. Has been treated wtih 7 days of Zosyn/cefepime (02/02-02/08). No fevers or chills and sputum is not purulent. Repeat CXR reveals moderate right and small left pleural effusions, slightly decreased since prior exam. Doubt infection. These effusions are new since admission and may reflect metastatic disease in the chest, sedentary activity with multiple intravenous fluids given throughout the stay, etc. He is improved with Lasix which we will continue. Assessment of EF is 60-65% and he remains in sinus rhythm despite a h/o atrial fibrillation. Continue Lasix and trend BMP daily. (4) Hypoxia: Plan: Likely 2/2 pleural effusions. Resolved. Cont Lasix therapy at this time. (5) Acute urinary retention: Plan: Tamsulosin was held for several days and TOV was unsuccessful. Quinonez replaced on 03/08. Cont several more days of tamsulosin then consider repeat TOV. (6) Atrial fibrillation with controlled ventricular rate: Plan: in sinus rhythm, Metoprolol discontinued earlier in admission 2/2 bradycardia CHADSVASC score 4 Per cardiology, he is not a candidate for ongoing anticoagulation (7) Acute blood loss anemia: Plan: Anemia likely mutlifactorial etiology but he did have rectal bleeding and required 1 unit blood. Currently, no indication for transfusion. H/H stable. 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 Pentoxifylline on hold as this is NOT crushable per pharmacy This should also be renally dosed at discharge to once daily., however, since he is strict NPO, this will likely be stopped altogether. (13) DVT prophylaxis: Plan: DVT Px: heparin Disposition SNF when accepted Code Status: DNR/DNI Rhea Hawkins DO [facility] Hospitalist Admission and Anticipated Discharge Date Admission Date: February 02, 2022 Subjective 86 yo M with h/o ENT cancer presents with infective endocarditis with MSSA Cough is improved CT scan today reveals significant pleural effusion on the right He is diuresing adequately each day and is now off oxygen Discussed peripherally with pulmonology and at this time there is no indication for thoracentesis Dry mouth and dry throat is improved off oxygen and with nursing care that is being given regularly. Review of Systems Review of Systems: All systems were reported to be negative except as indicated above. Physical Exam Physical Exam: CONSTITUTIONAL: thin, frail, elderly, vitals as above, generally well-appearing, NAD, lying in bed EYES: normal conjunctivae, no scleral icterus ENT: external ear and nose normal, NECK: trachea midline, RESPIRATORY: clear to auscultation bilaterally, decreased breath sounds throughout, no crackles, rales or wheezes, normal respiratory effort CARDIOVASCULAR: regular rate and rhythm, S1 and 2 heard without murmurs, gallops or rubs, no JVD, no peripheral edema CHEST: inspection of chest was normal GASTROINTESTINAL: soft, nontender, no guarding, ND MUSCULOSKELETAL: generalized weakness, moves all extremities equally, SKIN: warm and dry, two small sutures still present on right anterior chest wall. NEUROLOGIC: CN 2-12 grossly intact, no sensory deficit, normal cognition, normal speech, no tremor PSYCHIATRIC: alert cooperative and oriented to person, place and time. Results & Data Results & Data ([facility]) Vital Signs (Past 12 Hours) Vital Signs Temp Pulse Resp BP Pulse Ox O2 Del Method 03/10/22 11:09 36.4 C L 69 18 101/59 L 96 Room Air 03/10/22 07:56 Room Air 03/10/22 07:49 36.5 C 66 18 147/65 H 97 Room Air 03/10/22 05:27 36.3 C L 78 22 155/70 H 92 Room Air Laboratory Results [facility] 03/10/22 06:11 Sodium 134 L Potassium 4.6 Chloride 99 Carbon Dioxide 30 BUN 79 H Creatinine 2.15 H Glucose 152 H Calcium 7.7 L Diagnostic Findings Chest X-Ray 03/10/22 08:41 SINGLE VIEW CHEST CLINICAL HISTORY: Cough. FINDINGS: An AP, portable, upright chest radiograph is compared to study dated 03/07/2022. Correlation is made with chest CT dated 01/26/2022. A right PICC line is unchanged in position. The heart is enlarged noting atherosclerotic calcification of the thoracic aorta. Emphysema and chronic interstitial thickening is somewhat her previous. Moderate right and small left pleural effusions with dependent consolidation. Again seen is evidence of multifocal pulmonary metastatic disease. There are scattered calcified atheromatous. No pneumothorax is seen. The skeletal structures are osteopenic. The bony thorax is grossly intact. IMPRESSION: 1. Cardiomegaly and emphysema with evidence of multifocal pulmonary metastatic disease. 2. Right larger than left pleural effusions with dependent consolidation. These are similar to the 03/07/2022 examination. ACT 112: Negative or not required by law. Electronically signed by: Bolivar Chavez M.D. 03/10/2022 9:44 AM Medications Administered Current Inpatient Medications Acetaminophen (Acetaminophen Susp 325 Mg/10.15 Ml Udc) 975 mg PEG Q8H PRN PRN Reason: pain Stop: 03/11/22 10:42 Last Admin: 03/08/22 10:51 Dose: 975 mg Amlodipine Besylate (Amlodipine Besylate 5 Mg Tab) 2.5 mg PO QAM [facility] Stop: 03/25/22 15:44 Last Admin: 03/10/22 08:08 Dose: 2.5 mg Aspirin (Aspirin 81 Mg Chew) 81 mg PO DAILY [facility] Stop: 03/15/22 08:59 Last Admin: 03/10/22 08:07 Dose: 81 mg Atorvastatin Calcium (Atorvastatin 40 Mg Tab) 40 mg PO HS [facility] Stop: 04/05/22 20:59 Last Admin: 03/09/22 21:09 Dose: 40 mg Clopidogrel Bisulfate (Clopidogrel Bisulfate 75 Mg Tab) 75 mg PO QAM [facility] Stop: 04/07/22 08:59 Last Admin: 03/10/22 08:08 Dose: 75 mg Docusate Sodium (Docusate Sodium Syrup 100 Mg/10 Ml Udc) 100 mg PO BID PRN PRN Reason: Constipation Stop: 03/14/22 11:06 Last Admin: 03/10/22 08:06 Dose: 100 mg Enteral Nutritional Formula (Fibersource Hn 1.2 Keith 1000 Ml Bag) 1,000 ml GT Q24H [facility]; Protocol Stop: 03/31/22 17:59 Last Admin: 03/09/22 18:32 Dose: 1,000 ml Furosemide (Furosemide 40 Mg/4 Ml Vial) 40 mg IV BID17 [facility] Stop: 04/08/22 09:54 Last Admin: 03/09/22 17:40 Dose: 40 mg Guaifenesin (Guaifenesin Sugar Free 200 Mg/10 Ml Udc) 200 mg PO Q6H PRN PRN Reason: Cough Stop: 03/31/22 15:39 Last Admin: 03/10/22 06:16 Dose: 200 mg Heparin Sodium (Beef Lung) (Heparin 10 Unit/Ml 5 Ml Flush) 5 ml FLUSH PRN PRN PRN Reason: Flush Stop: 03/13/22 18:43 Last Admin: 03/10/22 07:47 Dose: 5 ml Heparin Sodium (Porcine) (Heparin Sod 5,000 Unit/0.5 Ml Vial) 5,000 units SQ Q12 [facility] Stop: 04/08/22 20:59 Last Admin: 03/10/22 08:49 Dose: 5,000 units Cefazolin Sodium (Ancef 2000mg) 2,000 mg in 15 mls @ 3.75 mls/min IV Q12H [facility]; Protocol Stop: 03/22/22 11:59 Last Admin: 03/10/22 13:12 Dose: 3.75 mls/min Isosorbide Mononitrate (Isosorbide [place] Extended Rel 60 Mg Tabcr) 60 mg PO QAM [facility] Stop: 04/08/22 08:59 Last Admin: 03/10/22 08:10 Dose: Not Given Lactobacillus Acidophilus (Advanced Probiotic 1250 Mg Capsule) 2 cap PO DAILY [facility] Stop: 03/19/22 16:14 Last Admin: 03/10/22 08:08 Dose: 2 cap Lansoprazole (Lansoprazole 30 Mg Soltab) 30 mg PEG DAILY [facility] Stop: 03/15/22 08:59 Last Admin: 03/10/22 08:07 Dose: 30 mg Lidocaine (Lidocaine 5% 1 Patch) [facility] Stop: 03/30/22 16:29 Last Admin: 03/10/22 08:09 Dose: Not Given Metoprolol Tartrate (Metoprolol Tartrate 25 Mg Tab) 12.5 mg PO BID [facility] Stop: 03/15/22 20:59 Last Admin: 03/10/22 08:07 Dose: 12.5 mg Miscellaneous (Remove Lidoderm Patch) 1 each N/A DAILY@2100 [facility] Stop: 03/30/22 22:59 Last Admin: 03/09/22 21:54 Dose: 1 each Miscellaneous (Remove Lidoderm Patch) 1 each N/A DAILY@2100 [facility] Stop: 03/30/22 20:59 Last Admin: 03/09/22 21:54 Dose: 1 each Nitroglycerin (Nitroglycerin Sl 0.4 Mg/Tab Tab) 0.4 mg SL UD PRN PRN Reason: Chest Pain Stop: 04/05/22 10:54 Polyethylene Glycol (Polyethylene (Miralax) 17 Gm Pack) 17 gm PO DAILY PRN PRN Reason: Constipation Stop: 04/05/22 10:54 Sterile Water (Tube Feeding Water Flush) 100 ml GT Q4H [facility] Stop: 04/01/22 13:49 Last Admin: 03/10/22 13:20 Dose: 100 ml Tamsulosin HCl (Tamsulosin Hcl 0.4 Mg Cap) 0.[facility] Stop: 04/07/22 08:59 Last Admin: 03/10/22 08:09 Dose: 0.4 mg
[2022-03-10] MEDS: FIBERSOURCE HN 1.2 CAL 1000 ML BAG GT SCH (18:32)
[2022-03-10] MEDS: FUROSEMIDE 40 MG/4 ML VIAL IV SCH (18:32)
--- NOTE | 2022-03-10 18:52 | CT Scan Report ---
CT SCAN OF THE CHEST WITHOUT IV CONTRAST CLINICAL HISTORY: Pleural effusions. COMPARISON STUDY: Chest x-ray dated 03/10/2022. Chest CT dated 01/26/2022 TECHNIQUE: CT scan of the thorax was performed from the thoracic inlet to the upper abdomen. Images are reviewed in the axial, sagittal, and coronal planes. IV contrast was not administered for this ex amination as per the referring clinician. A dose lowering technique was utilized adhering to the marci matheusples of [place]. CT DOSE: 285.59 mGy.cm FINDINGS: Thyroid: Imaged portions of the thyroid gland are normal in size and attenuation. Thoracic aorta: There is atherosclerotic calcification of the thoracic aorta, which is normal in tami bubba and demonstrates standard 3-vessel arch anatomy. There is evidence of a left axillofemoral bypass within the left chest wall. Heart: A right PICC line is in place. The heart is normal in size noting trace pericardial effusion. The coronary arteries are densely calcified. Lungs and pleural spaces: Emphysematous change is again noted. The trachea and central airways are cl ear. There are moderate pleural effusions, right larger than left with associated atelectasis. Again seen is evidence of multifocal pulmonary metastatic disease. The largest lesion at the left lung base is seen on image #270, and measures up to 3.4 cm. Several of these lesions appear modestly decreased in size as compared 01/26/2022. There are scattered calcified granulomas. Mediastinum: No pathologically enlarged mediastinal lymph nodes are identified. There are scattered c alcifications within mediastinal lymph nodes. Yaritza: Not well assessed without IV contrast. Axillae: There are shotty axillary lymph nodes. Upper abdomen: There is asymmetric cortical atrophy of the right kidney as compared to the left. Sherman vascular calcifications are noted. A gastrostomy tube is present in the stomach. Skeletal structures: The skeletal structures are heterogeneously osteopenic. No lytic or blastic bony lesions are seen. Degenerative change and hyperkyphosis is noted in the thoracic spine. IMPRESSION: 1. Emphysema with evidence of multifocal pulmonary metastatic disease. Several of the lesions have mo destly decreased in size as compared to 01/26/2022. 2. Moderate pleural effusions, right larger than left with associated atelectasis. These have modestl y increased in size as compared to 01/26/2022 3. Additional findings as above. ACT 112: Negative or not required by law. Electronically signed by: Bolivar Chavez M.D. 03/10/2022 6:51 PM
[2022-03-10] MEDS: ATORVASTATIN 40 MG TAB PO SCH (20:39)
[2022-03-11] MEDS: ceFAZolin 2000MG 2,000 MG/15 ML SYR IV SCH ×2 (00:24→11:41)
[2022-03-11] MEDS: TUBE FEEDING WATER FLUSH GT SCH ×6 (02:00→22:25)
[2022-03-11 07:21] LABS: Hematocrit (blood only) 26.7 % (40.1-51.0); Hemoglobin 8.7 g/dl (14.0-18.0); Mean Corpuscular Hemoglobin 31.9 pg (25.0-34.0); Mean Corpuscular Hgb Conc 32.6 g/dL (32.0-36.0); Mean Corpuscular Volume 97.8 fL (80.0-100.0); Platelet Count 364 K/uL (130-400); RDW Coefficient of Variation 15.9 % (11.5-14.5); RDW Standard Deviation 56.1 fL (36.4-46.3); Red Blood Count 2.73 M/uL (4.63-6.08); White Blood Count 13.77 K/ul (4.8-10.8)
[2022-03-11 07:54] LABS: BUN Creatinine Ratio 37.5 (10-20); Calcium 7.9 mg/dl (8.5-10.1); Creatinine Clr Calc Pharmacy 16.5 ml/min; Est GFR (African American) 29.5 ml/min; Est GFR (Non-African American) 25.4 ml/min; Magnesium 2.1 mg/dl (1.7-2.4); Phosphorus 4.3 mg/dl (2.5-4.9); Potassium 4.7 mmol/L (3.5-5.1)
[2022-03-11] MEDS: CLOPIDOGREL BISULFATE 75 MG TAB PO SCH (08:51)
[2022-03-11] MEDS: ASPIRIN 81 MG CHEW PO SCH (08:51)
[2022-03-11] MEDS: FUROSEMIDE 40 MG/4 ML VIAL IV SCH (08:51)
[2022-03-11] MEDS: amLODIPine BESYLATE 5 MG TAB PO SCH (08:51)
[2022-03-11] MEDS: HEPARIN SOD 5,000 UNIT/0.5 ML VIAL SQ SCH ×2 (08:53→22:29)
[2022-03-11] MEDS: ADVANCED PROBIOTIC 1250 MG CAPSULE PO SCH (08:53)
[2022-03-11] MEDS: ISOSORBIDE MONO EXTENDED REL 60 MG TABCR PO SCH (08:53)
[2022-03-11] MEDS: LANSOPRAZOLE 30 MG SOLTAB PEG SCH (08:53)
[2022-03-11] MEDS: TAMSULOSIN HCL 0.4 MG CAP PO SCH (08:54)
[2022-03-11] MEDS: LIDOCAINE 5% 1 PATCH TD SCH (08:54)
[2022-03-11] MEDS: METOPROLOL TARTRATE 25 MG TAB PO SCH ×2 (08:54→22:24)
--- NOTE | 2022-03-11 16:34 | Hospitalist Progress Note ---
Date of Service March 11, 2022 Assessment & Plan (1) Bacteremia due to methicillin susceptible Staphylococcus aureus (MSSA): Plan: Sepsis on admission due to Port-A-Cath infection, s/p Removal after blood wasn't clearing Blood cultures clear for one month now. 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 Cornell as outpatient Also evaluated by ENT Dr. Lyon who recommends NPO, and if airway compromise, will need tracheostomy Continue G-tube feeding Waiting for rehab placement (sutures from cath site removed on 03/09) (2) Infective endocarditis: Plan: Presumed-cont 6 weeks IV abx therapy. (3) Pleural effusion: Plan: Hypoxia and cough are resolved today. Has been treated wtih 7 days of Zosyn/cefepime (02/02-02/08). No fevers or chills and sputum is not purulent. Repeat CXR reveals moderate right and small left pleural effusions, slightly decreased since prior exam. Doubt infection. These effusions are new since admission and may reflect metastatic disease in the chest, sedentary activity with multiple intravenous fluids given throughout the stay, etc. He is improved with Lasix which we will continue. Assessment of EF is 60-65% and he remains in sinus rhythm despite a h/o atrial fibrillation. Continue Lasix and trend BMP daily. (4) Hypoxia: Plan: Likely 2/2 pleural effusions. Resolved. Cont Lasix therapy at this time. (5) Acute urinary retention: Plan: Tamsulosin was held for several days and TOV was unsuccessful. Quinonez replaced on 03/08. Cont several more days of tamsulosin then consider repeat TOV. (6) Atrial fibrillation with controlled ventricular rate: Plan: in sinus rhythm, Metoprolol discontinued earlier in admission 2/2 bradycardia CHADSVASC score 4 Per cardiology, he is not a candidate for ongoing anticoagulation (7) Acute blood loss anemia: Plan: Anemia likely mutlifactorial etiology but he did have rectal bleeding and required 1 unit blood. Currently, no indication for transfusion. H/H stable. 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 Pentoxifylline on hold as this is NOT crushable per pharmacy This should also be renally dosed at discharge to once daily., however, since he is strict NPO, this will likely be stopped altogether. 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 denies cough or increased SOB or chest pain today. Review of Systems Review of Systems: All systems were reported to be negative except as indicated above. Physical Exam Physical Exam: CONSTITUTIONAL: thin, frail, elderly, vitals as above, generally well-appearing, NAD, lying in bed EYES: normal conjunctivae, no scleral icterus ENT: external ear and nose normal, NECK: trachea midline, RESPIRATORY: clear to auscultation bilaterally, decreased breath sounds throughout, no crackles, rales or wheezes, normal respiratory effort CARDIOVASCULAR: regular rate and rhythm, S1 and 2 heard without murmurs, gallops or rubs, no JVD, no peripheral edema CHEST: inspection of chest was normal GASTROINTESTINAL: soft, nontender, no guarding, ND MUSCULOSKELETAL: generalized weakness, moves all extremities equally, SKIN: warm and dry, two small sutures still present on right anterior chest wall. NEUROLOGIC: CN 2-12 grossly intact, no sensory deficit, normal cognition, normal speech, no tremor PSYCHIATRIC: alert cooperative and oriented to person, place and time. Results & Data Results & Data ([facility]) Vital Signs (Past 12 Hours) Vital Signs Temp Pulse Pulse Resp BP Pulse Ox O2 Del Method 03/11/22 15:26 67 03/11/22 14:38 36.3 C L 72 16 135/65 97 Room Air 03/11/22 08:00 Room Air 03/11/22 11:21 36.4 C L 60 16 119/51 L 95 Room Air 03/11/22 08:09 60 03/11/22 07:41 36.4 C L 77 18 139/60 97 Room Air 03/11/22 05:54 94 H 163/94 H Laboratory Results Short CBC 03/11/22 Range/Units 06:37 WBC 13.77 H (4.8-10.8) K/ul Hgb 8.7 L (14.0-18.0) g/dl Hct 26.7 L (40.1-51.0) % Plt Count 364 (130-400) K/uL [facility] 03/11/22 06:37 Sodium 135 L Potassium 4.7 Chloride 98 Carbon Dioxide 29 BUN 84 H Creatinine 2.24 H Glucose 132 H Calcium 7.9 L Medications Administered Current Inpatient Medications Amlodipine Besylate (Amlodipine Besylate 5 Mg Tab) 2.5 mg PO QAM [facility] Stop: 03/25/22 15:44 Last Admin: 03/11/22 08:51 Dose: 2.5 mg Aspirin (Aspirin 81 Mg Chew) 81 mg PO DAILY [facility] Stop: 03/15/22 08:59 Last Admin: 03/11/22 08:51 Dose: 81 mg Atorvastatin Calcium (Atorvastatin 40 Mg Tab) 40 mg PO HS [facility] Stop: 04/05/22 20:59 Last Admin: 03/10/22 20:39 Dose: 40 mg Clopidogrel Bisulfate (Clopidogrel Bisulfate 75 Mg Tab) 75 mg PO QAM [facility] Stop: 04/07/22 08:59 Last Admin: 03/11/22 08:51 Dose: 75 mg Docusate Sodium (Docusate Sodium Syrup 100 Mg/10 Ml Udc) 100 mg PO BID PRN PRN Reason: Constipation Stop: 03/14/22 11:06 Last Admin: 03/10/22 08:06 Dose: 100 mg Enteral Nutritional Formula (Fibersource Hn 1.2 Keith 1000 Ml Bag) 1,000 ml GT Q24H [facility]; Protocol Stop: 03/31/22 17:59 Last Admin: 03/10/22 18:32 Dose: 1,000 ml Furosemide (Furosemide 40 Mg/4 Ml Vial) 40 mg IV DAILY [facility] Stop: 04/11/22 08:59 Guaifenesin (Guaifenesin Sugar Free 200 Mg/10 Ml Udc) 200 mg PO Q6H PRN PRN Reason: Cough Stop: 03/31/22 15:39 Last Admin: 03/10/22 06:16 Dose: 200 mg Heparin Sodium (Beef Lung) (Heparin 10 Unit/Ml 5 Ml Flush) 5 ml FLUSH PRN PRN PRN Reason: Flush Stop: 03/13/22 18:43 Last Admin: 03/11/22 11:41 Dose: 5 ml Heparin Sodium (Porcine) (Heparin Sod 5,000 Unit/0.5 Ml Vial) 5,000 units SQ Q12 [facility] Stop: 04/08/22 20:59 Last Admin: 03/11/22 08:53 Dose: Not Given Cefazolin Sodium (Ancef 2000mg) 2,000 mg in 15 mls @ 3.75 mls/min IV Q12H [facility]; Protocol Stop: 03/22/22 11:59 Last Admin: 03/11/22 11:41 Dose: 3.75 mls/min Isosorbide Mononitrate (Isosorbide [place] Extended Rel 60 Mg Tabcr) 60 mg PO QAM [facility] Stop: 04/08/22 08:59 Last Admin: 03/11/22 08:53 Dose: 60 mg Lactobacillus Acidophilus (Advanced Probiotic 1250 Mg Capsule) 2 cap PO DAILY [facility] Stop: 03/19/22 16:14 Last Admin: 03/11/22 08:53 Dose: 2 cap Lansoprazole (Lansoprazole 30 Mg Soltab) 30 mg PEG DAILY [facility] Stop: 03/15/22 08:59 Last Admin: 03/11/22 08:53 Dose: 30 mg Lidocaine (Lidocaine 5% 1 Patch) 1 patch TD QAM [facility] Stop: 03/30/22 16:29 Last Admin: 03/11/22 08:54 Dose: Not Given Metoprolol Tartrate (Metoprolol Tartrate 25 Mg Tab) 12.5 mg PO BID [facility] Stop: 03/15/22 20:59 Last Admin: 03/11/22 08:54 Dose: 12.5 mg Miscellaneous (Remove Lidoderm Patch) 1 each N/A DAILY@2100 [facility] Stop: 03/30/22 22:59 Last Admin: 03/10/22 20:39 Dose: 1 each Miscellaneous (Remove Lidoderm Patch) 1 each N/A DAILY@2100 [facility] Stop: 03/30/22 20:59 Last Admin: 03/10/22 20:39 Dose: 1 each Miscellaneous (Stop Order) 1 each N/A DAILY@1000 [facility] Stop: 04/11/22 09:59 Nitroglycerin (Nitroglycerin Sl 0.4 Mg/Tab Tab) 0.4 mg SL UD PRN PRN Reason: Chest Pain Stop: 04/05/22 10:54 Polyethylene Glycol (Polyethylene (Miralax) 17 Gm Pack) 17 gm PO DAILY PRN PRN Reason: Constipation Stop: 04/05/22 10:54 Sterile Water (Tube Feeding Water Flush) 100 ml GT Q4H [facility] Stop: 04/01/22 13:49 Last Admin: 03/11/22 15:00 Dose: 100 ml Tamsulosin HCl (Tamsulosin Hcl 0.4 Mg Cap) 0.4 mg PO QAM [facility] Stop: 04/07/22 08:59 Last Admin: 03/11/22 08:54 Dose: 0.4 mg
[2022-03-11] MEDS: FIBERSOURCE HN 1.2 CAL 1000 ML BAG GT SCH (17:36)
[2022-03-11] MEDS: ATORVASTATIN 40 MG TAB PO SCH (22:24)
[2022-03-12] MEDS: ceFAZolin 2000MG 2,000 MG/15 ML SYR IV SCH ×3 (00:10→23:59)
[2022-03-12] MEDS: TUBE FEEDING WATER FLUSH GT SCH ×7 (01:50→23:59)
[2022-03-12 07:15] LABS: BUN Creatinine Ratio 39.2 (10-20); Calcium 7.8 mg/dl (8.5-10.1); Creatinine Clr Calc Pharmacy 15.4 ml/min; Potassium 4.5 mmol/L (3.5-5.1)
[2022-03-12] MEDS ORDERED: FUROSEMIDE 40 MG/4 ML VIAL IV SCH (09:00)
[2022-03-12] MEDS: HEPARIN SOD 5,000 UNIT/0.5 ML VIAL SQ SCH ×2 (09:18→20:16)
[2022-03-12] MEDS: CLOPIDOGREL BISULFATE 75 MG TAB PO SCH (09:35)
[2022-03-12] MEDS: LIDOCAINE 5% 1 PATCH TD SCH ×3 (09:35→11:27)
[2022-03-12] MEDS: amLODIPine BESYLATE 5 MG TAB PO SCH (09:35)
[2022-03-12] MEDS: LANSOPRAZOLE 30 MG SOLTAB PEG SCH (09:36)
[2022-03-12] MEDS: METOPROLOL TARTRATE 25 MG TAB PO SCH ×2 (09:36→20:14)
[2022-03-12] MEDS: ADVANCED PROBIOTIC 1250 MG CAPSULE PO SCH (09:36)
[2022-03-12] MEDS: TAMSULOSIN HCL 0.4 MG CAP PO SCH (09:36)
[2022-03-12] MEDS: ASPIRIN 81 MG CHEW PO SCH (09:36)
[2022-03-12] MEDS: ISOSORBIDE MONO EXTENDED REL 60 MG TABCR PO SCH (09:36)
[2022-03-12] MEDS ORDERED: LACTATED RINGER'S 500 ML IV ONE ×2 (11:26→14:15)
--- NOTE | 2022-03-12 14:28 | Hospitalist Progress Note ---
Date of Service March 12, 2022 Assessment & Plan (1) Bacteremia due to methicillin susceptible Staphylococcus aureus (MSSA): Plan: Sepsis on admission due to Port-A-Cath infection, s/p Removal after blood wasn't clearing Blood cultures clear for one month now. 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 Cornell as outpatient--reports having done two cycles of chemotherapy prior to this admisison. Also evaluated by ENT Dr. Lyon who recommends NPO, and if airway compromise, will need tracheostomy Continue G-tube feeding Waiting for rehab placement (sutures from cath site removed on 03/09) (2) Infective endocarditis: Plan: Presumed-cont 6 weeks IV abx therapy. (3) Pleural effusion: Plan: Hypoxia and cough are resolved with lasix, however, Lasix cannot keep up with volume of effusion, possibly related to pulmonary mets. Has been treated wtih 7 days of Zosyn/cefepime (02/02-02/08). No fevers or chills and sputum is not purulent. Doubt infection. These effusions are new since admission and may reflect metastatic disease in the chest, sedentary activity with multiple intravenous fluids given throughout the stay, etc. Assessment of EF is 60-65% and he remains in sinus rhythm despite a h/o atrial fibrillation. Hold Lasix in hypotension and with worsening renal dysfunction. (4) Hypoxia: Plan: Likely 2/2 pleural effusions. Resolved. (5) Acute urinary retention: Plan: Tamsulosin was held for several days and TOV was unsuccessful. Quinonez replaced on 03/08. Cont several more days of tamsulosin then consider repeat TOV. Now experiencing hematuria which is new overnight. Heparin held. Will consult urology. Cont tamsulosin (6) Atrial fibrillation with controlled ventricular rate: Plan: in sinus rhythm, Metoprolol discontinued earlier in admission 2/2 bradycardia CHADSVASC score 4 Per cardiology, he is not a candidate for ongoing anticoagulation (7) Acute blood loss anemia: Plan: Anemia likely mutlifactorial etiology but he did have rectal bleeding and required 1 unit blood. Currently, no indication for transfusion. H/H stable. He does have new hematuria present, and is hypotensive with normal HR. Hypotension is thought 2/2 diuretic therapy. Cont to monitor CBC. 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 These were restarted again approximately 6 days ago. Holding heparin in acute hematuria, however, if that doesn't clear his urine, would consider stopping one of these. Pentoxifylline on hold as this is NOT crushable per pharmacy This should also be renally dosed at discharge to once daily., however, since he is strict NPO, this will likely be stopped altogether. 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 Review of Systems Review of Systems: All systems were reported to be negative except as indicated above. Physical Exam Physical Exam: CONSTITUTIONAL: thin, frail, elderly, vitals as above, NAD, lying in bed EYES: normal conjunctivae, no scleral icterus ENT: external ear and nose normal, mucous membranes are dry NECK: trachea midline, RESPIRATORY: clear to auscultation bilaterally, moving air well, no crackles, rales or wheezes, normal respiratory effort CARDIOVASCULAR: regular rate and rhythm, S1 and 2 heard without murmurs, gallops or rubs, no JVD, no peripheral edema CHEST: inspection of chest was normal GASTROINTESTINAL: soft, nontender, no guarding, ND MUSCULOSKELETAL: generalized weakness, moves all extremities equally, SKIN: warm and dry NEUROLOGIC: CN 2-12 grossly intact, no sensory deficit, normal cognition, +difficulty articulating which has been the same eveery day he has been seen by the undersigned. no changes. no tremor PSYCHIATRIC: alert cooperative and oriented to person, place and time. Results & Data Results & Data ([facility]) Vital Signs (Past 12 Hours) Vital Signs Temp Pulse Pulse Resp BP Pulse Ox O2 Del Method 03/12/22 11:16 36.3 C L 62 17 77/43 L 95 03/12/22 09:30 Room Air 03/12/22 07:50 36.9 C 70 18 125/61 97 Room Air 03/12/22 07:41 49 L 03/12/22 04:00 36.9 C 65 20 134/59 L 96 Room Air 03/12/22 03:45 Room Air Laboratory Results [facility] 03/12/22 05:36 Sodium 136 Potassium 4.5 Chloride 99 Carbon Dioxide 29 BUN 89 H Creatinine 2.27 H Glucose 144 H Calcium 7.8 L Medications Administered Current Inpatient Medications Amlodipine Besylate (Amlodipine Besylate 5 Mg Tab) 2.5 mg PO QAM FLO Stop: 03/25/22 15:44 Last Admin: 03/12/22 09:35 Dose: 2.5 mg Aspirin (Aspirin 81 Mg Chew) 81 mg PO DAILY FLO Stop: 03/15/22 08:59 Last Admin: 03/12/22 09:36 Dose: 81 mg Atorvastatin Calcium (Atorvastatin 40 Mg Tab) 40 mg PO HS FLO Stop: 04/05/22 20:59 Last Admin: 03/11/22 22:24 Dose: 40 mg Clopidogrel Bisulfate (Clopidogrel Bisulfate 75 Mg Tab) 75 mg PO QAM [facility] Stop: 04/07/22 08:59 Last Admin: 03/12/22 09:35 Dose: 75 mg Docusate Sodium (Docusate Sodium Syrup 100 Mg/10 Ml Udc) 100 mg PO BID [facility] Stop: 04/11/22 14:19 Enteral Nutritional Formula (Fibersource Hn 1.2 Keith 1000 Ml Bag) 1,000 ml GT Q24H FLO; Protocol Stop: 03/31/22 17:59 Last Admin: 03/11/22 17:36 Dose: 1,000 ml Guaifenesin (Guaifenesin Sugar Free 200 Mg/10 Ml Udc) 200 mg PO Q6H PRN PRN Reason: Cough Stop: 03/31/22 15:39 Last Admin: 03/10/22 06:16 Dose: 200 mg Heparin Sodium (Beef Lung) (Heparin 10 Unit/Ml 5 Ml Flush) 5 ml FLUSH PRN PRN PRN Reason: Flush Stop: 03/13/22 18:43 Last Admin: 03/11/22 11:41 Dose: 5 ml Heparin Sodium (Porcine) (Heparin Sod 5,000 Unit/0.5 Ml Vial) 5,000 units SQ Q12 FLO Stop: 04/08/22 20:59 Last Admin: 03/12/22 09:18 Dose: Not Given Cefazolin Sodium (Ancef 2000mg) 2,000 mg in 15 mls @ 3.75 mls/min IV Q12H [facility]; Protocol Stop: 03/22/22 11:59 Last Admin: 03/12/22 11:33 Dose: 3.75 mls/min Lactated Ringer's (Lr) 500 mls @ 999 mls/hr IV .Q31M ONE Stop: 03/12/22 14:45 Isosorbide Mononitrate (Isosorbide Early Extended Rel 60 Mg Tabcr) 60 mg PO QAM [facility] Stop: 04/08/22 08:59 Last Admin: 03/12/22 09:36 Dose: 60 mg Lactobacillus Acidophilus (Advanced Probiotic 1250 Mg Capsule) 2 cap PO DAILY [facility] Stop: 03/19/22 16:14 Last Admin: 03/12/22 09:36 Dose: 2 cap Lansoprazole (Lansoprazole 30 Mg Soltab) 30 mg PEG DAILY [facility] Stop: 03/15/22 08:59 Last Admin: 03/12/22 09:36 Dose: 30 mg Lidocaine (Lidocaine 5% 1 Patch) 1 patch TD QAM [facility] Stop: 03/30/22 16:29 Last Admin: 03/12/22 09:35 Dose: 1 patch Lidocaine (Lidocaine 5% 1 Patch) [facility] Stop: 04/11/22 10:44 Last Admin: 03/12/22 11:00 Dose: 1 patch Lidocaine (Lidocaine 5% 1 Patch) 1 patch TD [facility] Stop: 04/11/22 11:29 Last Admin: 03/12/22 11:27 Dose: Not Given Metoprolol Tartrate (Metoprolol Tartrate 25 Mg Tab) 12.5 mg PO BID [facility] Stop: 03/15/22 20:59 Last Admin: 03/12/22 09:36 Dose: 12.5 mg Miscellaneous (Remove Lidoderm Patch) 1 each N/A DAILY@2099 [facility] Stop: 03/30/22 22:59 Last Admin: 03/11/22 22:25 Dose: Not Given Miscellaneous (Remove Lidoderm Patch) 1 each N/A DAILY@2099 [facility] Stop: 03/30/22 20:59 Last Admin: 03/11/22 22:25 Dose: Not Given Miscellaneous (Stop Order) 1 each N/A DAILY@999 [facility] Stop: 04/11/22 09:59 Last Admin: 03/12/22 08:54 Dose: 1 each Miscellaneous (Remove Lidoderm Patch) 1 each N/A DAILY@2099 [facility] Stop: 04/11/22 20:59 Miscellaneous (Remove Lidoderm Patch) 1 each N/A DAILY@2099 [facility] Stop: 04/11/22 20:59 Nitroglycerin (Nitroglycerin Sl 0.4 Mg/Tab Tab) 0.4 mg SL UD PRN PRN Reason: Chest Pain Stop: 04/05/22 10:54 Polyethylene Glycol (Polyethylene (Miralax) 17 Gm Pack) 17 gm PO DAILY PRN PRN Reason: Constipation Stop: 04/05/22 10:54 Sterile Water (Tube Feeding Water Flush) 100 ml GT Q4H [facility] Stop: 04/01/22 13:49 Last Admin: 03/12/22 14:09 Dose: 100 ml Tamsulosin HCl (Tamsulosin Hcl 0.4 Mg Cap) 0.4 mg PO QAM [facility] Stop: 04/07/22 08:59 Last Admin: 03/12/22 09:36 Dose: 0.4 mg
[2022-03-12] MEDS: DOCUSATE SODIUM SYRUP 100 MG/10 ML UDC PO SCH ×2 (14:55→20:15)
--- NOTE | 2022-03-12 15:43 | Urology Progress Note ---
Date of Service March 12, 2022 Assessment & Plan (1) Indwelling Quinonez catheter present: (2) Urinary retention: (3) Hematuria: Plan: 86 yo M with history of ENT cancer admitted with infective endocarditis with MSSA. - Case reviewed with Dr. Garcia. - Urology reconsulted for hematuria. - Hematuria noted in Quinonez this AM, Heparin has been held. - Quinonez intact and draining clear yellow urine at time of my exam. - Since hematuria has cleared there is no acute intervention needed at this time. - Maintain Quinonez catheter - continue to monitor. - Continue Tamsulosin. - Recommend hold Heparin for now and try to restart in 24 hours if urine remains clear. - will sign off, contact us with any further questions or concerns. Admission and Anticipated Discharge Date Admission Date: February 02, 2022 Subjective 86 yo M with history of ENT cancer admitted with infective endocarditis with MSSA. Patient with prolonged hospitalization due to many comorbidities. Urology reconsulted for hematuria. Consulted earlier in admission for urinary retention, which has been managed by Quinonez catheter. Per chart review, a voiding trial was attempted but he failed and catheter was replaced on 03/08. He is now back on Tamsulosin. Per nursing, Quinonez catheter was draining red urine early this morning, no clots. His heparin was held. Patient is awake and answers questions, but is poor historian and unable to provide history. He denies flank, abdominal or suprapubic pain, but reports "discomfort all over." No nausea or vomiting. No fever or chills. His Quinonez catheter is intact and draining clear yellow urine at time of exam. Review of Systems Review of Systems: All systems reviewed & are unremarkable except as noted in HPI & below Constitutional: as per Subjective / HPI Gastrointestinal: as per Subjective / HPI Genitourinary: + as per Subjective / HPI Physical Exam Constitutional: + thin; no acute distress Eyes: no scleral abnormality Respiratory: normal respiratory effort; no respiratory distress and no labored breathing Cardiovascular: Extremities: no pedal edema Gastrointestinal (Abdomen): Inspection/Auscultation: abdomen normal to inspection; abdomen not distended Percussion/Palpation: abdomen soft; abdomen nontender Musculoskeletal: Head/Neck/Chest: normocephalic and head atraumatic Neurologic: moves all extremities and awake Psychiatric: Orientation: alert and oriented to person Genitourinary: Quinonez intact and draining clear yellow urine Results & Data ([facility]) Vital Signs (Past 12 Hours) Vital Signs Temp Pulse Pulse Resp BP Pulse Ox O2 Del Method 03/12/22 11:16 36.3 C L 62 17 77/43 L 95 03/12/22 09:30 Room Air 03/12/22 07:50 36.9 C 70 18 125/61 97 Room Air 03/12/22 07:41 49 L 03/12/22 04:00 36.9 C 65 20 134/59 L 96 Room Air 03/12/22 03:45 Room Air PG Care Time/CCT Total # of Minutes Spent Total Time Spent with Patient: Total time spent is greater than 50% in coordination of care (as documented) at patient's floor/unit and/or counseling patient: Coding Level of Care Code 33796 Inpt Consult Level 3 Diagnoses Indwelling Quinonez catheter present Z97.8 Urinary retention R33.9 Hematuria R31.9
[2022-03-12] MEDS: FIBERSOURCE HN 1.2 CAL 1000 ML BAG GT SCH (18:06)
[2022-03-12] MEDS: ATORVASTATIN 40 MG TAB PO SCH (20:15)
[2022-03-13] MEDS: TUBE FEEDING WATER FLUSH GT SCH ×6 (05:25→23:12)
[2022-03-13 08:12] LABS: BUN Creatinine Ratio 39.7 (10-20); Calcium 7.9 mg/dl (8.5-10.1); Creatinine Clr Calc Pharmacy 15.8 ml/min; Est GFR (African American) 30.3 ml/min; Est GFR (Non-African American) 26.1 ml/min; Potassium 4.4 mmol/L (3.5-5.1)
[2022-03-13] MEDS: HEPARIN SOD 5,000 UNIT/0.5 ML VIAL SQ SCH (09:22)
[2022-03-13] MEDS: TAMSULOSIN HCL 0.4 MG CAP PO SCH (09:24)
[2022-03-13] MEDS: amLODIPine BESYLATE 5 MG TAB PO SCH (09:24)
[2022-03-13] MEDS: ADVANCED PROBIOTIC 1250 MG CAPSULE PO SCH (09:24)
[2022-03-13] MEDS: METOPROLOL TARTRATE 25 MG TAB PO SCH ×2 (09:24→20:26)
[2022-03-13] MEDS: LIDOCAINE 5% 1 PATCH TD SCH ×3 (09:24)
[2022-03-13] MEDS: ISOSORBIDE MONO EXTENDED REL 60 MG TABCR PO SCH (09:24)
[2022-03-13] MEDS: CLOPIDOGREL BISULFATE 75 MG TAB PO SCH (09:25)
[2022-03-13] MEDS: ASPIRIN 81 MG CHEW PO SCH (09:25)
[2022-03-13] MEDS: LANSOPRAZOLE 30 MG SOLTAB PEG SCH (09:25)
[2022-03-13] MEDS: DOCUSATE SODIUM SYRUP 100 MG/10 ML UDC PO SCH ×2 (09:26→20:25)
[2022-03-13] MEDS: ceFAZolin 2000MG 2,000 MG/15 ML SYR IV SCH ×2 (11:59→23:12)
[2022-03-13] MEDS ORDERED: SODIUM CHLORIDE 0.9% 1000ML 1,000 ML IV SCH (12:15)
--- NOTE | 2022-03-13 13:44 | Hospitalist Progress Note ---
Date of Service March 13, 2022 Assessment & Plan (1) Bacteremia due to methicillin susceptible Staphylococcus aureus (MSSA): Plan (1) Bacteremia due to methicillin susceptible Staphylococcus aureus (MSSA): Plan: Sepsis on admission due to Port-A-Cath infection, s/p Removal after blood wasn't clearing Blood cultures clear for one month now. 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 Cornell as outpatient--reports having done two cycles of chemotherapy prior to this admisison. Also evaluated by ENT Dr. Lyon who recommends NPO, andif airway compromise, will need tracheostomy Continue G-tube feeding Waiting for rehab placement (sutures from cath site removed on 03/09) (2) Infective endocarditis: Plan: Presumed-cont 6 weeks IV abx therapy. (3) Pleural effusion: Plan: Hypoxia and cough are resolved with lasix, however, Lasix cannot keep up with volume of effusion, possibly related to pulmonary mets. Has been treated wtih 7 days of Zosyn/cefepime (02/02-02/08). No fevers or chills and sputum is not purulent.Doubt infection. These effusions are new since admission and may reflect metastatic disease in the chest, sedentary activity with multiple intravenous fluids given throughout the stay, etc. Assessment of EF is 60-65% and he remains in sinus rhythm despite a h/o atrial fibrillation. Hold Lasix in hypotension and with worsening renal dysfunction. Will use iv albumin for hypotension and orthostases. Monitor for SOB, avoid ivf resuscitation. Amlodipine on hold due to low BP. (4) Hypoxia: Plan: Likely 2/2 pleural effusions. Resolved. (5) Acute urinary retention: Plan: Tamsulosin was held for several days and TOV was unsuccessful. Quinonez replaced on 03/08. Cont several more days of tamsulosin then consider repeat TOV. Now experiencing hematuria which is new overnight 03/11- 03/12. Heparin Px held. Uro evaled, now w/ intermittent pink urine per RN, hold heparin, consider starting luke after assessment. (6) Atrial fibrillation with controlled ventricular rate: Plan: in sinus rhythm, Metoprolol discontinued earlier in admission 2/2 bradycardia CHADSVASC score 4 Per cardiology, he is not a candidate for ongoing anticoagulation (7) Acute blood loss anemia: Plan: Anemia likely mutlifactorial etiology but he did have rectal bleeding and required 1 unit blood. Currently, no indication for transfusion. H/H stable. He does have new hematuria present, and is hypotensive with normal HR. Hypotension is thought 2/2 diuretic therapy. Cont to monitor CBC. 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 These were restarted again approximately 6 days ago. Holding heparin in acute hematuria, however, if that doesn't clear his urine, would consider stopping one of these. Pentoxifylline on hold as this is NOT crushable per pharmacy This should also be renally dosed at discharge to once daily., however, since he is strict NPO, this will likely be stopped altogether. (13) DVT prophylaxis: Plan: DVT Px: scds, heparin on hold due to hematuria Disposition SNF when accepted Code Status: DNR/DNI Admission and Anticipated Discharge Date Admission Date: February 02, 2022 Subjective Patient seen and examined at bedside as a follow-up of bacteremia due to MSSA and possible infective endocarditis, acute urinary retention. Patient was lying in bed, on room air, NAD, had orthostatic vitals positive in the a.m., had 3 loose bowel movements yesterday per RN, patient is strict n.p.o. and is getting PEG tube., Per RN there was concern of intermittent pink urine overnight, hence heparin being held in the a.m., we will continue to monitor hematuria. Patient denies headache or dizziness, patient is awake and alert, patient is poor historian. Patient denies pain or discomfort. Will use some IVF to account for loose BM and ortho vitals today, hold BP meds. Physical Exam Physical Exam: GENERAL: Alert and oriented x3. NAD, on RA. Thin/ill/frail/weak appearing. HEENT: No pallor, no icterus. Pupils equal, round and reactive to light. Oral mucosa moist. NECK: No JVD, no neck masses. HEART: S1 and S2 heard. Regular rate and rhythm. No murmur, no gallop. RESPIRATORY SYSTEM: Normal AP diameter. No accessory muscle use. No wheezing, no crackles. ABDOMEN: Soft, bowel sounds present, nontender, no distention. PEG tube noted. CENTRAL NERVOUS SYSTEM: No facial droop. Speech is clear. Obeys simple commands. Moves extremities. EXTREMITIES: No edema, no erythema seen. Generalized weakness. Results & Data Results & Data ([facility]) Vital Signs (Past 12 Hours) Vital Signs Temp Pulse Pulse Resp BP Pulse Ox O2 Del Method 03/13/22 11:27 36.6 C 42 L 20 110/46 L 96 Room Air 03/13/22 07:37 36.5 C 59 L 20 148/55 H 96 Room Air 03/13/22 07:10 68 03/13/22 02:22 36.9 C 79 18 133/61 98 Room Air
[2022-03-13] MEDS: ALBUMIN 25% 100 mL 25 GM/100 ML VIAL IV SCH ×2 (14:30→20:30)
[2022-03-13 16:52] LABS: Vitamin D 1,25 14 pg/mL (18-72); Vitamin D3,1,25 14 pg/mL
[2022-03-13] MEDS: FIBERSOURCE HN 1.2 CAL 1000 ML BAG GT SCH (17:41)
[2022-03-13] MEDS: ATORVASTATIN 40 MG TAB PO SCH (20:26)
[2022-03-14] MEDS: TUBE FEEDING WATER FLUSH GT SCH ×6 (05:30→23:29)
[2022-03-14] MEDS: ALBUMIN 25% 100 mL 25 GM/100 ML VIAL IV SCH (06:12)
[2022-03-14] MEDS: LIDOCAINE 5% 1 PATCH TD SCH ×3 (07:56→08:02)
[2022-03-14] MEDS: CLOPIDOGREL BISULFATE 75 MG TAB PO SCH (08:01)
[2022-03-14] MEDS: METOPROLOL TARTRATE 25 MG TAB PO SCH ×2 (08:01→20:03)
[2022-03-14] MEDS: TAMSULOSIN HCL 0.4 MG CAP PO SCH (08:01)
[2022-03-14] MEDS: LANSOPRAZOLE 30 MG SOLTAB PEG SCH (08:01)
[2022-03-14] MEDS: ISOSORBIDE MONO EXTENDED REL 60 MG TABCR PO SCH (08:01)
[2022-03-14] MEDS: ASPIRIN 81 MG CHEW PO SCH (08:01)
[2022-03-14] MEDS: ADVANCED PROBIOTIC 1250 MG CAPSULE PO SCH (08:02)
[2022-03-14] MEDS: DOCUSATE SODIUM SYRUP 100 MG/10 ML UDC PO SCH ×2 (08:17→20:03)
[2022-03-14 08:45] LABS: Basophils # (auto) 0.07 K/uL (0-0.2); Basophils % (auto) 0.6 %; Eosinophils # (auto) 0.72 K/uL (0-0.50); Eosinophils % (auto) 5.8 %; Immature Granulocytes # (auto) 0.07 K/uL (0.00-0.02); Immature Granulocytes % (auto) 0.6 %; Lymphocytes # (auto) 0.66 K/uL (1.2-3.4); Lymphocytes % (auto) 5.3 %; Mean Corpuscular Hemoglobin 31.5 pg (25.0-34.0); Mean Corpuscular Hgb Conc 31.8 g/dL (32.0-36.0); Mean Corpuscular Volume 99.1 fL (80.0-100.0); Mean Platelet Volume 9.8 fL (9.4-12.4); Monocytes # (auto) 1.56 K/uL (0.24-0.82); Monocytes % (auto) 12.5 %; Neutrophils # (auto) 9.42 K/uL (1.4-6.5); Neutrophils % (auto) 75.2 %; Platelet Count 313 K/uL (130-400); RDW Coefficient of Variation 16.2 % (11.5-14.5); RDW Standard Deviation 58.7 fL (36.4-46.3); Red Blood Count 2.22 M/uL (4.63-6.08)
[2022-03-14 09:15] LABS: BUN Creatinine Ratio 38.6 (10-20); Est GFR (Non-African American) 26.7 ml/min; Magnesium 2.1 mg/dl (1.7-2.4); Phosphorus 3.5 mg/dl (2.5-4.9); Potassium 4.2 mmol/L (3.5-5.1)
[2022-03-14 09:34] LABS: RBC Morphology Unremarkable
--- NOTE | 2022-03-14 09:45 | Hospitalist Progress Note ---
Date of Service March 14, 2022 Assessment & Plan (1) Bacteremia due to methicillin susceptible Staphylococcus aureus (MSSA): Plan (1) Bacteremia due to methicillin susceptible Staphylococcus aureus (MSSA): Plan: Sepsis on admission due to Port-A-Cath infection, s/p Removal after blood wasn't clearing Blood cultures clear for one month now. 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 Cornell as outpatient--reports having done two cycles of chemotherapy prior to this admission. Also evaluated by ENT Dr. Lyon who recommends NPO, andif airway compromise, will need tracheostomy Continue G-tube feeding Waiting for rehab placement (sutures from cath site removed on 03/09) (2) Infective endocarditis: Plan: Presumed-cont 6 weeks IV abx therapy. (3) Pleural effusion: Plan: Hypoxia and cough are resolved with lasix Effusion could be related to pulmonary mets vs fluids given since admission. Has been treated with 7 days of Zosyn/cefepime (02/02-02/08). No fevers or chills and sputum is not purulent. Echo showed EF is 60-65% and he remains in sinus rhythm despite a h/o atrial fibrillation. Lasix has been on hold due to episodes of hypotension and renal function (4) Hypoxia: Plan: Likely 2/2 pleural effusions. Resolved. (5) Acute urinary retention: Plan: Tamsulosin was held for several days and TOV was unsuccessful. Quinonez replaced on 03/08. Cont tamsulosin then consider repeat TOV. Had hematuria overnight 03/11- 03/12. Heparin sq held. Urologist recs noted (6) Atrial fibrillation with controlled ventricular rate: Plan: In sinus rhythm Metoprolol discontinued earlier in admission 2/2 bradycardia CHADSVASC score 4 Per cardiology, he is not a candidate for ongoing anticoagulation (7) Acute blood loss anemia: Plan: Anemia likely multifactorial etiology but he did have rectal bleeding and required 1 unit blood. Hb dropped to 7 today from 8.7 three days ago Monitor Hb and transfuse prn to keep >7 (8) Rectal bleeding: Plan: Rectal bleeding noted in early Feb ASA and plavix was held Protonix 40mg IV BID started and prevacid via PEG was held He required 1 unit PRBC on 02/26 Monitor H&H which is currently stable Per Gastro, no indication for endoscopy at this time Poor candidate for any procedures Currently on ASA, Plavix for h/o PAD (9) UTI (urinary tract infection): Plan: Urine Cx:- Enterobacter, Staph Urinary retention Completed cefepime course (10) Irritation around percutaneous endoscopic gastrostomy (PEG) tube site: (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 These were restarted again Pentoxifylline on hold as this is NOT crushable per pharmacy This should also be renally dosed at discharge to once daily., However, since he is strict NPO, this will likely be stopped altogether. (13) DVT prophylaxis: Plan: DVT Px: scds, Hep sq on hold for now due to hematuria and anemia Disposition SNF when accepted Code Status: DNR/DNI Admission and Anticipated Discharge Date Admission Date: February 02, 2022 Subjective Patient seen and examined. Reports trouble sleeping last night and feeling generally irritated. Denied any pain anywhere, denies any chest pain, cough, shortness of breath, palpitation Denies any nausea, vomiting, abdominal pain Feeling constipated today. Denied any headache, dizziness Has Quinonez in situ Physical Exam Constitutional: + well hydrated and + thin; no acute distress Eyes: PERRL, conjunctivae normal, anicteric sclerae Respiratory: normal respiratory effort, lungs clear to auscultation Cardiovascular: Rate/Rhythm: regular rate and regular rhythm S1 S2 Gastrointestinal (Abdomen): normal bowel sounds, soft, nontender, no hepatosplenomegaly PEG tube in situ Musculoskeletal: No pedal edema Neurologic: PERRL, EOMI, accommodation nl, no face palsy, no dysarthria Genitourinary: Quinonez in situ with clear urine Results & Data Results & Data ([facility]) Vital Signs (Past 12 Hours) Vital Signs Temp Pulse Pulse Resp BP Pulse Ox O2 Del Method 03/14/22 08:10 Room Air 03/14/22 07:14 36.5 C 73 18 146/77 H 96 Room Air 03/14/22 06:58 71 03/13/22 23:07 36.5 C 65 20 122/45 L 97 Room Air 03/13/22 22:11 59 L 03/13/22 22:45 36.5 C 58 L 16 126/49 L 97 Room Air Laboratory Results Abnormal lab results 03/09/22 03/14/22 03/14/22 Range/Units 08:37 08:17 08:17 WBC 12.50 H (4.8-10.8) K/ul RBC 2.22 L (4.63-6.08) M/uL Hgb 7.0 L (14.0-18.0) g/dl Hct 22.0 L (40.1-51.0) % MCHC 31.8 L (32.0-36.0) g/dL RDW Std Deviation 58.7 H (36.4-46.3) fL RDW Coeff of Migdalia 16.2 H (11.5-14.5) % Neut # (Auto) 9.42 H (1.4-6.5) K/uL Lymph # (Auto) 0.66 L (1.2-3.4) K/uL [place] # (Auto) 1.56 H (0.24-0.82) K/uL Eos # (Auto) 0.72 H (0-0.50) K/uL Immature Gran # (Auto) 0.07 H (0.00-0.02) K/uL BUN 83 H (6-23) mg/dl Creatinine 2.15 H (0.6-1.4) mg/dl BUN/Creatinine Ratio 38.6 H (10-20) Glucose 156 H (70-99(Fasting)) mg/dl Calcium 8.0 L (8.5-10.1) mg/dl Vit D 1,25-Dihyd Total 14 L (18-72) pg/mL
[2022-03-14] MEDS: CHOLECALCIFEROL 1,000 UNITS 25 MCG TAB PEG SCH (11:06)
[2022-03-14] MEDS: ceFAZolin 2000MG 2,000 MG/15 ML SYR IV SCH ×2 (11:51→23:29)
[2022-03-14] MEDS: FIBERSOURCE HN 1.2 CAL 1000 ML BAG GT SCH (17:02)
[2022-03-14] MEDS: ATORVASTATIN 40 MG TAB PO SCH (20:03)
[2022-03-14] MEDS ORDERED: MELATONIN 3 MG TAB PO PRN (20:45)
[2022-03-15] MEDS: TUBE FEEDING WATER FLUSH GT SCH ×5 (03:45→20:50)
[2022-03-15] MEDS: LIDOCAINE 5% 1 PATCH TD SCH ×3 (07:44→08:37)
[2022-03-15 08:09] LABS: Hematocrit (blood only) 24.3 % (40.1-51.0); Hemoglobin 7.9 g/dl (14.0-18.0); Mean Corpuscular Hemoglobin 31.9 pg (25.0-34.0); Mean Corpuscular Hgb Conc 32.5 g/dL (32.0-36.0); Platelet Count 355 K/uL (130-400); RDW Coefficient of Variation 16.5 % (11.5-14.5); RDW Standard Deviation 59.3 fL (36.4-46.3); Red Blood Count 2.48 M/uL (4.63-6.08); White Blood Count 17.36 K/ul (4.8-10.8)
[2022-03-15 08:29] LABS: BUN Creatinine Ratio 39.7 (10-20); Calcium 8.3 mg/dl (8.5-10.1); Creatinine Clr Calc Pharmacy 16.5 ml/min; Est GFR (Non-African American) 27.6 ml/min; Potassium 4.3 mmol/L (3.5-5.1)
[2022-03-15] MEDS: CHOLECALCIFEROL 1,000 UNITS 25 MCG TAB PEG SCH (08:36)
[2022-03-15] MEDS: TAMSULOSIN HCL 0.4 MG CAP PO SCH (08:36)
[2022-03-15] MEDS: CLOPIDOGREL BISULFATE 75 MG TAB PO SCH (08:36)
[2022-03-15] MEDS: METOPROLOL TARTRATE 25 MG TAB PO SCH ×2 (08:36→21:11)
[2022-03-15] MEDS: DOCUSATE SODIUM SYRUP 100 MG/10 ML UDC PO SCH ×2 (08:36→21:12)
[2022-03-15] MEDS: ADVANCED PROBIOTIC 1250 MG CAPSULE PO SCH (08:36)
[2022-03-15] MEDS: ISOSORBIDE MONO EXTENDED REL 60 MG TABCR PO SCH (08:36)
--- NOTE | 2022-03-15 11:50 | Hospitalist Progress Note ---
Date of Service March 15, 2022 Assessment & Plan (1) Bacteremia due to methicillin susceptible Staphylococcus aureus (MSSA): Plan (1) Bacteremia due to methicillin susceptible Staphylococcus aureus (MSSA): Plan: Sepsis on admission due to Port-A-Cath infection, s/p Removal after blood wasn't clearing Blood cultures clear for one month now. 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 Cornell as outpatient--reports having done two cycles of chemotherapy prior to this admission. Also evaluated by ENT Dr. Lyon who recommends NPO, andif airway compromise, will need tracheostomy Continue G-tube feeding Waiting for rehab placement (sutures from cath site removed on 03/09) (2) Infective endocarditis: Plan: Presumed-cont 6 weeks IV abx therapy. (3) Pleural effusion: Plan: Hypoxia and cough are resolved with lasix Effusion could be related to pulmonary mets vs fluids given since admission. Echo showed EF is 60-65% and he remains in sinus rhythm despite a h/o atrial fibrillation. Lasix has been on hold due to episodes of hypotension and renal function (4) Hypoxia: Plan: Likely 2/2 pleural effusions. Resolved. (5) Acute urinary retention: Plan: Tamsulosin was held for several days and TOV was unsuccessful. Quinonez replaced on 03/08. Cont tamsulosin then consider repeat TOV. Had hematuria overnight 03/11- 03/12. Heparin sq held. Urologist recs noted (6) Atrial fibrillation with controlled ventricular rate: Plan: In sinus rhythm Metoprolol discontinued earlier in admission 2/2 bradycardia CHADSVASC score 4 Per cardiology, he is not a candidate for ongoing anticoagulation (7) Acute blood loss anemia: Plan: Anemia likely multifactorial etiology but he did have rectal bleeding and required 1 unit blood. Hb dropped to 7 on 03/14 from 8.7 three days ago Hb is 7.9 today Monitor Hb and transfuse prn to keep >7 (8) Rectal bleeding: Plan: Rectal bleeding noted in early Feb ASA and plavix was held Protonix 40mg IV BID started and prevacid via PEG was held He required 1 unit PRBC on 02/26 Monitor H&H which is currently stable Per Gastro, no indication for endoscopy at this time Poor candidate for any procedures Currently on ASA, Plavix for h/o PAD (9) UTI (urinary tract infection): Plan: Urine Cx:- Enterobacter, Staph Urinary retention Completed cefepime course (10) Irritation around percutaneous endoscopic gastrostomy (PEG) tube site: (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 These were restarted again Pentoxifylline on hold as this is NOT crushable per pharmacy This should also be renally dosed at discharge to once daily., However, since he is strict NPO, this will likely be stopped altogether. (13) DVT prophylaxis: Plan: DVT Px: scds, Hep sq on hold for now due to hematuria and anemia Disposition SNF when accepted Code Status: DNR/DNI Admission and Anticipated Discharge Date Admission Date: February 02, 2022 Subjective Patient seen and examined. Denied any new complaints today Denied any pain anywhere, denies any chest pain, cough, shortness of breath, palpitation Denies any nausea, vomiting, abdominal pain, constipation Denied any headache, dizziness Has Quinonez in situ Physical Exam Constitutional: + well hydrated and + thin; no acute distress Eyes: PERRL, conjunctivae normal, anicteric sclerae Respiratory: normal respiratory effort, lungs clear to auscultation Cardiovascular: Rate/Rhythm: regular rate and regular rhythm S1 S2 Gastrointestinal (Abdomen): normal bowel sounds, soft, nontender, no hepatosplenomegaly Neurologic: PERRL, EOMI, accommodation nl, no face palsy, no dysarthria Psychiatric: Alert and oriented person, place, month and year Genitourinary: Quinonez in situ Results & Data Results & Data ([facility]) Vital Signs (Past 12 Hours) Vital Signs Temp Pulse Pulse Resp BP Pulse Ox O2 Del Method 03/15/22 11:49 36.4 C L 65 16 135/59 L 95 Room Air 03/15/22 08:40 Room Air 03/15/22 07:51 37.2 C 87 16 142/49 H 96 Room Air 03/15/22 06:56 76 Laboratory Results Abnormal lab results 03/15/22 03/15/22 Range/Units 07:37 07:37 WBC 17.36 H (4.8-10.8) K/ul RBC 2.48 L (4.63-6.08) M/uL Hgb 7.9 L (14.0-18.0) g/dl Hct 24.3 L (40.1-51.0) % RDW Std Deviation 59.3 H (36.4-46.3) fL RDW Coeff of Migdalia 16.5 H (11.5-14.5) % BUN 83 H (6-23) mg/dl Creatinine 2.09 H (0.6-1.4) mg/dl BUN/Creatinine Ratio 39.7 H (10-20) Glucose 123 H (70-99(Fasting)) mg/dl Calcium 8.3 L (8.5-10.1) mg/dl
[2022-03-15] MEDS: ceFAZolin 2000MG 2,000 MG/15 ML SYR IV SCH (11:56)
[2022-03-15] MEDS: FIBERSOURCE HN 1.2 CAL 1000 ML BAG GT SCH (17:22)
[2022-03-15] MEDS: ATORVASTATIN 40 MG TAB PO SCH (21:12)
[2022-03-16] MEDS: TUBE FEEDING WATER FLUSH GT SCH ×6 (00:50→20:50)
[2022-03-16] MEDS: TAMSULOSIN HCL 0.4 MG CAP PO SCH (08:42)
[2022-03-16] MEDS: DOCUSATE SODIUM SYRUP 100 MG/10 ML UDC PO SCH ×2 (08:42→20:02)
[2022-03-16] MEDS: CHOLECALCIFEROL 1,000 UNITS 25 MCG TAB PEG SCH (08:42)
[2022-03-16] MEDS: CLOPIDOGREL BISULFATE 75 MG TAB PO SCH (08:42)
[2022-03-16] MEDS: ADVANCED PROBIOTIC 1250 MG CAPSULE PO SCH (08:43)
[2022-03-16] MEDS ORDERED: ASPIRIN 81 MG ECTAB PO SCH (09:00)
[2022-03-16] MEDS: LIDOCAINE 5% 1 PATCH TD SCH ×2 (09:01)
[2022-03-16] MEDS: METOPROLOL TARTRATE 25 MG TAB PO SCH ×2 (10:31→20:01)
[2022-03-16] MEDS: ASPIRIN 81 MG CHEW PO SCH (10:32)
[2022-03-16] MEDS: ISOSORBIDE MONONITRATE 20 MG TAB PO SCH ×2 (10:32→17:06)
[2022-03-16] MEDS: ceFAZolin 2000MG 2,000 MG/15 ML SYR IV SCH ×3 (11:43→23:55)
--- NOTE | 2022-03-16 13:22 | Hospitalist Progress Note ---
Date of Service March 16, 2022 Assessment & Plan (1) Bacteremia due to methicillin susceptible Staphylococcus aureus (MSSA): Plan (1) Bacteremia due to methicillin susceptible Staphylococcus aureus (MSSA): Plan: Sepsis on admission due to Port-A-Cath infection, s/p Removal after blood wasn't clearing Blood cultures clear for one month now. 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 Cornell as outpatient--reports having done two cycles of chemotherapy prior to this admission. Also evaluated by ENT Dr. Lyon who recommends NPO, andif airway compromise, will need tracheostomy Continue G-tube feeding Waiting for rehab placement (sutures from cath site removed on 03/09) (2) Infective endocarditis: Plan: Presumed-cont 6 weeks IV abx therapy. (3) Pleural effusion: Plan: Hypoxia and cough are resolved with lasix Effusion could be related to pulmonary mets vs fluids given since admission. Echo showed EF is 60-65% and he remains in sinus rhythm despite a h/o atrial fibrillation. Lasix has been on hold due to episodes of hypotension and renal function (4) Hypoxia: Plan: Likely 2/2 pleural effusions. Resolved. (5) Acute urinary retention: Plan: Tamsulosin was held for several days and TOV was unsuccessful. Quinonez replaced on 03/08. Cont tamsulosin then consider repeat TOV. Had hematuria overnight 03/11- 03/12. Heparin sq held. Urologist recs noted Will do TOV tomorrow (6) Atrial fibrillation with controlled ventricular rate: Rate controlled Metoprolol discontinued earlier in admission 2/2 bradycardia CHADSVASC score 4 Per cardiology, he is not a candidate for ongoing anticoagulation (7) Acute blood loss anemia: Plan: Anemia likely multifactorial etiology but he did have rectal bleeding and required 1 unit blood. 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 These were restarted again Pentoxifylline on hold as this is NOT crushable per pharmacy This should also be renally dosed at discharge to once daily., However, since he is strict NPO, this will likely be stopped altogether. Home imdur which is not crushable changed to isordil (13) DVT prophylaxis: Plan: DVT Px: scds, Hep sq on hold for now due to hematuria and anemia Disposition SNF when accepted Code Status: DNR/DNI Admission and Anticipated Discharge Date Admission Date: February 02, 2022 Subjective Patient seen and examined. Reports insomnia Reports mild cough with scant sputum today No chest pain or shortness of breath Denies any nausea, vomiting, abdominal pain, constipation Denied any headache, dizziness Has Quinonez in situ Physical Exam Constitutional: + well hydrated and + thin; no acute distress Eyes: PERRL, conjunctivae normal, anicteric sclerae ENMT: external ear and nose normal, oropharynx normal Respiratory: normal respiratory effort, lungs clear to auscultation Cardiovascular: Rate/Rhythm: + irregularly irregular S1 S2 Gastrointestinal (Abdomen): normal bowel sounds, soft, nontender, no hepatosplenomegaly Musculoskeletal: No pedal edema Neurologic: PERRL, EOMI, accommodation nl, no face palsy, no dysarthria Psychiatric: Alert and oriented to person, place and time Genitourinary: Quinonez in situ with clear urine Results & Data Results & Data ([facility]) Vital Signs (Past 12 Hours) Vital Signs Temp Pulse Resp BP Pulse Ox O2 Del Method 03/16/22 12:00 36.8 C 67 18 139/55 L 97 Room Air 03/16/22 07:00 Room Air 03/16/22 07:58 36.7 C 69 18 172/77 H 96 Room Air 03/16/22 03:00 36.8 C 56 L 20 142/68 H 95 Room Air Laboratory Results Abnormal lab results 03/16/22 03/16/22 Range/Units 00:04 05:50 POC Glucose 139 H 178 H (70-99) mg/dl
[2022-03-16] MEDS: FIBERSOURCE HN 1.2 CAL 1000 ML BAG GT SCH (17:07)
[2022-03-16] MEDS: MELATONIN 3 MG TAB PO SCH (20:01)
[2022-03-16] MEDS: ATORVASTATIN 40 MG TAB PO SCH (20:02)
[2022-03-17] MEDS: TUBE FEEDING WATER FLUSH GT SCH ×6 (00:36→20:50)
[2022-03-17] MEDS: ISOSORBIDE MONONITRATE 20 MG TAB PO SCH ×3 (06:00→16:51)
[2022-03-17 07:31] LABS: Hematocrit (blood only) 22.7 % (40.1-51.0); Hemoglobin 7.3 g/dl (14.0-18.0); Mean Corpuscular Hemoglobin 31.6 pg (25.0-34.0); Mean Corpuscular Hgb Conc 32.2 g/dL (32.0-36.0); Mean Corpuscular Volume 98.3 fL (80.0-100.0); Mean Platelet Volume 10.2 fL (9.4-12.4); Platelet Count 336 K/uL (130-400); RDW Coefficient of Variation 16.8 % (11.5-14.5); RDW Standard Deviation 59.7 fL (36.4-46.3); Red Blood Count 2.31 M/uL (4.63-6.08); White Blood Count 13.25 K/ul (4.8-10.8)
[2022-03-17] MEDS: DOCUSATE SODIUM SYRUP 100 MG/10 ML UDC PO SCH ×2 (07:57→20:01)
[2022-03-17] MEDS: CLOPIDOGREL BISULFATE 75 MG TAB PO SCH (07:57)
[2022-03-17 07:58] LABS: BUN Creatinine Ratio 41.9 (10-20); Calcium 8.1 mg/dl (8.5-10.1); Creatinine Clr Calc Pharmacy 18.5 ml/min; Est GFR (African American) 36.9 ml/min; Est GFR (Non-African American) 31.8 ml/min; Potassium 4.1 mmol/L (3.5-5.1)
[2022-03-17] MEDS: METOPROLOL TARTRATE 25 MG TAB PO SCH ×2 (07:58→20:00)
[2022-03-17] MEDS: ADVANCED PROBIOTIC 1250 MG CAPSULE PO SCH (07:58)
[2022-03-17] MEDS: ASPIRIN 81 MG CHEW PO SCH (07:58)
[2022-03-17] MEDS: CHOLECALCIFEROL 1,000 UNITS 25 MCG TAB PEG SCH (08:01)
[2022-03-17] MEDS: TAMSULOSIN HCL 0.4 MG CAP PO SCH (08:01)
[2022-03-17] MEDS: LIDOCAINE 5% 1 PATCH TD SCH ×2 (08:02)
[2022-03-17] MEDS: ceFAZolin 2000MG 2,000 MG/15 ML SYR IV SCH ×2 (11:38→23:49)
--- NOTE | 2022-03-17 11:47 | Hospitalist Progress Note ---
Date of Service March 17, 2022 Assessment & Plan (1) Bacteremia due to methicillin susceptible Staphylococcus aureus (MSSA): Plan (1) Bacteremia due to methicillin susceptible Staphylococcus aureus (MSSA): Plan: Sepsis on admission due to Port-A-Cath infection, s/p Removal after blood wasn't clearing Blood cultures clear for one month now. 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 Cornell as outpatient--reports having done two cycles of chemotherapy prior to this admission. Also evaluated by ENT Dr. Lyon who recommends NPO, andif airway compromise, will need tracheostomy Continue G-tube feeding Waiting for rehab placement (sutures from cath site removed on 03/09) (2) Infective endocarditis: Plan: Presumed-cont 6 weeks IV abx therapy. (3) Pleural effusion: Plan: Hypoxia and cough are resolved with lasix Effusion could be related to pulmonary mets vs fluids given since admission. Echo showed EF is 60-65% and he remains in sinus rhythm despite a h/o atrial fibrillation. Lasix has been on hold due to episodes of hypotension and renal function (4) Hypoxia: Plan: Likely 2/2 pleural effusions. Resolved. (5) Acute urinary retention: Plan: Tamsulosin was held for several days and TOV was unsuccessful. Fowler replaced on 03/08. Cont tamsulosin then consider repeat TOV. Had hematuria overnight 03/11- 03/12. Heparin sq held. Urologist recs noted Patient interested in seeing if fowler can be removed Discussed with RN. Will do TOV (6) Atrial fibrillation with controlled ventricular rate: Rate controlled Metoprolol discontinued earlier in admission 2/2 bradycardia CHADSVASC score 4 Per cardiology, he is not a candidate for ongoing anticoagulation (7) Acute blood loss anemia: Plan: Anemia likely multifactorial etiology but he did have rectal bleeding and required 1 unit blood. 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 These were restarted again Pentoxifylline on hold as this is NOT crushable per pharmacy This should also be renally dosed at discharge to once daily., However, since he is strict NPO, this will likely be stopped altogether. (13) DVT prophylaxis: Plan: DVT Px: scds, Hep sq on hold for now due to hematuria and anemia Disposition SNF when accepted Code Status: DNR/DNI Admission and Anticipated Discharge Date Admission Date: February 02, 2022 Subjective Patient seen and examined. Reported he slept better last night with scheduled melatonin Reports feeling frustrated with his long hospital stay Reports occasional cough with scant sputum. sometimes blood stained Denied chest pain or shortness of breath Denies any nausea, vomiting, abdominal pain, constipation Denied any headache, dizziness Has some bruise on his chin which he reported was due to shaving this AM Has Fowler in situ Physical Exam Constitutional: + well hydrated and + thin; no acute distress Eyes: PERRL, conjunctivae normal, anicteric sclerae ENMT: external ear and nose normal, oropharynx normal Respiratory: normal respiratory effort, lungs clear to auscultation Cardiovascular: Rate/Rhythm: + irregularly irregular S1 S2 Gastrointestinal (Abdomen): normal bowel sounds, soft, nontender, no hepatosplenomegaly Musculoskeletal: No pedal edema Skin: Ecchymoses on anterior chest. Nontender Bruise over left chin Neurologic: PERRL, EOMI, accommodation nl, no face palsy, no dysarthria Genitourinary: Fowler in situ with clear urine Results & Data Results & Data ([place]) Vital Signs (Past 12 Hours) Vital Signs Temp Pulse Pulse Resp BP Pulse Ox O2 Del Method 03/17/22 11:04 36.3 C L 72 18 145/63 H 93 Room Air 03/17/22 06:12 68 03/17/22 07:00 Room Air 03/17/22 07:54 36.6 C 71 16 139/56 L 96 Room Air 03/17/22 04:00 36.8 C 69 18 163/61 H 95 Room Air Laboratory Results Abnormal lab results 03/17/22 03/17/22 Range/Units 06:37 06:37 WBC 13.25 H (4.8-10.8) K/ul RBC 2.31 L (4.63-6.08) M/uL Hgb 7.3 L (14.0-18.0) g/dl Hct 22.7 L (40.1-51.0) % RDW Std Deviation 59.7 H (36.4-46.3) fL RDW Coeff of Migdalia 16.8 H (11.5-14.5) % BUN 78 H (6-23) mg/dl Creatinine 1.86 H (0.6-1.4) mg/dl BUN/Creatinine Ratio 41.9 H (10-20) Glucose 171 H (70-99(Fasting)) mg/dl Calcium 8.1 L (8.5-10.1) mg/dl
[2022-03-17] MEDS: FIBERSOURCE HN 1.2 CAL 1000 ML BAG GT SCH (17:13)
[2022-03-17] MEDS: MELATONIN 3 MG TAB PO SCH (20:01)
[2022-03-17] MEDS: ATORVASTATIN 40 MG TAB PO SCH (20:01)
[2022-03-18] MEDS: TUBE FEEDING WATER FLUSH GT SCH ×6 (00:40→23:54)
[2022-03-18] MEDS: ISOSORBIDE MONONITRATE 20 MG TAB PO SCH ×3 (06:29→16:57)
[2022-03-18 07:59] LABS: Hematocrit (blood only) 22.9 % (40.1-51.0); Hemoglobin 7.4 g/dl (14.0-18.0); Mean Corpuscular Hemoglobin 31.8 pg (25.0-34.0); Mean Corpuscular Hgb Conc 32.3 g/dL (32.0-36.0); Mean Corpuscular Volume 98.3 fL (80.0-100.0); Mean Platelet Volume 9.7 fL (9.4-12.4); Platelet Count 341 K/uL (130-400); RDW Coefficient of Variation 16.8 % (11.5-14.5); RDW Standard Deviation 59.7 fL (36.4-46.3); Red Blood Count 2.33 M/uL (4.63-6.08); White Blood Count 14.55 K/ul (4.8-10.8)
[2022-03-18 08:24] LABS: BUN Creatinine Ratio 45.1 (10-20); Calcium 8.2 mg/dl (8.5-10.1); Est GFR (African American) 39.7 ml/min; Est GFR (Non-African American) 34.3 ml/min; Potassium 4.3 mmol/L (3.5-5.1)
[2022-03-18] MEDS: ADVANCED PROBIOTIC 1250 MG CAPSULE PO SCH (08:51)
[2022-03-18] MEDS: CHOLECALCIFEROL 1,000 UNITS 25 MCG TAB PEG SCH (08:51)
[2022-03-18] MEDS: ASPIRIN 81 MG CHEW PO SCH (08:51)
[2022-03-18] MEDS: LIDOCAINE 5% 1 PATCH TD SCH ×2 (08:51)
[2022-03-18] MEDS: CLOPIDOGREL BISULFATE 75 MG TAB PO SCH (08:52)
[2022-03-18] MEDS: TAMSULOSIN HCL 0.4 MG CAP PO SCH (08:52)
[2022-03-18] MEDS: DOCUSATE SODIUM SYRUP 100 MG/10 ML UDC PO SCH ×2 (08:52→21:00)
[2022-03-18] MEDS: METOPROLOL TARTRATE 25 MG TAB PO SCH ×2 (08:52→21:00)
--- NOTE | 2022-03-18 10:10 | Hospitalist Progress Note ---
Date of Service March 18, 2022 Assessment & Plan (1) Bacteremia due to methicillin susceptible Staphylococcus aureus (MSSA): Plan (1) Bacteremia due to methicillin susceptible Staphylococcus aureus (MSSA): Plan: Sepsis on admission due to Port-A-Cath infection, s/p Removal after blood wasn't clearing Blood cultures clear for one month now. 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 Cornell as outpatient--reports having done two cycles of chemotherapy prior to this admission. Also evaluated by ENT Dr. Lyon who recommends NPO, andif airway compromise, will need tracheostomy Continue G-tube feeding Waiting for rehab placement (sutures from cath site removed on 03/09) (2) Infective endocarditis: Plan: Presumed-cont 6 weeks IV abx therapy. (3) Pleural effusion: Plan: Hypoxia and cough are resolved with lasix Effusion could be related to pulmonary mets vs fluids given since admission. Echo showed EF is 60-65% and he remains in sinus rhythm despite a h/o atrial fibrillation. Lasix has been on hold due to episodes of hypotension and renal function (4) Hypoxia: Plan: Likely 2/2 pleural effusions. Resolved. (5) Urinary retention: Plan: Tamsulosin was held for several days and TOV was unsuccessful. Fowler replaced on 03/08. Cont tamsulosin then consider repeat TOV. Had hematuria overnight 03/11- 03/12. Heparin sq held. Urologist recs noted Failed TOV yesterday Plan to dc on fowler and follow up with urology (6) Atrial fibrillation with controlled ventricular rate: Rate controlled Metoprolol discontinued earlier in admission 2/2 bradycardia CHADSVASC score 4 Per cardiology, he is not a candidate for ongoing anticoagulation (7) Acute blood loss anemia: Plan: Anemia likely multifactorial etiology but he did have rectal bleeding and required 1 unit blood. 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 These were restarted again Pentoxifylline on hold as this is NOT crushable per pharmacy This should also be renally dosed at discharge to once daily., However, since he is strict NPO, this will likely be stopped altogether. (13) DVT prophylaxis: Plan: DVT Px: scds, Hep sq on hold for now due to intermittent hematuria, bruises and anemia Disposition SNF when accepted Code Status: DNR/DNI Admission and Anticipated Discharge Date Admission Date: February 02, 2022 Subjective Patient seen and examined Reports only cough with scant sputum. No hemoptysis Denied chest pain or shortness of breath Denies any nausea, vomiting, abdominal pain, constipation Denied any headache, dizziness Voiding trial was unsuccessful yesterday Physical Exam Constitutional: + well hydrated and + thin; no acute distress Eyes: PERRL, conjunctivae normal, anicteric sclerae ENMT: external ear and nose normal, oropharynx normal Respiratory: normal respiratory effort, lungs clear to auscultation Cardiovascular: Rate/Rhythm: + irregularly irregular S1 S2 Gastrointestinal (Abdomen): normal bowel sounds, soft, nontender, no hepatosplenomegaly Musculoskeletal: No pedal edema Neurologic: PERRL, EOMI, accommodation nl, no face palsy, no dysarthria Genitourinary: Fowler in situ Results & Data Results & Data ([facility]) Vital Signs (Past 12 Hours) Vital Signs Temp Pulse Pulse Resp BP Pulse Ox O2 Del Method 03/18/22 08:03 36.9 C 69 18 148/52 H 94 Room Air 03/18/22 03:06 36.9 C 79 18 172/62 H 96 Room Air 03/17/22 22:10 59 L Laboratory Results Abnormal lab results 03/18/22 03/18/22 Range/Units 07:34 07:34 WBC 14.55 H (4.8-10.8) K/ul RBC 2.33 L (4.63-6.08) M/uL Hgb 7.4 L (14.0-18.0) g/dl Hct 22.9 L (40.1-51.0) % RDW Std Deviation 59.7 H (36.4-46.3) fL RDW Coeff of Migdalia 16.8 H (11.5-14.5) % BUN 79 H (6-23) mg/dl Creatinine 1.75 H (0.6-1.4) mg/dl BUN/Creatinine Ratio 45.1 H (10-20) Glucose 119 H (70-99(Fasting)) mg/dl Calcium 8.2 L (8.5-10.1) mg/dl
[2022-03-18] MEDS: ceFAZolin 2000MG 2,000 MG/15 ML SYR IV SCH (12:01)
[2022-03-18] MEDS: FIBERSOURCE HN 1.2 CAL 1000 ML BAG GT SCH (17:04)
[2022-03-18] MEDS: ATORVASTATIN 40 MG TAB PO SCH (21:00)
[2022-03-18] MEDS: MELATONIN 3 MG TAB PO SCH (21:00)
[2022-03-19] MEDS: ceFAZolin 2000MG 2,000 MG/15 ML SYR IV SCH ×2 (00:11→12:20)
[2022-03-19] MEDS: TUBE FEEDING WATER FLUSH GT SCH ×4 (03:16→12:23)
[2022-03-19] MEDS: ISOSORBIDE MONONITRATE 20 MG TAB PO SCH ×2 (07:49→12:21)
[2022-03-19] MEDS: METOPROLOL TARTRATE 25 MG TAB PO SCH (08:08)
[2022-03-19] MEDS: TAMSULOSIN HCL 0.4 MG CAP PO SCH (08:08)
[2022-03-19] MEDS: ASPIRIN 81 MG CHEW PO SCH (08:08)
[2022-03-19] MEDS: CHOLECALCIFEROL 1,000 UNITS 25 MCG TAB PEG SCH (08:09)
[2022-03-19] MEDS: ADVANCED PROBIOTIC 1250 MG CAPSULE PO SCH (08:09)
[2022-03-19] MEDS: CLOPIDOGREL BISULFATE 75 MG TAB PO SCH (08:10)
[2022-03-19] MEDS: DOCUSATE SODIUM SYRUP 100 MG/10 ML UDC PO SCH (08:10)
[2022-03-19] MEDS: LIDOCAINE 5% 1 PATCH TD SCH ×2 (08:10→08:11)
[2022-03-19 10:21] LABS: Creatinine Clr Calc Pharmacy 19.1 ml/min; Est GFR (African American) 39.4 ml/min
--- NOTE | 2022-03-19 13:48 | Discharge Summary ---
Discharge Summary Date of Service March 19, 2022 Notes For Next Care Provider [facility]up [facility] Continue goals of care. Continue management of chronic medical problems Patient is currently n.p.o. and on tube feeding. May need follow-up with urology if urinary retention persist Medication Changes From Visit Patient discharged on IV Ancef 2 g every 12 hours until 03/22/2022 to complete 6 weeks of treatment for MSSA bacteremia and possible infective endocarditis Medication Routes changed to feeding tube. 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 He had a second cycle of chemotherapy last Friday. As per he had a PEG tube placed a bout a couple of weeks ago in [place]. A couple of days ago, he had some abdominal pain and urinary retention, was placed on Fowler catheter in [facility] .As per the [facility] records, the patient about a week ago, had embolization done for bleeding from his throat or tongue lesion.Also had vascular bypass done for his peripheral vascular disease in the past. It looks like he also has some renal insufficiency. The patient also had a port placed recently as well. Today in the evening his temperature was high at 103 degrees. His oncologist is Dr. Cornell. His called Dr. Cornell and he advised to come to the [facility] to get evaluated by the urology, because he just a couple of days ago had Fowler catheter placed. The patient is resting comfortably, hemodynamically stable. He denies any headache. He says he has some mild neck pain. No chest pain, no back pain, no abdominal pain. He has some right knee pain. Not eating, he is on tube feeds. He says he is tolerating tube feeds okay. Denies any diarrhea or constipation. No shortness of breath. He says he has some mild sore throat, mild cough. Vision is okay. Admission Exam Per Admitting Provider GENERAL: The patient is old and frail, not in acute distress. VITAL SIGNS: Temperature T-max 38.6, pulse 93, respiratory rate 18, blood pressure 130/51, oxygen 98% on room air. HEENT: Pupils equal, round, and reactive to light. Oral mucosa dry. NECK: No JVD or neck masses. CARDIOVASCULAR: S1 and S2 heard. Regular rate and rhythm. No murmur, no gallop. RESPIRATORY SYSTEM: Normal AP diameter. No accessory muscle use. No wheezing, no crackles. ABDOMEN: Soft, bowel sounds present. PEG tube site has some slight pus seen. Nontender, no distention. CENTRAL NERVOUS SYSTEM: Alert and awake. No facial droop. Speech is okay. Insight is okay. Moves extremities. EXTREMITIES: No edema, no erythema. SKIN: A-port site, no obvious infection seen. 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 End date is 03/22/[address] (3) Pleural effusion: Hypoxia and cough are resolved with lasix Effusion could be related to pulmonary mets vs fluids given since admission. Echo showed EF is 60-65% and he remains in sinus rhythm despite a h/o atrial fibrillation. Lasix has been on hold due to episodes of hypotension and worsened renal function (4) Hypoxia: Likely 2/2 pleural effusions. Resolved. (5) Urinary retention: Had hematuria overnight 03/11- 03/12. Was evaluated by Urologist inpatient Failed multiple trial of voiding Discharged to nursing facility with fowler They will continue trial of voiding at facility May need follow up with Urology outpatient Continue flomax (6) Atrial fibrillation with controlled ventricular rate: Rate controlled Metoprolol discontinued earlier in admission 2/2 bradycardia CHADSVASC score 4 Per cardiology, he is not a candidate for ongoing anticoagulation (7) Acute blood loss anemia: Anemia likely multifactorial etiology but he did have rectal bleeding and required 1 unit blood. Hb has been in 7s (8) Rectal bleeding: Rectal bleeding noted in early Feb ASA and plavix were initially held and later resume once bleeding stopped He required 1 unit PRBC on 02/26 Per Gastroenterology, no indication for endoscopy Poor candidate for any procedures Currently on ASA, Plavix for h/o PAD (9) UTI (urinary tract infection): Urine Cx:- Enterobacter, Staph Urinary retention Completed cefepime course (10) Tongue cancer: Per oncology Follows with Oncology Dr. Cornell as outpatient--reports having done two cycles of chemotherapy prior to this admission. He was inpatient evaluated by ENT Dr. Lyon who recommends NPO, andif airway compromise, will need tracheostomy Continue G-tube feeding Was on tube feeding Tubosource while inpatient. However, nursing facility recommended change to Jevity due to availability. Tubefeeding recommendations on discharge were as follows: -Jevity 1.5 at rate of 65ml/hr x 16hr/day from 1800 to 1000. -Free water flushes 150ml q4h -Maintain head of bed >30-45 degrees during feeding and 60mins after. (11) Peripheral vascular disease: On aspirin, statin, Plavix For his pentoxyfylline, I called the pharm [facility]. They did not have crushable ones. Hence this was discontinued for now Patient was seen by shipping and receiving specialist while inpatient He changed his code status to DNR Discharge Exam Constitutional + well hydrated and + thin; no acute distress Eyes PERRL, conjunctivae normal, anicteric sclerae ENMT external ear and nose normal, oropharynx normal Respiratory normal respiratory effort, lungs clear to auscultation Cardiovascular Rate/Rhythm: + irregularly irregular S1 S2 Gastrointestinal (Abdomen) normal bowel sounds, soft, nontender, no hepatosplenomegaly PEG tube in situ Musculoskeletal No pedal edema Neurologic PERRL, EOMI, accommodation nl, no face palsy, no dysarthria Genitourinary Fowler in situ Updated Medication List Medication Instructions Recorded Confirmed Type dexamethasone 4 mg tablet 20 mg PO UD 02/01/22 02/01/22 History polyethylene glycol 3350 17 17 g PO DAILY PRN Constipation 02/01/22 02/01/22 History gram/dose oral powder L.acidop,casei,lactis,rham-B.lact,daniel 2 cap PO DAILY #14 caps 03/19/22 Rx 625 mg (10 billion cell) capsule (Advanced Probiotic) aspirin 81 mg tablet,delayed 81 mg feeding tube DAILY #30 tabs 03/19/22 Rx release atorvastatin 40 mg tablet 40 mg feeding tube HS #30 tabs 03/19/22 Rx cefazolin 1 gram intravenous 2 g IV Q12H #7 ea 03/19/22 Rx solution clopidogrel 75 mg tablet 75 mg feeding tube QAM #30 tabs 03/19/22 Rx docusate sodium 100 mg capsule 100 mg PO BID #60 caps 03/19/22 Rx febuxostat 40 mg tablet 20 mg feeding tube QAM #20 tabs 03/19/22 02/01/22 Rx isosorbide mononitrate 20 mg tablet 20 mg feeding tube 03/19/22 Rx TID@0700,1200,1700 #90 tabs metoprolol tartrate 25 mg tablet 12.5 mg feeding tube BID #30 tabs 03/19/22 02/01/22 Rx pentoxifylline 400 mg 400 mg PO BID #60 tabs 03/19/22 Rx tablet,extended release tamsulosin 0.4 mg capsule 0.4 mg PO DAILY #30 caps 03/19/22 Rx Hospital Stay Data Consultations 02/02/22 00:23 ED Decision to Admit Stat 02/02/22 08:00 Consult Gastroenterology Routine Consult Urology Routine 02/02/22 14:23 Consult Infectious Diseases Routine 02/03/22 15:41 Consult General Surgery Routine 02/07/22 10:27 Consult Pulmonology Routine 02/08/22 08:31 Consult Cardiology Routine 02/12/22 08:51 Consult Otolaryngology (Head and Neck) Routine 02/14/22 07:42 Consult Palliative Care Routine 03/12/22 14:29 Consult Urology Routine Procedures Performed Operation Date: 02/04/22 09:30 <No data on this case meets the specified criteria> Operation Date: 02/05/22 11:50 Actual Procedures p Infusaport Removal(Right) - Han Keene MD Diagnostic Imagining Performed 02/02/22 11:08 CT abdomen wo con Urgent 02/07/22 11:56 US point of care ultrasound Urgent 02/10/22 07:37 CT neck soft tissues [CT soft tissue neck wo con] Routine 03/10/22 09:12 CT chest diagnostic wo con Routine Pending Results Patient Have Any Pending Studies at Discharge: No Discharge Instructions Given to Patient (Per Discharging Provider) Mr Grider. You came to the hospital with fevers. You were evaluated and found to have MSSA bacteremia, possible infective endocarditis and urinary tract infection. You were comanaged with different specialists. Infectious disease specialist recommend IV ancef for 6 weeks. You have been on this for the past few weeks. Please continue IV Ancef 2g q12h until 03/22/22 after which your PICC line may be discontinued. You also had urinary retention and failed voiding trials. You are being discharged with a Fowler catheter. Voiding trial can be tried at the nursing facility. You can follow-up with urology outpatient. Due to your tongue tumor, the ENT specialist recommends nothing by mouth (NPO) and feeding and meds through your PEG tube. Your tube feeding at the facility is as follows: -Jevity 1.5 at rate of 65ml/hr x 16hr/day from 1800 to 1000. -Free water flushes 150ml q4h -Maintain head of bed >30-45 degrees during feeding and 60mins after. Please continue to follow up with multifocal lens inspector at the facility. It was a pleasure taking care of you. Total Time Total Time Spent Total Time Spent (In Minutes): 50 Total Time Includes: Examination of the Patient, Discharge Planning and Medication Reconciliation
--- NOTE | 2022-03-20 12:44 | Anesthesiology Progress Note ---
Date of Service March 20, 2022 Anesthesia Post Procedure Vital Signs Vital Signs: Temp Pulse Resp BP Pulse Ox 03/19/22 13:54 98.1 F 64 20 159/67 H 97 Pain Intensity Bilateral Buttock: Pain Intensity: 0 Back: Pain Intensity: 4 Bilateral Shoulder: Pain Intensity: 7 Transfer of Care Handoff Completed per policy Notes Mental Status: alert / awake / arousable and participated in evaluation Patient Amnestic to Procedure: Yes Nausea / Vomiting: adequately controlled Pain: adequately controlled Airway Patency, RR, SpO2: stable & adequate BP & HR: stable & adequate Hydration State: stable & adequate Anesthetic Complications: no major complications apparent and Pt Satisfied with anesthetic care Notes: This post procedure note was for his infusaport removal on 02/05/2022.
--- NOTE | 2022-03-26 14:34 | Operative Report ---
Post Operative Report Pre & Post Diagnosis Operation Date: 02/04/22 09:30 <No data on this case meets the specified criteria> Operation Date: 02/05/22 11:50 Pre-Op Diagnosis: Bacteremia due to methicillin susceptible Staphylococcus aureus Post-Op Diagnosis: Bacteremia due to methicillin susceptible Staphylococcus aureus I identified the patient and participated in the time-out.: Yes Procedure Operation Date: 02/04/22 09:30 <No data on this case meets the specified criteria> Operation Date: 02/05/22 11:50 Actual Procedures p Infusaport Removal(Right) - Han Keene MD Surgeon Han Keene MD [employer] none Estimated Blood Loss 2 Findings Consistent with Post-Op Diagnosis Specimens access port Anesthesia Type MAC Complications none Description of Procedure patient was taken to the OR and placed on the OR table. after time out and adequate anesthesia/analgesia was obtained, the area was prepped. local anesthetic was injected into and around the port site. incision was reopened with 15 lade scalpel and the port and catheter were removed. pus was returned. cultures sent. hemostasis was excellent. the subcutaneous tissue was closed with 3-0 vicryl, and the skin was closed medially with 3-0 nylon sutures. the rest was packed and a dressing was placed. he tolerated the procedure without issue and was transported in stable condition to the PACU. all instrument needle and sponge counts were correct at the end of the case. I attest to the content of the Intraoperative Record and any orders documented therein. Any exceptions are noted below.
== END 2022-03-19 15:10 | DRG 314 ==
LOC: ED 22:00 → EDINP 02-02 01:38 → SUATTDRO 02-02 01:38 → EDINP 02-03 03:38 → 2N 02-03 16:43
DX: Z95.828 Presence of other vascular implants and grafts; Z79.02 Long term (current) use of antithrombotics/antiplatelets; J91.0 Malignant pleural effusion; Z66 Do not resuscitate; Z93.1 Gastrostomy status; N40.1 Benign prostatic hyperplasia with lower urinary tract symptoms; R00.1 Bradycardia, unspecified; I25.10 Atherosclerotic heart disease of native coronary artery without angina pectoris; T80.211A Bloodstream infection due to central venous catheter, initial encounter; C78.00 Secondary malignant neoplasm of unspecified lung; T36.95XA Adverse effect of unspecified systemic antibiotic, initial encounter; Z87.891 Personal history of nicotine dependence; N39.0 Urinary tract infection, site not specified; I48.91 Unspecified atrial fibrillation; I10 Essential (primary) hypertension; I73.9 Peripheral vascular disease, unspecified; B96.89 Other specified bacterial agents as the cause of diseases classified elsewhere; E78.5 Hyperlipidemia, unspecified; K62.5 Hemorrhage of anus and rectum; D62 Acute posthemorrhagic anemia; A41.9 Sepsis, unspecified organism; R33.9 Retention of urine, unspecified; J96.01 Acute respiratory failure with hypoxia; I33.0 Acute and subacute infective endocarditis; K52.1 Toxic gastroenteritis and colitis; Y92.019 Unspecified place in single-family (private) house as the place of occurrence of the external cause; C01 Malignant neoplasm of base of tongue; B95.61 Methicillin susceptible Staphylococcus aureus infection as the cause of diseases classified elsewhere